=== PATIENT | male | born 1970 | race Two or more races ===

== ENCOUNTER 2019-06-01 10:04 | Inpatient (IN) | payer BC ==
[~2019-06-01] VITALS: Ht 172.7 cm; Wt 72.4 kg
[~2019-06-01 10:04] MED LIST: CYMBALTA30 MG ORAL; SEROQUEL50 MG ORAL
--- NOTE | 2019-06-01 10:13 | Emergency Room Report ---
History of Present Illness General Chief Complaint: Altered Mental Status Source: Patient, EMS Present Illness HPI 39yo M Reported medical history of bipolar disorder and depression as well as stroke with residual right hemiparesis, brought in by ambulance for change in mental status witnessed by . MS reported normal blood sugar, normal vital signs, and patient awake, but simply not speaking to them and in no apparent distress and does not appear to be attempting to communicate. Allergies: Coded Allergies: No Known Allergies (Unverified , 06/01/19) Patient History Limited by: medical condition Past Medical History: unable to obtain Reviewed Nursing Documentation: PMH: Agreed; PSxH: Agreed Nursing Documentation-PMH History Of Psychiatric Problem: Yes - depression and bi-polar Hx Cerebrovascular Accident: Yes - rt sided weakness Review of Systems All Other Systems: limited - 2/2 change in mental status/medical condition Physical Exam Vital Signs Date Time Temp Pulse Resp B/P (MAP) Pulse Ox O2 Delivery O2 Flow Rate FiO2 06/01/19 09:49 97.9 76 20 130/70 (90) 97 Room Air Sp02 EP Interpretation: reviewed, normal General Appearance: alert, non-toxic, mild distress - responding to name, but not following commands Head: normocephalic Eyes: bilateral eye normal inspection, bilateral eye PERRL, bilateral eye EOMI ENT: normal ENT inspection, hearing grossly normal, normal pharynx, no angioedema, normal voice, moist mucus membranes Neck: normal inspection, full range of motion, supple, supple/symm/no masses Respiratory: chest non-tender, lungs clear, normal breath sounds, chest symmetrical, palpation of chest normal Cardiovascular #1: normal peripheral pulses, regular rate, rhythm Cardiovascular #2: 2+ radial (R), 2+ radial (L) Gastrointestinal: normal inspection, non tender, soft, no mass, no guarding, no rebound Rectal: deferred Genitourinary: normal inspection, no CVA tenderness Musculoskeletal: back normal, normal range of motion, no calf tenderness, gait/ station normal, non-tender Neurologic: alert, motor strength/tone normal - moving all extremities slightly , operator supply III-XII nml as tested - no obvious droop, but limited 2/2 cooperation/AMS , sensory intact, responsive - says name slowly, otherwise not responding to orientation questions or commands Psychiatric: anxious - hyperventilating, trying to shift around in stretcher Skin: warm/dry Lymphatic: no adenopathy Medical Decision Making Diagnostic Impression: Primary Impression: Altered mental status ER Course Patient's family is not here, per EMS report he has a history of stroke, he is only on 2 psychiatric medications, there is no known history of seizures. There is also no last known normal time. Differential diagnosis is broad including but not limited to: Intracranial hemorrhage versus stroke versus postictal state versus seizure versus psychosis versus serotonin syndrome versus substance abuse versus head injury versus toxic metabolic encephalopathy He was given 2 mg of IV Ativan to keep him from moving in order to facilitate CT scan. CT head, x-ray, labs, EKG, urine, psychology screens all unremarkable. Patient feels better, suspect he may have had a seizure, will admit to telemetry, Dr. Bakari Logan contacted. EKG Diagnostic Results EKG Time: 10:03 EP Interpretation: No STEMI Rate: normal Rhythm: NSR ST Segments: no acute changes Rhythm Strip Diag. Results Rhythm Strip Time: 10:13 EP Interpretation: yes Rate: 64 Rhythm: NSR, no PVC's, no ectopy Chest X-Ray Diagnostic Results Chest X-Ray Diagnostic Results : Chest X-Ray Ordered: Yes # of Views/Limited/Complete: 1 View Indication: Other - ams EP Interpretation: Yes Interpretation: no consolidation, no effusion, no pneumothorax, no acute cardiopulmonary disease Impression: No acute disease Electronically Signed by: Tish Shea MD CT/MRI/US Diagnostic Results CT/MRI/US Diagnostic Results : Imaging Test Ordered: ct head Reevaluation Time: 11:50 Last Vital Signs Date Time Temp Pulse Resp B/P (MAP) Pulse Ox O2 Delivery O2 Flow Rate FiO2 06/01/19 09:49 97.9 76 20 130/70 (90) 97 Room Air Status: improved Reevaluation Impression Patient is now feeling much better, speaking clearly, and using his smart phone. He cannot tell me exactly what happened today, and although he has no obvious evidence of tongue biting or incontinence, I suspect he may have been postictal from a seizure Disposition: ADMITTED INPATIENT Condition: TISH Adam M.D Jun 01, 2019 10:13
[2019-06-01 10:17] VITALS: BP 137/77
[2019-06-01] MEDS ORDERED: LORazepam Inj 2mg/ml 1ml ONE (10:20)
[2019-06-01] MEDS ORDERED: LORazepam Inj 2mg/ml 1ml IV ONE ×2 (10:30)
[2019-06-01 10:33] LABS: APPEARANCE,URINE CLEAR; BASOPHILS % (AUTO) 0.6 % (0.0-2.0); BILIRUBIN, URINE NEGATIVE (NEGATIVE); EOSINOPHILS % (AUTO) 1.5 % (0.0-3.0); GLUCOSE, URINE (UA) NEGATIVE (NEGATIVE); HEMATOCRIT 40.8 % (42.0-52.0); HEMOGLOBIN 13.6 G/DL (14.2-18.0); KETONES,URINE NEGATIVE (NEGATIVE); LEUKOCYTE ESTERASE ,URINE NEGATIVE (NEGATIVE); LYMPHOCYTES % (AUTO) 25.1 % (20.0-45.0); MEAN CORPUSCULAR VOLUME 86 FL (80-99); MONOCYTES % (AUTO) 9.9 % (1.0-10.0); NEUTROPHILS % (AUTO) 62.9 % (45.0-75.0); NITRITE,URINE NEGATIVE (NEGATIVE); PH,URINE 7 (4.5-8.0); PLATELET COUNT 271 K/UL (150-450); PROTEIN,URINE NEGATIVE (NEGATIVE); RED BLOOD COUNT 4.76 M/UL (4.70-6.10); RED CELL DISTRIBUTION WIDTH 12.2 % (11.6-14.8); UROBILINOGEN,URINE NORMAL MG/DL (0.0-1.0); WHITE BLOOD COUNT 7.9 K/UL (4.8-10.8)
[2019-06-01 10:41] LABS: COLOR,URINE YELLOW
[2019-06-01 10:54] LABS: AMMONIA 27 umol/L (11-32)
[2019-06-01 11:02] LABS: ANION GAP 7 mmol/L (5-15); BLOOD UREA NITROGEN 8 mg/dL (7-18); CALCIUM 8.5 MG/DL (8.5-10.1); CARBON DIOXIDE 28 MMOL/L (21-32); CHLORIDE 105 MMOL/L (98-107); CREATININE 0.8 MG/DL (0.55-1.30); POTASSIUM 3.7 MMOL/L (3.5-5.1); SODIUM 140 MMOL/L (136-145)
[2019-06-01 11:07] LABS: ALANINE AMINOTRANSFERASE 32 U/L (12-78); ALBUMIN 3.7 G/DL (3.4-5.0); ALKALINE PHOSPHATASE 78 U/L (46-116); ASPARTATE AMINO TRANSFERASE 18 U/L (15-37); BILIRUBIN,TOTAL 0.6 MG/DL (0.2-1.0); CREATINE KINASE 160 U/L (26-308)
--- NOTE | 2019-06-01 11:59 | Diagnostic Imaging Report ---
Indication: Dyspnea Comparison: None A single view chest radiograph was obtained. Findings: No definite infiltrate or pulmonary vascular congestion identified. The heart is enlarged. The aorta is mildly enlarged consistent with atherosclerotic vascular disease. There are cervical fusion hardware partially seen. The bones are osteopenic. Impression: No acute disease
[2019-06-01 12:20] VITALS: BP 121/72
--- NOTE | 2019-06-01 12:47 | Diagnostic Imaging Report ---
Indication: Headache Technique: Contiguous 5 mm thick transaxial imaging of the head obtained in a Siemens Sensation [address] scanner. Soft tissue and bone windows generated. Automatic Exposure Control was utilized. Total Dose length Product (DLP): 1300.[address] Dose Index Volume (CTDIvol): 62.7 mGy Comparison: none Findings: The size and configuration of the cortical sulci, basal cisterns, and ventricles are within normal limits for age. There is no mass effect, midline shift, or edema identified. There is no evidence of acute hemorrhage or abnormal intra-axial or extra-axial fluid collections. The bones and soft tissues are unremarkable. Impression: No mass effect, edema or acute bleed. The CT scanner at [facility] is accredited by the [employer] and the scans are performed using dose optimization techniques as appropriate to a performed exam including Automatic Exposure control.
[2019-06-01] MEDS: Aspirin EC 81mg tab ORAL SCH (13:35)
[2019-06-01 13:36] VITALS: BP 115/90
[2019-06-01 14:00] VITALS: BP 102/68
[2019-06-01] MEDS: D5 1/2NS 1,000 ML IV SCH (15:34)
[2019-06-01 16:00] VITALS: BP 105/69
[2019-06-01] MEDS: NovoLOG Insulin Flexpen SUBQ SCH ×2 (16:30→21:00)
[2019-06-01] MEDS ORDERED: Gadavist 7.5mMol/7.5ml vial IV PRN (18:15)
[2019-06-01 20:00] VITALS: BP 132/70
[2019-06-01] MEDS: Heparin 5000 units/ml inj SUBQ SCH (21:00)
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
[2019-06-02] VITALS: BP 102/67
[2019-06-02 04:00] VITALS: BP 118/70
[2019-06-02] MEDS: NovoLOG Insulin Flexpen SUBQ SCH ×4 (06:07→21:00)
[2019-06-02 07:14] LABS: BASOPHILS % (AUTO) 0.7 % (0.0-2.0); EOSINOPHILS % (AUTO) 2.2 % (0.0-3.0); HEMATOCRIT 40.4 % (42.0-52.0); HEMOGLOBIN 13.6 G/DL (14.2-18.0); LYMPHOCYTES % (AUTO) 29.6 % (20.0-45.0); MEAN CORPUSCULAR VOLUME 86 FL (80-99); MONOCYTES % (AUTO) 8.8 % (1.0-10.0); NEUTROPHILS % (AUTO) 58.8 % (45.0-75.0); PLATELET COUNT 272 K/UL (150-450); RED BLOOD COUNT 4.71 M/UL (4.70-6.10); RED CELL DISTRIBUTION WIDTH 12.7 % (11.6-14.8); WHITE BLOOD COUNT 7.5 K/UL (4.8-10.8)
[2019-06-02 07:40] LABS: ALANINE AMINOTRANSFERASE 32 U/L (12-78); ALBUMIN 3.5 G/DL (3.4-5.0); ALKALINE PHOSPHATASE 71 U/L (46-116); ANION GAP 7 mmol/L (5-15); ASPARTATE AMINO TRANSFERASE 18 U/L (15-37); BILIRUBIN,TOTAL 0.5 MG/DL (0.2-1.0); BLOOD UREA NITROGEN 7 mg/dL (7-18); CALCIUM 8.6 MG/DL (8.5-10.1); CARBON DIOXIDE 27 MMOL/L (21-32); CHLORIDE 108 MMOL/L (98-107); CREATININE 0.7 MG/DL (0.55-1.30); SODIUM 142 MMOL/L (136-145)
[2019-06-02 08:00] VITALS: BP 110/75
[2019-06-02] MEDS: Aspirin EC 81mg tab ORAL SCH ×2 (09:00→09:12)
[2019-06-02] MEDS: DULoxetine 30mg cap ORAL SCH ×2 (09:00→09:11)
[2019-06-02] MEDS: Heparin 5000 units/ml inj SUBQ SCH ×3 (09:00→21:46)
[2019-06-02] MEDS: D5 1/2NS 1,000 ML IV SCH (09:11)
[2019-06-02 12:00] VITALS: BP 102/70
--- NOTE | 2019-06-02 12:22 | Consultation ---
History of Present Illness General Date patient seen: Jun 02, 2019 Chief Complaint: Altered Mental Status Present Illness HPI 39 y/o M with hx of bipolar disorder, former tobacco and ETOH use, Dm2, HTN, cervical spine disease s/p surgery w/ residual R hemiparesis presented to ED on 06/01 with mental status change noted by his . Patient was not speaking but was alert and awake. In ED was already more communicative. WBC normal, toxicology negative, CT head neg. Patient recently had flu-like symptoms with sore throat, cough Denied DELGADO. Allergies: Coded Allergies: No Known Allergies (Unverified , 06/01/19) Medication History Scheduled Duloxetine Hcl* (Cymbalta*), 30 MG ORAL DAILY, (Reported) Quetiapine Fumarate (Seroquel), 50 MG ORAL DAILY, (Reported) Patient History Healthcare decision maker Resuscitation status Full Code Advanced Directive on File No Patient History Narrative Pmhx: as above Shx: He stopped drinking around 2014. He used to be a heavy drinker. He smoked 1 package of cigarettes a day for 5 years and stopped smoking in 2016.He is , has 2 children, in good health. Fhx: non contributory Review of Systems All Other Systems: negative except mentioned in HPI Physical Exam Physical Exam Narrative HEENT: Reveals poor dentition. NECK: There is a long vertical surgical scar noted. There is some tenderness of his neck and some limitation of motion. Carotids are +2. No bruits were heard. LUNGS: Breath sounds are decreased bilaterally. CARDIOVASCULAR: The heart tones were decreased. I could not hear any S3, S4, murmurs, rubs, or clicks. ABDOMEN: Obese. Bowel sounds intact. No tenderness, masses, or organomegaly. BACK: There is diffuse tenderness over his back. EXTREMITIES: He has a surgical scar or deformity of the left MCP joint at the thumb. He has other evidence of degenerative joint disease in his hands. Peripheral pulses are decreased in the legs. Last 24 Hour Vital Signs Date Time Temp Pulse Resp B/P (MAP) Pulse Ox O2 Delivery O2 Flow Rate FiO2 06/02/19 12:00 96.6 61 20 102/70 (81) 97 06/02/19 08:27 Room Air 06/02/19 08:00 97.3 59 20 110/75 (87) 98 06/02/19 07:46 57 06/02/19 04:00 53 06/02/19 04:00 98.1 53 16 118/70 (86) 98 06/02/19 00:00 97.5 59 18 102/67 (79) 98 06/02/19 00:00 59 06/01/19 21:00 Room Air 06/01/19 20:00 97.7 65 18 132/70 (90) 98 06/01/19 20:00 65 06/01/19 18:18 Room Air 06/01/19 16:00 79 06/01/19 16:00 97.9 68 18 105/69 (81) 97 06/01/19 14:32 44 06/01/19 14:00 97.3 60 18 102/68 (79) 99 06/01/19 13:58 97.9 60 15 115/90 100 Room Air 06/01/19 13:36 97.9 60 15 115/90 100 Room Air 06/01/19 12:20 97.9 52 15 121/72 95 Room Air Intake and Output 06/01/19 06/02/19 19:00 07:00 Output Total 0 ml Balance 0 ml Output Urine Total 0 ml Laboratory Tests Test 06/02/19 06:15 White Blood Count 7.5 K/UL (4.8-10.8) Red Blood Count 4.71 M/UL (4.70-6.10) Hemoglobin 13.6 G/DL (14.2-18.0) L Hematocrit 40.4 % (42.0-52.0) L Mean Corpuscular Volume 86 FL (80-99) Mean Corpuscular Hemoglobin 28.9 PG (27.0-31.0) Mean Corpuscular Hemoglobin Concent 33.6 G/DL (32.0-36.0) Red Cell Distribution Width 12.7 % (11.6-14.8) Platelet Count 272 K/UL (150-450) Mean Platelet Volume 7.1 FL (6.5-10.1) Neutrophils (%) (Auto) 58.8 % (45.0-75.0) Lymphocytes (%) (Auto) 29.6 % (20.0-45.0) Monocytes (%) (Auto) 8.8 % (1.0-10.0) Eosinophils (%) (Auto) 2.2 % (0.0-3.0) Basophils (%) (Auto) 0.7 % (0.0-2.0) Sodium Level 142 MMOL/L (136-145) Potassium Level 4.0 MMOL/L (3.5-5.1) Chloride Level 108 MMOL/L (98-107) H Carbon Dioxide Level 27 MMOL/L (21-32) Anion Gap 7 mmol/L (5-15) Blood Urea Nitrogen 7 mg/dL (7-18) Creatinine 0.7 MG/DL (0.55-1.30) Estimat Glomerular Filtration Rate > 60 mL/min (>60) Glucose Level 104 MG/DL (74-106) Hemoglobin A1c 5.8 % (4.3-6.0) Calcium Level 8.6 MG/DL (8.5-10.1) Total Bilirubin 0.5 MG/DL (0.2-1.0) Aspartate Amino Transf (AST/SGOT) 18 U/L (15-37) Alanine Aminotransferase (ALT/SGPT) 32 U/L (12-78) Alkaline Phosphatase 71 U/L (46-116) Total Protein 7.0 G/DL (6.4-8.2) Albumin 3.5 G/DL (3.4-5.0) Globulin 3.5 g/dL Albumin/Globulin Ratio 1.0 (1.0-2.7) Height (Feet): 5 Height (Inches): 8.00 Weight (Pounds): 159 Medications Current Medications Medications (Trade) Dose Ordered Sig/Jannet Route PRN Reason Start Time Stop Time Status Last Admin Dose Admin Aspirin (Ecotrin) 162 mg DAILY ORAL 06/01/19 13:30 07/01/19 13:29 06/01/19 13:35 Dextrose (Dextrose 50%) 25 ml Q30M PRN IV Hypoglycemia 06/01/19 15:30 07/01/19 15:29 Dextrose (Dextrose 50%) 50 ml Q30M PRN IV Hypoglycemia 06/01/19 15:30 07/01/19 15:29 Dextrose/Sodium Chloride 1,000 ml @ 60 mls/hr [id number] IV 06/01/19 15:30 07/01/19 15:29 06/02/19 09:11 Duloxetine HCl (Cymbalta) 30 mg DAILY ORAL 06/02/19 09:00 07/02/19 08:59 Gadobutrol (Gadavist) 7.5 mmol NOW PRN IV Radiology Procedure 06/01/19 18:15 06/04/19 18:11 Heparin Sodium (Porcine) (Heparin 5000 units/ml) 5,000 units EVERY 12 HOURS SUBQ 06/01/19 21:00 07/01/19 20:59 Insulin Aspart (NovoLOG) BEFORE MEALS AND HS SUBQ 06/01/19 16:30 07/01/19 16:29 Ondansetron HCl (Zofran) 4 mg Q6H PRN IVP Nausea & Vomiting 06/02/19 09:30 07/02/19 09:29 06/02/19 12:09 Quetiapine Fumarate (SEROqueL) 50 mg DAILY ORAL 06/02/19 09:00 07/02/19 08:59 Assessment/Plan Assessment/Plan: Abx: None Acute encephalopathy -CT head: no acute diseae Cough, URI -CXR: no acute disease Afebrile No leukocytosis bipolar disorder former tobacco and ETOH use Dm2 HTN cervical spine disease s/p surgery w/ residual R hemiparesis Plan: -Continue to monitor off abx -f/u cx -Monitor CBC/CMP, temperatures -influenza sc -f/u Brain MRI -Neuro f/u Thank you for this consultation. Will continue to follow along with you. Discussed with Ml Almonte M.D. Jun 02, 2019 12:22
--- NOTE | 2019-06-02 12:49 | Cardiology Report ---
APPROVED REPORT EKG Measurement Heart [id number] Normal sinus rhythm Normal ECG
[2019-06-02] MEDS: LORazepam 0.5mg tab ORAL SCH ×3 (13:30→13:58)
[2019-06-02] MEDS: Morphine Sulfate 2mg/ml Inj(IV/IM USE ONLY) IVP PRN (13:39)
[2019-06-02] MEDS ORDERED: LORazepam Inj 2mg/ml 1ml IV SCH (13:52)
--- NOTE | 2019-06-02 14:26 | Diagnostic Imaging Report ---
Indications: Altered mental status, history of stroke with right-sided hemiparesis Technique: 3D [id number] images obtained through the [employer]. MIP reconstructions were generated in multiple rotational projections Comparison: None. Reference made to CT dated 06/01/2019 Findings: The right distal vertebral artery is slightly larger than the left. There are both patent and nonstenotic. Patent nonstenotic basilar artery and branches. Patent nonstenotic bilateral P1 segments and proximal posterior cerebral arteries. Neither posterior communicating artery is demonstrated. Patent and nonstenotic distal internal carotid arteries bilaterally. Patent nonstenotic bilateral A1 segments, M1 segments, and proximal branches. There is probably a patent anterior communicating artery demonstrated. There is no evidence of aneurysm. No evidence of vascular malformation Impression: Negative. No evidence of proximal cerebrovascular insufficiency demonstrated.
[2019-06-02 16:00] VITALS: BP 102/66
[2019-06-02] MEDS ORDERED: Omnipaue 350mg/ml 100ml vial INJ PRN ×2 (16:00)
--- NOTE | 2019-06-02 16:45 | History and Physical Report ---
DATE OF ADMISSION: 06/01/2019 DATE AND TIME SEEN: 06/02/2019 at 11 a.m. CONSULTANTS: 1. Martínez Antony M.D. 2. Johnathan Kirk M.D. 3. Ramona Miramontes M.D. CHIEF COMPLAINT: Altered mental status, schizophrenia, and history of CVA. BRIEF HISTORY: This is a 39-year-old male, who lives at home, presented to [facility] with above-mentioned diagnoses. Currently, very weak, confused in bed, not talking much. REVIEW OF SYSTEMS: Unavailable. PAST MEDICAL HISTORY: Hypertension, diabetes, and CVA. PAST SURGICAL HISTORY: None. ALLERGIES: Denies. MEDICATIONS: Include Zofran, Cymbalta, Seroquel, heparin, NovoLog, and aspirin. SOCIAL HISTORY: No smoking. No alcohol. No intravenous drug abuse. FAMILY HISTORY: Noncontributory. PHYSICAL EXAMINATION: GENERAL: Lethargic in bed, confused, disoriented x3. VITAL SIGNS: Temperature is 97 degrees, pulse 59, respirations 20, and blood pressure 110/75. CARDIOVASCULAR: No murmur. LUNGS: Distant and clear. ABDOMEN: Positive bowel sounds. Soft, nontender, and nondistended. EXTREMITIES: Show no cyanosis, clubbing, or edema. NEUROLOGIC: The patient moves all extremities, slightly weak. LABORATORY AND DIAGNOSTIC DATA: Labs at this time show hemoglobin and hematocrit 13/40, otherwise CBC is normal. BMP shows chloride 108, otherwise normal. Troponin 0.00. Albumin is 3.5. Urinalysis shows 1+ blood, otherwise normal. Urine tox is negative. ASSESSMENT: 1. Altered mental status. 2. Schizophrenia. 3. CVA history. 4. Hypertension. 5. Diabetes. PLAN: 1. Blood pressure, blood sugar and pain control. 2. Dietary followup. 3. Neurology and psych evaluation. 4. PT and dietary evaluation. 5. CBC and BMP in the morning. Bakari Logan D.O. DR: FABIOLA JOB#: [id number] CC:
[2019-06-02 20:00] VITALS: BP 102/70
--- NOTE | 2019-06-02 23:31 | Electroencephalogram ---
DATE OF PROCEDURE: 06/01/2019 REQUESTING PHYSICIAN: Bakari Logan D.O. READING PHYSICIAN: Primitivo Weber M.D. PROCEDURE PERFORMED: Electroencephalogram. HISTORY: This EEG was performed on a 39-year-old gentleman with a history of bipolar disease, cerebrovascular disease with a prior stroke, and alteration in mental state. The purpose of this EEG was to evaluate the patient for ongoing ictal or interictal phenomena. TECHNICAL NOTE: This EEG was performed on a [employer] with electrodes placed on the scalp according to the international 10-20 system. Lxjax-ov-oczij and vlgjb-nu-grs montages were used. The EEG was technically satisfactory and was performed in the awake, drowsy, and sleep states. OBSERVATIONS: In the best-awake state, the background activity consisted of 9 to 9.5 hertz posteriorly predominant well-developed alpha waveforms, which attenuated on eye opening. Drowsiness was characterized by dissolution of the alpha rhythm and appearance of slower frequencies in the 5 to 6 hertz theta range. Stage 2 sleep was characterized by further slowing of the background in the delta and theta range, the presence of vertex waves, and 14 hertz sleep spindles. No focal abnormalities or epileptiform discharges were seen. IMPRESSION: Normal awake, drowsy, and stage 2 sleep EEG. Primitivo Weber M.D. DR: Tato JOB#: [id number] CC:
[2019-06-03] VITALS: BP 127/67
[2019-06-03] MEDS: D5 1/2NS 1,000 ML IV SCH (00:50)
[2019-06-03 04:00] VITALS: BP 120/76
[2019-06-03] MEDS: NovoLOG Insulin Flexpen SUBQ SCH ×4 (06:00→21:00)
[2019-06-03 07:12] LABS: BASOPHILS % (AUTO) 0.9 % (0.0-2.0); EOSINOPHILS % (AUTO) 2.4 % (0.0-3.0); HEMOGLOBIN 13.7 G/DL (14.2-18.0); LYMPHOCYTES % (AUTO) 26.6 % (20.0-45.0); MEAN CORPUSCULAR VOLUME 86 FL (80-99); MONOCYTES % (AUTO) 8.7 % (1.0-10.0); NEUTROPHILS % (AUTO) 61.4 % (45.0-75.0); PLATELET COUNT 275 K/UL (150-450); RED BLOOD COUNT 4.77 M/UL (4.70-6.10); RED CELL DISTRIBUTION WIDTH 12.8 % (11.6-14.8); WHITE BLOOD COUNT 8.3 K/UL (4.8-10.8)
--- NOTE | 2019-06-03 07:18 | CDS Physician Query ---
Clarification is required for compliance, coding accuracy, and to reflect severity of illness for this patient Dear Dr. Bakari Logan D.O. Date: 06/03/2019 Chip Silo Tender/CDS Name: Franklin Abbott This is a 39-year-old male, who lives at home, presented to [facility] with above-mentioned diagnoses. Currently, very weak, confused in bed, not talking much. "Altered Mental Status" documented in H&P Please indicate the nature and chronicity of the condition below: [] Metabolic Encephalopathy [] Toxic Encephalopathy [] Toxic - Metabolic Encephalopathy [] Encephalopathy, Other [] Dementia with Delirium [] Hypoxic encephalopathy [] Posterior reversible encephalopathy syndrome [] Other: [] Not Applicable Present on Admission: [] Yes [] No [] Clinically Undetermined Physician signature Date Please also document in your Progress Notes and/or Discharge Summary and indicate if the condition was present on admission. MTDD
[2019-06-03 07:27] LABS: ANION GAP 9 mmol/L (5-15); BLOOD UREA NITROGEN 13 mg/dL (7-18); CALCIUM 9.1 MG/DL (8.5-10.1); CARBON DIOXIDE 23 MMOL/L (21-32); CHLORIDE 110 MMOL/L (98-107); CREATININE 0.7 MG/DL (0.55-1.30); POTASSIUM 4.2 MMOL/L (3.5-5.1); SODIUM 142 MMOL/L (136-145)
[2019-06-03 08:00] VITALS: BP 109/67
[2019-06-03] MEDS: Heparin 5000 units/ml inj SUBQ SCH ×2 (09:00→21:00)
[2019-06-03] MEDS: Aspirin EC 81mg tab ORAL SCH (09:59)
[2019-06-03] MEDS: DULoxetine 30mg cap ORAL SCH (10:00)
--- NOTE | 2019-06-03 10:04 | General Progress Note ---
Assessment/Plan Problem List: (1) CVA (cerebral vascular accident) ICD Codes: I63.9 - Cerebral infarction, unspecified SNOMED: 841538281 (2) HTN (hypertension) ICD Codes: I10 - Essential (primary) hypertension SNOMED: 00596022 (3) Diabetes ICD Codes: E11.9 - Type 2 diabetes mellitus without complications SNOMED: 38550468 (4) Altered mental status ICD Codes: R41.82 - Altered mental status, unspecified SNOMED: 153995753 Status: unchanged Assessment/Plan: pt diet neuro f/u cbc bmp am ct head Subjective Constitutional: Reports: weakness Allergies: Coded Allergies: No Known Allergies (Unverified , 06/01/19) All Systems: reviewed and negative except above Subjective sleepy calm Objective Last 24 Hour Vital Signs Date Time Temp Pulse Resp B/P (MAP) Pulse Ox O2 Delivery O2 Flow Rate FiO2 06/03/19 08:00 97.5 62 20 109/67 (81) 98 06/03/19 07:31 52 06/03/19 04:00 57 06/03/19 04:00 98.4 60 18 120/76 (91) 98 06/03/19 00:00 54 06/03/19 00:00 97.6 56 18 127/67 (87) 98 06/02/19 21:00 Room Air 06/02/19 20:00 98.4 72 18 102/70 (81) 98 06/02/19 20:00 75 06/02/19 16:00 96.3 68 20 102/66 (78) 97 06/02/19 15:40 58 06/02/19 14:09 96.6 06/02/19 12:00 96.6 61 20 102/70 (81) 97 06/02/19 11:41 59 Intake and Output 06/02/19 06/03/19 19:00 07:00 Intake Total 660 ml 180 ml Balance 660 ml 180 ml Intake Oral 240 ml 120 ml IV Total 420 ml 60 ml # Voids 3 3 # Bowel Movements 1 Laboratory Tests 06/03/19 06:03: White Blood Count 8.3, Red Blood Count 4.77, Hemoglobin 13.7L, Hematocrit 41.0L , Mean Corpuscular Volume 86, Mean Corpuscular Hemoglobin 28.8, Mean Corpuscular Hemoglobin Concent 33.5, Red Cell Distribution Width 12.8, Platelet Count 275, Mean Platelet Volume 6.6, Neutrophils (%) (Auto) 61.4, Lymphocytes (% ) (Auto) 26.6, Monocytes (%) (Auto) 8.7, Eosinophils (%) (Auto) 2.4, Basophils ( %) (Auto) 0.9, Sodium Level 142, Potassium Level 4.2, Chloride Level 110H, Carbon Dioxide Level 23, Anion Gap 9, Blood Urea Nitrogen 13, Creatinine 0.7, Estimat Glomerular Filtration Rate > 60, Glucose Level 107H, Calcium Level 9.1 Height (Feet): 5 Height (Inches): 8.00 Weight (Pounds): 159 General Appearance: lethargic EENT: normal ENT inspection Neck: normal alignment Cardiovascular: normal peripheral pulses, normal rate, regular rhythm Respiratory/Chest: chest wall non-tender, lungs clear, normal breath sounds Abdomen: normal bowel sounds, non tender, soft Extremities: normal inspection Neurologic: motor weakness Skin: normal pigmentation, warm/dry Bakari Logan DO Jun 03, 2019 10:04
--- NOTE | 2019-06-03 11:36 | Diagnostic Imaging Report ---
NDICATION: Altered mental status, history of stroke with right-sided hemiparesis TECHNIQUE: IV administration nonionic contrast. Spiral acquisitions obtained from the lung bases to the lung apices. Multiplanar and 3-D reconstructions were generated. Total dose length product 613 mGycm. CTDIvol(s) 32, 57, 14 mGy. Dose reduction achieved using automated exposure control COMPARISON: none FINDINGS Vascular: The aortic arch is normal in caliber and there is no evidence of dissection. There is variant great vessel branching anatomy, with separate origin of the left vertebral artery off of the aortic arch. This is unusual in that the vertebral artery comes off distal to the left subclavian artery rather than proximal The right brachiocephalic, common carotid artery, and internal carotid artery are patent, nonstenotic, without significant atherosclerotic plaquing demonstrated. The right proximal subclavian artery is patent and nonstenotic. The right vertebral artery is codominant, patent, nonstenotic The left common carotid artery is patent, nonstenotic, without significant atherosclerotic plaquing. The internal carotid artery is likewise patent, nonstenotic, without evidence of narrowing or dissection. As mentioned earlier, the left vertebral artery originates separately off of the aortic arch. It is patent and nonstenotic, without significant atherosclerotic changes. The intracranial vessels are also described on earlier MRA report, no significant intracranial stenosis demonstrated. Nonvascular: Unusual reticulated and calcified material is seen within the right maxillary sinus. There is evidence of extensive dental disease, with losses of multiple teeth, evidence of apical root abscess surrounding the remaining left molar, extensive erosion and sclerosis of the alveolar ridge of the maxilla,, evidence of periodontal disease of multiple remaining mandibular teeth, and sclerosis of the mandible. There is surgical hardware in the left mandibular ramus. No cervical mass or adenopathy. The parapharyngeal spaces are clear. The salivary glands appear unremarkable. There is evidence of extensive posterior cervical spine fusion surgery. There is evidence of degenerative cervical spondylosis The thyroid is unremarkable. The included lung apices are clear. The included upper mediastinum is unremarkable. 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
--- NOTE | 2019-06-03 13:31 | Infectious Diseases Prog Note ---
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 No evidence of proximal cerebrovascular insufficiency demonstrated. Cough, URI -CXR: no acute disease Afebrile No leukocytosis bipolar disorder former tobacco and ETOH use Dm2 HTN cervical spine disease s/p surgery w/ residual R hemiparesis Plan: -Continue to monitor off abx -f/u cx -Monitor CBC/CMP, temperatures -influenza sc -Neuro f/u Thank you for this consultation. Will continue to follow along with you. Discussed with RN Subjective Allergies: Coded Allergies: No Known Allergies (Unverified , 06/01/19) Subjective afebrile no leukocytosis off abx Objective Vital Signs Last 24 Hour Vital Signs Date Time Temp Pulse Resp B/P (MAP) Pulse Ox O2 Delivery O2 Flow Rate FiO2 06/03/19 12:00 86 06/03/19 09:00 Room Air 06/03/19 08:00 97.5 62 20 109/67 (81) 98 06/03/19 07:31 52 06/03/19 04:00 57 06/03/19 04:00 98.4 60 18 120/76 (91) 98 06/03/19 00:00 54 06/03/19 00:00 97.6 56 18 127/67 (87) 98 06/02/19 21:00 Room Air 06/02/19 20:00 98.4 72 18 102/70 (81) 98 06/02/19 20:00 75 06/02/19 16:00 96.3 68 20 102/66 (78) 97 06/02/19 15:40 58 06/02/19 14:09 96.6 Height (Feet): 5 Height (Inches): 8.00 Weight (Pounds): 159 Objective HEENT: Reveals poor dentition. NECK: There is a long vertical surgical scar noted. There is some tenderness of his neck and some limitation of motion. Carotids are +2. No bruits were heard. LUNGS: Breath sounds are decreased bilaterally. CARDIOVASCULAR: The heart tones were decreased. I could not hear any S3, S4, murmurs, rubs, or clicks. ABDOMEN: Obese. Bowel sounds intact. No tenderness, masses, or organomegaly. BACK: There is diffuse tenderness over his back. EXTREMITIES: He has a surgical scar or deformity of the left MCP joint at the thumb. He has other evidence of degenerative joint disease in his hands. Peripheral pulses are decreased in the legs. Laboratory Tests Test 06/03/19 06:03 White Blood Count 8.3 K/UL (4.8-10.8) Red Blood Count 4.77 M/UL (4.70-6.10) Hemoglobin 13.7 G/DL (14.2-18.0) L Hematocrit 41.0 % (42.0-52.0) L Mean Corpuscular Volume 86 FL (80-99) Mean Corpuscular Hemoglobin 28.8 PG (27.0-31.0) Mean Corpuscular Hemoglobin Concent 33.5 G/DL (32.0-36.0) Red Cell Distribution Width 12.8 % (11.6-14.8) Platelet Count 275 K/UL (150-450) Mean Platelet Volume 6.6 FL (6.5-10.1) Neutrophils (%) (Auto) 61.4 % (45.0-75.0) Lymphocytes (%) (Auto) 26.6 % (20.0-45.0) Monocytes (%) (Auto) 8.7 % (1.0-10.0) Eosinophils (%) (Auto) 2.4 % (0.0-3.0) Basophils (%) (Auto) 0.9 % (0.0-2.0) Sodium Level 142 MMOL/L (136-145) Potassium Level 4.2 MMOL/L (3.5-5.1) Chloride Level 110 MMOL/L (98-107) H Carbon Dioxide Level 23 MMOL/L (21-32) Anion Gap 9 mmol/L (5-15) Blood Urea Nitrogen 13 mg/dL (7-18) Creatinine 0.7 MG/DL (0.55-1.30) Estimat Glomerular Filtration Rate > 60 mL/min (>60) Glucose Level 107 MG/DL (74-106) H Calcium Level 9.1 MG/DL (8.5-10.1) Current Medications Medications (Trade) Dose Ordered Sig/Jannet Route PRN Reason Start Time Stop Time Status Last Admin Dose Admin Aspirin (Ecotrin) 162 mg DAILY ORAL 06/01/19 13:30 07/01/19 13:29 06/03/19 09:59 Dextrose (Dextrose 50%) 25 ml Q30M PRN IV Hypoglycemia 06/01/19 15:30 07/01/19 15:29 Dextrose (Dextrose 50%) 50 ml Q30M PRN IV Hypoglycemia 06/01/19 15:30 07/01/19 15:29 Duloxetine HCl (Cymbalta) 30 mg DAILY ORAL 06/02/19 09:00 07/02/19 08:59 06/03/19 10:00 Gadobutrol (Gadavist) 7.5 mmol NOW PRN IV Radiology Procedure 06/01/19 18:15 06/04/19 18:11 Heparin Sodium (Porcine) (Heparin 5000 units/ml) 5,000 units EVERY 12 HOURS SUBQ 06/01/19 21:00 07/01/19 20:59 06/02/19 21:46 Insulin Aspart (NovoLOG) BEFORE MEALS AND HS SUBQ 06/01/19 16:30 07/01/19 16:29 06/03/19 12:18 Iohexol (Omnipaque) 100 mg NOW PRN INJ Radiology Procedure 06/02/19 16:00 06/04/19 15:47 Iohexol (Omnipaque) 100 mg NOW PRN INJ Radiology Procedure 06/02/19 16:00 06/04/19 15:47 Morphine Sulfate (Morphine Sulfate) 2 mg Q4H PRN IVP For Pain 06/02/19 13:19 06/09/19 13:18 06/02/19 13:39 Ondansetron HCl (Zofran) 4 mg Q6H PRN IVP Nausea & Vomiting 06/02/19 09:30 07/02/19 09:29 06/02/19 12:09 Quetiapine Fumarate (SEROqueL) 50 mg DAILY ORAL 06/02/19 09:00 07/02/19 08:59 06/03/19 09:59 Ml Donald M.D. Jun 03, 2019 13:31
--- NOTE | 2019-06-03 13:39 | Diagnostic Imaging Report ---
Indication: Altered mental status, history of bipolar disorder and depression, history of stroke with right-sided hemiparesis Technique: sagittal T1 fast spin echo, axial T1 FLAIR, axial T2 FLAIR, axial T2 FS PROPELLER, axial T2* GRE, axial diffusion weighted images. ADC and exponential ADC maps generated Comparison: No comparison MRI. Reference made to brain CT dated 06/01/2019 Findings: No abnormal areas of restricted diffusion to suggest acute infarction. No acute hemorrhage or edema. No mass effect nor midline shift. The ventricles and extra-axial CSF spaces are somewhat prominent for age.. There is right greater than left maxillary sinus opacities. The vascular flow voids are preserved. The sagittal images demonstrate fusion hardware in the mid to lower cervical spine. Impression: Mild prominence of the ventricles and extra axial CSF spaces. Otherwise essentially unremarkable exam. Negative for acute intracranial bleed, mass effect, or acute infarct. Sinus disease and spinal fusion hardware incidentally noted
[2019-06-03 16:00] VITALS: BP 106/71
[2019-06-04 04:00] VITALS: BP 118/74
[2019-06-04] MEDS: NovoLOG Insulin Flexpen SUBQ SCH ×4 (06:05→21:00)
[2019-06-04 08:16] LABS: BASOPHILS % (AUTO) 0.8 % (0.0-2.0); EOSINOPHILS % (AUTO) 2.5 % (0.0-3.0); HEMATOCRIT 43.3 % (42.0-52.0); HEMOGLOBIN 14.5 G/DL (14.2-18.0); LYMPHOCYTES % (AUTO) 28.8 % (20.0-45.0); MEAN CORPUSCULAR VOLUME 87 FL (80-99); MONOCYTES % (AUTO) 6.5 % (1.0-10.0); NEUTROPHILS % (AUTO) 61.3 % (45.0-75.0); PLATELET COUNT 285 K/UL (150-450); RED BLOOD COUNT 5.01 M/UL (4.70-6.10); RED CELL DISTRIBUTION WIDTH 12.7 % (11.6-14.8); WHITE BLOOD COUNT 8.8 K/UL (4.8-10.8)
[2019-06-04 08:38] VITALS: BP 131/87
[2019-06-04 08:41] LABS: ANION GAP 8 mmol/L (5-15); BLOOD UREA NITROGEN 10 mg/dL (7-18); CALCIUM 9.1 MG/DL (8.5-10.1); CARBON DIOXIDE 28 MMOL/L (21-32); CHLORIDE 107 MMOL/L (98-107); CREATININE 0.8 MG/DL (0.55-1.30); POTASSIUM 3.8 MMOL/L (3.5-5.1); SODIUM 143 MMOL/L (136-145)
[2019-06-04] MEDS: Aspirin EC 81mg tab ORAL SCH (09:35)
[2019-06-04] MEDS: DULoxetine 30mg cap ORAL SCH (09:35)
[2019-06-04] MEDS: Heparin 5000 units/ml inj SUBQ SCH ×2 (09:36→21:24)
--- NOTE | 2019-06-04 09:44 | General Progress Note ---
Assessment/Plan Problem List: (1) CVA (cerebral vascular accident) ICD Codes: I63.9 - Cerebral infarction, unspecified SNOMED: 729377432 (2) HTN (hypertension) ICD Codes: I10 - Essential (primary) hypertension SNOMED: 53084449 (3) Diabetes ICD Codes: E11.9 - Type 2 diabetes mellitus without complications SNOMED: 86132458 (4) Altered mental status ICD Codes: R41.82 - Altered mental status, unspecified SNOMED: 122991007 Status: unchanged Assessment/Plan: pt diet neuro f/u cbc bmp am dc plan w hh Subjective Constitutional: Reports: weakness Allergies: Coded Allergies: No Known Allergies (Unverified , 06/01/19) All Systems: reviewed and negative except above Subjective sleepy calm Objective Last 24 Hour Vital Signs Date Time Temp Pulse Resp B/P (MAP) Pulse Ox O2 Delivery O2 Flow Rate FiO2 06/04/19 08:45 Room Air 06/04/19 08:38 99.1 53 18 131/87 (102) 95 06/04/19 04:00 98.1 48 18 118/74 (89) 97 06/04/19 04:00 48 06/04/19 00:00 45 06/04/19 00:00 45 06/03/19 21:00 Room Air 06/03/19 20:00 60 06/03/19 20:00 60 06/03/19 16:00 96.6 80 20 106/71 (83) 98 06/03/19 15:18 51 06/03/19 12:00 86 Intake and Output 06/03/19 06/04/19 19:00 07:00 Intake Total 940 ml 800 ml Output Total 0 ml Balance 940 ml 800 ml Intake Oral 940 ml 800 ml Output Urine Total 0 ml # Voids 3 5 # Bowel Movements 1 Laboratory Tests 06/04/19 06:02: White Blood Count 8.8, Red Blood Count 5.01, Hemoglobin 14.5, Hematocrit 43.3, Mean Corpuscular Volume 87, Mean Corpuscular Hemoglobin 29.0, Mean Corpuscular Hemoglobin Concent 33.6, Red Cell Distribution Width 12.7, Platelet Count 285, Mean Platelet Volume 6.4L, Neutrophils (%) (Auto) 61.3, Lymphocytes (%) (Auto) 28.8, Monocytes (%) (Auto) 6.5, Eosinophils (%) (Auto) 2.5, Basophils (%) (Auto ) 0.8, Sodium Level 143, Potassium Level 3.8, Chloride Level 107, Carbon Dioxide Level 28, Anion Gap 8, Blood Urea Nitrogen 10, Creatinine 0.8, Estimat Glomerular Filtration Rate > 60, Glucose Level 94, Calcium Level 9.1 Height (Feet): 5 Height (Inches): 8.00 Weight (Pounds): 159 General Appearance: lethargic EENT: normal ENT inspection Neck: normal alignment Cardiovascular: normal peripheral pulses, normal rate, regular rhythm Respiratory/Chest: chest wall non-tender, lungs clear, normal breath sounds Abdomen: normal bowel sounds, non tender, soft Extremities: normal inspection Edema: no edema noted Arm (L), no edema noted Arm (R), no edema noted Leg (L), no edema noted Leg (R), no edema noted Pedal (L), no edema noted Pedal (R), no edema noted Generalized Neurologic: motor weakness Skin: normal pigmentation, warm/dry Bakari Logan DO Jun 04, 2019 09:44
[2019-06-04 12:00] VITALS: BP 104/60
--- NOTE | 2019-06-04 12:34 | Infectious Diseases Prog Note ---
Assessment/Plan Assessment/Plan Abx: None Acute encephalopathy -BRain MRI: Mild prominence of the ventricles and extra axial CSF spaces. Otherwise essentially unremarkable exam. 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 No evidence of proximal cerebrovascular insufficiency demonstrated. Cough, URI -CXR: no acute disease Afebrile No leukocytosis bipolar disorder former tobacco and ETOH use Dm2 HTN cervical spine disease s/p surgery w/ residual R hemiparesis Plan: -Continue to monitor off abx -f/u cx -Monitor CBC/CMP, temperatures -influenza sc -Neuro f/u Thank you for this consultation. Will continue to follow along with you. Discussed with RN Subjective Allergies: Coded Allergies: No Known Allergies (Unverified , 06/01/19) Subjective afebrile no leukocytosis off abx Objective Vital Signs Last 24 Hour Vital Signs Date Time Temp Pulse Resp B/P (MAP) Pulse Ox O2 Delivery O2 Flow Rate FiO2 06/04/19 08:45 Room Air 06/04/19 08:38 99.1 53 18 131/87 (102) 95 06/04/19 04:00 98.1 48 18 118/74 (89) 97 06/04/19 04:00 48 06/04/19 00:00 45 06/04/19 00:00 45 06/03/19 21:00 Room Air 06/03/19 20:00 60 06/03/19 20:00 60 06/03/19 16:00 96.6 80 20 106/71 (83) 98 06/03/19 15:18 51 Height (Feet): 5 Height (Inches): 8.00 Weight (Pounds): 159 Objective HEENT: Reveals poor dentition. NECK: There is a long vertical surgical scar noted. There is some tenderness of his neck and some limitation of motion. Carotids are +2. No bruits were heard. LUNGS: Breath sounds are decreased bilaterally. CARDIOVASCULAR: The heart tones were decreased. I could not hear any S3, S4, murmurs, rubs, or clicks. ABDOMEN: Obese. Bowel sounds intact. No tenderness, masses, or organomegaly. BACK: There is diffuse tenderness over his back. EXTREMITIES: He has a surgical scar or deformity of the left MCP joint at the thumb. He has other evidence of degenerative joint disease in his hands. Peripheral pulses are decreased in the legs. Laboratory Tests Test 06/04/19 06:02 White Blood Count 8.8 K/UL (4.8-10.8) Red Blood Count 5.01 M/UL (4.70-6.10) Hemoglobin 14.5 G/DL (14.2-18.0) Hematocrit 43.3 % (42.0-52.0) Mean Corpuscular Volume 87 FL (80-99) Mean Corpuscular Hemoglobin 29.0 PG (27.0-31.0) Mean Corpuscular Hemoglobin Concent 33.6 G/DL (32.0-36.0) Red Cell Distribution Width 12.7 % (11.6-14.8) Platelet Count 285 K/UL (150-450) Mean Platelet Volume 6.4 FL (6.5-10.1) L Neutrophils (%) (Auto) 61.3 % (45.0-75.0) Lymphocytes (%) (Auto) 28.8 % (20.0-45.0) Monocytes (%) (Auto) 6.5 % (1.0-10.0) Eosinophils (%) (Auto) 2.5 % (0.0-3.0) Basophils (%) (Auto) 0.8 % (0.0-2.0) Sodium Level 143 MMOL/L (136-145) Potassium Level 3.8 MMOL/L (3.5-5.1) Chloride Level 107 MMOL/L (98-107) Carbon Dioxide Level 28 MMOL/L (21-32) Anion Gap 8 mmol/L (5-15) Blood Urea Nitrogen 10 mg/dL (7-18) Creatinine 0.8 MG/DL (0.55-1.30) Estimat Glomerular Filtration Rate > 60 mL/min (>60) Glucose Level 94 MG/DL (74-106) Calcium Level 9.1 MG/DL (8.5-10.1) Current Medications Medications (Trade) Dose Ordered Sig/Jannet Route PRN Reason Start Time Stop Time Status Last Admin Dose Admin Aspirin (Ecotrin) 162 mg DAILY ORAL 06/01/19 13:30 07/01/19 13:29 06/04/19 09:35 Dextrose (Dextrose 50%) 25 ml Q30M PRN IV Hypoglycemia 06/01/19 15:30 07/01/19 15:29 Dextrose (Dextrose 50%) 50 ml Q30M PRN IV Hypoglycemia 06/01/19 15:30 07/01/19 15:29 Duloxetine HCl (Cymbalta) 30 mg DAILY ORAL 06/02/19 09:00 07/02/19 08:59 06/04/19 09:35 Gadobutrol (Gadavist) 7.5 mmol NOW PRN IV Radiology Procedure 06/01/19 18:15 06/04/19 18:11 Heparin Sodium (Porcine) (Heparin 5000 units/ml) 5,000 units EVERY 12 HOURS SUBQ 06/01/19 21:00 07/01/19 20:59 06/04/19 09:36 Insulin Aspart (NovoLOG) BEFORE MEALS AND HS SUBQ 06/01/19 16:30 07/01/19 16:29 06/03/19 12:18 Iohexol (Omnipaque) 100 mg NOW PRN INJ Radiology Procedure 06/02/19 16:00 06/04/19 15:47 Iohexol (Omnipaque) 100 mg NOW PRN INJ Radiology Procedure 06/02/19 16:00 06/04/19 15:47 Morphine Sulfate (Morphine Sulfate) 2 mg Q4H PRN IVP For Pain 06/02/19 13:19 06/09/19 13:18 06/02/19 13:39 Ondansetron HCl (Zofran) 4 mg Q6H PRN IVP Nausea & Vomiting 06/02/19 09:30 07/02/19 09:29 06/02/19 12:09 Quetiapine Fumarate (SEROqueL) 50 mg DAILY ORAL 06/02/19 09:00 07/02/19 08:59 06/04/19 09:35 Ml Donald M.D. Jun 04, 2019 12:34
[2019-06-04 16:07] VITALS: BP 113/71
[2019-06-04 20:00] VITALS: BP 131/87
[2019-06-04] MEDS: Morphine Sulfate 2mg/ml Inj(IV/IM USE ONLY) IVP PRN (23:22)
[2019-06-05] VITALS: BP 118/82
[2019-06-05 04:00] VITALS: BP 125/85
[2019-06-05] MEDS: NovoLOG Insulin Flexpen SUBQ SCH ×4 (05:38→21:38)
[2019-06-05 07:24] LABS: BASOPHILS % (AUTO) 0.6 % (0.0-2.0); EOSINOPHILS % (AUTO) 2.6 % (0.0-3.0); HEMOGLOBIN 14.4 G/DL (14.2-18.0); LYMPHOCYTES % (AUTO) 30.3 % (20.0-45.0); MEAN CORPUSCULAR VOLUME 87 FL (80-99); MONOCYTES % (AUTO) 6.8 % (1.0-10.0); NEUTROPHILS % (AUTO) 59.8 % (45.0-75.0); PLATELET COUNT 285 K/UL (150-450); RED BLOOD COUNT 4.96 M/UL (4.70-6.10); RED CELL DISTRIBUTION WIDTH 12.7 % (11.6-14.8); WHITE BLOOD COUNT 8.5 K/UL (4.8-10.8)
[2019-06-05 07:54] LABS: ANION GAP 11 mmol/L (5-15); BLOOD UREA NITROGEN 12 mg/dL (7-18); CALCIUM 9.4 MG/DL (8.5-10.1); CARBON DIOXIDE 24 MMOL/L (21-32); CHLORIDE 108 MMOL/L (98-107); CREATININE 0.8 MG/DL (0.55-1.30); POTASSIUM 3.8 MMOL/L (3.5-5.1); SODIUM 143 MMOL/L (136-145)
[2019-06-05 08:00] VITALS: BP 129/85
[2019-06-05] MEDS: Aspirin EC 81mg tab ORAL SCH (08:51)
[2019-06-05] MEDS: DULoxetine 30mg cap ORAL SCH (08:51)
[2019-06-05] MEDS: Heparin 5000 units/ml inj SUBQ SCH ×2 (08:53→21:37)
--- NOTE | 2019-06-05 08:53 | General Progress Note ---
Assessment/Plan Problem List: (1) CVA (cerebral vascular accident) ICD Codes: I63.9 - Cerebral infarction, unspecified SNOMED: 719642195 (2) HTN (hypertension) ICD Codes: I10 - Essential (primary) hypertension SNOMED: 01413548 (3) Diabetes ICD Codes: E11.9 - Type 2 diabetes mellitus without complications SNOMED: 91972167 (4) Altered mental status ICD Codes: R41.82 - Altered mental status, unspecified SNOMED: 236811587 Status: progressing Assessment/Plan: pt diet neuro f/u cbc bmp am dc plan if clear Subjective Constitutional: Reports: weakness Allergies: Coded Allergies: No Known Allergies (Unverified , 06/01/19) All Systems: reviewed and negative except above Subjective sleepy calm Objective Last 24 Hour Vital Signs Date Time Temp Pulse Resp B/P (MAP) Pulse Ox O2 Delivery O2 Flow Rate FiO2 06/05/19 04:00 96.8 70 18 125/85 (98) 97 06/05/19 03:57 59 06/05/19 00:00 57 06/05/19 00:00 97.5 65 18 118/82 (94) 98 06/04/19 21:00 Room Air 06/04/19 20:00 57 06/04/19 20:00 99.1 53 18 131/87 (102) 95 06/04/19 16:07 97.7 60 18 113/71 (85) 95 06/04/19 16:00 61 06/04/19 12:00 99.0 70 18 104/60 (75) 94 06/04/19 11:44 70 Intake and Output 06/04/19 06/05/19 19:00 07:00 Intake Total 720 ml 150 ml Balance 720 ml 150 ml Intake Oral 720 ml 150 ml # Voids 2 1 # Bowel Movements 1 Laboratory Tests 06/05/19 06:45: White Blood Count 8.5, Red Blood Count 4.96, Hemoglobin 14.4, Hematocrit 43.0, Mean Corpuscular Volume 87, Mean Corpuscular Hemoglobin 29.1, Mean Corpuscular Hemoglobin Concent 33.6, Red Cell Distribution Width 12.7, Platelet Count 285, Mean Platelet Volume 6.3L, Neutrophils (%) (Auto) 59.8, Lymphocytes (%) (Auto) 30.3, Monocytes (%) (Auto) 6.8, Eosinophils (%) (Auto) 2.6, Basophils (%) (Auto ) 0.6, Sodium Level 143, Potassium Level 3.8, Chloride Level 108H, Carbon Dioxide Level 24, Anion Gap 11, Blood Urea Nitrogen 12, Creatinine 0.8, Estimat Glomerular Filtration Rate > 60, Glucose Level 91, Calcium Level 9.4 Height (Feet): 5 Height (Inches): 8.00 Weight (Pounds): 159 General Appearance: lethargic, confused EENT: normal ENT inspection Neck: normal alignment Cardiovascular: normal peripheral pulses, normal rate, regular rhythm Respiratory/Chest: chest wall non-tender, lungs clear, normal breath sounds Abdomen: normal bowel sounds, non tender, soft Extremities: normal inspection Edema: no edema noted Arm (L), no edema noted Arm (R), no edema noted Leg (L), no edema noted Leg (R), no edema noted Pedal (L), no edema noted Pedal (R), no edema noted Generalized Neurologic: motor weakness Skin: normal pigmentation, warm/dry Bakari Logan DO Jun 05, 2019 08:53
[2019-06-05 12:00] VITALS: BP 120/77
[2019-06-05 16:00] VITALS: BP 111/71
[2019-06-05 20:00] VITALS: BP 118/65
--- NOTE | 2019-06-05 22:47 | Initial Psychiatric Evaluation ---
Psychiatry Consultation Psychiatry Consultation Chief Complaint: Altered Mental Status History of Present Illness: 39-year-old male, who lives at home, presented to [place] ER with AMS the pt is min verbal easily agitated. the pt has been aggressive toward the staff and has poor memory. the pt is irrational and uncooperative with mmse. the pt is [place] speaking. the pt is min verbal/ Allergies: Coded Allergies: No Known Allergies (Unverified , 06/01/19) Medication History Scheduled Duloxetine Hcl* (Cymbalta*), 30 MG ORAL DAILY, (Reported) Quetiapine Fumarate (Seroquel), 50 MG ORAL DAILY, (Reported) Patient History Limited by: medical condition History Provided By: Medical Record, PMD Objective Data Height (Feet): 5 Height (Inches): 8.00 Weight (Pounds): 159 Appearance: disheveled Behavior Mannerisms: poor eye contact Affect: blunted Mood: irritable, anxious Speech: clear Thought Process: confusion Suicidal Ideation: not present Assessment/Plan Status: unchanged Assessment/Plan: lexapro 10mg po qam zyprexa 2.5mg po qhs the pt should be discharged when medically cleared Diagnosis [place] I: acute encephalopathy MDD Ramona Miramontes MD Jun 05, 2019 22:47
[2019-06-06] VITALS: BP 122/76
[2019-06-06 04:00] VITALS: BP 128/79
[2019-06-06] MEDS: NovoLOG Insulin Flexpen SUBQ SCH ×3 (06:04→16:30)
[2019-06-06 06:28] LABS: EOSINOPHILS % (AUTO) 2.4 % (0.0-3.0); HEMATOCRIT 43.1 % (42.0-52.0); HEMOGLOBIN 14.3 G/DL (14.2-18.0); MEAN CORPUSCULAR VOLUME 87 FL (80-99); NEUTROPHILS % (AUTO) 63.7 % (45.0-75.0); PLATELET COUNT 279 K/UL (150-450); RED BLOOD COUNT 4.93 M/UL (4.70-6.10); RED CELL DISTRIBUTION WIDTH 12.6 % (11.6-14.8); WHITE BLOOD COUNT 7.7 K/UL (4.8-10.8)
[2019-06-06 07:03] LABS: ANION GAP 12 mmol/L (5-15); BLOOD UREA NITROGEN 12 mg/dL (7-18); CALCIUM 9.4 MG/DL (8.5-10.1); CARBON DIOXIDE 25 MMOL/L (21-32); CHLORIDE 106 MMOL/L (98-107); CREATININE 0.8 MG/DL (0.55-1.30); POTASSIUM 3.6 MMOL/L (3.5-5.1); SODIUM 143 MMOL/L (136-145)
[2019-06-06 08:00] VITALS: BP 112/70
[2019-06-06] MEDS: DULoxetine 30mg cap ORAL SCH (08:39)
[2019-06-06] MEDS: Aspirin EC 81mg tab ORAL SCH (08:39)
[2019-06-06] MEDS: Heparin 5000 units/ml inj SUBQ SCH (08:42)
--- NOTE | 2019-06-06 09:20 | General Progress Note ---
Assessment/Plan Problem List: (1) CVA (cerebral vascular accident) ICD Codes: I63.9 - Cerebral infarction, unspecified SNOMED: 374584195 (2) HTN (hypertension) ICD Codes: I10 - Essential (primary) hypertension SNOMED: 03423109 (3) Diabetes ICD Codes: E11.9 - Type 2 diabetes mellitus without complications SNOMED: 64887471 (4) Altered mental status ICD Codes: R41.82 - Altered mental status, unspecified SNOMED: 598464767 Status: stable, progressing Assessment/Plan: pt diet neuro f/u cbc bmp am dc plan if clear Subjective Constitutional: Reports: weakness Allergies: Coded Allergies: No Known Allergies (Unverified , 06/01/19) All Systems: reviewed and negative except above Subjective sleepy calm Objective Last 24 Hour Vital Signs Date Time Temp Pulse Resp B/P (MAP) Pulse Ox O2 Delivery O2 Flow Rate FiO2 06/06/19 08:00 98.1 66 20 112/70 (84) 95 06/06/19 04:00 97.7 70 18 128/79 (95) 98 06/06/19 03:38 51 06/06/19 00:00 68 06/06/19 00:00 98.5 57 18 122/76 (91) 98 06/05/19 21:00 Room Air 06/05/19 20:00 53 06/05/19 20:00 98.1 53 18 118/65 (82) 97 06/05/19 16:00 97.5 63 18 111/71 (84) 96 06/05/19 16:00 56 06/05/19 12:00 79 06/05/19 12:00 97.2 75 18 120/77 (91) 97 Intake and Output 06/05/19 06/06/19 19:00 07:00 Intake Total 1320 ml 280 ml Balance 1320 ml 280 ml Intake Oral 1320 ml 280 ml # Voids 5 1 # Bowel Movements 1 Laboratory Tests 06/06/19 05:35: White Blood Count 7.7, Red Blood Count 4.93, Hemoglobin 14.3, Hematocrit 43.1, Mean Corpuscular Volume 87, Mean Corpuscular Hemoglobin 28.9, Mean Corpuscular Hemoglobin Concent 33.1, Red Cell Distribution Width 12.6, Platelet Count 279, Mean Platelet Volume 6.2L, Neutrophils (%) (Auto) 63.7, Lymphocytes (%) (Auto) 24.0, Monocytes (%) (Auto) 9.0, Eosinophils (%) (Auto) 2.4, Basophils (%) (Auto ) 1.0, Sodium Level 143, Potassium Level 3.6, Chloride Level 106, Carbon Dioxide Level 25, Anion Gap 12, Blood Urea Nitrogen 12, Creatinine 0.8, Estimat Glomerular Filtration Rate > 60, Glucose Level 103, Calcium Level 9.4 Height (Feet): 5 Height (Inches): 8.00 Weight (Pounds): 159 General Appearance: lethargic EENT: normal ENT inspection Neck: normal alignment Cardiovascular: normal peripheral pulses, normal rate, regular rhythm Respiratory/Chest: chest wall non-tender, lungs clear, normal breath sounds Abdomen: normal bowel sounds, non tender, soft Extremities: normal inspection Edema: no edema noted Arm (L), no edema noted Arm (R), no edema noted Leg (L), no edema noted Leg (R), no edema noted Pedal (L), no edema noted Pedal (R), no edema noted Generalized Neurologic: motor weakness Skin: normal pigmentation, warm/dry Bakari Logan DO Jun 06, 2019 09:20
[2019-06-06 12:00] VITALS: BP 124/70
[2019-06-06] MEDS ORDERED: ASPIR 8181 MG ORAL (13:03)
--- NOTE | 2019-06-06 14:12 | Infectious Diseases Prog Note ---
Assessment/Plan Assessment/Plan Abx: None Acute encephalopathy -BRain MRI: Mild prominence of the ventricles and extra axial CSF spaces. Otherwise essentially unremarkable exam. 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 No evidence of proximal cerebrovascular insufficiency demonstrated. 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 Will continue to follow along with you. Discussed with RN Subjective Allergies: Coded Allergies: No Known Allergies (Unverified , 06/01/19) Subjective afebrile no leukocytosis off abx Objective Vital Signs Last 24 Hour Vital Signs Date Time Temp Pulse Resp B/P (MAP) Pulse Ox O2 Delivery O2 Flow Rate FiO2 06/06/19 12:00 98.0 70 20 124/70 (88) 97 06/06/19 12:00 60 06/06/19 09:00 Room Air 06/06/19 08:00 91 06/06/19 08:00 98.1 66 20 112/70 (84) 95 06/06/19 04:00 97.7 70 18 128/79 (95) 98 06/06/19 03:38 51 06/06/19 00:00 68 06/06/19 00:00 98.5 57 18 122/76 (91) 98 06/05/19 21:00 Room Air 06/05/19 20:00 53 06/05/19 20:00 98.1 53 18 118/65 (82) 97 06/05/19 16:00 97.5 63 18 111/71 (84) 96 06/05/19 16:00 56 Height (Feet): 5 Height (Inches): 8.00 Weight (Pounds): 159 Objective HEENT: Reveals poor dentition. NECK: There is a long vertical surgical scar noted. There is some tenderness of his neck and some limitation of motion. Carotids are +2. No bruits were heard. LUNGS: Breath sounds are decreased bilaterally. CARDIOVASCULAR: The heart tones were decreased. I could not hear any S3, S4, murmurs, rubs, or clicks. ABDOMEN: Obese. Bowel sounds intact. No tenderness, masses, or organomegaly. BACK: There is diffuse tenderness over his back. EXTREMITIES: He has a surgical scar or deformity of the left MCP joint at the thumb. He has other evidence of degenerative joint disease in his hands. Peripheral pulses are decreased in the legs. Microbiology Date/Time Source Procedure Growth Status 06/05/19 00:23 Nasopharynx - Final Complete 06/05/19 00:23 Nasopharynx - Final Complete Laboratory Tests Test 06/06/19 05:35 White Blood Count 7.7 K/UL (4.8-10.8) Red Blood Count 4.93 M/UL (4.70-6.10) Hemoglobin 14.3 G/DL (14.2-18.0) Hematocrit 43.1 % (42.0-52.0) Mean Corpuscular Volume 87 FL (80-99) Mean Corpuscular Hemoglobin 28.9 PG (27.0-31.0) Mean Corpuscular Hemoglobin Concent 33.1 G/DL (32.0-36.0) Red Cell Distribution Width 12.6 % (11.6-14.8) Platelet Count 279 K/UL (150-450) Mean Platelet Volume 6.2 FL (6.5-10.1) L Neutrophils (%) (Auto) 63.7 % (45.0-75.0) Lymphocytes (%) (Auto) 24.0 % (20.0-45.0) Monocytes (%) (Auto) 9.0 % (1.0-10.0) Eosinophils (%) (Auto) 2.4 % (0.0-3.0) Basophils (%) (Auto) 1.0 % (0.0-2.0) Sodium Level 143 MMOL/L (136-145) Potassium Level 3.6 MMOL/L (3.5-5.1) Chloride Level 106 MMOL/L (98-107) Carbon Dioxide Level 25 MMOL/L (21-32) Anion Gap 12 mmol/L (5-15) Blood Urea Nitrogen 12 mg/dL (7-18) Creatinine 0.8 MG/DL (0.55-1.30) Estimat Glomerular Filtration Rate > 60 mL/min (>60) Glucose Level 103 MG/DL (74-106) Calcium Level 9.4 MG/DL (8.5-10.1) Current Medications Medications (Trade) Dose Ordered Sig/Jannet Route PRN Reason Start Time Stop Time Status Last Admin Dose Admin Aspirin (Ecotrin) 162 mg DAILY ORAL 06/01/19 13:30 07/01/19 13:29 06/06/19 08:39 Dextrose (Dextrose 50%) 25 ml Q30M PRN IV Hypoglycemia 06/01/19 15:30 07/01/19 15:29 Dextrose (Dextrose 50%) 50 ml Q30M PRN IV Hypoglycemia 06/01/19 15:30 07/01/19 15:29 Duloxetine HCl (Cymbalta) 30 mg DAILY ORAL 06/02/19 09:00 07/02/19 08:59 06/06/19 08:39 Heparin Sodium (Porcine) (Heparin 5000 units/ml) 5,000 units EVERY 12 HOURS SUBQ 06/01/19 21:00 07/01/19 20:59 06/06/19 08:42 Insulin Aspart (NovoLOG) BEFORE MEALS AND HS SUBQ 06/01/19 16:30 07/01/19 16:29 06/05/19 12:09 Morphine Sulfate (Morphine Sulfate) 2 mg Q4H PRN IVP For Pain 06/02/19 13:19 06/09/19 13:18 06/04/19 23:22 Ondansetron HCl (Zofran) 4 mg Q6H PRN IVP Nausea & Vomiting 06/02/19 09:30 07/02/19 09:29 06/06/19 04:36 Quetiapine Fumarate (SEROqueL) 50 mg BEDTIME ORAL 06/06/19 21:00 07/06/19 20:59 Ml Donald M.D. Jun 06, 2019 14:12
[2019-06-06 16:00] VITALS: BP 132/64
--- NOTE | 2019-06-06 18:00 | Progress Note ---
DATE: 06/06/2019 SUBJECTIVE: The patient was aggressive last night and this morning he is complaining of lower back pain. Has poor insight into his current mental condition. The patient is [place] Islander speaking. Minimally verbal even with the presence of the [place] Islander speaking security and compliance analyst. The patient is easily agitated and has poor insight. His stayed overnight. The patient requesting for IV pain medications. The patient is not answering to most of the question. MENTAL STATUS EXAMINATION: The patient is alert, oriented times self. He knows he is in the hospital. Uncooperative with mini-mental status examination. Mood is irritable. Affect is constricted, congruent with mood. Thought process is concrete. Thought content, no suicidal or homicidal ideation. ASSESSMENT: 1. Acute encephalopathy. 2. Mood disorder, not otherwise specified. PLAN: 1. We will continue low dose of Zyprexa. 2. Provide the patient with reality orientation and supportive therapy. Ramona Miramontes M.D. DR: ALLEN JOB#: [id number] CC:
--- NOTE | 2019-06-07 08:55 | Discharge Summary ---
Discharge Summary Discharge Summary _ DATE OF ADMISSION: 06/01/2019 DATE OF DISCHARGE: 06/06/2019 DISCHARGED BY: Dr. Logan REASON FOR ADMISSION: 49 years old male with past medical history of CVA with right-sided weakness, hypertension, bipolar disorder, presented to emergency department by ambulance with altered mental status , witnessed by . Upon evaluation vital signs were stable. Blood sugar was stable. Laboratory work-up revealed no leukocytosis , stable hemoglobin and hematocrit. Stable electrolytes and renal parameters. Urine toxicology screen screen was negative. Serum alcohol level was less than 3. Urinalysis revealed no evidence of urinary tract infection. Chest x-ray revealed no acute cardiopulmonary pathology. CT of the head demonstrated no mass-effect , edema or acute bleeding. EKG revealed sinus rhythm , no acute ischemic changes. Patient subsequently admitted for altered mental status. CONSULTANTS: neurologist Dr. Antony ID specialist Dr. Donald psychiatrist [facility] COURSE: Patient admitted to monitored floor. Neurologist followed. Neurologist initially suspected possible cervical cord lesion. Patient undergone multiple imaging, as mentioned below, all of which were negative for acute findings. CT scan of the head and neck revealed no evidence of extracranial cerebrovascular insufficiency. MRI of the head and neck was negative. No evidence of proximal cerebrovascular insufficiency. MRI of the brain revealed mild prominence of the ventricles and extra-axial CSF spaces. Otherwise essentially unremarkable . Negative for acute intracranial bleeding, mass-effect or acute infarct. 'Sinus disease and spinal fusion hardware incidentally noted. EEG was normal awake, drowsy, and stage II sleep EEG. Psychiatrist followed. Per psychiatrist , patient had major depression disorder, mood disorder and acute encephalopathy . Patient started on low-dose of Zyprexa. Reality orientation and supportive therapy provided. ID specialist followed. Patient remained afebrile no leukocytosis. Patient demonstrated cough , possibly upper respiratory infection . Chest x-ray revealed no evidence of acute disease. ID specialist recommended to keep patient off antibiotics. Antiplatelet therapy with aspirin continued. Blood sugar was managed with sliding scale of insulin. Pain management was addressed as needed. DVT prophylaxis provided. Blood pressure was closely monitored and remained stable; no need for antihypertensive at this time. Mental status improved to baseline . It was felt that altered mental status was probably due to his psychiatric condition/mood disorder and major depression, since no organic causes for altered mental status were found. Patient was working with physical therapist. Fall precaution maintained. Swallow evaluation was done. Diet texture provided as per speech therapist recommendation , since patient had mild oropharyngeal dysphagia. Family was educated on strict aspiration precaution and diet modification. Speech therapist recommended video swallow evaluation to rule out silent aspiration risk, which can be done as outpatient. Patient clinically stabilized and was ready for discharge home. FINAL DIAGNOSES: Acute encephalopathy Cough , probably upper respiratory infection Mood disorder Major depressive disorder Diabetes mellitus type 2 Hypertension Cervical spine disease status post surgery History of CVA with right hemiparesis History of tobacco and ETOH use DISCHARGE MEDICATIONS: See Medication Reconciliation list. DISCHARGE INSTRUCTIONS: Patient was discharged home with home health services. Follow-up with a primary care provider in 1 week. I have been assigned to dictate discharge summary for this account. was not involved in the patient's management. Giselle Story NP Jun 07, 2019 08:55
== END 2019-06-06 19:44 | disposition home health service (06) | DRG 71 ==
LOC: EDBD 10:04 → EMR 10:30 → EDBD 11:23 → 2E 11:23 → EDBEDREQ 13:31
DX: G93.40 Encephalopathy, unspecified (principal); I69.353 Hemiplegia and hemiparesis following cerebral infarction affecting right non-dominant side; J06.9 Acute upper respiratory infection, unspecified; I10 Essential (primary) hypertension; F32.9 Major depressive disorder, single episode, unspecified; F20.9 Schizophrenia, unspecified; E11.9 Type 2 diabetes mellitus without complications; F10.21 Alcohol dependence, in remission; Z87.891 Personal history of nicotine dependence
CPT/HCPCS: 36415; 70450; 70498; 70544; 70551; 71045; 80048; 80053; 80307; 81003; 82140; 82550; 82962; 83036; 84484; 85025; 86710; 93005; 95819; 96374; 99285; G0480; J1815; J2405

== ENCOUNTER 2019-08-04 20:03 | Inpatient (IN) | payer BC ==
[~2019-08-04] VITALS: Ht 165.1 cm; Wt 73.3 kg
[~2019-08-04 20:03] MED LIST changes: +ASPIR 8181 MG ORAL
--- NOTE | 2019-08-04 20:05 | NUR ---
ED Nurse Note: Pt brought in by ambulance from home, per pt was found running in the streets naked and has a hx of doing so. Pt is bengali speaking, VSS, Bss 122 on scene
--- NOTE | 2019-08-04 20:23 | NUR ---
ED Nurse Note: Pt to CT
--- NOTE | 2019-08-04 20:40 | NUR ---
ED Nurse Note: Pt back from CT
--- NOTE | 2019-08-04 20:49 | Diagnostic Imaging Report ---
Indication: Headache Technique: Contiguous 5 mm thick transaxial imaging of the head obtained in a Siemens Sensation [address] scanner. Soft tissue and bone windows generated. Automatic Exposure Control was utilized. Total Dose length Product (DLP): 1334.[address] Dose Index Volume (CTDIvol): 60 mGy Comparison: 06/01/2019 Findings: The size and configuration of the cortical sulci, basal cisterns, and ventricles are within normal limits for age. There is no mass effect, midline shift, or edema identified. There is no evidence of acute hemorrhage or abnormal intra-axial or extra-axial fluid collections. The bones and soft tissues are unremarkable. Impression: No mass effect, edema or acute bleed. There is no interval change [facility] has communicated the preliminary results to the Emergency Department. Their findings are largely concordant with this report. The CT scanner at [facility] is accredited by the [employer] [employer] and the scans are performed using dose optimization techniques as appropriate to a performed exam including Automatic Exposure control.
[2019-08-04 21:00] VITALS: BP 121/78
[2019-08-04] MEDS ORDERED: LORazepam Inj 2mg/ml 1ml ONE (21:02)
[2019-08-04] MEDS ORDERED: LORazepam Inj 2mg/ml 1ml IV ONE (21:15)
[2019-08-04 21:26] LABS: EOSINOPHILS % (AUTO) 1.7 % (0.0-3.0); HEMATOCRIT 39.2 % (42.0-52.0); HEMOGLOBIN 12.9 G/DL (14.2-18.0); LYMPHOCYTES % (AUTO) 21.5 % (20.0-45.0); MEAN CORPUSCULAR VOLUME 91 FL (80-99); MONOCYTES % (AUTO) 11.2 % (1.0-10.0); NEUTROPHILS % (AUTO) 64.7 % (45.0-75.0); PLATELET COUNT 239 K/UL (150-450); RED CELL DISTRIBUTION WIDTH 12.7 % (11.6-14.8); WHITE BLOOD COUNT 10.9 K/UL (4.8-10.8)
[2019-08-04 21:30] LABS: ANION GAP 7 mmol/L (5-15); BLOOD UREA NITROGEN 9 mg/dL (7-18); CARBON DIOXIDE 28 MMOL/L (21-32); CHLORIDE 107 MMOL/L (98-107); CREATININE 0.7 MG/DL (0.55-1.30); POTASSIUM 3.7 MMOL/L (3.5-5.1); SODIUM 142 MMOL/L (136-145)
[2019-08-04 21:36] LABS: CREATINE KINASE 181 U/L (26-308)
[2019-08-04 21:44] LABS: ALANINE AMINOTRANSFERASE 31 U/L (12-78); ALBUMIN 3.5 G/DL (3.4-5.0); ALBUMIN/GLOBULIN RATIO 0.9 (1.0-2.7); ALKALINE PHOSPHATASE 79 U/L (46-116); ASPARTATE AMINO TRANSFERASE 19 U/L (15-37); BILIRUBIN,TOTAL 0.7 MG/DL (0.2-1.0)
[2019-08-04 22:01] LABS: AMMONIA < 10 umol/L (11-32)
--- NOTE | 2019-08-04 22:30 | NUR ---
ED Nurse Note: PT AWAKE AND OUT OF SOFT RESTRAINTS, PROVIDED URINE SAMPLE SENT TO LAB, PT SITTING UP IN BED, ABLE TO ANSWER QUESTIONS, A&OX3, PROVIDED SANDWHICH AND WATER TO PT. WILL CONTINUE TO MONITOR
--- NOTE | 2019-08-04 22:55 | Emergency Room Report ---
History of Present Illness General Chief Complaint: Altered Mental Status Source: EMS Present Illness HPI Is a 49-year-old male brought in by EMS after increased altered mental status. Patient had been found wandering in the street with no clothes on. From the waist down. Patient had been previously known to have some psychiatric disease. No known alcohol history of medical history was available at the time of EMS evaluation.History is markedly limited by patient's poor historian Allergies: Coded Allergies: No Known Allergies (Unverified , 06/01/19) Patient History Past Medical History: see triage record Reviewed Nursing Documentation: PMH: Agreed; PSxH: Agreed Nursing Documentation-PMH Past Medical History: No History, Except For Hx Cardiac Problems: Yes Hx Hypertension: Yes Hx Cancer: No Hx Gastrointestinal Problems: No Hx Neurological Problems: Yes - anxiety Hx Cerebrovascular Accident: Yes Review of Systems All Other Systems: limited - Historian review of systems: Review systems is limited by patient's being a poor historian Physical Exam Vital Signs Date Time Temp Pulse Resp B/P (MAP) Pulse Ox O2 Delivery O2 Flow Rate FiO2 08/04/19 19:58 98.1 65 18 121/78 (92) 98 Room Air Sp02 EP Interpretation: reviewed, normal General Appearance: normal inspection, well appearing, no apparent distress, alert, GCS 15, non-toxic Head: atraumatic ENT: normal ENT inspection, hearing grossly normal, normal voice Neck: normal inspection, full range of motion, supple, no bony tend Respiratory: normal inspection, lungs clear, normal breath sounds, no respiratory distress, no retraction, no wheezing Cardiovascular #1: regular rate, rhythm, no edema Gastrointestinal: normal inspection, normal bowel sounds, non tender, soft, no guarding, no hernia Genitourinary: no CVA tenderness Musculoskeletal: normal inspection, back normal, normal range of motion Neurologic: alert, motor strength/tone normal, career services assistant III-XII nml as tested, responsive, speech normal, normal inspection Psychiatric: normal inspection, judgement/insight normal, mood/affect normal Skin: no rash Medical Decision Making Diagnostic Impression: Primary Impression: Diabetes Additional Impression: AMS (altered mental status) ER Course Patient presented for altered mental status. Differential diagnosis include was not limited to hepatic encephalopathy, CVA, hypoglycemia, alcohol withdrawal , substance abuse, psychosis among others. Patient was noted to initially be able to follow commands. He had episode of agitation and was given Ativan IV. CT of the head read by radiology showed no evidence of acute intracranial pathology.Patient was given Ativan due to agitation. He subsequently noted to be more somnolent. Dr. Bakari Logan was contacted for inpatient management Labs Test 08/04/19 20:20 White Blood Count 10.9 K/UL (4.8-10.8) Red Blood Count 4.30 M/UL (4.70-6.10) Hemoglobin 12.9 G/DL (14.2-18.0) Hematocrit 39.2 % (42.0-52.0) Mean Corpuscular Volume 91 FL (80-99) Mean Corpuscular Hemoglobin 30.0 PG (27.0-31.0) Mean Corpuscular Hemoglobin Concent 32.9 G/DL (32.0-36.0) Red Cell Distribution Width 12.7 % (11.6-14.8) Platelet Count 239 K/UL (150-450) Mean Platelet Volume 7.4 FL (6.5-10.1) Neutrophils (%) (Auto) 64.7 % (45.0-75.0) Lymphocytes (%) (Auto) 21.5 % (20.0-45.0) Monocytes (%) (Auto) 11.2 % (1.0-10.0) Eosinophils (%) (Auto) 1.7 % (0.0-3.0) Basophils (%) (Auto) 1.0 % (0.0-2.0) Prothrombin Time 10.7 SEC (9.30-11.50) Prothromb Time International Ratio 1.0 (0.9-1.1) Activated Partial Thromboplast Time 26 SEC (23-33) Sodium Level 142 MMOL/L (136-145) Potassium Level 3.7 MMOL/L (3.5-5.1) Chloride Level 107 MMOL/L (98-107) Carbon Dioxide Level 28 MMOL/L (21-32) Anion Gap 7 mmol/L (5-15) Blood Urea Nitrogen 9 mg/dL (7-18) Creatinine 0.7 MG/DL (0.55-1.30) Estimat Glomerular Filtration Rate > 60 mL/min (>60) Glucose Level 97 MG/DL (74-106) Calcium Level 9.0 MG/DL (8.5-10.1) Total Bilirubin 0.7 MG/DL (0.2-1.0) Aspartate Amino Transf (AST/SGOT) 19 U/L (15-37) Alanine Aminotransferase (ALT/SGPT) 31 U/L (12-78) Alkaline Phosphatase 79 U/L (46-116) Ammonia < 10 umol/L (11-32) Total Creatine Kinase 181 U/L (26-308) Troponin I 0.000 ng/mL (0.000-0.056) Total Protein 7.2 G/DL (6.4-8.2) Albumin 3.5 G/DL (3.4-5.0) Globulin 3.7 g/dL Albumin/Globulin Ratio 0.9 (1.0-2.7) Thyroid Stimulating Hormone (TSH) 1.388 uiU/mL (0.358-3.740) Serum Alcohol < 3 mg/dL Last Vital Signs Date Time Temp Pulse Resp B/P (MAP) Pulse Ox O2 Delivery O2 Flow Rate FiO2 08/04/19 21:00 98.1 69 18 121/78 98 Room Air Status: improved Disposition: ADMITTED INPATIENT Condition: Stable Referrals: NOT CHOSEN IPA/,REFERRING (PCP) Jc Daniel MD Aug 04, 2019 22:55
[2019-08-04 23:30] VITALS: BP 115/70
[2019-08-04 23:57] LABS: BILIRUBIN, URINE NEGATIVE (NEGATIVE); COLOR,URINE PALE YELLOW; GLUCOSE, URINE (UA) NEGATIVE (NEGATIVE); KETONES,URINE NEGATIVE (NEGATIVE); LEUKOCYTE ESTERASE ,URINE NEGATIVE (NEGATIVE); NITRITE,URINE NEGATIVE (NEGATIVE); PH,URINE 7 (4.5-8.0); PROTEIN,URINE NEGATIVE (NEGATIVE); UROBILINOGEN,URINE NORMAL MG/DL (0.0-1.0)
[2019-08-05 00:04] LABS: APPEARANCE,URINE CLEAR
--- NOTE | 2019-08-05 01:20 | NUR ---
TRANSFER TO FLOOR: Patient transferred to as ordered, per DR GARCIA. Report given to MAXIMINO YANES. Belongings and medications given to . Family and or S/O informed of transfer.
[2019-08-05 01:30] VITALS: BP 140/55
--- NOTE | 2019-08-05 01:45 | NUR ---
NURSE NOTES: Received report from MAXIMINO Clark. Patient arrived by lisa at 0126. ANO x2. On room air with no signs of distress or SOB. Belongings accounted for. Skin intact. R and L AC 20g IVs noted - patent and saline locked. No C/O pain at this time. Oriented to room. Bed locked and in lowest position. Bed alarm on. Call light in reach. Contacted Dr. Logan for admission orders. Awaiting callback. Will continue to monitor the patient. VS - T:97.5 HR:60 RR:16 BP:140/55 O2:96%
--- NOTE | 2019-08-05 03:52 | NUR ---
NURSE NOTES: Spoke with Dr. Logan regarding admission orders. New orders received and carried out.
[2019-08-05 04:00] VITALS: BP 114/63
[2019-08-05] MEDS: NovoLOG Insulin Flexpen SUBQ SCH ×4 (05:56→20:19)
[2019-08-05 06:48] LABS: BASOPHILS % (AUTO) 0.7 % (0.0-2.0); EOSINOPHILS % (AUTO) 3.3 % (0.0-3.0); HEMATOCRIT 39.5 % (42.0-52.0); HEMOGLOBIN 13.3 G/DL (14.2-18.0); LYMPHOCYTES % (AUTO) 32.5 % (20.0-45.0); MEAN CORPUSCULAR VOLUME 89 FL (80-99); MONOCYTES % (AUTO) 9.6 % (1.0-10.0); NEUTROPHILS % (AUTO) 53.9 % (45.0-75.0); PLATELET COUNT 244 K/UL (150-450); RED BLOOD COUNT 4.46 M/UL (4.70-6.10); RED CELL DISTRIBUTION WIDTH 12.1 % (11.6-14.8); WHITE BLOOD COUNT 7.7 K/UL (4.8-10.8)
[2019-08-05 07:16] LABS: ANION GAP 9 mmol/L (5-15); BLOOD UREA NITROGEN 11 mg/dL (7-18); CARBON DIOXIDE 25 MMOL/L (21-32); CHLORIDE 111 MMOL/L (98-107); CREATININE 0.6 MG/DL (0.55-1.30); SODIUM 145 MMOL/L (136-145)
--- NOTE | 2019-08-05 07:28 | NUR ---
HAND-OFF: Report given to MAXIMINO Donald.
[2019-08-05 08:00] VITALS: BP 105/62
[2019-08-05] MEDS: DULoxetine 30mg cap ORAL SCH (09:16)
--- NOTE | 2019-08-05 10:09 | NUR ---
CASE MANAGEMENT:INITIAL REVIEW 49 YR OLD MALE BIBA FROM HOME CC;ALTERED MENTAL STATUS SI;DIABETES. ALTERED MENTAL STATUS. 98.1 53 18 140/55 96% ON RA WBC 10.9 UA - NEGATIVE HEAD CT - No mass effect, edema or acute bleed. IS;ATIVAN IV X1 OLANZAPINE PO X1 ADMITTED TO MED SURG MED SURG STATUS DCP;FROM HOME
--- NOTE | 2019-08-05 10:37 | NUR ---
NURSE NOTES: Recvd pt. Pt is AOX4 Tristanian speaking. Pt is on room air with no sign of resp distress. Pt unable to recall how he ended up at the hospital but is able to answer to my questions appropriately. Pt has Left AC 20g running 1/2NS @ 60/hr. Pt was seen ambulating to the restroom with slight imbalance. fall precautions maintained
[2019-08-05 12:00] VITALS: BP 101/55
--- NOTE | 2019-08-05 12:14 | Diagnostic Imaging Report ---
Indication: Dyspnea Comparison: 06/01/2019 A single view chest radiograph was obtained. Findings: Heart is prominent size. Pulmonary vascular prominence demonstrated. Bones are unremarkable. Cervical fusion hardware noted. IMPRESSION: Suspected mild CHF
--- NOTE | 2019-08-05 12:22 | Consultation ---
History of Present Illness General Date patient seen: Aug 05, 2019 Chief Complaint: Altered Mental Status Present Illness HPI 49-year-old male with hx of depression, psychosis brought in by EMS with CC of altered mental status. Patient had been found wandering in the street with no clothes on. History is markedly limited by patient's poor historian. His CXR showed mild CHF. He is admitted for further work up. Allergies: Coded Allergies: No Known Allergies (Unverified , 06/01/19) Medication History Scheduled Aspirin* (Aspir 81*), 81 MG ORAL DAILY, (Reported) Duloxetine Hcl* (Cymbalta*), 30 MG ORAL DAILY, (Reported) Quetiapine Fumarate (Seroquel), 50 MG ORAL DAILY, (Reported) Patient History Healthcare decision maker Resuscitation status Advanced Directive on File No Past Medical/Surgical History Past Medical/Surgical History: (1) Depression (2) Psychiatric disorder (3) Diabetes (4) HTN (hypertension) Review of Systems All Other Systems: negative except mentioned in HPI Physical Exam General Appearance: thin Lines, tubes and drains: peripheral HEENT: normocephalic, atraumatic Neck: non-tender, normal alignment Respiratory/Chest: chest wall non-tender, lungs clear Breasts: no masses Cardiovascular/Chest: normal rate, regular rhythm, regularly irregular Last 24 Hour Vital Signs Date Time Temp Pulse Resp B/P (MAP) Pulse Ox O2 Delivery O2 Flow Rate FiO2 08/05/19 09:00 Room Air 08/05/19 08:00 97.3 53 18 105/62 (76) 99 08/05/19 04:00 97.9 59 17 114/63 (80) 98 08/05/19 01:49 Room Air 08/05/19 01:30 97.5 60 16 140/55 (83) 96 08/05/19 01:20 98.0 65 18 115/70 98 Room Air 08/04/19 23:30 98.0 65 18 115/70 98 Room Air 08/04/19 21:00 98.1 69 18 121/78 98 Room Air 08/04/19 21:00 65 18 Room Air 08/04/19 19:58 98.1 65 18 121/78 (92) 98 Room Air Intake and Output 08/04/19 08/05/19 19:00 07:00 # Bowel Movements 1 Laboratory Tests Test 08/04/19 20:20 08/05/19 06:04 White Blood Count 10.9 K/UL (4.8-10.8) H 7.7 K/UL (4.8-10.8) Red Blood Count 4.30 M/UL (4.70-6.10) L 4.46 M/UL (4.70-6.10) L Hemoglobin 12.9 G/DL (14.2-18.0) L 13.3 G/DL (14.2-18.0) L Hematocrit 39.2 % (42.0-52.0) L 39.5 % (42.0-52.0) L Mean Corpuscular Volume 91 FL (80-99) 89 FL (80-99) Mean Corpuscular Hemoglobin 30.0 PG (27.0-31.0) 29.9 PG (27.0-31.0) Mean Corpuscular Hemoglobin Concent 32.9 G/DL (32.0-36.0) 33.8 G/DL (32.0-36.0) Red Cell Distribution Width 12.7 % (11.6-14.8) 12.1 % (11.6-14.8) Platelet Count 239 K/UL (150-450) 244 K/UL (150-450) Mean Platelet Volume 7.4 FL (6.5-10.1) 6.5 FL (6.5-10.1) Neutrophils (%) (Auto) 64.7 % (45.0-75.0) 53.9 % (45.0-75.0) Lymphocytes (%) (Auto) 21.5 % (20.0-45.0) 32.5 % (20.0-45.0) Monocytes (%) (Auto) 11.2 % (1.0-10.0) H 9.6 % (1.0-10.0) Eosinophils (%) (Auto) 1.7 % (0.0-3.0) 3.3 % (0.0-3.0) H Basophils (%) (Auto) 1.0 % (0.0-2.0) 0.7 % (0.0-2.0) Prothrombin Time 10.7 SEC (9.30-11.50) Prothromb Time International Ratio 1.0 (0.9-1.1) Activated Partial Thromboplast Time 26 SEC (23-33) Urine Color Pale yellow Urine Appearance Clear Urine pH 7 (4.5-8.0) Urine Specific [place] 1.010 (1.005-1.035) Urine Protein Negative (NEGATIVE) Urine Glucose (UA) Negative (NEGATIVE) Urine Ketones Negative (NEGATIVE) Urine Blood Negative (NEGATIVE) Urine Nitrite Negative (NEGATIVE) Urine Bilirubin Negative (NEGATIVE) Urine Urobilinogen Normal MG/DL (0.0-1.0) Urine Leukocyte Esterase Negative (NEGATIVE) Urine RBC 0 /HPF (0 - 0) Urine WBC 0 /HPF (0 - 0) Urine Squamous Epithelial Cells None /LPF (NONE/OCC) Urine Bacteria None /HPF (NONE) Sodium Level 142 MMOL/L (136-145) 145 MMOL/L (136-145) Potassium Level 3.7 MMOL/L (3.5-5.1) 4.0 MMOL/L (3.5-5.1) Chloride Level 107 MMOL/L (98-107) 111 MMOL/L (98-107) H Carbon Dioxide Level 28 MMOL/L (21-32) 25 MMOL/L (21-32) Anion Gap 7 mmol/L (5-15) 9 mmol/L (5-15) Blood Urea Nitrogen 9 mg/dL (7-18) 11 mg/dL (7-18) Creatinine 0.7 MG/DL (0.55-1.30) 0.6 MG/DL (0.55-1.30) Estimat Glomerular Filtration Rate > 60 mL/min (>60) > 60 mL/min (>60) Glucose Level 97 MG/DL (74-106) 124 MG/DL (74-106) H Calcium Level 9.0 MG/DL (8.5-10.1) 9.0 MG/DL (8.5-10.1) Total Bilirubin 0.7 MG/DL (0.2-1.0) Aspartate Amino Transf (AST/SGOT) 19 U/L (15-37) Alanine Aminotransferase (ALT/SGPT) 31 U/L (12-78) Alkaline Phosphatase 79 U/L (46-116) Ammonia < 10 umol/L (11-32) L Total Creatine Kinase 181 U/L (26-308) Troponin I 0.000 ng/mL (0.000-0.056) Total Protein 7.2 G/DL (6.4-8.2) Albumin 3.5 G/DL (3.4-5.0) Globulin 3.7 g/dL Albumin/Globulin Ratio 0.9 (1.0-2.7) L Thyroid Stimulating Hormone (TSH) 1.388 uiU/mL (0.358-3.740) Serum Alcohol < 3 mg/dL Height (Feet): 5 Height (Inches): 5.00 Weight (Pounds): 140 Medications Current Medications Medications (Trade) Dose Ordered Sig/Jannet Route PRN Reason Start Time Stop Time Status Last Admin Dose Admin Dextrose (Dextrose 50%) 25 ml Q30M PRN IV Hypoglycemia 08/05/19 04:00 09/04/19 03:59 Dextrose (Dextrose 50%) 50 ml Q30M PRN IV Hypoglycemia 08/05/19 04:00 09/04/19 03:59 Duloxetine HCl (Cymbalta) 30 mg DAILY ORAL 08/05/19 09:00 09/04/19 08:59 08/05/19 09:16 Insulin Aspart (NovoLOG) BEFORE MEALS AND HS SUBQ 08/05/19 06:30 09/04/19 06:29 Quetiapine Fumarate (SEROqueL) 50 mg DAILY ORAL 08/05/19 09:00 09/04/19 08:59 08/05/19 09:17 Sodium Chloride 1,000 ml @ 60 mls/hr [id number] IV 08/05/19 04:00 09/04/19 03:59 08/05/19 05:01 Assessment/Plan Problem List: (1) AMS (altered mental status) ICD Codes: R41.82 - Altered mental status, unspecified SNOMED: 911305550 (2) CHF (congestive heart failure) ICD Codes: I50.9 - Heart failure, unspecified SNOMED: 22287175 (3) Diabetes ICD Codes: E11.9 - Type 2 diabetes mellitus without complications SNOMED: 09830941 (4) Psychiatric disorder ICD Codes: F99 - Mental disorder, not otherwise specified SNOMED: 29209004 (5) HTN (hypertension) ICD Codes: I10 - Essential (primary) hypertension SNOMED: 02449644 (6) Depression ICD Codes: F32.9 - Major depressive disorder, single episode, unspecified SNOMED: 98405534 Assessment/Plan: echocardiogram f/u bnp and CXR monitor BP resume psychiatric meds sliding scale, diabetic treatment dvt prophylaxis Luis Cody MD Aug 05, 2019 12:22
--- NOTE | 2019-08-05 15:30 | History and Physical Report ---
DATE OF ADMISSION: 08/04/2019 DATE AND TIME SEEN: 08/05/2019, approximate time is 9 a.m. CONSULTANTS: 1. Martínez Antony M.D. 2. Yvonne Rosenberg M.D. 3. Luis Cody M.D. CHIEF COMPLAINT: Altered mental status, CVA, diabetes, and weakness. BRIEF HISTORY: This is a 49-year-old male, who presents to [facility] [place] last night with history of increased weakness and was very confused, became altered, diagnosed with above, admitted to medical floor for further treatment. Currently, feeling a little better, slightly confused, still oriented x2, in no acute distress. REVIEW OF SYSTEMS: No chest pain or shortness of breath. No nausea, vomiting or diarrhea. PAST MEDICAL HISTORY: Includes hypertension, CVA, altered mental status, diabetes, possible seizure, anxiety, and depression. PAST SURGICAL HISTORY: Neck. ALLERGIES: Denies. MEDICATIONS: Include Seroquel, Cymbalta, olanzapine, and lorazepam. SOCIAL HISTORY: No smoking. No alcohol. Positive marijuana use. PHYSICAL EXAMINATION: GENERAL: Calm in bed, oriented x2, in no acute distress. VITAL SIGNS: Temperature is 97 degrees, pulse 53, respirations 18, and blood pressure 105/62 CARDIOVASCULAR: No murmur. LUNGS: Distant and clear. ABDOMEN: Positive bowel sounds. Soft, nontender, and nondistended. EXTREMITIES: Show no cyanosis, clubbing, or edema. NEUROLOGIC: Cranial nerves II to XII, he moves all extremities, slightly weak. LABORATORY AND DIAGNOSTIC DATA: Labs at this time show H and H 13/39, otherwise CBC is normal. BMP shows chloride 111, glucose 124, otherwise BMP is normal. INR is 1.0, PTT is 26. Urinalysis is negative. Urine tox, serum alcohol less than 3. ASSESSMENT: 1. Altered mental status. 2. Diabetes. 3. CVA. 4. Weakness. 5. Seizure. 6. Hypertension. 7. Anxiety and depression. PLAN: 1. Blood pressure and blood sugar control. 2. Dietary followup. 3. Seizure control. 4. Psych and neuro followup. 5. PT and dietary evaluation. 6. CBC and BMP in a.m. 7. Transfer to psych if cleared by Neurology. Bakari Loagn D.O. DR: FABIOLA JOB#: [id number] CC:
--- NOTE | 2019-08-05 15:36 | NUR ---
*-* INSURANCE *-* ALL CLINICALS AND REVIEWS HAVE BEEN FAXED TO: Ref# [id number] # [phone] FAX#[phone]
[2019-08-05 16:00] VITALS: BP 102/61
--- NOTE | 2019-08-05 19:43 | NUR ---
NURSE NOTES: PATIENT AWAKE, VERBALLY RESPONSIVE. NO COMPLAINTS OF PAIN AT THIS TIME. NO S/S DISTRESS NOTED. BED IN LOWEST POSITION, CALL LIGHT WITHIN REACH, BED ALARM ON. WILL CONTINUE TO MONITOR.
[2019-08-05 20:59] VITALS: BP 121/64
[2019-08-06 04:00] VITALS: BP 125/73
--- NOTE | 2019-08-06 06:20 | NUR ---
NURSE NOTES: PATIENT AWAKE, CONFUSED, TRYING TO LEAVE AND GO HOME. REORIENTED BACK TO BED. WILL CONTINUE TO MONITOR.
[2019-08-06] MEDS: NovoLOG Insulin Flexpen SUBQ SCH ×4 (06:30→20:38)
--- NOTE | 2019-08-06 07:22 | NUR ---
HAND-OFF: Report given to KAYLIN Anne RN.
--- NOTE | 2019-08-06 07:53 | NUR ---
NURSE NOTES patient is in the bed asleep. respiration is even and unlabored. no facial grimacing for pain and discomfort noted. IV fluids is infusion properly; no infiltration noted on left arm. no s/s of distress noted at this time. call light is within reach, will continue to follow today's plan of care.
[2019-08-06 08:00] VITALS: BP 122/77
--- NOTE | 2019-08-06 08:32 | General Progress Note ---
Assessment/Plan Problem List: (1) CVA (cerebral vascular accident) ICD Codes: I63.9 - Cerebral infarction, unspecified SNOMED: 030452414 (2) Depression ICD Codes: F32.9 - Major depressive disorder, single episode, unspecified SNOMED: 41147820 (3) Diabetes ICD Codes: E11.9 - Type 2 diabetes mellitus without complications SNOMED: 61844446 (4) Psychiatric disorder ICD Codes: F99 - Mental disorder, not otherwise specified SNOMED: 07579966 (5) HTN (hypertension) ICD Codes: I10 - Essential (primary) hypertension SNOMED: 86593811 (6) AMS (altered mental status) ICD Codes: R41.82 - Altered mental status, unspecified SNOMED: 001177295 Status: unchanged Assessment/Plan: pt diet eval neuro psyc f/u cbc bmp am Subjective Constitutional: Reports: weakness Allergies: Coded Allergies: No Known Allergies (Unverified , 06/01/19) All Systems: reviewed and negative except above Subjective sleepy in bed calm Objective Last 24 Hour Vital Signs Date Time Temp Pulse Resp B/P (MAP) Pulse Ox O2 Delivery O2 Flow Rate FiO2 08/06/19 08:00 98.3 55 18 122/77 (92) 100 08/06/19 04:00 97.9 53 18 125/73 (90) 98 08/05/19 21:00 Room Air 08/05/19 20:59 99.0 53 20 121/64 (83) 93 08/05/19 16:00 98.3 63 20 102/61 (75) 97 08/05/19 12:00 98.0 57 20 101/55 (70) 99 08/05/19 09:00 Room Air Intake and Output 08/05/19 08/06/19 19:00 07:00 Intake Total 1460 ml 480 ml Balance 1460 ml 480 ml Intake Oral 1460 ml IV Total 480 ml # Voids 1 Height (Feet): 5 Height (Inches): 5.00 Weight (Pounds): 140 General Appearance: lethargic EENT: normal ENT inspection Neck: normal alignment Cardiovascular: normal peripheral pulses, normal rate, regular rhythm Respiratory/Chest: chest wall non-tender, lungs clear, normal breath sounds Abdomen: normal bowel sounds, non tender, soft Extremities: normal inspection Edema: no edema noted Arm (L), no edema noted Arm (R), no edema noted Leg (L), no edema noted Leg (R), no edema noted Pedal (L), no edema noted Pedal (R), no edema noted Generalized Neurologic: motor weakness Skin: normal pigmentation, warm/dry Bakari Logan DO Aug 06, 2019 08:32
[2019-08-06] MEDS: DULoxetine 30mg cap ORAL SCH (09:55)
[2019-08-06 12:00] VITALS: BP 135/80
--- NOTE | 2019-08-06 12:54 | Pulmonology Progress Note ---
Assessment/Plan Assessment/Plan ASSESSMENT AMS DM HTN Bipolar depression PLAN OF CARE MS floor IVF CT head negative, no evidence of UTI serum alcohol negative, ammonia WNL psych and neuro eval pending CXR with possible mild CHF , check pro BNP , may dc IVF if eating ECHO pending O2 HHN prn DVT prophylaxis BS management with SSI, check HgA1c BP management per hx pt had CVA, but no evidence of prior CVA of CT scan supportive care case discussed and evaluated by supervising physician Subjective Allergies: Coded Allergies: No Known Allergies (Unverified , 06/01/19) Subjective remains afebrile, no signs of respiratory distress Objective Last 24 Hour Vital Signs Date Time Temp Pulse Resp B/P (MAP) Pulse Ox O2 Delivery O2 Flow Rate FiO2 08/06/19 12:00 98.0 78 20 135/80 (98) 98 08/06/19 09:00 Room Air 08/06/19 08:00 98.3 55 18 122/77 (92) 100 08/06/19 04:00 97.9 53 18 125/73 (90) 98 08/05/19 21:00 Room Air 08/05/19 20:59 99.0 53 20 121/64 (83) 93 08/05/19 16:00 98.3 63 20 102/61 (75) 97 Intake and Output 08/05/19 08/06/19 19:00 07:00 Intake Total 1460 ml 480 ml Balance 1460 ml 480 ml Intake Oral 1460 ml IV Total 480 ml # Voids 1 General Appearance: no acute distress, other - poorly responsive HEENT: normocephalic, atraumatic, anicteric Respiratory/Chest: lungs clear Cardiovascular: normal rate Abdomen: soft, non tender Extremities: pedal pulses normal Neurologic/Psychiatric: alert - poolyl responsive Microbiology Date/Time Source Procedure Growth Status 08/04/19 20:20 Blood Blood Culture - Preliminary NO GROWTH AFTER 24 HOURS Resulted 08/04/19 20:05 Blood Blood Culture - Preliminary NO GROWTH AFTER 24 HOURS Resulted Current Medications Medications (Trade) Dose Ordered Sig/Jannet Route PRN Reason Start Time Stop Time Status Last Admin Dose Admin Dextrose (Dextrose 50%) 25 ml Q30M PRN IV Hypoglycemia 08/05/19 04:00 09/04/19 03:59 Dextrose (Dextrose 50%) 50 ml Q30M PRN IV Hypoglycemia 08/05/19 04:00 09/04/19 03:59 Duloxetine HCl (Cymbalta) 30 mg DAILY ORAL 08/05/19 09:00 09/04/19 08:59 08/06/19 09:55 Insulin Aspart (NovoLOG) BEFORE MEALS AND HS SUBQ 08/05/19 06:30 09/04/19 06:29 08/06/19 11:56 Quetiapine Fumarate (SEROqueL) 50 mg DAILY ORAL 08/05/19 09:00 09/04/19 08:59 08/06/19 10:33 Sodium Chloride 1,000 ml @ 60 mls/hr [id number] IV 08/05/19 04:00 09/04/19 03:59 08/05/19 20:20 Giselle Story [employer] Aug 06, 2019 12:54
[2019-08-06 16:00] VITALS: BP 120/74
--- NOTE | 2019-08-06 19:15 | NUR ---
NURSE NOTES: Received report from MAXIMINO Rust. Pt is sleeping on room air. No acute distress noted. IV site intact and running 1/2 NS @ 60cc. Fall precaution maintained. Bed locked, lowest position, alarm on, side rails up, call light within reach. Will continue to monitor.
--- NOTE | 2019-08-06 19:57 | NUR ---
HAND-OFF: Report given to MAXIMINO Read.
[2019-08-06 20:00] VITALS: BP 119/76
[2019-08-07] VITALS (7 sets, daily range): BP systolic 90–118; BP diastolic 50–78
[2019-08-07] MEDS: NovoLOG Insulin Flexpen SUBQ SCH ×4 (05:35→21:00)
--- NOTE | 2019-08-07 06:10 | NUR ---
NURSE NOTES: Pt is agitated and confused. Trying to get out of bed and walking hallway. RN put him on wheelchair. Pt has seizure episode during sitting on the wheelchair. Vitals stable and pt awake but still confused. Moved pt to 402-[address] Rosenberg and Desmond. Received order Haldol 10mg IM once, Ativan 2mg IM once, Benadryl 50mg IM once from Dr. Rosenberg. Dr. Logan ordered Ativan 1mg iv q 4prn for agitation, morphine 2mg iv q 4hr prn severe pain.
[2019-08-07] MEDS ORDERED: DiphenhydrAMINE 50mg/ml Inj IM SCH (06:30)
[2019-08-07] MEDS ORDERED: Haloperidol 5mg/ml Inj IM SCH (06:30)
[2019-08-07] MEDS ORDERED: LORazepam Inj 2mg/ml 1ml IM SCH (06:30)
--- NOTE | 2019-08-07 07:02 | NUR ---
NURSE NOTES: Left message Dr. Antony for seizure episode. Awaiting for call back.
--- NOTE | 2019-08-07 07:32 | NUR ---
HAND-OFF: Report given to MAXIMINO Paniagua.
[2019-08-07 07:33] LABS: ANION GAP 8 mmol/L (5-15); BLOOD UREA NITROGEN 9 mg/dL (7-18); CALCIUM 9.1 MG/DL (8.5-10.1); CARBON DIOXIDE 26 MMOL/L (21-32); CHLORIDE 109 MMOL/L (98-107); CREATININE 0.7 MG/DL (0.55-1.30); POTASSIUM 4.5 MMOL/L (3.5-5.1); SODIUM 143 MMOL/L (136-145)
--- NOTE | 2019-08-07 08:00 | NUR ---
NURSE NOTES: received patient in bed, no complaint of pain or discomfort, no sign of respiratory distress. Receives IVF thorugh LAC IV access, no sign of infiltration noted. Bed locked at the lowest position possible, call light within easy reach, siderails up x2, bed alarm on. Patient is fall risk, on yellow gown and yellow socks, CHRISTIE Goodson helping to watch patient, as patient has order of sitter 1:1 PRN. Will continue to monitor pt and follow up with the POC.
--- NOTE | 2019-08-07 08:45 | General Progress Note ---
Assessment/Plan Problem List: (1) CVA (cerebral vascular accident) ICD Codes: I63.9 - Cerebral infarction, unspecified SNOMED: 590857364 (2) Depression ICD Codes: F32.9 - Major depressive disorder, single episode, unspecified SNOMED: 17234872 (3) Diabetes ICD Codes: E11.9 - Type 2 diabetes mellitus without complications SNOMED: 91209563 (4) Psychiatric disorder ICD Codes: F99 - Mental disorder, not otherwise specified SNOMED: 14018804 (5) HTN (hypertension) ICD Codes: I10 - Essential (primary) hypertension SNOMED: 46128106 (6) AMS (altered mental status) ICD Codes: R41.82 - Altered mental status, unspecified SNOMED: 533773044 Status: unchanged Assessment/Plan: pt diet eval neuro psyc f/u cbc bmp am Subjective Constitutional: Reports: weakness Allergies: Coded Allergies: No Known Allergies (Unverified , 06/01/19) All Systems: reviewed and negative except above Subjective sleepy in bed calm Objective Last 24 Hour Vital Signs Date Time Temp Pulse Resp B/P (MAP) Pulse Ox O2 Delivery O2 Flow Rate FiO2 08/07/19 04:00 96.6 55 20 118/64 (82) 95 08/07/19 00:00 97.3 53 20 105/68 (80) 97 08/06/19 21:00 Room Air 08/06/19 20:00 98.3 54 18 119/76 (90) 98 08/06/19 16:00 98.0 61 18 120/74 (89) 97 08/06/19 12:00 98.0 78 20 135/80 (98) 98 08/06/19 09:00 Room Air Intake and Output 08/06/19 08/07/19 19:00 07:00 Intake Total 360 ml 600 ml Output Total 1000 ml Balance 360 ml -400 ml Intake Oral 300 ml IV Total 60 ml 600 ml Output Urine Total 1000 ml # Voids 2 Laboratory Tests 08/07/19 06:50: Sodium Level 143, Potassium Level 4.5, Chloride Level 109H, Carbon Dioxide Level 26, Anion Gap 8, Blood Urea Nitrogen 9, Creatinine 0.7, Estimat Glomerular Filtration Rate > 60, Glucose Level 102, Hemoglobin A1c 5.7, Calcium Level 9.1, Pro-B-Type Natriuretic Peptide 138H Height (Feet): 5 Height (Inches): 5.00 Weight (Pounds): 140 General Appearance: lethargic EENT: normal ENT inspection Neck: normal alignment Cardiovascular: normal peripheral pulses, normal rate, regular rhythm Respiratory/Chest: chest wall non-tender, lungs clear, normal breath sounds Abdomen: normal bowel sounds, non tender, soft Extremities: normal inspection Edema: no edema noted Arm (L), no edema noted Arm (R), no edema noted Leg (L), no edema noted Leg (R), no edema noted Pedal (L), no edema noted Pedal (R), no edema noted Generalized Neurologic: motor weakness Skin: normal pigmentation, warm/dry Bakari Logan DO Aug 07, 2019 08:45
--- NOTE | 2019-08-07 09:44 | NUR ---
CHARGE NURSE NOTE: ordered EEG. Gurvinder (mail carrier technician. notified). He is on his way.
[2019-08-07] MEDS: DULoxetine 30mg cap ORAL SCH (10:50)
--- NOTE | 2019-08-07 11:02 | Pulmonology Progress Note ---
Assessment/Plan Assessment/Plan ASSESSMENT Metabolic encephalopathy seizure episode hypoglycemia DM HTN Bipolar depression PLAN OF CARE MS floor IVF rate increased to 75 CT head negative, no evidence of UTI serum alcohol negative, ammonia WNL seizure precautions seen and evaluated by neuro EEG pending Ativan prn for breakthrough seizures ? seizure episode due to hypoglycemia dc SSI moderate, only use sensitive scale as needed hypoglycemia protocol in use HgA1c at goal hypoglycemia improved after eating further recommendations re seizure management as per neuro psych eval pending CXR with possible mild CHF , check pro BNP , may dc IVF if eating ECHO pending O2 HHN prn DVT prophylaxis BP management per hx pt had CVA, but no evidence of prior CVA of CT scan supportive care case discussed and evaluated by supervising physician Subjective Allergies: Coded Allergies: No Known Allergies (Unverified , 06/01/19) Subjective remains afebrile, no signs of respiratory distress seizure earlier BS 63 Objective Last 24 Hour Vital Signs Date Time Temp Pulse Resp B/P (MAP) Pulse Ox O2 Delivery O2 Flow Rate FiO2 08/07/19 09:00 97.9 46 18 102/59 (73) 98 08/07/19 08:00 48 92/63 (73) 08/07/19 04:00 96.6 55 20 118/64 (82) 95 08/07/19 00:00 97.3 53 20 105/68 (80) 97 08/06/19 21:00 Room Air 08/06/19 20:00 98.3 54 18 119/76 (90) 98 08/06/19 16:00 98.0 61 18 120/74 (89) 97 08/06/19 12:00 98.0 78 20 135/80 (98) 98 Intake and Output 08/06/19 08/07/19 19:00 07:00 Intake Total 360 ml 600 ml Output Total 1000 ml Balance 360 ml -400 ml Intake Oral 300 ml IV Total 60 ml 600 ml Output Urine Total 1000 ml # Voids 2 Objective General Appearance: no acute distress, somnolent, but arousable, poorly responsive HEENT: normocephalic, atraumatic, anicteric Respiratory/Chest: lungs clear Cardiovascular: normal rate Abdomen: soft, non tender Extremities: pedal pulses normal Neurologic/Psychiatric: poorly responsive Microbiology Date/Time Source Procedure Growth Status 08/04/19 20:20 Blood Blood Culture - Preliminary NO GROWTH AFTER 48 HOURS Resulted 08/04/19 20:05 Blood Blood Culture - Preliminary NO GROWTH AFTER 48 HOURS Resulted Laboratory Tests 08/07/19 06:50: Sodium Level 143, Potassium Level 4.5, Chloride Level 109H, Carbon Dioxide Level 26, Anion Gap 8, Blood Urea Nitrogen 9, Creatinine 0.7, Estimat Glomerular Filtration Rate > 60, Glucose Level 102, Hemoglobin A1c 5.7, Calcium Level 9.1, Pro-B-Type Natriuretic Peptide 138H Current Medications Medications (Trade) Dose Ordered Sig/Jannet Route PRN Reason Start Time Stop Time Status Last Admin Dose Admin Dextrose (Dextrose 50%) 25 ml Q30M PRN IV Hypoglycemia 08/05/19 04:00 09/04/19 03:59 Dextrose (Dextrose 50%) 50 ml Q30M PRN IV Hypoglycemia 08/05/19 04:00 09/04/19 03:59 Duloxetine HCl (Cymbalta) 30 mg DAILY ORAL 08/05/19 09:00 09/04/19 08:59 08/07/19 10:50 Insulin Aspart (NovoLOG) BEFORE MEALS AND HS SUBQ 08/05/19 06:30 09/04/19 06:29 08/06/19 11:56 Lorazepam (Ativan 2mg/ml 1ml) 1 mg Q4H PRN IV For Anxiety 08/07/19 07:00 08/14/19 06:59 Morphine Sulfate (Morphine Sulfate) 2 mg Q4H PRN IVP Severe Pain (Pain Scale 7-10) 08/07/19 06:30 08/14/19 06:29 Quetiapine Fumarate (SEROqueL) 50 mg DAILY ORAL 08/05/19 09:00 09/04/19 08:59 08/07/19 10:51 Sodium Chloride 1,000 ml @ 75 mls/hr [id number] IV 08/07/19 10:00 09/06/19 09:59 08/07/19 10:51 Giselle Story NP Aug 07, 2019 11:02
--- NOTE | 2019-08-07 15:25 | NUR ---
PT note PT eval completed, treatment initiated. Patient has muscle weakness specially in the left UE/LE. He has poor recall and safety awareness. Patient can benefit from PT services to increase his muscle strength and balance to improve his safety in mobility and gait. Recommend for [facility] eval for placement d/t 's concerns of elopement. Addendum: 08/07/19 at 1526 by JAZMYNE GOMEZ PT Amended: Links added.
--- NOTE | 2019-08-07 16:45 | NUR ---
NURSE NOTES: RECEIVED PATIENT ASLEEP IN BED WITH AN [employer] SALES REPRESENTATIVEWILLIAM KUMAR. FAMILY MEMBER @ BEDSIDE. HOB ELEVATED. SIDERAILS ARE PADDED FOR SEIZURES PRECAUTIONS. IV SITE PATENT AND INTACT. NO ACUTE RESP DISTRESS NOTED. SIDERAILS ARE UP X3. BED IS IN THE LOWEST POSITION. BED IS LOCK AND BRAKE ENGAGED. CALL LIGHT IS WITHIN REACH. WILL CONT TO MONITOR.
--- NOTE | 2019-08-07 16:46 | NUR ---
HAND-OFF: Report given to ALEXSANDRA Rodriguez.
--- NOTE | 2019-08-07 19:04 | NUR ---
HAND-OFF: Report given to Rory.
--- NOTE | 2019-08-07 19:32 | NUR ---
NURSE NOTES: Received patient in bed, asleep, no acute distress noted, IV site is clean dry and intact, patient gets easily confused, agitated and disoriented. Call light is within reach, bed is lowered, locked, alarm is on, will continue to monitor for comfort and safety.
--- NOTE | 2019-08-08 | Consultation ---
DATE OF CONSULTATION: 08/07/2019 NEUROLOGIC CONSULTATION CHIEF COMPLAINT: This is the second [facility] admission for this 49-year-old probably right-handed man with schizophrenia, depression, hypertension, and AODM type 2. He is admitted with a chief complaint of increased weakness and confusion and I was asked to see him for seizure yesterday. The patient was admitted to this hospital on 06/02/2019 because of changes in mental status. He has a prior history of stroke. He did have an EEG on 06/01/2019, which was actually normal. The patient had an MRI and MRA of the brain on 06/01/2019, which was negative for significant stenosis. The head CT scan on that day was again negative. The patient's brain MRI on 06/03/2019 revealed no evidence of previous stroke. The patient was admitted. He was anemic with slightly elevated white count with a normal platelet count. His white count is now normal. His chemistries on admission were basically normal with normal PFA. The serum alcohol was less than 3. Urinalysis was normal. PT and PTT were normal. The patient had an EKG, which was normal. CT scan of the brain on 08/04/2018 is negative for any lesions. Chest x-ray reveals questionable mild congestive heart failure. The patient yesterday had a seizure and was given lorazepam 2 mg twice. The patient is given 2 mg today and started on insulin sliding scale. Because of his confusion, he was given 10 mg of Haldol IM, also started on 50 mg orally of Seroquel in two doses. The patient was also given D50 for hypoglycemia protocol, although he does not appear he was hypoglycemic. I was asked to see the patient because of his seizure and there is no other history available. PAST MEDICAL HISTORY/PAST MEDICAL ILLNESSES: See above. He may have some bipolar disorder, little unclear. ALLERGIES: No known allergies. MEDICATIONS: As an outpatient, he is on Seroquel 50 mg daily, duloxetine 20 mg daily, and aspirin 81 mg. SOCIAL HISTORY: Unavailable. PAST SURGICAL HISTORY: He had surgery in his neck, reason unclear. REVIEW OF SYSTEMS: Unavailable. PHYSICAL EXAMINATION: GENERAL: A well-developed, well-nourished man, lying in bed, slightly lethargic, but easily awaken and can follow some commands. VITAL SIGNS: Temperature is 96.6 degrees, pulse is 55 and regular, respiratory rate is 20, and blood pressure is 118/64. HEENT: Head, ears, eyes, nose, mouth, and throat reveals he has poor dentition. NECK: He has some stiffness in the neck. Carotids are +1. No bruits could be auscultated. LUNGS: Lungs are clear to auscultation. CARDIOVASCULAR SYSTEM: Heart sounds were distant. However, he had a normal S1, S2 is physiologically split. There is no S3, S4, murmurs, or rubs. ABDOMEN: Slightly obese. Bowel sounds were decreased. The patient complained of some pain to deep palpation. BACK: Not tested. NEUROLOGIC: MENTAL STATUS: The patient was mildly lethargic. Could do one-step command such as stick out his tongue and move his right arm to finger [id number]-pu-[id number] testing. Date, he thought it was April. Place, he knew where he was. Person, he is oriented to person. He could not even attempt to spell world backwards and forwards in Norwegian. CRANIAL NERVE EXAMINATION: CRANIAL NERVE II: Visual daugherty are grossly intact to confrontation. CRANIAL NERVES III, IV, AND : Horizontal and probably vertical extraocular motility was full. Pupils are approximately 5 mm, round, sluggishly reactive to light. CRANIAL NERVE V: Corneal sensation was intact. CRANIAL NERVE VII: Facial strength appeared to be bilaterally intact. CRANIAL NERVE VIII: Auditory was partially intact. CRANIAL NERVES IX AND X: Gag was decreased bilaterally. CRANIAL NERVE XI: Sternocleidomastoid strength is probably 5/5. CRANIAL NERVE XII: Tongue protrudes in the midline. No fasciculations or atrophy. MUSCLE EXAMINATION: Muscle bulk and tone are normal. Strength appeared to be practically 5/5 in the upper and lower extremities. Reflexes were +1.5 to 2 in the upper extremities, +3 at the knees, 0 at the ankles with upgoing toes on testing for Babinski response. He also had crossed adductor reflexes. COORDINATION: Finger Oylxei-nt-nfas was grossly intact. He could not do ytpt-jq-olwe testing. GAIT AND STATION: Could not be tested. SENSORY EXAMINATION: Sensation is intact to deep pain. IMPRESSION: This patient probably has metabolic encephalopathy postictal or combination of both. It is probably secondary to medications, because his metabolic part of his encephalopathy is probably due to his medications and in fact may be old. The patient does not appear septic, although he had an elevated white count on admission. 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 The patient was discharged on 06/06/2019. He states I saw him on that admission, but I do not see my reports in here. The patient was discharged with the diagnosis of acute encephalopathy, possibly related to an upper respiratory infection as well. He may have mild congestive heart failure in his chest x-ray, which should be treated. This could cause also altered mental status. As far as the patient's seizure is concerned, now he had one seizure. It may be a reactive seizure. Therefore, I would not treat him at this time. If the patient has another seizure, then he can be treated. The patient should get another EEG. As far as the seizure is concerned, he is on major antipsychotics, which can lower the seizure threshold as well as duloxetine, which also could lower the seizure threshold, but I would not change his medications at this time. PLAN: 1. EEG, awake and asleep. 2. No treatment at this time unless he has another seizure. 3. I will speak to you about this case. Martínez Antony MD DR: Faby JOB#: [id number] CC: RADHA
[2019-08-08 00:04] VITALS: BP 109/74
[2019-08-08 04:24] VITALS: BP 139/87
[2019-08-08] MEDS: NovoLOG Insulin Flexpen SUBQ SCH ×4 (05:28→21:02)
--- NOTE | 2019-08-08 07:19 | NUR ---
HAND-OFF: Report given to Arcelia STANTON.
--- NOTE | 2019-08-08 07:30 | Consultation ---
DATE OF CONSULTATION: 08/06/2019 NOTE: POOR AUDIO QUALITY PSYCHOTHERAPY CONSULTATION PROGRESS NOTE CONSULTING PHYSICIAN: Aldo Grant PsyD. TREATING ATTENDING PHYSICIAN: Bakari Logan D.O. HISTORY OF PRESENT ILLNESS: The patient is a 49-year-old male patient, who is currently homeless. I have seen the patient altered mental status the patient is very confused and agitated admitted to the hospital. the patient is very confused and disorganized. also very lethargic and tired. The patient has a history of CVA, diabetes, and the patient continues to have hospital ___ altered mental status. There is no indication of suicidal or homicidal ideation. There is no auditory or visual hallucination. The patient however PAST MEDICAL HISTORY: Includes a history of diabetes, CVA, , hypertension. ALLERGIES: The patient has no known drug allergies. SUBSTANCE ABUSE HISTORY: There is no indication of alcohol use, illicit substance use, or smoking cigarettes. PSYCHIATRIC HISTORY: The patient has a possible history of anxiety. According to the staff, 01:28 altered mental status and confused. SOCIAL HISTORY: The patient is a 49-year-old . MENTAL STATUS EXAMINATION: He is awake, alert, and oriented to person and place. Mood is anxious. Affect is . . No thoughts of communicating effectively. DIAGNOSES: 1. 2. CVA. 3. History of hypertension. 4. PLAN OF TREATMENT: The patient is a very confused. . The patient is in a difficult situation. The patient is 45 minutes extensively with the patient is a poor historian due to the patient's condition, altered mental status. Aldo Grant PsyD. DR: VERONICA JOB#: [id number] CC:
--- NOTE | 2019-08-08 07:42 | NUR ---
NURSE NOTES: received patient in bed, asleep, no sign of pain or discomfort, or respiratory distress noted. Receives IVF thorugh LAC IV access, no sign of infiltration noted. Bed locked at the lowest position possible, call light within easy reach, siderails up x2, bed alarm on. Siderails are padded. Patient is fall risk, on yellow gown and yellow socks, has order of sitter 1:1 PRN, no need at this time. Will continue to monitor pt and follow up with the POC.
[2019-08-08 08:00] VITALS: BP 114/75
[2019-08-08 08:24] LABS: BASOPHILS % (AUTO) 0.7 % (0.0-2.0); EOSINOPHILS % (AUTO) 2.2 % (0.0-3.0); HEMATOCRIT 41.6 % (42.0-52.0); HEMOGLOBIN 14.2 G/DL (14.2-18.0); LYMPHOCYTES % (AUTO) 21.8 % (20.0-45.0); MEAN CORPUSCULAR VOLUME 89 FL (80-99); MONOCYTES % (AUTO) 7.8 % (1.0-10.0); NEUTROPHILS % (AUTO) 67.4 % (45.0-75.0); PLATELET COUNT 274 K/UL (150-450); RED BLOOD COUNT 4.66 M/UL (4.70-6.10); RED CELL DISTRIBUTION WIDTH 12.3 % (11.6-14.8); WHITE BLOOD COUNT 10.6 K/UL (4.8-10.8)
[2019-08-08 08:49] LABS: ANION GAP 8 mmol/L (5-15); BLOOD UREA NITROGEN 12 mg/dL (7-18); CALCIUM 9.1 MG/DL (8.5-10.1); CARBON DIOXIDE 26 MMOL/L (21-32); CHLORIDE 108 MMOL/L (98-107); CREATININE 0.7 MG/DL (0.55-1.30); POTASSIUM 4.1 MMOL/L (3.5-5.1); SODIUM 142 MMOL/L (136-145)
--- NOTE | 2019-08-08 09:09 | General Progress Note ---
Assessment/Plan Problem List: (1) CVA (cerebral vascular accident) ICD Codes: I63.9 - Cerebral infarction, unspecified SNOMED: 465921462 (2) Depression ICD Codes: F32.9 - Major depressive disorder, single episode, unspecified SNOMED: 58806350 (3) Diabetes ICD Codes: E11.9 - Type 2 diabetes mellitus without complications SNOMED: 56974453 (4) Psychiatric disorder ICD Codes: F99 - Mental disorder, not otherwise specified SNOMED: 48959050 (5) HTN (hypertension) ICD Codes: I10 - Essential (primary) hypertension SNOMED: 19511449 (6) AMS (altered mental status) ICD Codes: R41.82 - Altered mental status, unspecified SNOMED: 360006786 Status: unchanged Assessment/Plan: pt diet eval neuro psyc f/u cbc bmp am psyc transfer Subjective Constitutional: Reports: weakness Allergies: Coded Allergies: No Known Allergies (Unverified , 06/01/19) All Systems: reviewed and negative except above Subjective sleepy in bed calm Objective Last 24 Hour Vital Signs Date Time Temp Pulse Resp B/P (MAP) Pulse Ox O2 Delivery O2 Flow Rate FiO2 08/08/19 08:00 97.8 63 17 114/75 (88) 96 08/08/19 04:24 97.9 87 20 139/87 (104) 97 08/08/19 00:04 97.8 87 21 109/74 (86) 98 08/07/19 21:17 Room Air 08/07/19 20:00 98.7 78 18 99/78 (85) 97 08/07/19 16:00 98.4 64 19 90/50 (63) 100 08/07/19 12:00 98.0 64 20 106/65 (79) 96 Intake and Output 08/07/19 08/08/19 19:00 07:00 Intake Total 465 ml Output Total 800 ml 1600 ml Balance -335 ml -1600 ml Intake Oral 240 ml IV Total 225 ml Output Urine Total 800 ml 1600 ml # Voids 2 Laboratory Tests 08/08/19 06:55: White Blood Count 10.6, Red Blood Count 4.66L, Hemoglobin 14.2, Hematocrit 41.6L , Mean Corpuscular Volume 89, Mean Corpuscular Hemoglobin 30.4, Mean Corpuscular Hemoglobin Concent 34.1, Red Cell Distribution Width 12.3, Platelet Count 274, Mean Platelet Volume 6.3L, Neutrophils (%) (Auto) 67.4, Lymphocytes ( %) (Auto) 21.8, Monocytes (%) (Auto) 7.8, Eosinophils (%) (Auto) 2.2, Basophils (%) (Auto) 0.7, Sodium Level 142, Potassium Level 4.1, Chloride Level 108H, Carbon Dioxide Level 26, Anion Gap 8, Blood Urea Nitrogen 12, Creatinine 0.7, Estimat Glomerular Filtration Rate > 60, Glucose Level 88, Calcium Level 9.1 Height (Feet): 5 Height (Inches): 5.00 Weight (Pounds): 140 General Appearance: lethargic EENT: normal ENT inspection Neck: normal alignment Cardiovascular: normal peripheral pulses, normal rate, regular rhythm Respiratory/Chest: chest wall non-tender, lungs clear, normal breath sounds Abdomen: normal bowel sounds, non tender, soft Extremities: normal inspection Edema: no edema noted Arm (L), no edema noted Arm (R), no edema noted Leg (L), no edema noted Leg (R), no edema noted Pedal (L), no edema noted Pedal (R), no edema noted Generalized Neurologic: motor weakness Skin: normal pigmentation, warm/dry Bakari Logan DO Aug 08, 2019 09:09
[2019-08-08] MEDS: DULoxetine 30mg cap ORAL SCH (09:13)
[2019-08-08] MEDS: LORazepam Inj 2mg/ml 1ml IV PRN (09:33)
--- NOTE | 2019-08-08 10:00 | NUR ---
NURSE NOTES: patient is impulsive, he took off his gown and walked towards the nursing station. Nurse called for help, got PT to help holding patient and wearing new gown. Given Ativan IV as ordered forv agitation. Patient calmed down after med.
[2019-08-08 12:00] VITALS: BP 116/78
--- NOTE | 2019-08-08 12:15 | NUR ---
RD ASSESSMENT & RECOMMENDATIONS SEE CARE ACTIVITY FOR COMPLETE ASSESSMENT DAILY ESTIMATED NEEDS: Needs based on cardiac, DM/ 66kg abw 25-30 kcals/kg total kcals 1-1.5 g protein/kg 66-99 g total protein 25-30 mL/kg total fluid mLs NUTRITION DIAGNOSIS: * Altered nutrition related lab values R/T h/o DM as evidenced by mildly elev A1C of 5.7, on NISS. CURRENT DIET:CCHO MED PO DIET RECOMMENDATIONS: LOW NA / texture per RADIOLOGY ASST ADDITIONAL RECOMMENDATIONS: * Calibrated bedscale wt, standing wt as able for accurate CBW * Rec RADIOLOGY ASST eval for h/o CVA, pt is confused * Add Glucerna w/ continued variable po intake
--- NOTE | 2019-08-08 12:21 | Pulmonology Progress Note ---
Assessment/Plan Problems: (1) AMS (altered mental status) (2) CHF (congestive heart failure) (3) Diabetes (4) Psychiatric disorder (5) HTN (hypertension) (6) Depression Assessment/Plan improving BP controlled sliding scale diabetic diet f/u by psych dc planning Subjective ROS Limited/Unobtainable: No Constitutional: Reports: no symptoms HEENT: Repors: no symptoms Respiratory: Reports: no symptoms Allergies: Coded Allergies: No Known Allergies (Unverified , 06/01/19) Objective Last 24 Hour Vital Signs Date Time Temp Pulse Resp B/P (MAP) Pulse Ox O2 Delivery O2 Flow Rate FiO2 08/08/19 12:00 97.9 70 18 116/78 (91) 97 08/08/19 08:00 97.8 63 17 114/75 (88) 96 08/08/19 04:24 97.9 87 20 139/87 (104) 97 08/08/19 00:04 97.8 87 21 109/74 (86) 98 08/07/19 21:17 Room Air 08/07/19 20:00 98.7 78 18 99/78 (85) 97 08/07/19 16:00 98.4 64 19 90/50 (63) 100 Intake and Output 08/07/19 08/08/19 19:00 07:00 Intake Total 465 ml Output Total 800 ml 1600 ml Balance -335 ml -1600 ml Intake Oral 240 ml IV Total 225 ml Output Urine Total 800 ml 1600 ml # Voids 2 Objective General Appearance: WN, WD, WH Lines, tubes and drains: peripheral HEENT: normocephalic, atraumatic Neck: non-tender, normal alignment Respiratory/Chest: chest wall non-tender, rhonchi - right, expiratory wheezing Breasts: no masses Cardiovascular/Chest: normal peripheral pulses Abdomen: normal bowel sounds, non tender, hyperactive bowel sounds Extremities: normal range of motion Laboratory Tests 08/08/19 06:55: White Blood Count 10.6, Red Blood Count 4.66L, Hemoglobin 14.2, Hematocrit 41.6L , Mean Corpuscular Volume 89, Mean Corpuscular Hemoglobin 30.4, Mean Corpuscular Hemoglobin Concent 34.1, Red Cell Distribution Width 12.3, Platelet Count 274, Mean Platelet Volume 6.3L, Neutrophils (%) (Auto) 67.4, Lymphocytes ( %) (Auto) 21.8, Monocytes (%) (Auto) 7.8, Eosinophils (%) (Auto) 2.2, Basophils (%) (Auto) 0.7, Sodium Level 142, Potassium Level 4.1, Chloride Level 108H, Carbon Dioxide Level 26, Anion Gap 8, Blood Urea Nitrogen 12, Creatinine 0.7, Estimat Glomerular Filtration Rate > 60, Glucose Level 88, Calcium Level 9.1 Current Medications Medications (Trade) Dose Ordered Sig/Jannet Route PRN Reason Start Time Stop Time Status Last Admin Dose Admin Dextrose (Dextrose 50%) 25 ml Q30M PRN IV Hypoglycemia 08/07/19 11:00 09/06/19 10:59 Dextrose (Dextrose 50%) 50 ml Q30M PRN IV Hypoglycemia 08/07/19 11:00 09/06/19 10:59 Duloxetine HCl (Cymbalta) 30 mg DAILY ORAL 08/05/19 09:00 09/04/19 08:59 08/08/19 09:13 Insulin Aspart (NovoLOG) BEFORE MEALS AND HS SUBQ 08/07/19 11:30 09/06/19 11:29 08/07/19 16:56 Lorazepam (Ativan 2mg/ml 1ml) 1 mg Q4H PRN IV For Anxiety 08/07/19 07:00 08/14/19 06:59 08/08/19 09:33 Morphine Sulfate (Morphine Sulfate) 2 mg Q4H PRN IVP Severe Pain (Pain Scale 7-10) 08/07/19 06:30 08/14/19 06:29 Quetiapine Fumarate (SEROqueL) 50 mg DAILY ORAL 08/05/19 09:00 09/04/19 08:59 08/08/19 09:13 Sodium Chloride 1,000 ml @ 75 mls/hr [id number] IV 08/07/19 10:00 09/06/19 09:59 08/07/19 23:24 Luis Cody MD Aug 08, 2019 12:21
--- NOTE | 2019-08-08 13:50 | NUR ---
Social Work This SW received a consult to assist with a home safety evaluation. This SW met with patient who appears calm, staying in his room and remains ambulatory at bedside. Patient appears slightly confused and speaks only English (was unable to recall whether he was working or not). This SW contacted his spouse, Isis (along with friend/Co-worker, "Sonny" who speaks Macedonian), who explains patient has not been working for the past two years, stays home alone, while spouse is working Thursday through Thursday, eight hours per day. Spouse explains there isn't any other family or friends to assist with supervision upon discharge. Spouse denied any substance abuse or past mental health concerns. Pending progress at this time; SNF placement recommended as needed. If patients cognition improves, safe to be home alone while spouse is working (pending progress).
--- NOTE | 2019-08-08 14:30 | NUR ---
SS note This SW received a consult to assist with placement into an inpatient Psychiatric Hospital. Patient does not meet the criteria for acute psych at this time; Psychiatry to follow here, as needed. Addendum: 08/08/19 at [address] Rosenberg is following patient, while there are no notes indicating diagnosis/criteria for inpatient Psych placement, Nursing, Kamilla aware and will contact psychiatry to inform.
--- NOTE | 2019-08-08 15:36 | NUR ---
CASE MANAGEMENT:REVIEW 08/06/2019 SI;ALTERED MENTAL STATUS. DM. BIPOLAR DEPRESSION. 99.0 55 20 135/80 94% ON RA IS;SEROQUEL PO QD IVF NS @ 60 ML/HR CYMBALTA PO QD MED SURG STATUS DCP;FROM HOME CASE MANAGEMENT:REVIEW 08/07/2019 SI;PSYCHIATRIC DISORDER. AMS. DM. 96.6 46 20 90/50 95% ON RA IS;SEROQUEL PO QD IVF NS @ 75 ML/HR CYMBALTA PO QD HALDOL IM ONCE ATIVAN IM ONCE MED SURG STATUS CASE MANAGEMENT:REVIEW 08/08/2019 SI;PSYCHIATRIC DISORDER. AMS. DM. 97.6 54 21 99/78 96% ON RA IS;IVF NS @ 75 ML/HR SEROQUEL PO QD CYMBALTA PO QD MED SURG STATUS DCP;FROM HOME
[2019-08-08 16:00] VITALS: BP 106/67
--- NOTE | 2019-08-08 16:15 | NUR ---
SS note Angelia, intake at [facility]. explains they will not have a clinician available until tomorrow to evaluate here. SW to follow.
--- NOTE | 2019-08-08 19:30 | NUR ---
NURSE NOTES: RECEIVED PATIENT FROM MAXIMINO SALAZAR. PATIENT IS AWAKE, AAO1, CONFUSED, DISPLAYING FLAT AFFECT. FAMILY MEMBER AT BEDSIDE. PATIENT IS ON ROOM AIR, NO ACUTE DISTRESS NOTED. IV ON LEFT AC INTACT AND PATENT. FALL PRECAUTIONS IN PLACE. BED IS LOCKED AND LOW, BED ALARMS ACTIVE ON ZONE 2, SIDE RAILS UP X2 AND PADDED FOR SEIZURE PRECAUTION, AND CALL LIGHT IS WITHIN REACH. COMMUNICATED WITH STAFF FOR FREQUENT ROUNDING. WILL CONTINUE TO MONITOR PATIENT CLOSELY.
--- NOTE | 2019-08-08 19:30 | NUR ---
HAND-OFF: Report given to MAXIMINO Gutierrez.
[2019-08-08 20:00] VITALS: BP 106/61
--- NOTE | 2019-08-08 22:15 | Consultation ---
DATE OF CONSULTATION: 08/08/2019 HISTORY OF PRESENT ILLNESS: This is a 49-year-old male patient who was admitted to the hospital. This patient is still depressed, confused, mood labile. . The patient came to the hospital. He is still very confused, disorganized, mood labile. The patient has altered mental status, CVA, diabetes, weakness, confusion, decline in cognition below his baseline, but basically because of the generalized weakness and altered mental status, recent confusion and decline in cognition below his baseline, that is why he is admitted to the unit and daily psychiatric consultation requested because of increased anxiety and depression with altered mental status and confusion. I saw and assessed this patient at bedside. He is very confused. He had a difficult time answering my questions, he is a very poor historian, and altered mental status. That is why his attending has requested daily psychiatric consultation at this time. So, he does require inpatient treatment at this time. PAST MEDICAL HISTORY: He has hypertension, CVA, diabetes, and seizure disorder. ALLERGIES: The patient has no known drug allergies. MEDICATIONS: As far as his psychotropic medications on admission, this patient is on a psychotropic medication regimen consisting of Seroquel 50 mg daily, Ativan 1 every 4 hours IV p.r.n., and Cymbalta 30 mg daily. SUBSTANCE ABUSE HISTORY: Denies. PAIN ASSESSMENT: 09/05. DEVELOPMENTAL PROBLEMS: Denies. SOCIAL HISTORY: This patient is currently living in a private residence. Financially supported by [employer] and Medicare. PSYCHIATRIC HISTORY: Paranoid schizophrenia. STRENGTHS: He is motivated to get better and healthy. WEAKNESSES: He is impulsive with minimal support system. MENTAL STATUS EXAMINATION: This is a 49-year-old male patient. Appearance is disheveled. Attitude is irritable and agitated. Affect guarded and restricted. Intellect is poor because he does not know current events. He does not know the last four presidents. Mood, depressed and anxious. Motor activity, psychomotor agitation. Attention span is poor because he cannot do serial 7's or spell world backwards. Orientation x1, only to person, but not to place, time, or situation. Speech is disorganized, confused. Thought process, disorganized and illogical. Thought content, he has paranoid delusions. Insight is poor because he does not recognize having a mood disorder. Judgment is poor because he cannot make medical decisions for himself at this point. Short-term memory 1/3 of 3-word recall, so poor short-term memory. Long-term memory is poor because he cannot recall long-term events in his life such as the high school that he went to. DIAGNOSES: 1. Major depressive disorder, recurrent with psychotic features. Rule out dementia with psychosis. 2. Paranoid schizophrenia. 3. No secondary. 4. Medical, hypertension, CVA, seizures. 5. Psychosocial stressors, financial. 6. Functional impairment, severe. PLAN: Continue daily and Cymbalta 30 mg daily. Twenty minutes of cognitive behavioral therapy was provided to help identify his automatic negative thoughts and help convert those negative thoughts to more positive thoughts to reduce depression, anxiety, and mood lability. Transfer to psych when medically cleared. I would like to thank Dr. Bakari Logan for this interesting consultation. Yvonne Rosenberg M.D. DR: Ke JOB#: [id number] CC:
--- NOTE | 2019-08-08 23:30 | Electroencephalogram ---
DATE OF PROCEDURE: 08/07/2019 REQUESTING PHYSICIAN: Martínez Antony M.D. READING PHYSICIAN: Primitivo Weber M.D. PROCEDURE PERFORMED: Electroencephalogram. HISTORY: This EEG was performed on a 49-year-old gentleman with a history of multiple medical problems including hypertension, diabetes mellitus, bipolar disorder, and a seizure disorder. The purpose of this EEG was to evaluate the patient for the type of seizure disorder. TECHNICAL NOTE: This EEG was performed on a [employer] Unit with electrodes placed on the scalp according to the International 10-20 system. Scalp to scalp and oulwg-no-mhc montages were used. The EEG was technically satisfactory and was performed in the awake, drowsy, and sleep states. OBSERVATIONS: In the best awake state, the background activity consisted of 8.5-9 Hz posteriorly predominant well-developed alpha waveforms, which attenuated on eye opening. Drowsiness was characterized by dissolution of the alpha rhythm and the appearance of slower frequencies in the 5-6 Hz theta range. Stage II sleep was characterized by further slowing of the background in the delta and theta range, the presence of vertex waves, and 14 Hz sleep spindles. No focal abnormalities or epileptiform discharges were seen. IMPRESSION: Normal awake, drowsy, and stage II sleep EEG. COMMENT: A normal EEG does not rule out a seizure disorder. Primitivo Weber M.D., M.S.P.H. Clinical Neurophysiologist DR: ARMANDO JOB#: [id number] RADHA
[2019-08-09] VITALS: BP 114/68
[2019-08-09 04:00] VITALS: BP 120/72
[2019-08-09] MEDS: NovoLOG Insulin Flexpen SUBQ SCH ×4 (06:30→21:00)
[2019-08-09 07:09] LABS: ANION GAP 7 mmol/L (5-15); BLOOD UREA NITROGEN 11 mg/dL (7-18); CALCIUM 9.1 MG/DL (8.5-10.1); CARBON DIOXIDE 27 MMOL/L (21-32); CHLORIDE 108 MMOL/L (98-107); CREATININE 0.7 MG/DL (0.55-1.30); POTASSIUM 4.3 MMOL/L (3.5-5.1); SODIUM 142 MMOL/L (136-145)
[2019-08-09 07:10] LABS: BASOPHILS % (AUTO) 0.9 % (0.0-2.0); EOSINOPHILS % (AUTO) 2.7 % (0.0-3.0); HEMATOCRIT 40.6 % (42.0-52.0); HEMOGLOBIN 13.9 G/DL (14.2-18.0); LYMPHOCYTES % (AUTO) 23.6 % (20.0-45.0); MEAN CORPUSCULAR VOLUME 88 FL (80-99); MONOCYTES % (AUTO) 9.9 % (1.0-10.0); NEUTROPHILS % (AUTO) 63.1 % (45.0-75.0); PLATELET COUNT 270 K/UL (150-450); RED CELL DISTRIBUTION WIDTH 12.2 % (11.6-14.8)
--- NOTE | 2019-08-09 07:36 | NUR ---
APPLIED PSYCHOLOGY CHAIR NOTE RICK spoke w/ Tessa from [facility] [phone] and was informed that [facility] will not take pt d/t insurance denial. Signed: 08/09/19 at 0738 by MAXI CABRERA <Co-Signature Required>
--- NOTE | 2019-08-09 07:43 | NUR ---
HAND-OFF: Report given to MAXIMINO Simental.
--- NOTE | 2019-08-09 07:45 | NUR ---
NURSE NOTES: Patient confused, Czech speaking; on room air, no sign of distress and shortness of breath; no sing of distress; no sing of chest pain; IV Left AC 20G 1/2NS 75cc running; urinal within reach; side rails up x2, padded for seizure percussion; bed at lowest position, breaks engaged, bed alarm on; will keep monitoring.
[2019-08-09 08:00] VITALS: BP 141/72
[2019-08-09] MEDS: DULoxetine 30mg cap ORAL SCH (08:28)
[2019-08-09] MEDS: LORazepam Inj 2mg/ml 1ml IV PRN (08:29)
--- NOTE | 2019-08-09 09:41 | NUR ---
P.T Note: P.T attempted however . Pt unable to participate at this time due to Ativan has taken effect. Will reattempt when appropriate.
[2019-08-09 12:00] VITALS: BP 110/66
--- NOTE | 2019-08-09 12:02 | Pulmonology Progress Note ---
Assessment/Plan Problems: (1) AMS (altered mental status) (2) CHF (congestive heart failure) (3) Diabetes (4) Psychiatric disorder (5) HTN (hypertension) (6) Depression Assessment/Plan improving BP controlled sliding scale diabetic diet f/u by psych dc planning Subjective ROS Limited/Unobtainable: No Constitutional: Reports: no symptoms HEENT: Repors: no symptoms Respiratory: Reports: no symptoms Allergies: Coded Allergies: No Known Allergies (Unverified , 06/01/19) Objective Last 24 Hour Vital Signs Date Time Temp Pulse Resp B/P (MAP) Pulse Ox O2 Delivery O2 Flow Rate FiO2 08/09/19 09:00 Room Air 08/09/19 08:00 97.9 83 18 141/72 (95) 96 08/09/19 04:00 98.3 66 18 120/72 (88) 97 08/09/19 00:00 98.4 69 18 114/68 (83) 96 08/08/19 21:00 Room Air 08/08/19 20:00 98.5 74 18 106/61 (76) 96 08/08/19 16:00 98.2 62 18 106/67 (80) 96 Intake and Output 08/08/19 08/09/19 19:00 07:00 Intake Total 75 ml 360 ml Output Total 700 ml Balance -625 ml 360 ml Intake Oral 60 ml IV Total 75 ml 300 ml Output Urine Total 700 ml # Voids 1 # Bowel Movements 2 1 Objective General Appearance: WN, WD, WH Lines, tubes and drains: peripheral HEENT: normocephalic, atraumatic Neck: non-tender, normal alignment Respiratory/Chest: chest wall non-tender, rhonchi - right, expiratory wheezing Breasts: no masses Cardiovascular/Chest: normal peripheral pulses Abdomen: normal bowel sounds, non tender, hyperactive bowel sounds Extremities: normal range of motion Laboratory Tests 08/09/19 06:35: White Blood Count 10.0, Red Blood Count 4.60L, Hemoglobin 13.9L, Hematocrit 40.6L, Mean Corpuscular Volume 88, Mean Corpuscular Hemoglobin 30.1, Mean Corpuscular Hemoglobin Concent 34.2, Red Cell Distribution Width 12.2, Platelet Count 270, Mean Platelet Volume 6.5, Neutrophils (%) (Auto) 63.1, Lymphocytes (% ) (Auto) 23.6, Monocytes (%) (Auto) 9.9, Eosinophils (%) (Auto) 2.7, Basophils ( %) (Auto) 0.9, Sodium Level 142, Potassium Level 4.3, Chloride Level 108H, Carbon Dioxide Level 27, Anion Gap 7, Blood Urea Nitrogen 11, Creatinine 0.7, Estimat Glomerular Filtration Rate > 60, Glucose Level 97, Calcium Level 9.1 Current Medications Medications (Trade) Dose Ordered Sig/Jannet Route PRN Reason Start Time Stop Time Status Last Admin Dose Admin Dextrose (Dextrose 50%) 25 ml Q30M PRN IV Hypoglycemia 08/07/19 11:00 09/06/19 10:59 Dextrose (Dextrose 50%) 50 ml Q30M PRN IV Hypoglycemia 08/07/19 11:00 09/06/19 10:59 Duloxetine HCl (Cymbalta) 30 mg DAILY ORAL 08/05/19 09:00 09/04/19 08:59 08/09/19 08:28 Insulin Aspart (NovoLOG) BEFORE MEALS AND HS SUBQ 08/07/19 11:30 09/06/19 11:29 08/08/19 21:02 Lorazepam (Ativan 2mg/ml 1ml) 1 mg Q4H PRN IV For Anxiety 08/07/19 07:00 08/14/19 06:59 08/09/19 08:29 Morphine Sulfate (Morphine Sulfate) 2 mg Q4H PRN IVP Severe Pain (Pain Scale 7-10) 08/07/19 06:30 08/14/19 06:29 Quetiapine Fumarate (SEROqueL) 50 mg DAILY ORAL 08/05/19 09:00 09/04/19 08:59 08/09/19 08:28 Sodium Chloride 1,000 ml @ 75 mls/hr [id number] IV 08/07/19 10:00 09/06/19 09:59 08/09/19 02:13 Luis Cody MD Aug 09, 2019 12:02
--- NOTE | 2019-08-09 13:53 | General Progress Note ---
Assessment/Plan Problem List: (1) CVA (cerebral vascular accident) ICD Codes: I63.9 - Cerebral infarction, unspecified SNOMED: 174211228 (2) Depression ICD Codes: F32.9 - Major depressive disorder, single episode, unspecified SNOMED: 78790085 (3) Diabetes ICD Codes: E11.9 - Type 2 diabetes mellitus without complications SNOMED: 89839072 (4) Psychiatric disorder ICD Codes: F99 - Mental disorder, not otherwise specified SNOMED: 59466801 (5) HTN (hypertension) ICD Codes: I10 - Essential (primary) hypertension SNOMED: 72682718 (6) AMS (altered mental status) ICD Codes: R41.82 - Altered mental status, unspecified SNOMED: 640285539 Status: unchanged Assessment/Plan: pt diet eval neuro psyc f/u cbc bmp am dc plan snf Subjective Constitutional: Reports: weakness Allergies: Coded Allergies: No Known Allergies (Unverified , 06/01/19) All Systems: reviewed and negative except above Subjective sleepy in bed calm Objective Last 24 Hour Vital Signs Date Time Temp Pulse Resp B/P (MAP) Pulse Ox O2 Delivery O2 Flow Rate FiO2 08/09/19 12:00 99.2 67 18 110/66 (81) 97 08/09/19 09:00 Room Air 08/09/19 08:00 97.9 83 18 141/72 (95) 96 08/09/19 04:00 98.3 66 18 120/72 (88) 97 08/09/19 00:00 98.4 69 18 114/68 (83) 96 08/08/19 21:00 Room Air 08/08/19 20:00 98.5 74 18 106/61 (76) 96 08/08/19 16:00 98.2 62 18 106/67 (80) 96 Intake and Output 08/08/19 08/09/19 19:00 07:00 Intake Total 75 ml 360 ml Output Total 700 ml Balance -625 ml 360 ml Intake Oral 60 ml IV Total 75 ml 300 ml Output Urine Total 700 ml # Voids 1 # Bowel Movements 2 1 Laboratory Tests 08/09/19 06:35: White Blood Count 10.0, Red Blood Count 4.60L, Hemoglobin 13.9L, Hematocrit 40.6L, Mean Corpuscular Volume 88, Mean Corpuscular Hemoglobin 30.1, Mean Corpuscular Hemoglobin Concent 34.2, Red Cell Distribution Width 12.2, Platelet Count 270, Mean Platelet Volume 6.5, Neutrophils (%) (Auto) 63.1, Lymphocytes (% ) (Auto) 23.6, Monocytes (%) (Auto) 9.9, Eosinophils (%) (Auto) 2.7, Basophils ( %) (Auto) 0.9, Sodium Level 142, Potassium Level 4.3, Chloride Level 108H, Carbon Dioxide Level 27, Anion Gap 7, Blood Urea Nitrogen 11, Creatinine 0.7, Estimat Glomerular Filtration Rate > 60, Glucose Level 97, Calcium Level 9.1 Height (Feet): 5 Height (Inches): 5.00 Weight (Pounds): 140 General Appearance: lethargic EENT: normal ENT inspection Neck: normal alignment Cardiovascular: normal peripheral pulses, normal rate, regular rhythm Respiratory/Chest: chest wall non-tender, lungs clear, normal breath sounds Abdomen: normal bowel sounds, non tender, soft Extremities: normal inspection Edema: no edema noted Arm (L), no edema noted Arm (R), no edema noted Leg (L), no edema noted Leg (R), no edema noted Pedal (L), no edema noted Pedal (R), no edema noted Generalized Neurologic: motor weakness Skin: normal pigmentation, warm/dry Bakari Logan DO Aug 09, 2019 13:53
--- NOTE | 2019-08-09 14:08 | NUR ---
CASE MANAGEMENT:REVIEW SI;CVA. HTN. DM. 99.2 83 18 141/72 96% ON RA IS;SEROQUEL PO QD ATIVAN IV Q4 HRS PRN IVF NS @ 75 ML/HR MED SURG STATUS PLAN;SNF PLACEMENT [facility] [place];[facility]
--- NOTE | 2019-08-09 14:25 | NUR ---
CASE MANAGEMENT:DISCHARGE PLANNING NOTE PATIENT HAS BEEN REFERRED TO MARIXA DEY P: F: Addendum: 08/09/19 at 1556 by RAD STOVALL LVN LVN PATIENT HAS BEEN REFERRED TO MARIBEL P: [phone] F: [phone] RAVI GOYAL P: [phone] F: [phone]
--- NOTE | 2019-08-09 15:08 | NUR ---
FOLLOW UP WITH [facility] PER YULIA, NO BEDS AVAILABLE AT THIS TIME. DR GARCIA NOTIFIED
[2019-08-09 16:00] VITALS: BP 105/63
--- NOTE | 2019-08-09 16:15 | Progress Note ---
DATE: 08/09/2019 SUBJECTIVE: This is a 49-year-old male with altered mental status, but this patient has lot of psychomotor agitation and irritability. MENTAL STATUS EXAMINATION: This is a 49-year-old male. Appearance is disheveled. Attitude, irritable and agitated. Affect, guarded and restricted. Intellect, poor. Mood, depressed and anxious. Motor activity, psychomotor agitation. Insight and judgment is poor. DIAGNOSIS: Paranoid schizophrenia. PLAN: I am going to titrate up on his medications to help stabilize his mood, reduce psychomotor agitation. 20 minutes of cognitive behavioral therapy provided to help him identify his automatic negative thoughts and help him convert negative thoughts to more positive thoughts to reduce depression, anxiety, mood lability. Chart reviewed. Discussed with staff. Seen and assessed at bedside. Yvonne Rosenberg M.D. DR: GINA JOB#: [id number] CC:
--- NOTE | 2019-08-09 16:23 | NUR ---
*-* INSURANCE *-* ALL CLINICALS AND REVIEWS HAVE BEEN FAXED TO: Ref# [id number] # [phone] FAX#[phone]
--- NOTE | 2019-08-09 19:22 | NUR ---
HAND-OFF: Report given to MAXIMINO Gutierrez.
--- NOTE | 2019-08-09 19:30 | NUR ---
NURSE NOTES: RECEIVED PATIENT FROM MAXIMINO PARDO. PATIENT IS AWAKE, AAO1, CONFUSED, DISPLAYING FLAT AFFECT. FAMILY MEMBER AT BEDSIDE. PATIENT IS ON ROOM AIR, NO ACUTE DISTRESS NOTED. IV ON LEFT AC INTACT AND PATENT. FALL PRECAUTIONS IN PLACE. BED IS LOCKED AND LOW, BED ALARMS ACTIVE ON ZONE 2, SIDE RAILS UP X2 AND PADDED FOR SEIZURE PRECAUTION, AND CALL LIGHT IS WITHIN REACH. COMMUNICATED WITH STAFF FOR FREQUENT ROUNDING. WILL CONTINUE TO MONITOR PATIENT CLOSELY
[2019-08-09 20:00] VITALS: BP 114/74
--- NOTE | 2019-08-09 21:00 | NUR ---
NURSE NOTES: INSERTED NEW IV ON RIGHT FOREARM 18G.
[2019-08-09] MEDS: Morphine Sulfate 2mg/ml Inj(IV/IM USE ONLY) IVP PRN (23:41)
[2019-08-10] VITALS (7 sets, daily range): BP systolic 108–125; BP diastolic 59–89
[2019-08-10] MEDS: NovoLOG Insulin Flexpen SUBQ SCH ×5 (06:30→22:13)
--- NOTE | 2019-08-10 07:31 | NUR ---
NURSE NOTES: Patient awake, alert x2; Thai speaking; on room air, no sing of distress and shortness of breath; no sing of chest pain; IV Right For-Arm 18G 1/2NS @75cc; side rails up and padded for seizure percussion; breaks engaged, bed at lowest position, bed alarm on; call light within reach; will keep monitoring.
--- NOTE | 2019-08-10 07:33 | NUR ---
HAND-OFF: Report given to MAXIMINO Simental.
[2019-08-10] MEDS: DULoxetine 30mg cap ORAL SCH (08:17)
[2019-08-10 08:18] LABS: BASOPHILS % (AUTO) 0.8 % (0.0-2.0); EOSINOPHILS % (AUTO) 2.1 % (0.0-3.0); HEMATOCRIT 39.3 % (42.0-52.0); HEMOGLOBIN 13.6 G/DL (14.2-18.0); LYMPHOCYTES % (AUTO) 22.1 % (20.0-45.0); MEAN CORPUSCULAR VOLUME 89 FL (80-99); MONOCYTES % (AUTO) 11.2 % (1.0-10.0); NEUTROPHILS % (AUTO) 63.9 % (45.0-75.0); PLATELET COUNT 261 K/UL (150-450); RED BLOOD COUNT 4.44 M/UL (4.70-6.10); RED CELL DISTRIBUTION WIDTH 12.3 % (11.6-14.8); WHITE BLOOD COUNT 10.3 K/UL (4.8-10.8)
[2019-08-10 08:45] LABS: ANION GAP 9 mmol/L (5-15); BLOOD UREA NITROGEN 13 mg/dL (7-18); CALCIUM 8.8 MG/DL (8.5-10.1); CARBON DIOXIDE 24 MMOL/L (21-32); CHLORIDE 108 MMOL/L (98-107); CREATININE 0.7 MG/DL (0.55-1.30); SODIUM 141 MMOL/L (136-145)
[2019-08-10] MEDS: Morphine Sulfate 2mg/ml Inj(IV/IM USE ONLY) IVP PRN ×2 (11:35→22:10)
--- NOTE | 2019-08-10 13:16 | Pulmonology Progress Note ---
Assessment/Plan Problems: (1) AMS (altered mental status) (2) CHF (congestive heart failure) (3) Diabetes (4) Psychiatric disorder (5) HTN (hypertension) (6) Depression Assessment/Plan improving BP controlled sliding scale diabetic diet f/u by psych dc planning Subjective ROS Limited/Unobtainable: No Constitutional: Reports: no symptoms HEENT: Repors: no symptoms Allergies: Coded Allergies: No Known Allergies (Unverified , 06/01/19) Objective Last 24 Hour Vital Signs Date Time Temp Pulse Resp B/P (MAP) Pulse Ox O2 Delivery O2 Flow Rate FiO2 08/10/19 12:05 99.4 08/10/19 12:00 99.8 62 19 108/62 (77) 97 08/10/19 09:00 Room Air 08/10/19 08:00 99.4 63 20 111/73 (86) 98 08/10/19 04:00 98.7 86 18 108/72 (84) 97 08/10/19 00:00 98.0 90 18 113/69 (84) 96 08/09/19 21:00 Room Air 08/09/19 20:00 98.5 83 18 114/74 (87) 95 08/09/19 16:00 98.3 62 18 105/63 (77) 99 Intake and Output 08/09/19 08/10/19 19:00 07:00 Intake Total 1545 ml 195 ml Balance 1545 ml 195 ml Intake Oral 720 ml 120 ml IV Total 825 ml 75 ml # Voids 2 # Bowel Movements 1 1 Objective General Appearance: WN, WD, WH Lines, tubes and drains: peripheral HEENT: normocephalic, atraumatic Neck: non-tender, normal alignment Respiratory/Chest: chest wall non-tender, rhonchi - right, expiratory wheezing Breasts: no masses Cardiovascular/Chest: normal peripheral pulses Abdomen: normal bowel sounds, non tender, hyperactive bowel sounds Extremities: normal range of motion Laboratory Tests 08/10/19 07:05: White Blood Count 10.3, Red Blood Count 4.44L, Hemoglobin 13.6L, Hematocrit 39.3L, Mean Corpuscular Volume 89, Mean Corpuscular Hemoglobin 30.6, Mean Corpuscular Hemoglobin Concent 34.6, Red Cell Distribution Width 12.3, Platelet Count 261, Mean Platelet Volume 6.4L, Neutrophils (%) (Auto) 63.9, Lymphocytes ( %) (Auto) 22.1, Monocytes (%) (Auto) 11.2H, Eosinophils (%) (Auto) 2.1, Basophils (%) (Auto) 0.8, Sodium Level 141, Potassium Level 4.0, Chloride Level 108H, Carbon Dioxide Level 24, Anion Gap 9, Blood Urea Nitrogen 13, Creatinine 0.7, Estimat Glomerular Filtration Rate > 60, Glucose Level 103, Calcium Level 8.8 Current Medications Medications (Trade) Dose Ordered Sig/Jannet Route PRN Reason Start Time Stop Time Status Last Admin Dose Admin Dextrose (Dextrose 50%) 25 ml Q30M PRN IV Hypoglycemia 08/07/19 11:00 09/06/19 10:59 Dextrose (Dextrose 50%) 50 ml Q30M PRN IV Hypoglycemia 08/07/19 11:00 09/06/19 10:59 Duloxetine HCl (Cymbalta) 30 mg DAILY ORAL 08/05/19 09:00 09/04/19 08:59 08/10/19 08:17 Insulin Aspart (NovoLOG) BEFORE MEALS AND HS SUBQ 08/07/19 11:30 09/06/19 11:29 08/08/19 21:02 Lorazepam (Ativan 2mg/ml 1ml) 1 mg Q4H PRN IV For Anxiety 08/07/19 07:00 08/14/19 06:59 08/09/19 08:29 Morphine Sulfate (Morphine Sulfate) 2 mg Q4H PRN IVP Severe Pain (Pain Scale 7-10) 08/07/19 06:30 08/14/19 06:29 08/10/19 11:35 Quetiapine Fumarate (SEROqueL) 50 mg DAILY ORAL 08/05/19 09:00 09/04/19 08:59 08/10/19 08:17 Sodium Chloride 1,000 ml @ 75 mls/hr [id number] IV 08/07/19 10:00 09/06/19 09:59 08/10/19 05:20 Luis Cody MD Aug 10, 2019 13:16
--- NOTE | 2019-08-10 14:19 | General Progress Note ---
Assessment/Plan Problem List: (1) CVA (cerebral vascular accident) ICD Codes: I63.9 - Cerebral infarction, unspecified SNOMED: 840426263 (2) Depression ICD Codes: F32.9 - Major depressive disorder, single episode, unspecified SNOMED: 69841625 (3) Diabetes ICD Codes: E11.9 - Type 2 diabetes mellitus without complications SNOMED: 15462237 (4) Psychiatric disorder ICD Codes: F99 - Mental disorder, not otherwise specified SNOMED: 38202080 (5) HTN (hypertension) ICD Codes: I10 - Essential (primary) hypertension SNOMED: 02065090 (6) AMS (altered mental status) ICD Codes: R41.82 - Altered mental status, unspecified SNOMED: 572378014 Status: stable, progressing Assessment/Plan: pt diet eval neuro psyc f/u dc to snf if clear Subjective Constitutional: Reports: weakness Allergies: Coded Allergies: No Known Allergies (Unverified , 06/01/19) All Systems: reviewed and negative except above Subjective sleepy in bed calm Objective Last 24 Hour Vital Signs Date Time Temp Pulse Resp B/P (MAP) Pulse Ox O2 Delivery O2 Flow Rate FiO2 08/10/19 12:05 99.4 08/10/19 12:00 99.8 62 19 108/62 (77) 97 08/10/19 09:00 Room Air 08/10/19 08:00 99.4 63 20 111/73 (86) 98 08/10/19 04:00 98.7 86 18 108/72 (84) 97 08/10/19 00:00 98.0 90 18 113/69 (84) 96 08/09/19 21:00 Room Air 08/09/19 20:00 98.5 83 18 114/74 (87) 95 08/09/19 16:00 98.3 62 18 105/63 (77) 99 Intake and Output 08/09/19 08/10/19 19:00 07:00 Intake Total 1545 ml 195 ml Balance 1545 ml 195 ml Intake Oral 720 ml 120 ml IV Total 825 ml 75 ml # Voids 2 # Bowel Movements 1 1 Laboratory Tests 08/10/19 07:05: White Blood Count 10.3, Red Blood Count 4.44L, Hemoglobin 13.6L, Hematocrit 39.3L, Mean Corpuscular Volume 89, Mean Corpuscular Hemoglobin 30.6, Mean Corpuscular Hemoglobin Concent 34.6, Red Cell Distribution Width 12.3, Platelet Count 261, Mean Platelet Volume 6.4L, Neutrophils (%) (Auto) 63.9, Lymphocytes ( %) (Auto) 22.1, Monocytes (%) (Auto) 11.2H, Eosinophils (%) (Auto) 2.1, Basophils (%) (Auto) 0.8, Sodium Level 141, Potassium Level 4.0, Chloride Level 108H, Carbon Dioxide Level 24, Anion Gap 9, Blood Urea Nitrogen 13, Creatinine 0.7, Estimat Glomerular Filtration Rate > 60, Glucose Level 103, Calcium Level 8.8 Height (Feet): 5 Height (Inches): 5.00 Weight (Pounds): 166 General Appearance: lethargic EENT: normal ENT inspection Neck: normal alignment Cardiovascular: normal peripheral pulses, normal rate, regular rhythm Respiratory/Chest: chest wall non-tender, lungs clear, normal breath sounds Abdomen: normal bowel sounds, non tender, soft Extremities: normal inspection Edema: no edema noted Arm (L), no edema noted Arm (R), no edema noted Leg (L), no edema noted Leg (R), no edema noted Pedal (L), no edema noted Pedal (R), no edema noted Generalized Neurologic: motor weakness Skin: normal pigmentation, warm/dry Bakari Logan DO Aug 10, 2019 14:19
--- NOTE | 2019-08-10 14:50 | NUR ---
CASE MANAGEMENT:REVIEW SI;CVA. ALTERED MENTAL STATUS. PSYCHIATRIC DISORDER. 99.8 90 20 108/62 96% ON RA IS;IVF NS @ 75 ML/HR ATIVAN IV Q4 HRS SEROQUEL PO QD MED SURG STATUS DCP;SNF PLACEMENT
--- NOTE | 2019-08-10 15:45 | Progress Note ---
DATE: 08/10/2019 SUBJECTIVE: This is a 49-year-old male patient who is admitted to the hospital. This patient has altered mental status, confusion, decline in cognition below his baseline. That is why, he does require daily psychiatric consultation. He does have some mood lability, confusion, disorganized thought process. MENTAL STATUS EXAMINATION: This is a 49-year-old male. Appearance is disheveled. Attitude, irritable and agitated. Affect, guarded and restricted. Intellect poor. Mood, depressed and anxious. Motor activity, psychomotor agitation. Attention span is poor. Orientation x2. Speech is low and slurred. Thought process, disorganized and illogical. Insight and judgment is poor. DIAGNOSIS: Paranoid schizophrenia with acute exacerbation. PLAN: Continue to treatment him with medications to stabilize his mood. A 20 minutes of cognitive behavioral therapy provided to identify his automatic negative thoughts and help him convert those negative thoughts to more positive thoughts to reduce depression, anxiety, and mood lability. Chart reviewed. Discussed with staff. Seen and assessed in his room. Yvonne Rosenberg M.D. DR: MARY JOB#: [id number] CC:
--- NOTE | 2019-08-10 19:00 | NUR ---
NURSE NOTES: received patient on bed asleep. with iv line on the right forearm running 1/2 ns at 75Ml/hr. patent and intact. no sob. bed locked and in lowest position. call light and light button within easy reach. per previous nurse that the pt has an order for dsicharge still for SNF placement. will continue plan of care.
--- NOTE | 2019-08-10 19:19 | NUR ---
HAND-OFF: Report given to MAXIMINO oJnes.
[2019-08-11 04:00] VITALS: BP 120/77
[2019-08-11] MEDS: NovoLOG Insulin Flexpen SUBQ SCH ×4 (05:44→21:00)
[2019-08-11] MEDS: LORazepam Inj 2mg/ml 1ml IV PRN (06:02)
--- NOTE | 2019-08-11 07:24 | NUR ---
HAND-OFF: Report given to coco villalpando.
--- NOTE | 2019-08-11 07:36 | NUR ---
NURSE NOTES: Patient awake, sitting on the chair at the bed side; on room air, no sing of distress and shortness of breath; no sing of chest pain; IV Left For-Arm 24G 1/2NS @75cc; side rails up x2 and padded for seizure percussion, breaks engaged, bed at lowest position, call light within reach; will keep monitoring.
[2019-08-11 08:00] VITALS: BP 103/66
[2019-08-11] MEDS: DULoxetine 30mg cap ORAL SCH (08:26)
[2019-08-11 12:00] VITALS: BP 109/71
--- NOTE | 2019-08-11 13:41 | NUR ---
CASE MANAGEMENT:INSURANCE NOTE CALL RECEIVED FROM DOMINIC THURMAN AT [facility] WAS INFORMED THAT SNF PLACEMENT WOULD NOT BE APPROVED PATIENT HAS NO SKILLED NEED AT THIS TIME. WOULD THEREFORE REQUIRE ADMISSION UNDER PENITENTIARY WHICH IS NOT COVERED. DR GARCIA INFORMED. DOMINIC THURMAN AT [facility] [phone] Addendum: 08/11/19 at 1513 by RAD STOVALL LVN LVN 2ND CALL RECEIVED FROM [facility] AT [facility]. STATES THAT A PEER TO PEER CALL IS BEING REQUESTED IN RE TO THIS PATIENT. ATTENDING TO CALL DR LAUREN ROLON AT STATES PEER TO PEER MUST BE COMPLETED BEFORE Thu08/12/[address] GARCIA INFORMED AND PROVIDED WITH MD CONTACT NUMBER
--- NOTE | 2019-08-11 14:39 | Pulmonology Progress Note ---
Assessment/Plan Problems: (1) AMS (altered mental status) (2) CHF (congestive heart failure) (3) Diabetes (4) Psychiatric disorder (5) HTN (hypertension) (6) Depression Assessment/Plan improving BP controlled sliding scale diabetic diet f/u by psych dc planning Subjective ROS Limited/Unobtainable: No Constitutional: Reports: no symptoms HEENT: Repors: no symptoms Allergies: Coded Allergies: No Known Allergies (Unverified , 06/01/19) Objective Last 24 Hour Vital Signs Date Time Temp Pulse Resp B/P (MAP) Pulse Ox O2 Delivery O2 Flow Rate FiO2 08/11/19 12:00 98.0 68 20 109/71 (84) 96 08/11/19 09:00 Room Air 08/11/19 08:00 98.4 73 20 103/66 (78) 96 08/11/19 04:00 98.3 66 18 120/77 (91) 97 08/10/19 23:44 98.5 63 19 125/89 (101) 98 08/10/19 21:00 Room Air 08/10/19 20:00 97.9 63 18 119/71 (87) 98 08/10/19 16:00 98.2 69 17 109/59 (76) 98 Intake and Output 08/10/19 08/11/19 19:00 07:00 Intake Total 1305 ml 1275 ml Balance 1305 ml 1275 ml Intake Oral 480 ml 450 ml IV Total 825 ml 825 ml # Voids 4 # Bowel Movements 1 1 Objective General Appearance: WN, WD, WH Lines, tubes and drains: peripheral HEENT: normocephalic, atraumatic Neck: non-tender, normal alignment Respiratory/Chest: chest wall non-tender, rhonchi - right, expiratory wheezing Breasts: no masses Cardiovascular/Chest: normal peripheral pulses Abdomen: normal bowel sounds, non tender, hyperactive bowel sounds Extremities: normal range of motion Current Medications Medications (Trade) Dose Ordered Sig/Jannet Route PRN Reason Start Time Stop Time Status Last Admin Dose Admin Dextrose (Dextrose 50%) 25 ml Q30M PRN IV Hypoglycemia 08/07/19 11:00 09/06/19 10:59 Dextrose (Dextrose 50%) 50 ml Q30M PRN IV Hypoglycemia 08/07/19 11:00 09/06/19 10:59 Duloxetine HCl (Cymbalta) 30 mg DAILY ORAL 08/05/19 09:00 09/04/19 08:59 08/11/19 08:26 Insulin Aspart (NovoLOG) BEFORE MEALS AND HS SUBQ 08/07/19 11:30 09/06/19 11:29 08/10/19 22:13 Lorazepam (Ativan 2mg/ml 1ml) 1 mg Q4H PRN IV For Anxiety 08/07/19 07:00 08/14/19 06:59 08/11/19 06:02 Morphine Sulfate (Morphine Sulfate) 2 mg Q4H PRN IVP Severe Pain (Pain Scale 7-10) 08/07/19 06:30 08/14/19 06:29 08/10/19 22:10 Quetiapine Fumarate (SEROqueL) 50 mg DAILY ORAL 08/05/19 09:00 09/04/19 08:59 08/11/19 08:26 Sodium Chloride 1,000 ml @ 75 mls/hr [id number] IV 08/07/19 10:00 09/06/19 09:59 08/11/19 05:44 Luis Cody MD Aug 11, 2019 14:38
--- NOTE | 2019-08-11 15:00 | Progress Note ---
DATE: 08/11/2019 SUBJECTIVE: This is a 49-year-old male patient with altered mental status. The patient came to the hospital confused, disorganized thought process, agitation. MENTAL STATUS EXAMINATION: This is a 49-year-old male. Appearance, disheveled. Attitude, irritable and agitated. Affect, guarded and restricted. Intellect, poor. Mood, depressed and anxious. Motor activity, psychomotor agitation. Attention span is poor. Orientation x2. Speech is low volume and slurred. Thought process, disorganized and illogical. Insight and judgment is poor. DIAGNOSIS: Paranoid schizophrenia with acute exacerbation. PLAN: Continue treatment with psychotropic medications to stabilize his mood. 20 minutes of supportive psychotherapy provided. Chart reviewed. Discussed with staff. Seen and assessed in his room. Yvonne Rosenberg M.D. DR: KRYSTINA JOB#: [id number] CC:
--- NOTE | 2019-08-11 15:00 | Progress Note ---
DATE: 08/11/2019 ADDENDUM This is an addendum to job #[id number]. 20 minutes of cognitive behavioral therapy to help him identify his automatic negative thoughts and help him convert those negative thoughts to more positive thoughts to reduce depression, anxiety, and mood lability. Yvonne Rosenberg M.D. DR: KRYSTINA JOB#: [id number] CC:
--- NOTE | 2019-08-11 15:03 | NUR ---
*-* INSURANCE *-* ALL CLINICALS AND REVIEWS HAVE BEEN FAXED TO: Ref# [id number] # [phone] FAX#[phone]
--- NOTE | 2019-08-11 15:14 | NUR ---
CASE MANAGEMENT:REVIEW SI;PARANOID SCHIZOPHRENIA W/ACUTE EXACERBATION 98.5 73 20 125/89 96% ON RA IS;SEROQUEL PO Q CYMBALTA PO QD ATIVAN IV Q4 HRS MED SURG STATUS DCP;INPATIENT PSYCHIATRIC
[2019-08-11 16:00] VITALS: BP 118/70
--- NOTE | 2019-08-11 19:15 | NUR ---
HAND-OFF: Report given to MAXIMINO Ruiz.
--- NOTE | 2019-08-11 19:42 | NUR ---
NURSE NOTES: Patient is in bed,awake, alert x2, Maldivian speaking. Breathing on room air, no sing of distress and shortness of breath. Side rails up and padded for seizure percussion. Bed in lowest position, bed alarm on; call light within reach; will keep monitoring.
[2019-08-11 20:13] VITALS: BP 111/72
--- NOTE | 2019-08-11 21:06 | General Progress Note ---
Assessment/Plan Problem List: (1) HTN (hypertension) ICD Codes: I10 - Essential (primary) hypertension SNOMED: 61605438 (2) CHF (congestive heart failure) ICD Codes: I50.9 - Heart failure, unspecified SNOMED: 33831040 (3) CVA (cerebral vascular accident) ICD Codes: I63.9 - Cerebral infarction, unspecified SNOMED: 386771879 (4) Diabetes ICD Codes: E11.9 - Type 2 diabetes mellitus without complications SNOMED: 33679652 (5) AMS (altered mental status) ICD Codes: R41.82 - Altered mental status, unspecified SNOMED: 072188822 Status: stable, progressing Assessment/Plan: afebrile nac cva niddm resp insuff reviewed chart and labs Subjective ROS Limited/Unobtainable: Yes Allergies: Coded Allergies: No Known Allergies (Unverified , 06/01/19) Objective Last 24 Hour Vital Signs Date Time Temp Pulse Resp B/P (MAP) Pulse Ox O2 Delivery O2 Flow Rate FiO2 08/11/19 20:13 98.2 64 20 111/72 (85) 98 08/11/19 16:00 98.2 68 20 118/70 (86) 96 08/11/19 12:00 98.0 68 20 109/71 (84) 96 08/11/19 09:00 Room Air 08/11/19 08:00 98.4 73 20 103/66 (78) 96 08/11/19 04:00 98.3 66 18 120/77 (91) 97 08/10/19 23:44 98.5 63 19 125/89 (101) 98 Intake and Output 08/10/19 08/11/19 19:00 07:00 Intake Total 1305 ml 1275 ml Balance 1305 ml 1275 ml Intake Oral 480 ml 450 ml IV Total 825 ml 825 ml # Voids 4 # Bowel Movements 1 1 Height (Feet): 5 Height (Inches): 5.00 Weight (Pounds): 166 Neck: supple Cardiovascular: normal rate Respiratory/Chest: lungs clear Abdomen: soft Ken Butler MD Aug 11, 2019 21:06
[2019-08-12] VITALS: BP_SYST 118; BP_SYST 99; BP_DIAS 64; BP_DIAS 80
[2019-08-12 04:00] VITALS: BP 98/65
[2019-08-12] MEDS: NovoLOG Insulin Flexpen SUBQ SCH ×4 (06:30→21:00)
--- NOTE | 2019-08-12 07:25 | NUR ---
HAND-OFF: Report given to MAXIMINO [place].
--- NOTE | 2019-08-12 07:26 | NUR ---
HAND-OFF: Report given to MAXIMINO [place].Endorsed about high fallrisk status to on coming nurse.
--- NOTE | 2019-08-12 07:50 | NUR ---
NURSE NOTES: Received reportn from MAXIMINO Traore. Pt in bed, asleep, respirations clam, still position appears relaxed, IV fluid running according to order, bed in lowest position, call light within reach.
[2019-08-12 08:00] VITALS: BP 111/66
[2019-08-12] MEDS: LORazepam Inj 2mg/ml 1ml IV PRN (08:51)
[2019-08-12] MEDS: DULoxetine 30mg cap ORAL SCH (08:51)
--- NOTE | 2019-08-12 09:00 | NUR ---
NURSE NOTES: Pt disoriented and getting out of bed, pt is ambulatory with steady gait but will not keep clothing on and is attempting to pour a bucket of water on himself. at bedside, does not know how to assist pt, RN assisted pt back to bed with additional RN help. pt dressing in hospital gown and socks, attempted to reorient pt, pt is not speaking at this time, not answering question, no following commands, is agitated and pushing RN away. RN administered Ativan to calm pt.
--- NOTE | 2019-08-12 09:23 | NUR ---
CASE MANAGEMENT:NOTE SPOKE WITH RICK VILLAVICENCIO IN RE TO PLAN FOR PSYCH PLACEMENT. PER MAYE, SPOKE WITH PATIENTS TODAY. PROVIDED CONTACT INFO TO RICK FOR CM FROM INSURANCE. RICK WILL PLACE CALL TO [facility] TODAY.
--- NOTE | 2019-08-12 11:00 | NUR ---
RD ASSESSMENT & RECOMMENDATIONS SEE CARE ACTIVITY FOR COMPLETE ASSESSMENT DAILY ESTIMATED NEEDS: Needs based on cardiac, DM/ 66kg abw 25-30 kcals/kg total kcals 1-1.5 g protein/kg 66-99 g total protein 25-30 mL/kg total fluid mLs NUTRITION DIAGNOSIS: * Altered nutrition related lab values R/T h/o DM as evidenced by mildly elev A1C of 5.7, on NISS. CURRENT DIET:CCHO MED PO DIET RECOMMENDATIONS: LOW NA / texture per DIRECTOR CLINICAL OPERATIONS ADDITIONAL RECOMMENDATIONS: * Calibrated bedscale wt, standing wt as able for accurate CBW * Rec DIRECTOR CLINICAL OPERATIONS eval for h/o CVA, pt is confused * Add Glucerna w/ continued variable po intake . .
[2019-08-12 11:57] VITALS: BP 118/73
--- NOTE | 2019-08-12 12:42 | Pulmonology Progress Note ---
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 since the unable to take care of him at home Subjective ROS Limited/Unobtainable: Yes Allergies: Coded Allergies: No Known Allergies (Unverified , 06/01/19) Objective Last 24 Hour Vital Signs Date Time Temp Pulse Resp B/P (MAP) Pulse Ox O2 Delivery O2 Flow Rate FiO2 08/12/19 11:57 97.8 70 20 118/73 (88) 96 08/12/19 08:00 98.2 55 18 111/66 (81) 97 08/12/19 07:54 Room Air 08/12/19 04:00 97.8 63 18 98/65 (76) 97 08/12/19 00:00 98.8 69 17 118/80 (93) 97 08/11/19 21:00 Room Air 08/11/19 20:13 98.2 64 20 111/72 (85) 98 08/11/19 16:00 98.2 68 20 118/70 (86) 96 Intake and Output 08/11/19 08/12/19 19:00 07:00 Intake Total 1300 ml 750 ml Output Total 1200 ml Balance 1300 ml -450 ml Intake Oral 400 ml IV Total 900 ml 750 ml Output Urine Total 1200 ml # Voids 2 2 # Bowel Movements 1 1 Objective General Appearance: WN, WD, WH Lines, tubes and drains: peripheral HEENT: normocephalic, atraumatic Neck: non-tender, normal alignment Respiratory/Chest: chest wall non-tender, rhonchi - right, expiratory wheezing Breasts: no masses Cardiovascular/Chest: normal peripheral pulses Abdomen: normal bowel sounds, non tender, hyperactive bowel sounds Extremities: normal range of motion Current Medications Medications (Trade) Dose Ordered Sig/Jannet Route PRN Reason Start Time Stop Time Status Last Admin Dose Admin Dextrose (Dextrose 50%) 25 ml Q30M PRN IV Hypoglycemia 08/07/19 11:00 09/06/19 10:59 Dextrose (Dextrose 50%) 50 ml Q30M PRN IV Hypoglycemia 08/07/19 11:00 09/06/19 10:59 Duloxetine HCl (Cymbalta) 30 mg DAILY ORAL 08/05/19 09:00 09/04/19 08:59 08/12/19 08:51 Insulin Aspart (NovoLOG) BEFORE MEALS AND HS SUBQ 08/07/19 11:30 09/06/19 11:29 08/12/19 12:17 Lorazepam (Ativan 2mg/ml 1ml) 1 mg Q4H PRN IV For Anxiety 08/07/19 07:00 08/14/19 06:59 08/12/19 08:51 Morphine Sulfate (Morphine Sulfate) 2 mg Q4H PRN IVP Severe Pain (Pain Scale 7-10) 08/07/19 06:30 08/14/19 06:29 08/10/19 22:10 Quetiapine Fumarate (SEROqueL) 50 mg DAILY ORAL 08/05/19 09:00 09/04/19 08:59 08/12/19 08:50 Sodium Chloride 1,000 ml @ 75 mls/hr [id number] IV 08/07/19 10:00 09/06/19 09:59 08/12/19 11:10 Luis Cody MD Aug 12, 2019 12:42
--- NOTE | 2019-08-12 14:15 | NUR ---
VPK TEACHER NOTE Pt's , Isis Braswell requested SW to meet w/ her. SW spoke to Isis w/ composite bond technician Brianda #[id number]. Per Isis, pt's mental status has altered since his back surgery in December 2018 and two strokes after the surgery. Isis reports pt cannot take care of himself at this time and there will be no one to provide 24 hour care/supervision. Isis states pt always reports her that he is hearing voices and believing that people are following him. RICK spoke to pt w/ composite bond technician Mariano #[id number]. Pt reports he hears a lot of voices and that bothers him. Per Isis, [facility] RICK Baker provided CM/Pt Advocate Debbi Huggins'Brien [phone] and encouraged her to contact her. RICK spoke w/ Tong Mir [facility] Thom [phone] and discussed pt's safety concern and the possibility of inpatient psych. Per Thom, contracted facilities are [facility], [facility], [facility] etc. RICK spoke w/ Isrrael from [facility] [phone] and was informed there is a bed available in [place], [place]. RICK faxed referral packet to [phone]. RICK will continue to F/U. Signed: 08/12/19 at 1424 by MAXI CABRERA <Co-Signature Required>
--- NOTE | 2019-08-12 14:45 | Progress Note ---
DATE: 08/12/2019 SUBJECTIVE: This is a 49-year-old male with altered mental status. He is very confused, disorganized. He has altered mental status, decline in cognition below his baseline. That is why, his attending has requested daily psychiatric consultation. MENTAL STATUS EXAMINATION: This is a 49-year-old male. Appearance is disheveled. Attitude, irritable and agitated. Affect, guarded and restricted. Intellect poor. Mood, depressed and anxious. Motor activity, psychomotor agitation. Attention span is poor. Orientation x2. Speech is low volume, slurred. Thought process, disorganized and illogical. Insight and judgment is poor. DIAGNOSIS: Paranoid schizophrenia with acute exacerbation. PLAN: My plan for this patient is to treat this patient with a medication regimen consisting of Seroquel 50 mg daily, Ativan 1 mg every 4 hours p.r.n. anxiety, agitation, Cymbalta 30 mg daily. I encouraged him to interact appropriately with staff and other patients. He will continued to be followed by Psychiatry throughout hospital course. 20 minutes of cognitive behavioral therapy to help him identify his automatic negative thoughts help him convert negative thoughts to more positive thoughts to reduce depression, anxiety, mood lability. Chart reviewed. Discussed with staff. Seen and assessed in his room. Yvonne Rosenberg M.D. DR: GINA JOB#: [id number] CC:
[2019-08-12] MEDS ORDERED: NS 275ml ONE (14:50)
[2019-08-12] MEDS ORDERED: 1/2 NS 1000ml IV ONE (14:50)
[2019-08-12] MEDS ORDERED: Tubing IV Blood Pump IV ONE (14:50)
--- NOTE | 2019-08-12 15:14 | NUR ---
GRID TRIMMER ELLEN CABRERA faxed clinicals to [facility] back up fax [phone]. Signed: 08/12/19 at 1515 by MAXI CABRERA <Co-Signature Required>
--- NOTE | 2019-08-12 15:27 | NUR ---
CASE MANAGEMENT:REVIEW SI;ALTERED MENTAL STATUS. CHF. PSYCHIATRIC DISORDER. 98.8 55 20 98/65 96% ON RA IS;IVF NS BOLUS ATIVAN IV Q4 HRS PRN SEROQUEL PO QD MED SURG STATUS DCP;INPATIENT PSYCH REFERRAL
[2019-08-12 16:00] VITALS: BP 100/57
--- NOTE | 2019-08-12 16:12 | NUR ---
GUEST SERVICE REPRESENTATIVE ELLEN CABRERA confirmed tamiko Arcos [phone] that he received the clinicals. The referral is currently in review. Signed: 08/12/19 at 1613 by MAXI CABRERA <Co-Signature Required>
--- NOTE | 2019-08-12 17:22 | NUR ---
STOVE FITTER NOTE RICK spoke w/ Jd from [facility] [phone] and faxed the clinicals to [phone]. RICK spoke w/ [facility] and faxed the updated progress notes to [phone]. RICK will continue to F/U. Signed: 08/12/19 at 1724 by MAXI CABRERA <Co-Signature Required>
--- NOTE | 2019-08-12 19:25 | NUR ---
NURSE NOTES: received patient on bed awake, confused. bermudian speaking. room air. with iv line on the right forearm, saline lock. reiterated to call or ask for assistance. bed lock and in lowest position. call light and light button within easy reach. will continue plan of care.
--- NOTE | 2019-08-12 19:26 | NUR ---
HAND-OFF: Report given to MAXIMINO Hansen, at bedside, pt stable.
[2019-08-12 20:00] VITALS: BP 102/52
[2019-08-13] VITALS: BP 107/65
[2019-08-13 04:00] VITALS: BP 110/71
[2019-08-13] MEDS: NovoLOG Insulin Flexpen SUBQ SCH ×4 (06:30→21:00)
--- NOTE | 2019-08-13 07:26 | NUR ---
HAND-OFF: Report given to betty felder. endorsed that the pt walks to the bathroom but needs assistance for safety. bed locked and in lowest psotion. call light and light button within easy reach.
--- NOTE | 2019-08-13 07:30 | NUR ---
NURSE NOTES: received patient in bed awake, alert and confused. croatian speaking. room air. with iv line on the right forearm, reiterated to call or ask for assistance. bed lock and in lowest position. call light and light button within easy reach. will continue plan of care.
--- NOTE | 2019-08-13 07:49 | Pulmonology Progress Note ---
Assessment/Plan Assessment/Plan ASSESSMENT Metabolic encephalopathy seizure episode hypoglycemia DM HTN Bipolar depression Paranoid schizophrenia with acute exacerbation PLAN OF CARE MS floor s/p IVF CT head negative, no evidence of UTI serum alcohol negative, ammonia WNL seizure precautions seen and evaluated by neuro EEG normal in awake and drowsy state Ativan prn for breakthrough seizures ? seizure episode due to hypoglycemia dc SSI moderate, only use sensitive scale as needed hypoglycemia protocol in use HgA1c at goal hypoglycemia improved after eating further recommendations re seizure management as per neuro psych follows, psych medications regimen as per psych recs CXR with possible mild CHF , check pro BNP , may dc IVF if eating ECHO pending ? O2 HHN prn DVT prophylaxis BP management per hx pt had CVA, but no evidence of prior CVA of CT scan supportive care placement case discussed and evaluated by supervising physician Subjective Allergies: Coded Allergies: No Known Allergies (Unverified , 06/01/19) Subjective remains afebrile, no signs of respiratory distress more alert Objective Last 24 Hour Vital Signs Date Time Temp Pulse Resp B/P (MAP) Pulse Ox O2 Delivery O2 Flow Rate FiO2 08/13/19 04:00 97.9 71 19 110/71 (84) 98 65 08/13/19 00:00 98.1 63 19 107/65 (79) 95 08/12/19 21:00 Room Air 08/12/19 20:00 98.1 66 19 102/52 (69) 95 08/12/19 16:00 99.1 68 20 100/57 (71) 96 08/12/19 11:57 97.8 70 20 118/73 (88) 96 08/12/19 08:00 98.2 55 18 111/66 (81) 97 08/12/19 07:54 Room Air Intake and Output 08/12/19 08/13/19 19:00 07:00 Intake Total 840 ml 550 ml Output Total 600 ml Balance 840 ml -50 ml Intake Oral 840 ml 550 ml Output Urine Total 600 ml # Voids 1 # Bowel Movements 1 1 Objective General Appearance: no acute distress, more awake and responsive HEENT: normocephalic, atraumatic, anicteric Respiratory/Chest: lungs clear Cardiovascular: normal rate Abdomen: soft, non tender Extremities: pedal pulses normal Neurologic/Psychiatric: poorly responsive Current Medications Medications (Trade) Dose Ordered Sig/Jannet Route PRN Reason Start Time Stop Time Status Last Admin Dose Admin Dextrose (Dextrose 50%) 25 ml Q30M PRN IV Hypoglycemia 08/07/19 11:00 09/06/19 10:59 Dextrose (Dextrose 50%) 50 ml Q30M PRN IV Hypoglycemia 08/07/19 11:00 09/06/19 10:59 Duloxetine HCl (Cymbalta) 30 mg DAILY ORAL 08/05/19 09:00 09/04/19 08:59 08/12/19 08:51 Insulin Aspart (NovoLOG) BEFORE MEALS AND HS SUBQ 08/07/19 11:30 09/06/19 11:29 08/12/19 12:17 Lorazepam (Ativan 2mg/ml 1ml) 1 mg Q4H PRN IV For Anxiety 08/07/19 07:00 08/14/19 06:59 08/12/19 08:51 Morphine Sulfate (Morphine Sulfate) 2 mg Q4H PRN IVP Severe Pain (Pain Scale 7-10) 08/07/19 06:30 08/14/19 06:29 08/10/19 22:10 Quetiapine Fumarate (SEROqueL) 50 mg DAILY ORAL 08/05/19 09:00 09/04/19 08:59 08/12/19 08:50 Temazepam (RestoriL) 15 mg HSPRN PRN ORAL Insomnia 08/12/19 23:15 08/19/19 23:14 Giselle Story NP Aug 13, 2019 07:49
[2019-08-13 08:00] VITALS: BP 129/88
[2019-08-13] MEDS: DULoxetine 30mg cap ORAL SCH (08:23)
[2019-08-13] MEDS: Morphine Sulfate 2mg/ml Inj(IV/IM USE ONLY) IVP PRN (08:44)
[2019-08-13 11:58] VITALS: BP 97/53
--- NOTE | 2019-08-13 15:38 | General Progress Note ---
Assessment/Plan Problem List: (1) HTN (hypertension) ICD Codes: I10 - Essential (primary) hypertension SNOMED: 56957447 (2) CHF (congestive heart failure) ICD Codes: I50.9 - Heart failure, unspecified SNOMED: 70625095 (3) CVA (cerebral vascular accident) ICD Codes: I63.9 - Cerebral infarction, unspecified SNOMED: 977770252 (4) Diabetes ICD Codes: E11.9 - Type 2 diabetes mellitus without complications SNOMED: 58064088 (5) AMS (altered mental status) ICD Codes: R41.82 - Altered mental status, unspecified SNOMED: 670723282 Status: stable, progressing Assessment/Plan: afebrile vitals stable cva niddm resp insuff reviewed chart and labs Subjective ROS Limited/Unobtainable: Yes Allergies: Coded Allergies: No Known Allergies (Unverified , 06/01/19) Objective Last 24 Hour Vital Signs Date Time Temp Pulse Resp B/P (MAP) Pulse Ox O2 Delivery O2 Flow Rate FiO2 08/13/19 11:58 97.0 63 19 97/53 (68) 98 63 08/13/19 09:00 Room Air 08/13/19 08:00 97.0 80 18 129/88 (102) 98 80 08/13/19 04:00 97.9 71 19 110/71 (84) 98 65 08/13/19 00:00 98.1 63 19 107/65 (79) 95 08/12/19 21:00 Room Air 08/12/19 20:00 98.1 66 19 102/52 (69) 95 08/12/19 16:00 99.1 68 20 100/57 (71) 96 Intake and Output 08/12/19 08/13/19 19:00 07:00 Intake Total 840 ml 550 ml Output Total 600 ml Balance 840 ml -50 ml Intake Oral 840 ml 550 ml Output Urine Total 600 ml # Voids 1 # Bowel Movements 1 1 Height (Feet): 5 Height (Inches): 5.00 Weight (Pounds): 166 Cardiovascular: normal rate Respiratory/Chest: lungs clear Abdomen: soft Ken Butler MD Aug 13, 2019 15:38
[2019-08-13 16:01] VITALS: BP 102/58
--- NOTE | 2019-08-13 19:16 | NUR ---
HAND-OFF: Report given to
--- NOTE | 2019-08-13 19:31 | NUR ---
NURSE NOTES: Received patient comfortably resting in bed, follows simple command.
[2019-08-13 20:00] VITALS: BP 102/60
--- NOTE | 2019-08-13 22:15 | Progress Note ---
DATE: 08/13/2019 SUBJECTIVE: This is a 49-year-old male with altered mental status. He has had some confusion worsened by stress of his medical illness. He has psychomotor agitation, irritability, and confusion. That is why his attending has requested daily psychiatric consultation. MENTAL STATUS EXAMINATION: This is a 49-year-old male. Appearance is disheveled. Attitude, irritable and agitated. Affect, labile. Intellect, poor. . Mood, depressed and anxious. Motor activity, psychomotor agitation. Attention span is poor because he cannot do serial sevens or spell world backwards. Orientation x2. Speech is pressured. Thought process, disorganized and illogical. Insight and judgment are poor. DIAGNOSIS: Major depressive disorder, mild, recurrent with psychotic features, rule out paranoid schizophrenia. PLAN: Treat him with Cymbalta 30 mg daily, Seroquel 50 mg daily, Ativan 1 mg every 4 hours p.r.n. anxiety and agitation. Twenty minutes of cognitive behavioral therapy to help him identify his negative thoughts help him convert negative thoughts to more positive thoughts to reduce depression, anxiety, mood lability. Chart was reviewed and discussed with staff. Seen and assessed at bedside. Yvonne Rosenberg M.D. DR: MARK JOB#: [id number] CC:
[2019-08-14] VITALS (11 sets, daily range): BP systolic 105–127; BP diastolic 59–83
[2019-08-14] MEDS: NovoLOG Insulin Flexpen SUBQ SCH ×2 (06:23→21:28)
--- NOTE | 2019-08-14 07:28 | NUR ---
HAND-OFF: Report given to Beatrice Rodriguez LVN.
--- NOTE | 2019-08-14 07:45 | NUR ---
NURSE NOTES: RECEIVED PATIENT A/A/OX1 IN BED. PATIENT WAS RESPONDING TO TACTILE STIMULI. OPEN EYES. OBSERVED MOUTH OPENED. ASSESSED V/S; 98.9, 69, 18, 133/84, 97% ON O2 2L. BS 94. NAY CHAWLA NP PRESENT AND MADE AWARE OF THE CHANGE IN CONDITION. NURSING INTERVENTION RENDERED. SUCTIONED ORALLY. KEPT HOB ELEVATED TO ALLEVIATE VENTILATION. WILL CONT TO MONITOR.
--- NOTE | 2019-08-14 08:00 | NUR ---
NURSE NOTES: INSERTED IV ON LEFT HAND 22G, PATENT AND INTACT. WILL CONT TO MONITOR.
--- NOTE | 2019-08-14 08:14 | Pulmonology Progress Note ---
Assessment/Plan Assessment/Plan ASSESSMENT Metabolic encephalopathy new onset of unresponsiveness likely metabolic encephalopathy seizure episode hypoglycemia DM HTN Bipolar depression Paranoid schizophrenia with acute exacerbation hypotension PLAN OF CARE transfer to tele 500 cc bolus then start IV NSat [address] head stat prior CT head negative, no evidence of UTI serum alcohol negative, ammonia WNL seizure precautions seen and evaluated by neuro EEG normal in awake and drowsy state Ativan prn for breakthrough seizures ? seizure episode due to hypoglycemia dc SSI moderate, only use sensitive scale as needed hypoglycemia protocol in use HgA1c at goal hypoglycemia improved after eating further recommendations re seizure management as per neuro psych follows, psych medications regimen as per psych recs CXR with possible mild CHF , check pro BNP , may dc IVF if eating ECHO pending ? O2 HHN prn DVT prophylaxis BP management per hx pt had CVA, but no evidence of prior CVA of CT scan supportive care placement case discussed and evaluated by supervising physician Subjective Allergies: Coded Allergies: No Known Allergies (Unverified , 06/01/19) Subjective found to be unresponsive in the bed by a nurse ? seizure unwitnessed, hypotensive no signs of respiratory distress Objective Last 24 Hour Vital Signs Date Time Temp Pulse Resp B/P (MAP) Pulse Ox O2 Delivery O2 Flow Rate FiO2 08/14/19 04:00 98.6 66 20 121/70 (87) 97 08/14/19 00:03 98.9 66 20 105/59 (74) 96 08/13/19 21:27 Room Air 08/13/19 20:00 99.0 59 20 102/60 (74) 97 08/13/19 16:01 97.9 61 19 102/58 (73) 97 61 08/13/19 11:58 97.0 63 19 97/53 (68) 98 63 08/13/19 09:00 Room Air Intake and Output 08/13/19 08/14/19 19:00 07:00 Intake Total 480 ml Output Total 1000 ml 900 ml Balance -520 ml -900 ml Intake Oral 480 ml Output Urine Total 1000 ml 900 ml # Voids 1 # Bowel Movements 1 Objective General Appearance: no acute distress, not responsive HEENT: normocephalic, atraumatic, anicteric Respiratory/Chest: lungs clear Cardiovascular: normal rate Abdomen: soft, non tender Extremities: pedal pulses normal Neurologic/Psychiatric: not responsive Current Medications Medications (Trade) Dose Ordered Sig/Jannet Route PRN Reason Start Time Stop Time Status Last Admin Dose Admin Dextrose (Dextrose 50%) 25 ml Q30M PRN IV Hypoglycemia 08/07/19 11:00 09/06/19 10:59 Dextrose (Dextrose 50%) 50 ml Q30M PRN IV Hypoglycemia 08/07/19 11:00 09/06/19 10:59 Duloxetine HCl (Cymbalta) 30 mg DAILY ORAL 08/05/19 09:00 09/04/19 08:59 08/13/19 08:23 Insulin Aspart (NovoLOG) BEFORE MEALS AND HS SUBQ 08/07/19 11:30 09/06/19 11:29 08/12/19 12:17 Quetiapine Fumarate (SEROqueL) 50 mg DAILY ORAL 08/05/19 09:00 09/04/19 08:59 08/13/19 08:23 Temazepam (RestoriL) 15 mg HSPRN PRN ORAL Insomnia 08/12/19 23:15 08/19/19 23:14 Giselle Story DISTRICT OR DISTRICT OFFICE DIRECTOR Aug 14, 2019 08:14
[2019-08-14] MEDS: DULoxetine 30mg cap ORAL SCH (08:31)
--- NOTE | 2019-08-14 09:00 | NUR ---
NURSE NOTES: patient transferred to [facility]. report given to MAXIMINO Foster. personal belongings noted. kept HOB elevated. O2 2L via NC applied. On IVF and infusing well. siderails are up x3. bed lock and alarm engaged. will cont the plan of care.
--- NOTE | 2019-08-14 09:05 | NUR ---
NURSE NOTES: Received report from MAXIMINO Barron. The patient got transferred from [facility] to [facility] due to possible seizure. The patient is resting on the bed but only responsive to strong stimuli. The patient does not answer question and bilateral hand strength is 1+. Initial vital signs obtained as follows: 98.2F, 127/79, pulse 63, 97% SpO2 in 2L NC. MARTHA Story ordered CT head with no contrast as stat and called and paged CT department but no answer. Made aware to charge nurse, nursing house furnishings supervisor, and charge nurse @ ICU. Notified MARTHA Story regarding change in condition and received order to transfer the patient to ICU. Made aware to charge nurse and nursing house furnishings supervisor. The patient's bed in the lowest position, call light in reach, and fall, aspiration, and seizure precaution reinforced. Will continue plan of care until transfer to ICU.
--- NOTE | 2019-08-14 09:37 | NUR ---
NURSE NOTES: informed spouse, Isis regarding the condition of the patient. able to understand basic marshallese.
[2019-08-14 09:59] LABS: BASOPHILS % (AUTO) 0.6 % (0.0-2.0); EOSINOPHILS % (AUTO) 1.4 % (0.0-3.0); HEMATOCRIT 40.2 % (42.0-52.0); HEMOGLOBIN 13.7 G/DL (14.2-18.0); LYMPHOCYTES % (AUTO) 19.5 % (20.0-45.0); MEAN CORPUSCULAR VOLUME 88 FL (80-99); MONOCYTES % (AUTO) 7.5 % (1.0-10.0); NEUTROPHILS % (AUTO) 71.1 % (45.0-75.0); PLATELET COUNT 302 K/UL (150-450); RED BLOOD COUNT 4.58 M/UL (4.70-6.10); RED CELL DISTRIBUTION WIDTH 11.7 % (11.6-14.8); WHITE BLOOD COUNT 10.9 K/UL (4.8-10.8)
--- NOTE | 2019-08-14 10:00 | NUR ---
NURSE NOTES: The patient went down for CT head w/o contrast stat with [facility] RN, COMBAT CONTROL MANAGER, and respiratory therapist. Will continue plan of care.
--- NOTE | 2019-08-14 10:00 | NUR ---
NURSE NOTES: Patient observed initially in his room in SDU. Neuro assessment was completed. Patient was awake however how alert was to be determined. When asked to follow commands patient would follow commands. When asked to stone polisher machine to check strength patient gripped with a weak stone polisher machine 3/5 with L being 2/5. When asked to smile patient would not. When asked to stick out tongue patient smiled. Patient held arms up to check pronator drift and closed eyes and none noted. Strength on legs checked and was 5/5. Patient followed commands for strength on BLE. However would not shrug shoulders. Pupillary response was 3 cm and PERRLA. Patient did not initially track with his eyes however did at one point. Spoke to his primary RN and sent patient down for STAT CT of the head with an DISPLAY FABRICATION SUPERVISOR.
[2019-08-14 10:10] LABS: ANION GAP 14 mmol/L (5-15); BLOOD UREA NITROGEN 10 mg/dL (7-18); CALCIUM 9.3 MG/DL (8.5-10.1); CARBON DIOXIDE 23 MMOL/L (21-32); CHLORIDE 106 MMOL/L (98-107); CREATININE 0.6 MG/DL (0.55-1.30); POTASSIUM 4.1 MMOL/L (3.5-5.1); SODIUM 143 MMOL/L (136-145)
--- NOTE | 2019-08-14 10:20 | NUR ---
NURSE NOTES: The patient got safely transferred to [facility] with [facility] RN and CABLE MAKER. The patient started to be strongly agitated. Paged MARTHA Story for change in condition. ICU charge nurse gave Ativan for the patient's change in condition. Will continue plan of care.
[2019-08-14] MEDS ORDERED: LORazepam Inj 2mg/ml 1ml ONE (10:22)
--- NOTE | 2019-08-14 10:25 | Diagnostic Imaging Report ---
EXAM: CT Head Without Intravenous Contrast CLINICAL HISTORY: ALOC TECHNIQUE: Axial computed tomography images of the head/brain without intravenous contrast. CTDI is 53.40 mGy and DLP is 1179.10 mGy-cm. One or more of the following dose reduction techniques were used: automated exposure control, adjustment of the mA and/or kV according to patient size, use of iterative reconstruction technique. Coronal reformatted images were created and reviewed. COMPARISON: CT head dated 08/04/19 FINDINGS: Brain: Unremarkable. No evidence of acute intracranial hemorrhage. No significant white matter disease. No edema. No mass effect or midline shift. Ventricles: Unremarkable. No ventriculomegaly. Bones/joints: Unremarkable. No depressed skull fracture. Soft tissues: Unremarkable. Sinuses: Hyperdensities within the right maxillary sinus. Remaining visualized paranasal sinuses are clear. Mastoid air cells: Unremarkable as visualized. No mastoid effusion. IMPRESSION: 1. Hyperdensities within the right maxillary sinus, possibly calcified inspissated secretions from chronic sinusitis or osseous remodeling from remote trauma. 2. Otherwise no acute intracranial findings.
--- NOTE | 2019-08-14 10:55 | NUR ---
NURSE NOTES: The patient is relaxing on the bed without acute distress or shortness of breath. No more agitation noted. The patient is calm and cooperative at this time. Vital signs are stable. Will continue plan of care.
--- NOTE | 2019-08-14 11:20 | NUR ---
HAND-OFF: Report given to MAXIMINO Morillo. The patient is resting on the bed without acute distresss or shortness of breath. The patient's bed in the lowest position, call light in reach, and fall, aspiration, and seizure precaution reinforced. IV site intact and patent. Endorsed plan of care.
[2019-08-14] MEDS ORDERED: NovoLOG Insulin Flexpen SUBQ SCH ×3 (11:30→16:30)
--- NOTE | 2019-08-14 12:00 | NUR ---
NURSE NOTES: Patient received from MAXIMINO Foster. Patient was awake and alert and very combative. Patient was trying to get out of bed and in his [place] language of [place] stating that he needed to leave. Initially, manual arts teacher and primary RN tried to hold him however patient was very combative and it became a safety issue for patient and RN. Security was called and two more RNs came to help to restrain the patient. Patient was pulled off his closed and was yelling that he needed to leave. Ativan was given to calm the patient. Patient's HR was >120, once Ativan was given, patient became calmer and HR normalized to 88. Patient settled and now was less combative and able to speak. Dr. Rosenberg the psychiatrist was called and message was left to get psych med orders. Patient is now with BL wrist restraints for safety. Patient pulls at his lines and tries to get out of bed and leave. At this time for safety reasons patient needs to be restrained. Pulses are palpable and skin is intact. When asked about his psych issues, patient states that he hears voices and see things. Patient states that the "demons" tell him to do bad things. Patient's is bedside and states that she has had to call the police on her in the past. Dr. Fischer is transferring patient back to Telemetry. Will transfer this patient back to Tele/SDU per MD order.
[2019-08-14] MEDS ORDERED: LORazepam Inj 2mg/ml 1ml IV SCH (12:30)
--- NOTE | 2019-08-14 13:40 | NUR ---
NURSE NOTES: Received report from MAXIMINO Clayton. The patient is resting on the bed without acute distress or shortness of breath. The patient's bed in the lowest position, call light in reach, and fall, aspiration, and seizure precaution reinforced. Bilateral soft wrist restraints ordered by Dr. Logan. Bilateral soft wrist restraints on per order and circulation and skin is intact. Paged Dr. Rosenberg regarding the patient's agitation and received medication order. Will continue plan of care.
--- NOTE | 2019-08-14 13:42 | NUR ---
PT Note Patient has been transferred to [facility], ICU then back to [facility] due to decreased responsiveness. Will hold physical therapy at this time; resume when new orders are received.
[2019-08-14] MEDS ORDERED: LORazepam Inj 2mg/ml 1ml IV PRN ×3 (14:00→19:00)
--- NOTE | 2019-08-14 14:20 | NUR ---
NURSE NOTES: The patient is stable without acute distress or shortness of breath. Will continue plan of care.
--- NOTE | 2019-08-14 16:00 | NUR ---
NURSE NOTES: Paged MARTHA Story regarding no urine output for past 4 hours. Per patient, he feels fullness on lower abdomen but urine does not come out. Based on the bladder scan, residual urine was 338mL. Notified to MARTHA Story. Will wait for further order. Will continue plan of care.
--- NOTE | 2019-08-14 16:30 | NUR ---
NURSE NOTES: The patient was able to void 300mL, which was similar amount based on the bladder scan. Notified to MARTHA Story. Per MARTHA Story, no Haney at this time. Will continue plan of care.
--- NOTE | 2019-08-14 17:30 | NUR ---
NURSE NOTES: MARTHA Story discontinued IVF of NS 60mL/hr. Will carry out the order as soon as possible. Will continue plan of care.
--- NOTE | 2019-08-14 18:00 | NUR ---
NURSE NOTES: The patient is stable without acute distress or shortness of breath. Will continue plan of care.
--- NOTE | 2019-08-14 18:00 | Progress Note ---
DATE: 08/14/2019 SUBJECTIVE: This is a 49-year-old male patient. He has altered mental status and he has confusion. He also has high levels of depression and anxiety, decline in cognition below his baseline. That is why, his attending has requested daily psychiatric consultation. DIAGNOSIS: Major depressive disorder, mild, recurrent with psychotic features, rule out dementia with psychosis. PLAN: Treat him with Cymbalta 30 mg daily, Seroquel 50 mg daily, and and Ativan 1 mg IV every 4 hours p.r.n. anxiety and agitation. A 20 minutes of reality-based supportive psychotherapy. Chart reviewed and discussed with staff. A 20 minutes of cognitive behavioral therapy to help him identify his automatic negative thoughts and help him convert his negative thoughts to more positive thoughts to reduce depression, anxiety, and mood lability. Yvonne Rosenberg M.D. DR: FRANNIE JOB#: [id number] CC:
--- NOTE | 2019-08-14 18:40 | NUR ---
HAND-OFF: Report given to MAXIMINO Mike. The patient is resting on the bed without acute distress or shortness of breath. The patient's bed in the lowest position, call light in reach, and fall, aspiration, and seizure precaution reinforced. Bilateral soft wrist restraints on per order, and circulation and skin is intact. IV site intact and patent. Endorsed plan of care.
--- NOTE | 2019-08-14 19:20 | NUR ---
NURSE NOTES: Received pt and report from MAXIMINO Mike. Observed pt resting in bed with both eyes open and family member at bedside. Pt is A/Ox1. school bus monitor is in placed; pt is NSR. IV site intact, asymptomatic, and patent. Pt is on bilateral soft wrist restraints; pulses and sensations present, skin is in intact, no swelling noted. Seizure precaution noted; side rails padded, suction and O2 at bedside. Will monitor pt closely. Bed is in the lowest position and locked. Call light and bedside table is within reach. No signs/symptoms of acute distress noted at this time. Will continue plan of care.
--- NOTE | 2019-08-14 19:32 | NUR ---
HAND-OFF: Report given to MARCELLA RN. Pt is awake and stable.
--- NOTE | 2019-08-14 22:07 | General Progress Note ---
Assessment/Plan Problem List: (1) HTN (hypertension) ICD Codes: I10 - Essential (primary) hypertension SNOMED: 04630222 (2) CHF (congestive heart failure) ICD Codes: I50.9 - Heart failure, unspecified SNOMED: 90770583 (3) CVA (cerebral vascular accident) ICD Codes: I63.9 - Cerebral infarction, unspecified SNOMED: 851129489 (4) Diabetes ICD Codes: E11.9 - Type 2 diabetes mellitus without complications SNOMED: 43663596 (5) AMS (altered mental status) ICD Codes: R41.82 - Altered mental status, unspecified SNOMED: 919296232 Status: stable, progressing Assessment/Plan: htn afebrile confused check sugar cva niddm resp insuff reviewed chart and labs Subjective ROS Limited/Unobtainable: Yes Allergies: Coded Allergies: No Known Allergies (Unverified , 06/01/19) Objective Last 24 Hour Vital Signs Date Time Temp Pulse Resp B/P (MAP) Pulse Ox O2 Delivery O2 Flow Rate FiO2 08/14/19 20:00 98.9 78 17 106/60 (75) 97 08/14/19 16:00 99.0 78 18 123/80 (94) 99 08/14/19 16:00 88 08/14/19 16:00 Room Air 08/14/19 13:40 Room Air 08/14/19 13:40 99.0 90 18 115/76 (89) 98 08/14/19 13:11 88 08/14/19 12:00 87 20 110/68 (82) 93 08/14/19 11:00 98.6 84 18 118/83 (95) 99 08/14/19 09:25 98.2 59 18 118/78 (91) 98 08/14/19 09:21 57 08/14/19 09:15 98.3 59 18 118/77 (91) 98 08/14/19 09:05 Room Air 08/14/19 09:05 98.2 63 18 127/79 (95) 97 08/14/19 08:00 98.3 70 20 123/74 (90) 98 08/14/19 04:00 98.6 66 20 121/70 (87) 97 08/14/19 00:03 98.9 66 20 105/59 (74) 96 Intake and Output 08/13/19 08/14/19 19:00 07:00 Intake Total 480 ml Output Total 1000 ml 900 ml Balance -520 ml -900 ml Intake Oral 480 ml Output Urine Total 1000 ml 900 ml # Voids 1 # Bowel Movements 1 Laboratory Tests 08/14/19 09:27: Arterial Blood pH 7.435, Arterial Blood Partial Pressure CO2 36.5, Arterial Blood Partial Pressure O2 122.5H, Arterial Blood HCO3 24.0, Arterial Blood Oxygen Saturation 98.2, Arterial Blood Base Excess 0.1, Jorge Luis Test Positive 08/14/19 09:45: White Blood Count 10.9H, Red Blood Count 4.58L, Hemoglobin 13.7L, Hematocrit 40.2L, Mean Corpuscular Volume 88, Mean Corpuscular Hemoglobin 30.0, Mean Corpuscular Hemoglobin Concent 34.1, Red Cell Distribution Width 11.7, Platelet Count 302, Mean Platelet Volume 6.4L, Neutrophils (%) (Auto) 71.1, Lymphocytes ( %) (Auto) 19.5L, Monocytes (%) (Auto) 7.5, Eosinophils (%) (Auto) 1.4, Basophils (%) (Auto) 0.6, Sodium Level 143, Potassium Level 4.1, Chloride Level 106, Carbon Dioxide Level 23, Anion Gap 14, Blood Urea Nitrogen 10, Creatinine 0.6, Estimat Glomerular Filtration Rate > 60, Glucose Level 92, Calcium Level 9.3, Troponin I 0.000 Height (Feet): 5 Height (Inches): 5.00 Weight (Pounds): 166 Cardiovascular: normal rate Respiratory/Chest: lungs clear Abdomen: soft Ken Butler MD Aug 14, 2019 22:07
[2019-08-15] VITALS: BP 119/70
[2019-08-15 04:00] VITALS: BP 122/64
[2019-08-15] MEDS: NovoLOG Insulin Flexpen SUBQ SCH ×4 (06:12→21:00)
--- NOTE | 2019-08-15 07:22 | NUR ---
HAND-OFF: Report given to MAXIMINO Alexander. Plan of care endorsed.
--- NOTE | 2019-08-15 07:53 | NUR ---
Received report from MAXIMINO Christiansen. Pt A/Ox1, observed pt lying in bed. Pt on 2L NC. Pt has restraints on bilateral wrist, pulses are present, no swelling observed. Bed on lowest position, call light within reach. Will continue plan of care.
[2019-08-15 07:54] LABS: BASOPHILS % (AUTO) 0.6 % (0.0-2.0); EOSINOPHILS % (AUTO) 2.3 % (0.0-3.0); HEMATOCRIT 38.6 % (42.0-52.0); HEMOGLOBIN 13.3 G/DL (14.2-18.0); LYMPHOCYTES % (AUTO) 21.2 % (20.0-45.0); MEAN CORPUSCULAR VOLUME 89 FL (80-99); MONOCYTES % (AUTO) 8.9 % (1.0-10.0); NEUTROPHILS % (AUTO) 67.1 % (45.0-75.0); PLATELET COUNT 295 K/UL (150-450); RED BLOOD COUNT 4.36 M/UL (4.70-6.10); RED CELL DISTRIBUTION WIDTH 12.1 % (11.6-14.8); WHITE BLOOD COUNT 11.8 K/UL (4.8-10.8)
[2019-08-15 08:00] VITALS: BP 121/75
[2019-08-15 08:08] LABS: ANION GAP 10 mmol/L (5-15); BLOOD UREA NITROGEN 14 mg/dL (7-18); CALCIUM 9.1 MG/DL (8.5-10.1); CARBON DIOXIDE 24 MMOL/L (21-32); CHLORIDE 110 MMOL/L (98-107); CREATININE 0.7 MG/DL (0.55-1.30); POTASSIUM 4.2 MMOL/L (3.5-5.1); SODIUM 144 MMOL/L (136-145)
--- NOTE | 2019-08-15 08:58 | NUR ---
Social Work (Psychiatric Placement) This SW followed up with aliyah Lopez at [facility] ([phone]) who explains they cannot accept due to patient has too many medical issues that they cannot maintain (history of seizures). This SW also spoke with aliyah Matthew at [facility] ([phone]) who explains they cannot accept due to being on restraints, will need to show independence with ambulation and ADL (pending P.T here at this time). This SW contacted aliyah @ [facility] ([phone]) who explains they will evaluate (chart information faxed to [phone]). The SW made an attempt to speak with aliyah @ [facility] ([phone]); no answer or voicemail, while this SW faxed chart/clinical information to [phone] for them to evaluate as well. This SW spoke with Jocelynn ly @ [facility] ([phone]) who explains they will not have any openings until tomorrow; this SW faxed chart information to [phone] for them to evaluate. SW to follow for psychiatric placement.
[2019-08-15] MEDS ORDERED: DULoxetine 30mg cap ORAL SCH ×5 (09:00)
--- NOTE | 2019-08-15 10:08 | Pulmonology Progress Note ---
Assessment/Plan Assessment/Plan ASSESSMENT Metabolic encephalopathy new onset of unresponsiveness likely metabolic encephalopathy -resolved seizure episode hypoglycemia DM HTN Bipolar depression Paranoid schizophrenia with acute exacerbation hypotension PLAN OF CARE 08/14 transferred to SDU and then to ICU due to ALOC and complete unresponsiveness CT head negative, mental status returned back to normal , and pt transferred to [facility], now on tele initially received bolus and IVF for hypotension, BP stabilized, IVF dc 08/14 evening currently stable , unclear etiology of acute unresponsiveness 08/14, possibly due to psychiatric disorder, no CVA on CT, ? seizure unwitnessed and postictal state ( no incontinence, no drooling) monitor BP no evidence of UTI serum alcohol negative, ammonia WNL seizure precautions seen and evaluated by neuro EEG normal in awake and drowsy state Ativan prn for breakthrough seizures ? seizure episode due to hypoglycemia dc SSI moderate, only use sensitive scale as needed hypoglycemia protocol in use HgA1c at goal hypoglycemia improved after eating further recommendations re seizure management as per neuro psych follows, psych medications regimen as per psych recs CXR with possible mild CHF , check pro BNP , may dc IVF if eating ECHO pending ? O2 HHN prn DVT prophylaxis BP management per hx pt had CVA, but no evidence of prior CVA of CT scan supportive care placement transfer to MS case discussed and evaluated by supervising physician Subjective Allergies: Coded Allergies: No Known Allergies (Unverified , 06/01/19) Subjective stable today, on tele, awake and alert, BP stable 08/14 found to be unresponsive in the bed by a nurse Objective Last 24 Hour Vital Signs Date Time Temp Pulse Resp B/P (MAP) Pulse Ox O2 Delivery O2 Flow Rate FiO2 08/15/19 04:00 98.8 74 17 122/64 (83) 97 08/15/19 04:00 77 08/15/19 00:00 98.7 70 18 119/70 (86) 98 08/15/19 00:00 64 08/14/19 21:00 Room Air 08/14/19 20:00 77 08/14/19 20:00 98.9 78 17 106/60 (75) 97 08/14/19 16:00 99.0 78 18 123/80 (94) 99 08/14/19 16:00 88 08/14/19 16:00 Room Air 08/14/19 13:40 Room Air 08/14/19 13:40 99.0 90 18 115/76 (89) 98 08/14/19 13:11 88 08/14/19 12:00 87 20 110/68 (82) 93 08/14/19 11:00 98.6 84 18 118/83 (95) 99 Intake and Output 08/14/19 08/15/19 19:00 07:00 Intake Total 900 ml Output Total 900 ml 600 ml Balance 0 ml -600 ml Intake Oral 900 ml Output Urine Total 900 ml 600 ml # Voids 1 1 # Bowel Movements 2 Objective General Appearance: no acute distress, not responsive HEENT: normocephalic, atraumatic, anicteric Respiratory/Chest: lungs clear Cardiovascular: normal rate Abdomen: soft, non tender Extremities: pedal pulses normal Neurologic/Psychiatric: not responsive Laboratory Tests 08/15/19 06:22: White Blood Count 11.8H, Red Blood Count 4.36L, Hemoglobin 13.3L, Hematocrit 38.6L, Mean Corpuscular Volume 89, Mean Corpuscular Hemoglobin 30.6, Mean Corpuscular Hemoglobin Concent 34.6, Red Cell Distribution Width 12.1, Platelet Count 295, Mean Platelet Volume 6.4L, Neutrophils (%) (Auto) 67.1, Lymphocytes ( %) (Auto) 21.2, Monocytes (%) (Auto) 8.9, Eosinophils (%) (Auto) 2.3, Basophils (%) (Auto) 0.6, Sodium Level 144, Potassium Level 4.2, Chloride Level 110H, Carbon Dioxide Level 24, Anion Gap 10, Blood Urea Nitrogen 14, Creatinine 0.7, Estimat Glomerular Filtration Rate > 60, Glucose Level 105, Calcium Level 9.1 Current Medications Medications (Trade) Dose Ordered Sig/Jannet Route PRN Reason Start Time Stop Time Status Last Admin Dose Admin Dextrose (Dextrose 50%) 25 ml Q30M PRN IV Hypoglycemia 08/14/19 19:00 09/06/19 10:59 Dextrose (Dextrose 50%) 50 ml Q30M PRN IV Hypoglycemia 08/14/19 19:00 09/06/19 10:59 Duloxetine HCl (Cymbalta) 30 mg DAILY ORAL 08/15/19 09:00 09/04/19 08:59 08/15/19 09:27 Insulin Aspart (NovoLOG) BEFORE MEALS AND HS SUBQ 08/14/19 21:00 09/06/19 11:29 08/15/19 06:12 Lorazepam (Ativan 2mg/ml 1ml) 1 mg Q6H PRN IV For Anxiety 08/14/19 19:00 08/21/19 18:59 Quetiapine Fumarate (SEROqueL) 100 mg BID ORAL 08/15/19 09:00 09/04/19 08:59 08/15/19 09:27 Temazepam (Restoril) 15 mg HSPRN PRN ORAL Insomnia 08/14/19 21:00 08/19/19 20:59 Giselle Story [employer] Aug 15, 2019 10:08
[2019-08-15 12:00] VITALS: BP 106/57
--- NOTE | 2019-08-15 13:25 | NUR ---
SS note (Psych placement) [facility] [place] ([phone]) won't have a bed until tomorrow, but will evaluate. [facility] ([phone]) received the fax, will eval (wont have bed until tomorrow). [facility] ([phone]) did not receive fax, this SW re-faxed chart information to [phone] (pending eval).
--- NOTE | 2019-08-15 13:30 | NUR ---
NURSE NOTES: Pt had an episode of witnessed seizure for about 3 seconds.
--- NOTE | 2019-08-15 14:35 | NUR ---
SS note [facility] declined, due to they do not have a contract with patients insurance.
--- NOTE | 2019-08-15 15:15 | Progress Note ---
DATE: 08/15/2019 SUBJECTIVE: This patient is a 49-year-old male patient. He does have some altered mental status. He also has some psychomotor agitation and irritability as well. That is why, he does require acute inpatient treatment at this time. He has problems with hopelessness, helplessness, low energy, poor appetite, and loss of interest in activity. He has confusion, disorganized thought process, mood lability, decline in cognition below his baseline. That is why, his attending has requested daily psychiatric consultation. That is why he does require inpatient treatment at this time. MENTAL STATUS EXAMINATION: This is a 49-year-old male. Appearance is disheveled. Attitude, irritable and agitated. Affect, guarded and restricted. Intellect poor. Mood, depressed and anxious. Motor activity, psychomotor agitation. Attention span is poor. Orientation x2. Speech is low volume, slurred. Thought process, disorganized and illogical. Insight and judgment is poor. DIAGNOSIS: Paranoid schizophrenia with acute exacerbation. PLAN: Treatment is Cymbalta 30 mg a day, Seroquel 100 mg twice a day, and Ativan 1 mg every 6 hours p.r.n. anxiety and agitation. 20 minutes of reality-based supportive psychotherapy and encouraged him to interact appropriately staff and other patients. Chart reviewed. Discussed with staff. Seen and assessed at the bedside. 20 minutes of cognitive behavioral therapy to help him identify his automatic negative thoughts and help him convert his negative thoughts to more positive thoughts to reduce depression, anxiety, and suicidality. Yvonne Rosenberg M.D. DR: GINA JOB#: [id number] CC:
[2019-08-15 16:00] VITALS: BP 106/68
--- NOTE | 2019-08-15 17:11 | NUR ---
CASE MANAGEMENT:REVIEW 08/13/19 SI:ALTERED MENTAL STATUS. CHF. PSYCHIATRIC DISORDER. 99.0 59 20 102/60 97% ON RA IS;CYMBALTA PO QD NOVOLOG SQ AC&HS SEROQUEL PO BID MED SURG STATUS DCP:INPATIENT PSYCH REFERRAL PLAN: PSY PLACEMENT CASE MANAGEMENT:REVIEW 08/14/19 SI:ALTERED MENTAL STATUS. CHF. PSYCHIATRIC DISORDER. 98.3 59 18 118/77 98 % ON RA WBC 10.9 pCO2 122.5 IS;CYMBALTA PO QD NOVOLOG SQ AC&HS SEROQUEL PO BID TRANSFER TO TELE DCP:INPATIENT PSYCH REFERRAL PLAN: PSY PLACEMENT CASE MANAGEMENT:REVIEW 08/15/19 SI:ALTERED MENTAL STATUS. CHF. PSYCHIATRIC DISORDER. 98.1 58 20 106/68 100% ON RA CL- 110 WBC 11.8 IS;CYMBALTA PO QD NOVOLOG SQ AC&HS SEROQUEL PO BID TRANSFER TO MED SURG UNIT DCP:INPATIENT PSYCH REFERRAL PLAN: PSY PLACEMENT Addendum: 08/16/19 at 0931 by ERIN SOLIZ LVN LATE ENTRY: 08/14 transferred to SDU and then to ICU due to ALOC and complete unresponsiveness CT head negative, mental status returned back to normal , and pt transferred to [facility], now on tele initially received bolus and IVF for hypotension, BP stabilized, IVF dc 08/14 evening
--- NOTE | 2019-08-15 19:28 | NUR ---
HAND-OFF: Report given to MAXIMINO Christiansen. Pt in stable condition, endorsed plan of care.
--- NOTE | 2019-08-15 19:30 | NUR ---
NURSE NOTES: Received pt and report from MAXIMINO Alexander. Observed pt resting in bed with both eyes closed; arousable to voice. Pt has a med-surg order; awaiting for bed assignment. Pt is A/Ox1. IV site intact, asymptomatic, and patent. Seizure precaution noted; side rails padded, suction and O2 at bedside. Will monitor pt closely. Bed is in the lowest position and locked. Call light and bedside table is within reach. No signs/symptoms of acute distress noted at this time. Will continue plan of care.
[2019-08-15 20:00] VITALS: BP 112/72
--- NOTE | 2019-08-15 20:45 | General Progress Note ---
Assessment/Plan Problem List: (1) HTN (hypertension) ICD Codes: I10 - Essential (primary) hypertension SNOMED: 98089785 (2) CHF (congestive heart failure) ICD Codes: I50.9 - Heart failure, unspecified SNOMED: 55169132 (3) CVA (cerebral vascular accident) ICD Codes: I63.9 - Cerebral infarction, unspecified SNOMED: 977284547 (4) Diabetes ICD Codes: E11.9 - Type 2 diabetes mellitus without complications SNOMED: 10217041 (5) AMS (altered mental status) ICD Codes: R41.82 - Altered mental status, unspecified SNOMED: 975198095 Status: stable, progressing Assessment/Plan: afebrile lyte abnormality neuropathy cva niddm resp insuff reviewed chart and labs Subjective ROS Limited/Unobtainable: Yes Allergies: Coded Allergies: No Known Allergies (Unverified , 06/01/19) Objective Last 24 Hour Vital Signs Date Time Temp Pulse Resp B/P (MAP) Pulse Ox O2 Delivery O2 Flow Rate FiO2 08/15/19 16:00 98.1 58 20 106/68 (81) 100 08/15/19 12:00 98.2 68 20 106/57 (73) 98 08/15/19 11:30 70 08/15/19 09:00 Nasal Cannula 2.0 08/15/19 08:00 97.7 67 20 121/75 (90) 100 08/15/19 07:39 69 08/15/19 04:00 98.8 74 17 122/64 (83) 97 08/15/19 04:00 77 08/15/19 00:00 98.7 70 18 119/70 (86) 98 08/15/19 00:00 64 08/14/19 21:00 Room Air Intake and Output 08/14/19 08/15/19 19:00 07:00 Intake Total 900 ml Output Total 900 ml 600 ml Balance 0 ml -600 ml Intake Oral 900 ml Output Urine Total 900 ml 600 ml # Voids 1 1 # Bowel Movements 2 Laboratory Tests 08/15/19 06:22: White Blood Count 11.8H, Red Blood Count 4.36L, Hemoglobin 13.3L, Hematocrit 38.6L, Mean Corpuscular Volume 89, Mean Corpuscular Hemoglobin 30.6, Mean Corpuscular Hemoglobin Concent 34.6, Red Cell Distribution Width 12.1, Platelet Count 295, Mean Platelet Volume 6.4L, Neutrophils (%) (Auto) 67.1, Lymphocytes ( %) (Auto) 21.2, Monocytes (%) (Auto) 8.9, Eosinophils (%) (Auto) 2.3, Basophils (%) (Auto) 0.6, Sodium Level 144, Potassium Level 4.2, Chloride Level 110H, Carbon Dioxide Level 24, Anion Gap 10, Blood Urea Nitrogen 14, Creatinine 0.7, Estimat Glomerular Filtration Rate > 60, Glucose Level 105, Calcium Level 9.1 Height (Feet): 5 Height (Inches): 5.00 Weight (Pounds): 166 Cardiovascular: normal rate Respiratory/Chest: lungs clear Abdomen: soft Ken Butler MD Aug 15, 2019 20:44
--- NOTE | 2019-08-15 22:25 | NUR ---
TRANSFER TO FLOOR: Patient transferred to [facility], per Jez THOMAS. Pt transferred to unit and room without any incident. Report given to MAXIMINO Land. Belongings list checked and signed. Medications and belongings given to MAXIMINO Land. Family informed of transfer. Orders transferred. Pt is in stable condition.
--- NOTE | 2019-08-15 22:26 | NUR ---
NURSE NOTES: Received report from My(Елена) RN.
--- NOTE | 2019-08-15 22:27 | NUR ---
NURSE NOTES: Patient arrived the unit at 2225. Patient is responsive, but a/o x1, and non-verbally responsive. No any distress noted at this time. Breathing is even and unlabored with NC 2L/min. No SOB noted. Belonging checked and signed. 3 IV line on Lt hand 22g, Lt hand 20g, Rt FA 18g are intact and patent with S/L. Skin assessment done. Bed is alarm, locked, and lowest position. Call light within reach. Will continue to monitor.
[2019-08-16] VITALS: BP_SYST 119; BP_SYST 138; BP_DIAS 64; BP_DIAS 72
[2019-08-16 04:00] VITALS: BP 138/77
[2019-08-16] MEDS: NovoLOG Insulin Flexpen SUBQ SCH ×4 (05:47→21:00)
--- NOTE | 2019-08-16 07:35 | NUR ---
HAND-OFF: Report given to Viridiana STANTON. Patient in stable condition.
--- NOTE | 2019-08-16 07:36 | NUR ---
NURSE NOTES: pt awake alert, no distress. no c/o pain. call light within reach. will monitor. bed in lowest position, locked.
[2019-08-16 07:58] VITALS: BP 121/81
[2019-08-16] MEDS: DULoxetine 30mg cap ORAL SCH (08:14)
--- NOTE | 2019-08-16 08:15 | NUR ---
CUSTOM APPLICATOR NOTE (PLACEMENT) RICK spoke keith/ Doreen from [facility] [phone] that the packet is in review and RN supervisor lens generating will give a call back. RICK spoke w/ Jovana from [facility] [place] [phone] packet is currently in review/no bed available as of 8:15am. Signed: 08/16/19 at 0817 by MAXI CABRERA <Co-Signature Required>
--- NOTE | 2019-08-16 09:25 | NUR ---
CASE MANAGEMENT:REVIEW 08/16/19 SI:METABOLIC ENCEPHALOPATHY . CHF. PSYCHIATRIC DISORDER. DM . SEIZURE EPISODES 98.1 78 18 121/81 97% ON RA IS;CYMBALTA PO QD NOVOLOG SQ AC&HS SEROQUEL PO BID \: 3E MED SURG UNIT DCP: INPATIENT PSYCH REFERRAL PLAN: WBC SLIGHT INCREASING SW ACTIVELY SEEKING SAFE DISCHARGE PSY PLACEMENT
[2019-08-16 11:31] VITALS: BP 97/54
--- NOTE | 2019-08-16 13:44 | General Progress Note ---
Assessment/Plan Problem List: (1) CVA (cerebral vascular accident) ICD Codes: I63.9 - Cerebral infarction, unspecified SNOMED: 874500107 (2) Depression ICD Codes: F32.9 - Major depressive disorder, single episode, unspecified SNOMED: 78728541 (3) Diabetes ICD Codes: E11.9 - Type 2 diabetes mellitus without complications SNOMED: 13293760 (4) Psychiatric disorder ICD Codes: F99 - Mental disorder, not otherwise specified SNOMED: 06966580 (5) HTN (hypertension) ICD Codes: I10 - Essential (primary) hypertension SNOMED: 71577774 (6) AMS (altered mental status) ICD Codes: R41.82 - Altered mental status, unspecified SNOMED: 623353448 Status: stable, progressing Assessment/Plan: pt diet eval neuro psyc f/u cbc bmp am dc to snf if clear Subjective Constitutional: Reports: weakness Allergies: Coded Allergies: No Known Allergies (Unverified , 06/01/19) All Systems: reviewed and negative except above Subjective sleepy in bed calm Objective Last 24 Hour Vital Signs Date Time Temp Pulse Resp B/P (MAP) Pulse Ox O2 Delivery O2 Flow Rate FiO2 08/16/19 11:31 98.6 71 18 97/54 (68) 97 08/16/19 07:58 98.1 78 18 121/81 (94) 97 08/16/19 07:58 Room Air 08/16/19 04:00 98.1 59 18 138/77 (97) 97 08/16/19 00:00 97.6 70 17 138/64 (88) 97 08/15/19 21:00 Room Air 08/15/19 20:00 97.9 69 19 112/72 (85) 98 08/15/19 16:00 98.1 58 20 106/68 (81) 100 Intake and Output 08/15/19 08/16/19 19:00 07:00 Output Total 800 ml Balance -800 ml Output Urine Total 800 ml # Voids 1 Height (Feet): 5 Height (Inches): 5.00 Weight (Pounds): 166 General Appearance: lethargic EENT: normal ENT inspection Neck: normal alignment Cardiovascular: normal peripheral pulses, normal rate, regular rhythm Respiratory/Chest: chest wall non-tender, lungs clear, normal breath sounds Abdomen: normal bowel sounds, non tender, soft Extremities: normal inspection Edema: no edema noted Arm (L), no edema noted Arm (R), no edema noted Leg (L), no edema noted Leg (R), no edema noted Pedal (L), no edema noted Pedal (R), no edema noted Generalized Neurologic: motor weakness Skin: normal pigmentation, warm/dry Bakari Logan DO Aug 16, 2019 13:44
--- NOTE | 2019-08-16 14:10 | Pulmonology Progress Note ---
Assessment/Plan Problems: (1) AMS (altered mental status) (2) CHF (congestive heart failure) (3) Psychiatric disorder (4) Diabetes (5) Depression (6) HTN (hypertension) Assessment/Plan d/w at the bed site improving BP controlled sliding scale diabetic diet f/u by psych dc planning might need termite treater placement since the unable to take care of him at home Subjective ROS Limited/Unobtainable: No Constitutional: Reports: no symptoms HEENT: Repors: no symptoms Allergies: Coded Allergies: No Known Allergies (Unverified , 06/01/19) Objective Last 24 Hour Vital Signs Date Time Temp Pulse Resp B/P (MAP) Pulse Ox O2 Delivery O2 Flow Rate FiO2 08/16/19 11:31 98.6 71 18 97/54 (68) 97 08/16/19 07:58 98.1 78 18 121/81 (94) 97 08/16/19 07:58 Room Air 08/16/19 04:00 98.1 59 18 138/77 (97) 97 08/16/19 00:00 97.6 70 17 138/64 (88) 97 08/15/19 21:00 Room Air 08/15/19 20:00 97.9 69 19 112/72 (85) 98 08/15/19 16:00 98.1 58 20 106/68 (81) 100 Intake and Output 08/15/19 08/16/19 19:00 07:00 Output Total 800 ml Balance -800 ml Output Urine Total 800 ml # Voids 1 Objective General Appearance: WN, WD, WH Lines, tubes and drains: peripheral HEENT: normocephalic, atraumatic Neck: non-tender, normal alignment Respiratory/Chest: chest wall non-tender, rhonchi - right, expiratory wheezing Breasts: no masses Cardiovascular/Chest: normal peripheral pulses Abdomen: normal bowel sounds, non tender, hyperactive bowel sounds Extremities: normal range of motion Current Medications Medications (Trade) Dose Ordered Sig/Jannet Route PRN Reason Start Time Stop Time Status Last Admin Dose Admin Dextrose (Dextrose 50%) 25 ml Q30M PRN IV Hypoglycemia 08/15/19 23:30 09/06/19 10:59 Dextrose (Dextrose 50%) 50 ml Q30M PRN IV Hypoglycemia 08/15/19 23:30 09/06/19 10:59 Duloxetine HCl (Cymbalta) 30 mg DAILY ORAL 08/16/19 09:00 09/04/19 08:59 08/16/19 08:14 Insulin Aspart (NovoLOG) BEFORE MEALS AND HS SUBQ 08/16/19 06:30 09/06/19 11:29 Lorazepam (Ativan 2mg/ml 1ml) 1 mg Q6H PRN IV For Anxiety 08/16/19 01:00 08/21/19 18:59 Quetiapine Fumarate (SEROqueL) 100 mg BID ORAL 08/16/19 09:00 09/04/19 08:59 08/16/19 08:14 Temazepam (Restoril) 15 mg HSPRN PRN ORAL Insomnia 08/16/19 21:00 08/19/19 20:59 Luis Cody MD Aug 16, 2019 14:10
[2019-08-16 15:51] VITALS: BP 105/69
--- NOTE | 2019-08-16 16:18 | NUR ---
SHOPPER NOTE (PLACEMENT) RICK spoke w/ Dewayne from [facility] [phone] and faxed the clinicals to [phone]. RICK spoke w/ Constanza from [facility] [phone] that there is no bed available and wanting RICK to call back on the next day. Signed: 08/16/19 at 1619 by MAXI CABRERA <Co-Signature Required>
--- NOTE | 2019-08-16 16:30 | Progress Note ---
DATE: 08/16/2019 SUBJECTIVE: This is a 49-year-old male with altered mental status. He has got some confusion, disorganized thought process, mood lability, decline in cognition below his baseline that is why his attending has requested daily psychiatric consultation at this time. MENTAL STATUS EXAMINATION: This is a 49-year-old male. Appearance is disheveled. Attitude, irritable and agitated. Affect, guarded and restricted. Intellect poor. Mood, depressed and anxious. Motor activity, psychomotor agitation. Insight and judgment is poor. DIAGNOSIS: Paranoid schizophrenia. PLAN: Treat this patient with Cymbalta 30 mg daily, Seroquel 50 mg daily, Ativan 1 mg every 4 hours p.r.n. anxiety and agitation. A 20 minutes of reality-based supportive psychotherapy. Chart reviewed. Discussed with staff. Seen and assessed in his room. Yvonne Rosenberg M.D. DR: Ke JOB#: [id number] CC:
--- NOTE | 2019-08-16 16:38 | NUR ---
WILDLIFE CONSERVATIONIST NOTE RICK spoke w/ Berna from [facility] [phone] that there is no bed available and asked to call back on the next day. RICK spoke keith/ Ysabel from [facility]. [phone] that their facility does not have a medical doctor so pt cannot be accepted. Signed: 08/16/19 at 1640 by MAXI CABRERA <Co-Signature Required>
--- NOTE | 2019-08-16 19:00 | NUR ---
NURSE NOTES: Received report from MAXIMINO Hernandez. Pt is awake, lying semi-jiang's; very anxious. No signs of acute distress noted. Pt denies any pain at this time. Mostly Indian speaking but can understand some Pashto. AOx1; unable to make needs known. Checked IV site and it's infiltrated with redness noted. IV discontinued. Will reattempt to insert IV at a later time. No bleeding noted. Bed at lowest position. Brakes on. Siderails up x3. Call light within reach. Will continue to monitor. Addendum: 08/17/19 at 0144 by Kaylee Granados RN Pt is very anxious, restless, and impulsive.
[2019-08-16 19:25] LABS: BASOPHILS % (AUTO) 1.2 % (0.0-2.0); EOSINOPHILS % (AUTO) 3.2 % (0.0-3.0); HEMATOCRIT 37.9 % (42.0-52.0); HEMOGLOBIN 12.3 G/DL (14.2-18.0); LYMPHOCYTES % (AUTO) 26.3 % (20.0-45.0); MEAN CORPUSCULAR VOLUME 89 FL (80-99); MONOCYTES % (AUTO) 8.9 % (1.0-10.0); NEUTROPHILS % (AUTO) 60.3 % (45.0-75.0); PLATELET COUNT 292 K/UL (150-450); RED BLOOD COUNT 4.25 M/UL (4.70-6.10); RED CELL DISTRIBUTION WIDTH 13.4 % (11.6-14.8); WHITE BLOOD COUNT 11.1 K/UL (4.8-10.8)
[2019-08-16] MEDS: LORazepam Inj 2mg/ml 1ml IV PRN (19:39)
[2019-08-16 19:44] LABS: ALANINE AMINOTRANSFERASE 21 U/L (12-78); ALBUMIN 3.3 G/DL (3.4-5.0); ALKALINE PHOSPHATASE 116 U/L (46-116); ANION GAP 7 mmol/L (5-15); ASPARTATE AMINO TRANSFERASE 12 U/L (15-37); BILIRUBIN,TOTAL 0.2 MG/DL (0.2-1.0); BLOOD UREA NITROGEN 13 mg/dL (7-18); CALCIUM 9.2 MG/DL (8.5-10.1); CARBON DIOXIDE 30 MMOL/L (21-32); CHLORIDE 106 MMOL/L (98-107); CREATININE 0.8 MG/DL (0.55-1.30); POTASSIUM 3.9 MMOL/L (3.5-5.1); SODIUM 143 MMOL/L (136-145)
[2019-08-16 20:00] VITALS: BP 115/74
[2019-08-17] VITALS: BP 122/78
--- NOTE | 2019-08-17 02:00 | NUR ---
NURSE NOTES: Dewayne from [facility] called regarding pt. Gave report regarding pt's condition. Tonya also called at 0200 and was informed that someone from the PET team will come evaluate pt at 0230.
--- NOTE | 2019-08-17 03:16 | NUR ---
NURSE NOTES: Matilde from PET team of [facility] evaluated pt and unable to put him on hold due to pt being on oxygen. Pt was put on oxygen earlier due to pt being anxious, agitated, and short of breath. Will have to get him off oxygen for 12 hours. Will have to call [facility] again tomorrow. Will endorse plan of care to day RN.
[2019-08-17 04:00] VITALS: BP 119/72
[2019-08-17] MEDS: NovoLOG Insulin Flexpen SUBQ SCH ×4 (06:30→21:00)
--- NOTE | 2019-08-17 06:30 | NUR ---
NURSE NOTES: Dr. Logan made aware that pt takes Tramadol at home for neck pain due to neck surgery in May 2019. Dr. Logan said ok to give if "ok with Dr. Antony". Contacted Dr. Antony about this. Awaiting callback.
[2019-08-17 07:08] LABS: ANION GAP 9 mmol/L (5-15); BLOOD UREA NITROGEN 14 mg/dL (7-18); CALCIUM 9.1 MG/DL (8.5-10.1); CARBON DIOXIDE 26 MMOL/L (21-32); CHLORIDE 107 MMOL/L (98-107); CREATININE 0.6 MG/DL (0.55-1.30); POTASSIUM 4.3 MMOL/L (3.5-5.1); SODIUM 142 MMOL/L (136-145)
[2019-08-17 07:13] LABS: BASOPHILS % (AUTO) 0.9 % (0.0-2.0); EOSINOPHILS % (AUTO) 3.1 % (0.0-3.0); HEMATOCRIT 38.3 % (42.0-52.0); LYMPHOCYTES % (AUTO) 22.7 % (20.0-45.0); MEAN CORPUSCULAR VOLUME 88 FL (80-99); MONOCYTES % (AUTO) 8.1 % (1.0-10.0); NEUTROPHILS % (AUTO) 65.1 % (45.0-75.0); PLATELET COUNT 280 K/UL (150-450); RED BLOOD COUNT 4.34 M/UL (4.70-6.10); RED CELL DISTRIBUTION WIDTH 11.6 % (11.6-14.8); WHITE BLOOD COUNT 10.7 K/UL (4.8-10.8)
--- NOTE | 2019-08-17 07:46 | NUR ---
HAND-OFF: Report given to MAXIMINO Springer. Pt is awake and in stable condition. Plan of care endorsed.
[2019-08-17 08:00] VITALS: BP 101/77
--- NOTE | 2019-08-17 08:00 | NUR ---
NURSE NOTES: Pt lying in bed w/bed in lowest position and call light within reach. Pt A&Ox2, VSS, and in no apparent distress. IV site intact/asymptomatic & H/L'd and skin intact. Pt eating breakfast and scheduled to walk w/PT this morning. Will continue to monitor.
[2019-08-17] MEDS: DULoxetine 30mg cap ORAL SCH (08:25)
--- NOTE | 2019-08-17 08:29 | NUR ---
P.T Note: Order to resume P.T service received. P.T reevaluation performed. Pt is alert, O to self and place but not time and current situation. Pt is confused however follows commands thru constant redirections. Pt had no c/o pain but appeared weak and deconditioned. Pt currently requires SBA X 1 for bed mobilities, CGA X 1 for transfers. Pt able to ambulated and tolerated distance of 75 ft w/o an AD however however needed CGA X 1 and constant redirections due to unsteady gait. Pt will continue to benefit from skilled P.T services for strengthening to increase mobility independence towards return to PLOF. Pt is cleared for OOB activities with nursing assistance.
--- NOTE | 2019-08-17 08:59 | General Progress Note ---
Assessment/Plan Problem List: (1) CVA (cerebral vascular accident) ICD Codes: I63.9 - Cerebral infarction, unspecified SNOMED: 690515876 (2) Depression ICD Codes: F32.9 - Major depressive disorder, single episode, unspecified SNOMED: 40290303 (3) Diabetes ICD Codes: E11.9 - Type 2 diabetes mellitus without complications SNOMED: 90241199 (4) Psychiatric disorder ICD Codes: F99 - Mental disorder, not otherwise specified SNOMED: 26617707 (5) HTN (hypertension) ICD Codes: I10 - Essential (primary) hypertension SNOMED: 40428686 (6) AMS (altered mental status) ICD Codes: R41.82 - Altered mental status, unspecified SNOMED: 817045620 Status: stable, progressing Assessment/Plan: pt diet eval neuro psyc f/u cbc bmp am dc to snf if clear Subjective Constitutional: Reports: weakness Allergies: Coded Allergies: No Known Allergies (Unverified , 06/01/19) All Systems: reviewed and negative except above Subjective sleepy in bed calm Objective Last 24 Hour Vital Signs Date Time Temp Pulse Resp B/P (MAP) Pulse Ox O2 Delivery O2 Flow Rate FiO2 08/17/19 04:00 98.1 62 18 119/72 (88) 97 08/17/19 00:00 98.4 66 17 122/78 (93) 97 08/16/19 21:00 Nasal Cannula 2.0 08/16/19 20:00 98.2 59 18 115/74 (88) 97 08/16/19 15:51 98.6 67 18 105/69 (81) 97 08/16/19 11:31 98.6 71 18 97/54 (68) 97 Intake and Output 08/16/19 08/17/19 18:59 06:59 Intake Total 1200 ml 480 ml Output Total 500 ml Balance 700 ml 480 ml Intake Oral 1200 ml 480 ml Output Urine Total 500 ml # Voids 2 5 # Bowel Movements 1 Laboratory Tests 08/16/19 19:15: White Blood Count 11.1H, Red Blood Count 4.25L, Hemoglobin 12.3L, Hematocrit 37.9L, Mean Corpuscular Volume 89, Mean Corpuscular Hemoglobin 29.0, Mean Corpuscular Hemoglobin Concent 32.5, Red Cell Distribution Width 13.4, Platelet Count 292, Mean Platelet Volume 7.5, Neutrophils (%) (Auto) 60.3, Lymphocytes (% ) (Auto) 26.3, Monocytes (%) (Auto) 8.9, Eosinophils (%) (Auto) 3.2H, Basophils (%) (Auto) 1.2, Sodium Level 143, Potassium Level 3.9, Chloride Level 106, Carbon Dioxide Level 30, Anion Gap 7, Blood Urea Nitrogen 13, Creatinine 0.8, Estimat Glomerular Filtration Rate > 60, Glucose Level 113H, Calcium Level 9.2, Total Bilirubin 0.2, Aspartate Amino Transf (AST/SGOT) 12L, Alanine Aminotransferase (ALT/SGPT) 21, Alkaline Phosphatase 116, Total Protein 6.7, Albumin 3.3L, Globulin 3.4, Albumin/Globulin Ratio 1.0 08/17/19 04:45: White Blood Count 10.7, Red Blood Count 4.34L, Hemoglobin 13.0L, Hematocrit 38.3L, Mean Corpuscular Volume 88, Mean Corpuscular Hemoglobin 29.9, Mean Corpuscular Hemoglobin Concent 33.9, Red Cell Distribution Width 11.6, Platelet Count 280, Mean Platelet Volume 6.6, Neutrophils (%) (Auto) 65.1, Lymphocytes (% ) (Auto) 22.7, Monocytes (%) (Auto) 8.1, Eosinophils (%) (Auto) 3.1H, Basophils (%) (Auto) 0.9, Sodium Level 142, Potassium Level 4.3, Chloride Level 107, Carbon Dioxide Level 26, Anion Gap 9, Blood Urea Nitrogen 14, Creatinine 0.6, Estimat Glomerular Filtration Rate > 60, Glucose Level 107H, Calcium Level 9.1 Height (Feet): 5 Height (Inches): 5.00 Weight (Pounds): 161 General Appearance: lethargic EENT: normal ENT inspection Neck: normal alignment Cardiovascular: normal peripheral pulses, normal rate, regular rhythm Respiratory/Chest: chest wall non-tender, lungs clear, normal breath sounds Abdomen: normal bowel sounds, non tender, soft Extremities: normal inspection Edema: no edema noted Arm (L), no edema noted Arm (R), no edema noted Leg (L), no edema noted Leg (R), no edema noted Pedal (L), no edema noted Pedal (R), no edema noted Generalized Neurologic: motor weakness Skin: normal pigmentation, warm/dry Bakari Logan DO Aug 17, 2019 08:59
--- NOTE | 2019-08-17 10:27 | NUR ---
CHAR CONVEYOR TENDER NOTE RICK spoke w/ Esmer from [facility] [phone] that there is no bed available at this time, thus will not accept the referral. RICK spoke w/ Glenn from [facility] [phone] and was informed to send updated clinicals. RICK faxed updated clinicals to [phone]. RICK spoke w/ Jovana from [facility] that there is no bed available at this time. Per nursing note, PET team from [facility] assessed pt today and was unable to put pt on hold d/t in need of oxygen. Note stating to F/U on the next day. RICK will continue to F/U. Signed: 08/17/19 at 1035 by MAXI CABRERA <Co-Signature Required>
--- NOTE | 2019-08-17 11:47 | NUR ---
RD ASSESSMENT & RECOMMENDATIONS SEE CARE ACTIVITY FOR COMPLETE ASSESSMENT DAILY ESTIMATED NEEDS: Needs based on cardiac, DM/ 66kg abw 25-30 kcals/kg total kcals 1-1.5 g protein/kg 66-99 g total protein 25-30 mL/kg total fluid mLs NUTRITION DIAGNOSIS: * Altered nutrition related lab values R/T h/o DM as evidenced by mildly elev A1C of 5.7, on NISS. * Decreased sodium intake needs R/T cardiac hx as evidenced by h/o HTN, CHF, CVA. CURRENT DIET:CCHO MED PO DIET RECOMMENDATIONS: CCHO MED + LOW NA/ texture per LUMBER SCALER ADDITIONAL RECOMMENDATIONS: * Calibrated bedscale wt, standing wt as able for accurate CBW * Rec LUMBER SCALER eval for h/o CVA, pt is confused * Monitor for continued good/ improved PO intake . .
[2019-08-17 12:00] VITALS: BP 97/57
--- NOTE | 2019-08-17 12:18 | Pulmonology Progress Note ---
Assessment/Plan Problems: (1) AMS (altered mental status) (2) CHF (congestive heart failure) (3) Psychiatric disorder (4) Diabetes (5) Depression (6) HTN (hypertension) Assessment/Plan c/o back pain improving BP controlled sliding scale diabetic diet f/u by psych dc planning might need manager long term care placement since the unable to take care of him at home Subjective ROS Limited/Unobtainable: No Constitutional: Reports: no symptoms HEENT: Repors: no symptoms Allergies: Coded Allergies: No Known Allergies (Unverified , 06/01/19) Objective Last 24 Hour Vital Signs Date Time Temp Pulse Resp B/P (MAP) Pulse Ox O2 Delivery O2 Flow Rate FiO2 08/17/19 12:00 97.1 57 19 97/57 (70) 95 08/17/19 09:00 Room Air 08/17/19 08:00 97.1 74 18 101/77 (85) 97 08/17/19 04:00 98.1 62 18 119/72 (88) 97 08/17/19 00:00 98.4 66 17 122/78 (93) 97 08/16/19 21:00 Nasal Cannula 2.0 08/16/19 20:00 98.2 59 18 115/74 (88) 97 08/16/19 15:51 98.6 67 18 105/69 (81) 97 Intake and Output 08/16/19 08/17/19 19:00 07:00 Intake Total 1200 ml 480 ml Output Total 500 ml Balance 700 ml 480 ml Intake Oral 1200 ml 480 ml Output Urine Total 500 ml # Voids 2 5 # Bowel Movements 1 Objective General Appearance: WN, WD, WH Lines, tubes and drains: peripheral HEENT: normocephalic, atraumatic Neck: non-tender, normal alignment Respiratory/Chest: chest wall non-tender, rhonchi - right, expiratory wheezing Breasts: no masses Cardiovascular/Chest: normal peripheral pulses Abdomen: normal bowel sounds, non tender, hyperactive bowel sounds Extremities: normal range of motion Laboratory Tests 08/16/19 19:15: White Blood Count 11.1H, Red Blood Count 4.25L, Hemoglobin 12.3L, Hematocrit 37.9L, Mean Corpuscular Volume 89, Mean Corpuscular Hemoglobin 29.0, Mean Corpuscular Hemoglobin Concent 32.5, Red Cell Distribution Width 13.4, Platelet Count 292, Mean Platelet Volume 7.5, Neutrophils (%) (Auto) 60.3, Lymphocytes (% ) (Auto) 26.3, Monocytes (%) (Auto) 8.9, Eosinophils (%) (Auto) 3.2H, Basophils (%) (Auto) 1.2, Sodium Level 143, Potassium Level 3.9, Chloride Level 106, Carbon Dioxide Level 30, Anion Gap 7, Blood Urea Nitrogen 13, Creatinine 0.8, Estimat Glomerular Filtration Rate > 60, Glucose Level 113H, Calcium Level 9.2, Total Bilirubin 0.2, Aspartate Amino Transf (AST/SGOT) 12L, Alanine Aminotransferase (ALT/SGPT) 21, Alkaline Phosphatase 116, Total Protein 6.7, Albumin 3.3L, Globulin 3.4, Albumin/Globulin Ratio 1.0 08/17/19 04:45: White Blood Count 10.7, Red Blood Count 4.34L, Hemoglobin 13.0L, Hematocrit 38.3L, Mean Corpuscular Volume 88, Mean Corpuscular Hemoglobin 29.9, Mean Corpuscular Hemoglobin Concent 33.9, Red Cell Distribution Width 11.6, Platelet Count 280, Mean Platelet Volume 6.6, Neutrophils (%) (Auto) 65.1, Lymphocytes (% ) (Auto) 22.7, Monocytes (%) (Auto) 8.1, Eosinophils (%) (Auto) 3.1H, Basophils (%) (Auto) 0.9, Sodium Level 142, Potassium Level 4.3, Chloride Level 107, Carbon Dioxide Level 26, Anion Gap 9, Blood Urea Nitrogen 14, Creatinine 0.6, Estimat Glomerular Filtration Rate > 60, Glucose Level 107H, Calcium Level 9.1 Current Medications Medications (Trade) Dose Ordered Sig/Jannet Route PRN Reason Start Time Stop Time Status Last Admin Dose Admin Acetaminophen (Tylenol) 650 mg Q4H PRN ORAL Mild Pain/Temp > 100.5 08/17/19 12:15 09/16/19 12:14 Dextrose (Dextrose 50%) 25 ml Q30M PRN IV Hypoglycemia 08/15/19 23:30 09/06/19 10:59 Dextrose (Dextrose 50%) 50 ml Q30M PRN IV Hypoglycemia 08/15/19 23:30 09/06/19 10:59 Duloxetine HCl (Cymbalta) 30 mg DAILY ORAL 08/16/19 09:00 09/04/19 08:59 08/17/19 08:25 Insulin Aspart (NovoLOG) BEFORE MEALS AND HS SUBQ 08/16/19 06:30 09/06/19 11:29 Lorazepam (Ativan 2mg/ml 1ml) 1 mg Q6H PRN IV For Anxiety 08/16/19 01:00 08/21/19 18:59 08/16/19 19:39 Quetiapine Fumarate (SEROqueL) 100 mg BID ORAL 08/16/19 09:00 09/04/19 08:59 08/17/19 08:25 Temazepam (Restoril) 15 mg HSPRN PRN ORAL Insomnia 08/16/19 21:00 08/19/19 20:59 Tramadol HCl (Ultram) 50 mg Q6H PRN ORAL For Pain 08/17/19 12:15 08/24/19 12:14 Luis Cody MD Aug 17, 2019 12:18
--- NOTE | 2019-08-17 14:33 | NUR ---
*-* INSURANCE *-* ALL CLINICALS AND REVIEWS HAVE BEEN FAXED TO: Ref# [id number] # [phone] FAX#[phone]
--- NOTE | 2019-08-17 15:30 | Progress Note ---
DATE: 08/17/2019 SUBJECTIVE: This is a male patient who is 49-year-old. He has congestive heart failure, altered mental status, status post CVA, diabetes, hypertension. causing him to have altered mental status and decline in cognition below his baseline. That is why, the attending has requested daily psychiatric consultation. MENTAL STATUS EXAMINATION: This is a 49-year-old male. Appearance is disheveled. Attitude, irritable and agitated. Affect, guarded and restricted. Intellect poor. Mood, depressed and anxious. Motor activity, psychomotor agitation. Attention span is poor. Orientation x2. Speech is low volume, slurred. Thought process, disorganized and illogical. Insight and judgment is poor. DIAGNOSES: 1. Paranoid schizophrenia with acute exacerbation. 2. Rule out depression with psychotic features. PLAN: Treat with Cymbalta 30 mg daily, Seroquel 100 mg twice a day, and Ativan 1 mg IV every 6 hours p.r.n. anxiety and agitation. A 20 minutes of reality-based supportive psychotherapy and encouraged to interact appropriately with staff and other patients. Chart reviewed and discussed with the staff. Seen and assessed at bedside. A 20 minutes of cognitive behavioral therapy was provided to help him identify his automatic negative thoughts, help him convert negative thoughts to more positive thoughts to reduce depression, anxiety, and mood lability. Chart reviewed. Discussed with the staff. Seen and assessed at bedside. Yvonne Rosenberg M.D. DR: MARY JOB#: [id number] CC:
[2019-08-17 16:00] VITALS: BP 100/56
--- NOTE | 2019-08-17 16:30 | NUR ---
NURSE NOTES: Contacted [facility] regarding PET team eval and reported that patient is not on oxygen; staff member asked me to re-fax paperwork requested yesterday and team will come to evaluate patient this evening. Will endorse to oncoming nurse.
--- NOTE | 2019-08-17 19:05 | NUR ---
HAND-OFF: Report given to MAXIMINO Mcdonald.
--- NOTE | 2019-08-17 19:05 | NUR ---
NURSE NOTES: Received report from MAXIMINO Springer. Pt is sleeping, lying semi-jiang's; comfortably resting. Pt's at bedside. No signs of acute distress noted. Pt denies any pain at this time. AOx2; somewhat able to make needs known. Checked IV site; patent and flushed. No erythema, bleeding, or infiltration noted. Bed at lowest position. Siderails padded and up x3. Brakes on. Call light within reach. Will continue to monitor.
[2019-08-17 20:00] VITALS: BP 107/62
[2019-08-18 04:00] VITALS: BP 105/61
--- NOTE | 2019-08-18 04:49 | NUR ---
NURSE NOTES: Pt has been off of oxygen for more than 12 hours. Pt has been tolerating being in room air. No distress noted throughout the night.
[2019-08-18] MEDS: NovoLOG Insulin Flexpen SUBQ SCH ×4 (06:19→21:00)
[2019-08-18 06:40] LABS: BASOPHILS % (AUTO) 0.9 % (0.0-2.0); EOSINOPHILS % (AUTO) 3.4 % (0.0-3.0); HEMATOCRIT 41.3 % (42.0-52.0); LYMPHOCYTES % (AUTO) 29.8 % (20.0-45.0); MEAN CORPUSCULAR VOLUME 88 FL (80-99); NEUTROPHILS % (AUTO) 57.9 % (45.0-75.0); PLATELET COUNT 294 K/UL (150-450); RED BLOOD COUNT 4.68 M/UL (4.70-6.10); RED CELL DISTRIBUTION WIDTH 11.7 % (11.6-14.8); WHITE BLOOD COUNT 8.8 K/UL (4.8-10.8)
[2019-08-18 07:09] LABS: ANION GAP 10 mmol/L (5-15); BLOOD UREA NITROGEN 14 mg/dL (7-18); CALCIUM 9.4 MG/DL (8.5-10.1); CARBON DIOXIDE 26 MMOL/L (21-32); CHLORIDE 107 MMOL/L (98-107); CREATININE 0.6 MG/DL (0.55-1.30); POTASSIUM 4.1 MMOL/L (3.5-5.1); SODIUM 143 MMOL/L (136-145)
--- NOTE | 2019-08-18 07:38 | NUR ---
NURSE NOTES: Report received from Tamara STANTON, rounds made. Patient resting in semi-fowlers position, in bed. No distress on RA. LFA heplock in place. Denies pain/SOB/NV. No seizure activity, seizure pads in place. Call light in reach, bed in lowest position, will continue to monitor.
--- NOTE | 2019-08-18 07:45 | NUR ---
HAND-OFF: Report given to MAXIMINO Mayorga. Pt is awake and in stable condition. Plan of care endorsed.
[2019-08-18 08:00] VITALS: BP 115/73
[2019-08-18] MEDS: DULoxetine 30mg cap ORAL SCH (08:55)
--- NOTE | 2019-08-18 11:00 | Progress Note ---
DATE: 08/18/2019 SUBJECTIVE: This is a male patient, who is 49 years old. He has diabetes, congestive heart failure, status post CVA, altered mental status, and hypertension . That is why, his attending physician has requested daily psychiatric consultation. MENTAL STATUS EXAMINATION: This is a 49-year-old male. Appearance is disheveled. Attitude, irritable and agitated. Affect, guarded and restricted. Intellect poor. Mood, depressed and anxious. Motor activity, psychomotor agitation. Insight and judgment is poor. DIAGNOSIS: Paranoid schizophrenia with acute exacerbation, rule out depression with psychotic features. PLAN: Cymbalta 30 mg a day, Seroquel 100 mg twice a day, Ativan 1 mg IV every 6 hours p.r.n. anxiety and agitation. A 20 minutes of cognitive behavioral therapy to help him identify his automatic negative thoughts, help him convert his negative thoughts to more positive thoughts to reduce depression, anxiety, and mood lability. Chart reviewed. Discussed with staff. Seen and assessed at bedside. Yvonne Rosenberg M.D. DR: FRANNIE JOB#: [id number] CC:
--- NOTE | 2019-08-18 11:02 | NUR ---
BATCH UNLOADER NOTE (PLACEMENT) RICK spoke w/ Wade from [facility] [phone] stating that he cannot find pt's information. RICK explained the situation that PET team contacted the nursing staff yesterday and was going to dispatch a clinician but never arrived/evaluated. Per Wade, he cannot locate the specific person from PET team as this SW does not know the name of person. Wade recommended SW to fax the referral packet again to [phone]. RICK faxed the packet to such number. RICK spoke w/ Magda from [facility] [phone] [phone] that there is no bed available at this time. RICK left a vm to Constanza, admission coordinator at [facility] [phone] for call back. RICK spoke w/ Ashok from [facility] [phone] ext.[phone] and was informed to call back after 12:30pm. There is no pending DC at this time, thus no bed available. Ashok informed SW not to fax the referral until bed opening. RICK spoke w/ Chiara fro [facility] stating that there is no bed available at this time. However, she cannot find pt's packet/information in her system. Per Chiara, the packet can go missing or not accepted. RICK explained that this SW F/U'ed w/ the referral and also confirmed the packet was in review. Chiara informed SW to fax the referral again. RICK faxed the referral to [phone]. Signed: 08/18/19 at 1108 by MAXI CABRERA <Co-Signature Required>
[2019-08-18 12:00] VITALS: BP 102/66
--- NOTE | 2019-08-18 12:07 | NUR ---
CASE MANAGEMENT:REVIEW 08/17/19 SI:METABOLIC ENCEPHALOPATHY . CHF. PSYCHIATRIC DISORDER. DM . SEIZURE EPISODES 97.1 57 19 97/57 95% ON RA IS;CYMBALTA PO QD SEROQUEL PO BID IV ATIVAN Q6HR/PRN \: 3E MED SURG UNIT DCP: INPATIENT PSYCH REFERRAL PLAN: RICK ACTIVELY SEEKING SAFE DISCHARGE PSY PLACEMENT
--- NOTE | 2019-08-18 12:10 | NUR ---
CASE MANAGEMENT:REVIEW 08/18/19 SI:METABOLIC ENCEPHALOPATHY . CHF. PSYCHIATRIC DISORDER. DM . SEIZURE EPISODES 98.1 71 18 115/73 99% ON RA IS;CYMBALTA PO QD SEROQUEL PO BID IV ATIVAN Q6HR/PRN \: 3E MED SURG UNIT DCP: INPATIENT PSYCH REFERRAL PLAN: RICK ACTIVELY SEEKING SAFE DISCHARGE PSY PLACEMENT
--- NOTE | 2019-08-18 12:15 | Pulmonology Progress Note ---
Assessment/Plan Problems: (1) AMS (altered mental status) (2) CHF (congestive heart failure) (3) Psychiatric disorder (4) Diabetes (5) Depression (6) HTN (hypertension) Assessment/Plan walking to bathroom improving BP controlled sliding scale diabetic diet f/u by psych dc planning might need long term care pharmacist placement since the unable to take care of him at home Subjective ROS Limited/Unobtainable: No Constitutional: Reports: no symptoms HEENT: Repors: no symptoms Allergies: Coded Allergies: No Known Allergies (Unverified , 06/01/19) Objective Last 24 Hour Vital Signs Date Time Temp Pulse Resp B/P (MAP) Pulse Ox O2 Delivery O2 Flow Rate FiO2 08/18/19 08:00 98.1 71 18 115/73 (87) 99 08/18/19 04:00 98.0 52 17 105/61 (76) 93 08/17/19 21:00 Room Air 08/17/19 20:00 98.2 59 18 107/62 (77) 93 08/17/19 16:00 97.6 59 21 100/56 (71) 97 Intake and Output 08/17/19 08/18/19 19:00 07:00 Intake Total 480 ml 480 ml Output Total 1225 ml Balance 480 ml -745 ml Intake Oral 480 ml 480 ml Output Urine Total 1225 ml # Voids 1 4 # Bowel Movements 1 Objective General Appearance: WN, WD, WH Lines, tubes and drains: peripheral HEENT: normocephalic, atraumatic Neck: non-tender, normal alignment Respiratory/Chest: chest wall non-tender, rhonchi - right, expiratory wheezing Breasts: no masses Cardiovascular/Chest: normal peripheral pulses Abdomen: normal bowel sounds, non tender, hyperactive bowel sounds Extremities: normal range of motion Laboratory Tests 08/18/19 04:50: White Blood Count 8.8, Red Blood Count 4.68L, Hemoglobin 14.0L, Hematocrit 41.3L , Mean Corpuscular Volume 88, Mean Corpuscular Hemoglobin 30.0, Mean Corpuscular Hemoglobin Concent 34.0, Red Cell Distribution Width 11.7, Platelet Count 294, Mean Platelet Volume 6.5, Neutrophils (%) (Auto) 57.9, Lymphocytes (% ) (Auto) 29.8, Monocytes (%) (Auto) 8.0, Eosinophils (%) (Auto) 3.4H, Basophils (%) (Auto) 0.9, Sodium Level 143, Potassium Level 4.1, Chloride Level 107, Carbon Dioxide Level 26, Anion Gap 10, Blood Urea Nitrogen 14, Creatinine 0.6, Estimat Glomerular Filtration Rate > 60, Glucose Level 94, Calcium Level 9.4 Current Medications Medications (Trade) Dose Ordered Sig/Jannet Route PRN Reason Start Time Stop Time Status Last Admin Dose Admin Acetaminophen (Tylenol) 650 mg Q4H PRN ORAL Mild Pain/Temp > 100.5 08/17/19 12:15 09/16/19 12:14 Dextrose (Dextrose 50%) 25 ml Q30M PRN IV Hypoglycemia 08/15/19 23:30 09/06/19 10:59 Dextrose (Dextrose 50%) 50 ml Q30M PRN IV Hypoglycemia 08/15/19 23:30 09/06/19 10:59 Duloxetine HCl (Cymbalta) 30 mg DAILY ORAL 08/16/19 09:00 09/04/19 08:59 08/18/19 08:55 Insulin Aspart (NovoLOG) BEFORE MEALS AND HS SUBQ 08/16/19 06:30 09/06/19 11:29 Lorazepam (Ativan 2mg/ml 1ml) 1 mg Q6H PRN IV For Anxiety 08/16/19 01:00 08/21/19 18:59 08/16/19 19:39 Quetiapine Fumarate (SEROqueL) 100 mg BID ORAL 08/16/19 09:00 09/04/19 08:59 08/18/19 08:58 Temazepam (Restoril) 15 mg HSPRN PRN ORAL Insomnia 08/16/19 21:00 08/19/19 20:59 Tramadol HCl (Ultram) 50 mg Q6H PRN ORAL For Pain 08/17/19 12:15 08/24/19 12:14 Luis Cody MD Aug 18, 2019 12:15
--- NOTE | 2019-08-18 14:10 | General Progress Note ---
Assessment/Plan Problem List: (1) CVA (cerebral vascular accident) ICD Codes: I63.9 - Cerebral infarction, unspecified SNOMED: 018985152 (2) Depression ICD Codes: F32.9 - Major depressive disorder, single episode, unspecified SNOMED: 72215264 (3) Diabetes ICD Codes: E11.9 - Type 2 diabetes mellitus without complications SNOMED: 13679819 (4) Psychiatric disorder ICD Codes: F99 - Mental disorder, not otherwise specified SNOMED: 42323005 (5) HTN (hypertension) ICD Codes: I10 - Essential (primary) hypertension SNOMED: 62593339 (6) AMS (altered mental status) ICD Codes: R41.82 - Altered mental status, unspecified SNOMED: 143212768 Status: stable, progressing Assessment/Plan: pt diet eval neuro psyc f/u cbc bmp am aru eval Subjective Constitutional: Reports: weakness Allergies: Coded Allergies: No Known Allergies (Unverified , 06/01/19) All Systems: reviewed and negative except above Subjective sleepy in bed calm Objective Last 24 Hour Vital Signs Date Time Temp Pulse Resp B/P (MAP) Pulse Ox O2 Delivery O2 Flow Rate FiO2 08/18/19 12:00 98.6 60 18 102/66 (78) 96 08/18/19 09:00 Room Air 08/18/19 08:00 98.1 71 18 115/73 (87) 99 08/18/19 04:00 98.0 52 17 105/61 (76) 93 08/17/19 21:00 Room Air 08/17/19 20:00 98.2 59 18 107/62 (77) 93 08/17/19 16:00 97.6 59 21 100/56 (71) 97 Intake and Output 08/17/19 08/18/19 19:00 07:00 Intake Total 480 ml 480 ml Output Total 1225 ml Balance 480 ml -745 ml Intake Oral 480 ml 480 ml Output Urine Total 1225 ml # Voids 1 4 # Bowel Movements 1 Laboratory Tests 08/18/19 04:50: White Blood Count 8.8, Red Blood Count 4.68L, Hemoglobin 14.0L, Hematocrit 41.3L , Mean Corpuscular Volume 88, Mean Corpuscular Hemoglobin 30.0, Mean Corpuscular Hemoglobin Concent 34.0, Red Cell Distribution Width 11.7, Platelet Count 294, Mean Platelet Volume 6.5, Neutrophils (%) (Auto) 57.9, Lymphocytes (% ) (Auto) 29.8, Monocytes (%) (Auto) 8.0, Eosinophils (%) (Auto) 3.4H, Basophils (%) (Auto) 0.9, Sodium Level 143, Potassium Level 4.1, Chloride Level 107, Carbon Dioxide Level 26, Anion Gap 10, Blood Urea Nitrogen 14, Creatinine 0.6, Estimat Glomerular Filtration Rate > 60, Glucose Level 94, Calcium Level 9.4 Height (Feet): 5 Height (Inches): 5.00 Weight (Pounds): 161 General Appearance: lethargic EENT: normal ENT inspection Neck: normal alignment Cardiovascular: normal peripheral pulses, normal rate, regular rhythm Respiratory/Chest: chest wall non-tender, lungs clear, normal breath sounds Abdomen: normal bowel sounds, non tender, soft Extremities: normal inspection Edema: no edema noted Arm (L), no edema noted Arm (R), no edema noted Leg (L), no edema noted Leg (R), no edema noted Pedal (L), no edema noted Pedal (R), no edema noted Generalized Neurologic: motor weakness Skin: normal pigmentation, warm/dry Bakari Logan DO Aug 18, 2019 14:10
--- NOTE | 2019-08-18 15:01 | NUR ---
LIGHT BULB REPLACER NOTE RICK spoke w/ Deyanira from [facility] to fax any updates if there is one. Deyanira questioned about neuro consult. Deyanira recommended SW to refer pt to psych unit w/ laura. RICK faxed neuro consult to [facility] intake [phone]. RICK spoke w/ Brigitte from [facility] psych [phone] that there is no bed available. RICK spoke to pt w/ full stack php developer Karolyn #[id number]. Pt states he is feeling better and he is willing to accept PHP. RICK spoke to pt's , Isis w/ full stack php developer Becky #[id number] and provided update on current situation. Isis agreed pt to be referred to PHP as well. RICK spoke w/ Thom LOCKHART and RICK Mandujano from [facility] and provided updates on DC placement. RICK left a vm to Keri from [facility] ext. [phone]. RICK called [facility] [phone] and was informed Keri is out of office today. Meanwhile, RICK faxed the referral packet to [phone] for review. Signed: 08/18/19 at 1510 by MAXI CABRERA <Co-Signature Required>
--- NOTE | 2019-08-18 15:44 | NUR ---
*-*DISCHARGE PLANNING*-* PATIENT HAS BEEN REFERRED TO: [facility] P: [phone] F: [phone] *-*CLINICALS FAXED*-*
[2019-08-18 16:00] VITALS: BP 115/69
--- NOTE | 2019-08-18 16:34 | NUR ---
HULL GRINDER ELLEN CABRERA received a call from [facility] that pt's referral has been declined d/t the need of 1:1 sitter and the facility will not be able to accommodate pt's needs at this time. Signed: 08/18/19 at 1635 by MAXI CABRERA <Co-Signature Required>
--- NOTE | 2019-08-18 16:42 | NUR ---
*-* INSURANCE *-* ALL CLINICALS AND REVIEWS HAVE BEEN FAXED TO: Ref# [id number] # [phone] FAX#[phone]
--- NOTE | 2019-08-18 19:14 | NUR ---
HAND-OFF: Report given to Kristi STANTON, rounds made. Patient sleeping in bed, stable condition.
--- NOTE | 2019-08-18 19:15 | NUR ---
NURSE NOTES: Received report from MAXIMINO Mayorga. Rounding done, patient in bed resting, responds and alert to name. at bedside, very supportive of care. Bed in low position, side rails up x2, side rails padded for seizure precaution and suction set up present and ready. Denies any pain at this time. Call light within reach, will continue to monitor.
[2019-08-18 20:00] VITALS: BP 109/64
[2019-08-19] VITALS: BP 110/73
[2019-08-19 04:00] VITALS: BP 124/84
[2019-08-19] MEDS: LORazepam Inj 2mg/ml 1ml IV PRN (05:19)
[2019-08-19] MEDS: NovoLOG Insulin Flexpen SUBQ SCH ×4 (06:47→20:14)
[2019-08-19 07:16] LABS: BASOPHILS % (AUTO) 1.1 % (0.0-2.0); EOSINOPHILS % (AUTO) 3.3 % (0.0-3.0); HEMATOCRIT 41.9 % (42.0-52.0); HEMOGLOBIN 14.4 G/DL (14.2-18.0); LYMPHOCYTES % (AUTO) 33.7 % (20.0-45.0); MEAN CORPUSCULAR VOLUME 88 FL (80-99); MONOCYTES % (AUTO) 7.9 % (1.0-10.0); PLATELET COUNT 359 K/UL (150-450); RED BLOOD COUNT 4.74 M/UL (4.70-6.10); RED CELL DISTRIBUTION WIDTH 11.6 % (11.6-14.8); WHITE BLOOD COUNT 10.3 K/UL (4.8-10.8)
[2019-08-19 07:17] LABS: ANION GAP 17 mmol/L (5-15); BLOOD UREA NITROGEN 17 mg/dL (7-18); CALCIUM 9.6 MG/DL (8.5-10.1); CARBON DIOXIDE 22 MMOL/L (21-32); CHLORIDE 106 MMOL/L (98-107); CREATININE 0.8 MG/DL (0.55-1.30); POTASSIUM 4.1 MMOL/L (3.5-5.1); SODIUM 145 MMOL/L (136-145)
--- NOTE | 2019-08-19 07:35 | NUR ---
HAND-OFF: Report given to MAXIMINO Gaspar.
[2019-08-19 08:00] VITALS: BP 133/73
--- NOTE | 2019-08-19 08:00 | NUR ---
NURSE NOTES: Received report Bret STANTON, pt a/a/o laying in bed with no signs of distress or other issues at this time. no skin issues. pt able to able to ambulate with staff assistance. IV on the left FA gauge#22 heplock. call light within reach, bed in lowest position. side rales up x2. I will f/u as needed.
[2019-08-19] MEDS: DULoxetine 30mg cap ORAL SCH (08:06)
--- NOTE | 2019-08-19 09:33 | General Progress Note ---
Assessment/Plan Problem List: (1) CVA (cerebral vascular accident) ICD Codes: I63.9 - Cerebral infarction, unspecified SNOMED: 194814948 (2) Depression ICD Codes: F32.9 - Major depressive disorder, single episode, unspecified SNOMED: 07942979 (3) Diabetes ICD Codes: E11.9 - Type 2 diabetes mellitus without complications SNOMED: 40080687 (4) Psychiatric disorder ICD Codes: F99 - Mental disorder, not otherwise specified SNOMED: 29026768 (5) HTN (hypertension) ICD Codes: I10 - Essential (primary) hypertension SNOMED: 48268518 (6) AMS (altered mental status) ICD Codes: R41.82 - Altered mental status, unspecified SNOMED: 497291780 Status: stable, progressing Assessment/Plan: pt diet eval neuro psyc f/u cbc bmp am aru eval and transfer Subjective Constitutional: Reports: weakness Allergies: Coded Allergies: No Known Allergies (Unverified , 06/01/19) All Systems: reviewed and negative except above Subjective sleepy in bed calm Objective Last 24 Hour Vital Signs Date Time Temp Pulse Resp B/P (MAP) Pulse Ox O2 Delivery O2 Flow Rate FiO2 08/19/19 08:00 97.6 93 20 133/73 (93) 97 08/19/19 04:00 97.8 65 18 124/84 (97) 99 08/19/19 00:00 98.3 61 16 110/73 (85) 98 08/18/19 21:00 Room Air 08/18/19 20:00 98.5 58 20 109/64 (79) 97 08/18/19 16:00 97.9 63 18 115/69 (84) 97 08/18/19 12:00 98.6 60 18 102/66 (78) 96 Intake and Output 08/18/19 08/19/19 19:00 07:00 Intake Total 900 ml 240 ml Output Total 700 ml Balance 900 ml -460 ml Intake Oral 240 ml Other 900 ml Output Urine Total 700 ml Laboratory Tests 08/19/19 04:50: White Blood Count 10.3, Red Blood Count 4.74, Hemoglobin 14.4, Hematocrit 41.9L , Mean Corpuscular Volume 88, Mean Corpuscular Hemoglobin 30.3, Mean Corpuscular Hemoglobin Concent 34.3, Red Cell Distribution Width 11.6, Platelet Count 359, Mean Platelet Volume 6.5, Neutrophils (%) (Auto) 54.0, Lymphocytes (% ) (Auto) 33.7, Monocytes (%) (Auto) 7.9, Eosinophils (%) (Auto) 3.3H, Basophils (%) (Auto) 1.1, Sodium Level 145, Potassium Level 4.1, Chloride Level 106, Carbon Dioxide Level 22, Anion Gap 17H, Blood Urea Nitrogen 17, Creatinine 0.8, Estimat Glomerular Filtration Rate > 60, Glucose Level 80, Calcium Level 9.6 Height (Feet): 5 Height (Inches): 5.00 Weight (Pounds): 161 General Appearance: lethargic EENT: normal ENT inspection Neck: normal alignment Cardiovascular: normal peripheral pulses, normal rate, regular rhythm Respiratory/Chest: chest wall non-tender, lungs clear, normal breath sounds Abdomen: normal bowel sounds, non tender, soft Extremities: normal inspection Edema: no edema noted Arm (L), no edema noted Arm (R), no edema noted Leg (L), no edema noted Leg (R), no edema noted Pedal (L), no edema noted Pedal (R), no edema noted Generalized Neurologic: motor weakness Skin: normal pigmentation, warm/dry Bakari Logan DO Aug 19, 2019 09:33
--- NOTE | 2019-08-19 11:02 | NUR ---
FOAM RUBBER FABRICATOR NOTE RICK spoke tamiko Saavedra from [facility] and was informed that they cannot accommodate Bilingual staff. RICK spoke keith/ Lola from [facility] [phone] ext.[phone] and faxed the referral packet to [phone]. Signed: 08/19/19 at 1104 by MAXI CABRERA <Co-Signature Required>
[2019-08-19 12:00] VITALS: BP 110/64
--- NOTE | 2019-08-19 12:14 | NUR ---
HORSE RIDING COACH OR INSTRUCTOR NOTE RICK contacted [facility] [phone] and was informed to contact the liason, Jovany Bellos [phone] and schedule the appt w/ eunice for PHP assessment. RICK left a vm to Jovany Lamas for call back. Signed: 08/19/19 at 1215 by MAXI CABRERA <Co-Signature Required>
--- NOTE | 2019-08-19 13:01 | NUR ---
NUT AND BOLT ASSEMBLER NOTE RICK spoke w/ Michelle from [facility] ext.[phone] that the facility does not offer the program in [place]ian. RICK spoke w/ Jovany from [facility] and faxed the referral packet to [phone]. Signed: 08/19/19 at 1303 by MAXI CABRERA <Co-Signature Required>
[2019-08-19] MEDS ORDERED: LORazepam Inj 2mg/ml 1ml IV PRN (14:00)
--- NOTE | 2019-08-19 14:23 | Pulmonology Progress Note ---
Assessment/Plan Problems: (1) AMS (altered mental status) (2) CHF (congestive heart failure) (3) Psychiatric disorder (4) Diabetes (5) Depression (6) HTN (hypertension) Assessment/Plan wants to go home but cant take care of him improving BP controlled sliding scale diabetic diet f/u by psych dc planning might need adjunct faculty for medical terminology placement since the unable to take care of him at home Subjective ROS Limited/Unobtainable: No HEENT: Repors: no symptoms Allergies: Coded Allergies: No Known Allergies (Unverified , 06/01/19) Objective Last 24 Hour Vital Signs Date Time Temp Pulse Resp B/P (MAP) Pulse Ox O2 Delivery O2 Flow Rate FiO2 08/19/19 12:00 97.6 59 20 110/64 (79) 96 08/19/19 09:00 Room Air 08/19/19 08:00 97.6 93 20 133/73 (93) 97 08/19/19 04:00 97.8 65 18 124/84 (97) 99 08/19/19 00:00 98.3 61 16 110/73 (85) 98 08/18/19 21:00 Room Air 08/18/19 20:00 98.5 58 20 109/64 (79) 97 08/18/19 16:00 97.9 63 18 115/69 (84) 97 Intake and Output 08/18/19 08/19/19 18:59 06:59 Intake Total 900 ml 240 ml Output Total 700 ml Balance 900 ml -460 ml Intake Oral 240 ml Other 900 ml Output Urine Total 700 ml Objective General Appearance: WN, WD, WH Lines, tubes and drains: peripheral HEENT: normocephalic, atraumatic Neck: non-tender, normal alignment Respiratory/Chest: chest wall non-tender, rhonchi - right, expiratory wheezing Breasts: no masses Cardiovascular/Chest: normal peripheral pulses Abdomen: normal bowel sounds, non tender, hyperactive bowel sounds Extremities: normal range of motion Laboratory Tests 08/19/19 04:50: White Blood Count 10.3, Red Blood Count 4.74, Hemoglobin 14.4, Hematocrit 41.9L , Mean Corpuscular Volume 88, Mean Corpuscular Hemoglobin 30.3, Mean Corpuscular Hemoglobin Concent 34.3, Red Cell Distribution Width 11.6, Platelet Count 359, Mean Platelet Volume 6.5, Neutrophils (%) (Auto) 54.0, Lymphocytes (% ) (Auto) 33.7, Monocytes (%) (Auto) 7.9, Eosinophils (%) (Auto) 3.3H, Basophils (%) (Auto) 1.1, Sodium Level 145, Potassium Level 4.1, Chloride Level 106, Carbon Dioxide Level 22, Anion Gap 17H, Blood Urea Nitrogen 17, Creatinine 0.8, Estimat Glomerular Filtration Rate > 60, Glucose Level 80, Calcium Level 9.6 Current Medications Medications (Trade) Dose Ordered Sig/Jannet Route PRN Reason Start Time Stop Time Status Last Admin Dose Admin Acetaminophen (Tylenol) 650 mg Q4H PRN ORAL Mild Pain/Temp > 100.5 08/17/19 12:15 09/16/19 12:14 Dextrose (Dextrose 50%) 25 ml Q30M PRN IV Hypoglycemia 08/15/19 23:30 09/06/19 10:59 Dextrose (Dextrose 50%) 50 ml Q30M PRN IV Hypoglycemia 08/15/19 23:30 09/06/19 10:59 Duloxetine HCl (Cymbalta) 30 mg DAILY ORAL 08/16/19 09:00 09/04/19 08:59 08/19/19 08:06 Insulin Aspart (NovoLOG) BEFORE MEALS AND HS SUBQ 08/16/19 06:30 09/06/19 11:29 08/19/19 06:47 Lorazepam (Ativan 2mg/ml 1ml) 1 mg Q6H PRN IV For Anxiety 08/19/19 14:00 08/25/19 13:59 Quetiapine Fumarate (SEROqueL) 100 mg BID ORAL 08/16/19 09:00 09/04/19 08:59 08/19/19 08:06 Temazepam (Restoril) 15 mg HSPRN PRN ORAL Insomnia 08/19/19 21:00 08/22/19 20:59 Tramadol HCl (Ultram) 50 mg Q6H PRN ORAL For Pain 08/17/19 12:15 08/24/19 12:14 Luis Cody MD Aug 19, 2019 14:23
--- NOTE | 2019-08-19 14:54 | NUR ---
CASE MANAGEMENT:REVIEW 08/19/19 SI:METABOLIC ENCEPHALOPATHY . CHF. PSYCHIATRIC DISORDER. DM . SEIZURE EPISODES 97.6 59 20 110/64 96% ON RA IS;CYMBALTA PO QD SEROQUEL PO BID \: 3E MED SURG UNIT DCP: INPATIENT PSYCH REFERRAL PLAN: SW ACTIVELY SEEKING SAFE DISCHARGE PSY PLACEMENT SPOKE TO [facility] FROM INSURANCE: PATIENT NOT QUALIFY FOR SNF PLACEMENT; INSURANCE ACTIVELY SEEKING OUTPATIENT PROGRAM FOR REHAB T:[phone] INSURANCE IN AGREEABLE
--- NOTE | 2019-08-19 15:27 | NUR ---
DISCHARGE PLANNING: SPOKE TO PATIENTS INSURANCE CM ([facility]) T:[phone] PATIENT DOES NOT QUALIFY TO BE PLACED IN SNF NO PSY FACILITY WILLING TO ACCEPT INSURANCE AND SW SUGGEST HOME WITH IS IN AGREEABLE TO TAKE HOME AGREEABLE TO SAFE DISCHARGE PAGED MD DR. MARY GARCIA TO INFORM HIM DR GARCIA ORDERED FOR PATIENT TO BE REFERRED TO [facility] AND [facility] FAXED PATIENT NEEDS TO BE CLEARED BY NEURO AND PSY
--- NOTE | 2019-08-19 15:30 | Progress Note ---
DATE: 08/19/2019 SUBJECTIVE: This is a 49-year-old male patient. He has altered mental status, confused, disorganized. No logical plan for his own self-care. He does have diagnosed with paranoid schizophrenia with acute exacerbation, rule out depression with psychotic features. He has altered mental status, confusion. DIAGNOSIS: Major depressive disorder, mild, recurrent with psychotic features, rule out dementia with psychosis. PLAN: Plan for this patient, treat him with Seroquel 100 mg twice a day, Cymbalta 30 mg a day, Ativan 1 every 4 hours p.r.n. anxiety and agitation. A 20 minutes of cognitive behavioral therapy to help him identify his automatic negative thoughts, help him convert his negative thoughts to more positive thoughts to reduce depression, anxiety, and mood lability. Chart reviewed. Discussed with staff. Seen and assessed at bedside. Yvonne Rosenberg M.D. DR: FRANNIE JOB#: [id number] CC:
[2019-08-19 16:00] VITALS: BP 120/72
--- NOTE | 2019-08-19 17:11 | NUR ---
DISCHARGE PLANNING: PER MD DR. GARCIA [facility]FERR[facility] T:[phone] [facility] T:[phone] INSURANCE WILL AUTHORIZE IF ACCEPTED NUMBER FOR FACILITIES TO CALL IS ([phone]) IF THESE FACILITIES CAN NOT ACCEPT PATIENT MAY DC HOME WITH AND [facility] TO FOLLOW PATIENT CHRONIC CARE NURSE FROM INSURANCE WILL FOLLOW PATIENT OVER THE WEEKEND PLEASE CALL TO INFORM OF PLAN (T: [phone] ALONSO )
--- NOTE | 2019-08-19 17:13 | NUR ---
HAIR SPECIALIST NOTE Per CM, Dr. Logan requested to refer pt to [facility]. [facility] [phone] Signed: 08/19/19 at 1715 by MAXI CABRERA <Co-Signature Required>
--- NOTE | 2019-08-19 19:18 | NUR ---
HAND-OFF: Report given to Jade STANTON, pt in stable condition. - pt's stated that if SNF doesn't accept pt, she will take the patient home but she will be able to provide transportation between 6-7pm. - patients also requested medication for sleeping since per pt is not able to sleep for up to 3 days she also requested medication to "keep him down". incoming nurse is aware.
--- NOTE | 2019-08-19 19:27 | NUR ---
NURSE NOTES: Received patient in bed, asleep, st bedside, IV site is dry, clean and intact, no acute distress noted or reported. Call light is within reach, bed is lowered, locked and alarm is on, will continue to monitor for comfort and safety.
[2019-08-19 20:00] VITALS: BP 97/52
[2019-08-20] VITALS: BP 127/74
[2019-08-20 04:00] VITALS: BP 119/74
[2019-08-20] MEDS: traMADol 50mg tab ORAL PRN ×2 (05:15→20:34)
[2019-08-20 06:05] LABS: BASOPHILS % (AUTO) 1.2 % (0.0-2.0); EOSINOPHILS % (AUTO) 2.7 % (0.0-3.0); HEMATOCRIT 41.3 % (42.0-52.0); HEMOGLOBIN 14.1 G/DL (14.2-18.0); LYMPHOCYTES % (AUTO) 28.6 % (20.0-45.0); MEAN CORPUSCULAR VOLUME 89 FL (80-99); MONOCYTES % (AUTO) 6.4 % (1.0-10.0); NEUTROPHILS % (AUTO) 61.2 % (45.0-75.0); PLATELET COUNT 331 K/UL (150-450); RED BLOOD COUNT 4.66 M/UL (4.70-6.10); WHITE BLOOD COUNT 9.2 K/UL (4.8-10.8)
[2019-08-20] MEDS: NovoLOG Insulin Flexpen SUBQ SCH ×4 (06:30→20:40)
[2019-08-20 06:34] LABS: ANION GAP 13 mmol/L (5-15); BLOOD UREA NITROGEN 14 mg/dL (7-18); CALCIUM 9.3 MG/DL (8.5-10.1); CARBON DIOXIDE 23 MMOL/L (21-32); CHLORIDE 105 MMOL/L (98-107); POTASSIUM 3.9 MMOL/L (3.5-5.1); SODIUM 141 MMOL/L (136-145)
--- NOTE | 2019-08-20 07:18 | NUR ---
NURSE NOTES: Received patient in bed asleep. No SOB or acute distress. IV line intact and patent. HOB elevated. Bed locked in lowest position, alarm on high sensitivity setting. Will continue frequent rounding and plan of care.
[2019-08-20 08:00] VITALS: BP 112/79
[2019-08-20] MEDS: DULoxetine 30mg cap ORAL SCH (08:05)
[2019-08-20] MEDS: Docusate 100mg cap ORAL SCH ×2 (09:44→17:01)
--- NOTE | 2019-08-20 09:59 | General Progress Note ---
Assessment/Plan Problem List: (1) CVA (cerebral vascular accident) ICD Codes: I63.9 - Cerebral infarction, unspecified SNOMED: 389514032 (2) Depression ICD Codes: F32.9 - Major depressive disorder, single episode, unspecified SNOMED: 08913198 (3) Diabetes ICD Codes: E11.9 - Type 2 diabetes mellitus without complications SNOMED: 03322635 (4) Psychiatric disorder ICD Codes: F99 - Mental disorder, not otherwise specified SNOMED: 24130551 (5) HTN (hypertension) ICD Codes: I10 - Essential (primary) hypertension SNOMED: 35057381 (6) AMS (altered mental status) ICD Codes: R41.82 - Altered mental status, unspecified SNOMED: 849112605 Status: stable, progressing Assessment/Plan: pt diet eval neuro psyc f/u cbc bmp am aru eval and transfer Subjective Constitutional: Reports: weakness Allergies: Coded Allergies: No Known Allergies (Unverified , 06/01/19) All Systems: reviewed and negative except above Subjective sleepy in bed calm Objective Last 24 Hour Vital Signs Date Time Temp Pulse Resp B/P (MAP) Pulse Ox O2 Delivery O2 Flow Rate FiO2 08/20/19 09:00 Room Air 08/20/19 08:00 97.8 63 20 112/79 (90) 96 63 08/20/19 05:50 97.8 08/20/19 04:00 97.8 74 18 119/74 (89) 98 74 08/20/19 00:00 98.4 74 17 127/74 (91) 98 74 08/19/19 21:13 Room Air 08/19/19 20:00 97.1 84 17 97/52 (67) 98 84 08/19/19 16:00 98.3 63 20 120/72 (88) 97 08/19/19 12:00 97.6 59 20 110/64 (79) 96 Intake and Output 08/19/19 08/20/19 19:00 07:00 Intake Total 300 ml Balance 300 ml Intake Oral 300 ml # Voids 2 Laboratory Tests 08/20/19 05:25: White Blood Count 9.2, Red Blood Count 4.66L, Hemoglobin 14.1L, Hematocrit 41.3L , Mean Corpuscular Volume 89, Mean Corpuscular Hemoglobin 30.1, Mean Corpuscular Hemoglobin Concent 34.0, Red Cell Distribution Width 12.0, Platelet Count 331, Mean Platelet Volume 6.4L, Neutrophils (%) (Auto) 61.2, Lymphocytes ( %) (Auto) 28.6, Monocytes (%) (Auto) 6.4, Eosinophils (%) (Auto) 2.7, Basophils (%) (Auto) 1.2, Sodium Level 141, Potassium Level 3.9, Chloride Level 105, Carbon Dioxide Level 23, Anion Gap 13, Blood Urea Nitrogen 14, Creatinine 1.0, Estimat Glomerular Filtration Rate > 60, Glucose Level 160H, Calcium Level 9.3 Height (Feet): 5 Height (Inches): 5.00 Weight (Pounds): 161 General Appearance: lethargic EENT: normal ENT inspection Neck: normal alignment Cardiovascular: normal peripheral pulses, normal rate, regular rhythm Respiratory/Chest: chest wall non-tender, lungs clear, normal breath sounds Abdomen: normal bowel sounds, non tender, soft Extremities: normal inspection Edema: no edema noted Arm (L), no edema noted Arm (R), no edema noted Leg (L), no edema noted Leg (R), no edema noted Pedal (L), no edema noted Pedal (R), no edema noted Generalized Neurologic: motor weakness Skin: normal pigmentation, warm/dry Bakari Logan DO Aug 20, 2019 09:59
--- NOTE | 2019-08-20 11:50 | Pulmonology Progress Note ---
Assessment/Plan Assessment/Plan ASSESSMENT Metabolic encephalopathy new onset of unresponsiveness likely metabolic encephalopathy -resolved ( 08/14 ) seizure episode hypoglycemia DM HTN Bipolar depression Paranoid schizophrenia with acute exacerbation hypotension PLAN OF CARE now on [facility] floor 08/14 transferred to SDU and then to ICU due to ALOC and complete unresponsiveness CT head negative, mental status returned back to normal , and pt transferred to [facility], now on tele initially received bolus and IVF for hypotension, BP stabilized, IVF dc 08/14 evening currently stable , unclear etiology of acute unresponsiveness 08/14, possibly due to psychiatric disorder, no CVA on CT, ? seizure unwitnessed and postictal state ( no incontinence, no drooling) monitor BP no evidence of UTI serum alcohol negative, ammonia WNL seizure precautions seen and evaluated by neuro EEG normal in awake and drowsy state Ativan prn for breakthrough seizures ? seizure episode due to hypoglycemia dc SSI moderate, only use sensitive scale as needed hypoglycemia protocol in use HgA1c at goal hypoglycemia improved after eating further recommendations re seizure management as per neuro psych follows, psych medications regimen as per psych recs CXR with possible mild CHF , check pro BNP , may dc IVF if eating ECHO pending ? O2 HHN prn DVT prophylaxis BP management per hx pt had CVA, but no evidence of prior CVA of CT scan supportive care placement remains stable dc plan in process case discussed and evaluated by supervising physician Subjective Allergies: Coded Allergies: No Known Allergies (Unverified , 06/01/19) Subjective stable today, on [facility] floor, awake and alert, BP stable Objective Last 24 Hour Vital Signs Date Time Temp Pulse Resp B/P (MAP) Pulse Ox O2 Delivery O2 Flow Rate FiO2 08/20/19 09:00 Room Air 08/20/19 08:00 97.8 63 20 112/79 (90) 96 63 08/20/19 05:50 97.8 08/20/19 04:00 97.8 74 18 119/74 (89) 98 74 08/20/19 00:00 98.4 74 17 127/74 (91) 98 74 08/19/19 21:13 Room Air 08/19/19 20:00 97.1 84 17 97/52 (67) 98 84 08/19/19 16:00 98.3 63 20 120/72 (88) 97 08/19/19 12:00 97.6 59 20 110/64 (79) 96 Intake and Output 08/19/19 08/20/19 19:00 07:00 Intake Total 300 ml Balance 300 ml Intake Oral 300 ml # Voids 2 Objective General Appearance: no acute distress, not responsive HEENT: normocephalic, atraumatic, anicteric Respiratory/Chest: lungs clear Cardiovascular: normal rate Abdomen: soft, non tender Extremities: pedal pulses normal Neurologic/Psychiatric: awake, not willing to be engage in the conversation Laboratory Tests 08/20/19 05:25: White Blood Count 9.2, Red Blood Count 4.66L, Hemoglobin 14.1L, Hematocrit 41.3L , Mean Corpuscular Volume 89, Mean Corpuscular Hemoglobin 30.1, Mean Corpuscular Hemoglobin Concent 34.0, Red Cell Distribution Width 12.0, Platelet Count 331, Mean Platelet Volume 6.4L, Neutrophils (%) (Auto) 61.2, Lymphocytes ( %) (Auto) 28.6, Monocytes (%) (Auto) 6.4, Eosinophils (%) (Auto) 2.7, Basophils (%) (Auto) 1.2, Sodium Level 141, Potassium Level 3.9, Chloride Level 105, Carbon Dioxide Level 23, Anion Gap 13, Blood Urea Nitrogen 14, Creatinine 1.0, Estimat Glomerular Filtration Rate > 60, Glucose Level 160H, Calcium Level 9.3 Current Medications Medications (Trade) Dose Ordered Sig/Jannet Route PRN Reason Start Time Stop Time Status Last Admin Dose Admin Acetaminophen (Tylenol) 650 mg Q4H PRN ORAL Mild Pain/Temp > 100.5 08/17/19 12:15 09/16/19 12:14 Dextrose (Dextrose 50%) 25 ml Q30M PRN IV Hypoglycemia 08/15/19 23:30 09/06/19 10:59 Dextrose (Dextrose 50%) 50 ml Q30M PRN IV Hypoglycemia 08/15/19 23:30 09/06/19 10:59 Docusate Sodium (Colace) 100 mg TWICE A DAY ORAL 08/20/19 09:45 09/19/19 09:44 08/20/19 09:44 Duloxetine HCl (Cymbalta) 30 mg DAILY ORAL 08/16/19 09:00 09/04/19 08:59 08/20/19 08:05 Insulin Aspart (NovoLOG) BEFORE MEALS AND HS SUBQ 08/16/19 06:30 09/06/19 11:29 08/19/19 06:47 Lorazepam (Ativan 2mg/ml 1ml) 1 mg Q6H PRN IV For Anxiety 08/19/19 14:00 08/25/19 13:59 Quetiapine Fumarate (SEROqueL) 100 mg BID ORAL 08/16/19 09:00 09/04/19 08:59 08/20/19 08:05 Temazepam (Restoril) 15 mg HSPRN PRN ORAL Insomnia 08/19/19 21:00 08/22/19 20:59 Tramadol HCl (Ultram) 50 mg Q6H PRN ORAL For Pain 08/17/19 12:15 08/24/19 12:14 08/20/19 05:15 Giselle Story GALLERY ASSISTANT Aug 20, 2019 11:50
[2019-08-20 12:00] VITALS: BP 124/74
[2019-08-20 16:00] VITALS: BP 128/83
--- NOTE | 2019-08-20 18:45 | Progress Note ---
DATE: 08/20/2019 SUBJECTIVE: This is a 49-year-old male. The patient continues to have confusion, disorganized thought process, and mood lability. He has got congestive heart failure, hypertension, status post CVA, diabetes, and altered mental status causing him to have a decline in cognition below his baseline. MENTAL STATUS EXAMINATION: This is a 49-year-old male. Appearance is disheveled. Attitude, irritable and agitated. Affect, guarded and restricted. Intellect poor. Mood, depressed and anxious. Motor activity, psychomotor agitation. Insight and judgment is poor. DIAGNOSIS: Paranoid schizophrenia with acute exacerbation. PLAN: Treat him with a medication regimen of Cymbalta 30 mg a day, Seroquel 100 mg twice a day, Ativan 1 mg every 6 hours intravenous every 6 hours p.r.n. anxiety and agitation. A 20 minutes of reality-based supportive psychotherapy. A 20 minutes of cognitive behavioral therapy to help him identify his automatic negative thoughts and help him convert those negative thoughts to more positive thoughts to reduce depression, anxiety, and mood lability. Chart reviewed and discussed with staff. Seen and assessed at the bedside. Yvonne Rosenberg M.D. DR: LOU JOB#: [id number] CC:
--- NOTE | 2019-08-20 19:05 | NUR ---
NURSE NOTES: Received report from MAXIMINO Rain. Pt is awake, lying semi-jiang's; comfortably resting. No signs of acute distress noted. Pt reports 6/10 pain in the back. at bedside. Mainly Greek speaking. AOx2; able to make needs known. Checked IV site; patent and flushed. No erythema, bleeding, or infiltration. Bed at lowest position. Brakes on. Siderails up x2. Call light within reach. Will continue to monitor.
--- NOTE | 2019-08-20 19:29 | NUR ---
HAND-OFF: Report given to harini.
[2019-08-20 20:00] VITALS: BP 104/75
[2019-08-21 01:00] VITALS: BP 99/64
[2019-08-21 04:00] VITALS: BP 99/58
[2019-08-21] MEDS: NovoLOG Insulin Flexpen SUBQ SCH ×4 (06:30→20:31)
[2019-08-21] MEDS: traMADol 50mg tab ORAL PRN (06:50)
[2019-08-21 07:06] LABS: ANION GAP 7 mmol/L (5-15); BLOOD UREA NITROGEN 13 mg/dL (7-18); CALCIUM 9.1 MG/DL (8.5-10.1); CARBON DIOXIDE 28 MMOL/L (21-32); CHLORIDE 107 MMOL/L (98-107); CREATININE 0.8 MG/DL (0.55-1.30); POTASSIUM 4.2 MMOL/L (3.5-5.1); SODIUM 142 MMOL/L (136-145)
[2019-08-21 07:26] LABS: EOSINOPHILS % (AUTO) 2.8 % (0.0-3.0); HEMATOCRIT 39.5 % (42.0-52.0); HEMOGLOBIN 13.3 G/DL (14.2-18.0); LYMPHOCYTES % (AUTO) 29.8 % (20.0-45.0); MEAN CORPUSCULAR VOLUME 88 FL (80-99); MONOCYTES % (AUTO) 8.6 % (1.0-10.0); NEUTROPHILS % (AUTO) 57.8 % (45.0-75.0); PLATELET COUNT 315 K/UL (150-450); RED BLOOD COUNT 4.51 M/UL (4.70-6.10); RED CELL DISTRIBUTION WIDTH 11.7 % (11.6-14.8); WHITE BLOOD COUNT 9.7 K/UL (4.8-10.8)
--- NOTE | 2019-08-21 07:45 | NUR ---
NURSE NOTES: Received report from Tamara STANTON. Patient is awake and oriented, burundian speaking only, no acute signs of distress. LFA IV locked romelia wrapped. Patient having breakfast. Fall and seizure precautions maintained, side rails padded x2. Patient educated to call for assistance when getting OOB, patient does not understand necessity for call light use. Side rails upx3, bed low and locked, call light within reach, bed alarm armed.
--- NOTE | 2019-08-21 07:46 | NUR ---
HAND-OFF: Report given to MAXIMINO Lara. Pt is awake and in stable condition. Plan of care endorsed.
[2019-08-21 08:00] VITALS: BP 115/60
--- NOTE | 2019-08-21 09:11 | General Progress Note ---
Assessment/Plan Problem List: (1) CVA (cerebral vascular accident) ICD Codes: I63.9 - Cerebral infarction, unspecified SNOMED: 146637014 (2) Depression ICD Codes: F32.9 - Major depressive disorder, single episode, unspecified SNOMED: 56715491 (3) Diabetes ICD Codes: E11.9 - Type 2 diabetes mellitus without complications SNOMED: 12165667 (4) Psychiatric disorder ICD Codes: F99 - Mental disorder, not otherwise specified SNOMED: 49667404 (5) HTN (hypertension) ICD Codes: I10 - Essential (primary) hypertension SNOMED: 88651196 (6) AMS (altered mental status) ICD Codes: R41.82 - Altered mental status, unspecified SNOMED: 115864752 Status: stable, progressing Assessment/Plan: pt diet eval neuro psyc f/u cbc bmp am aru eval and transfer Subjective Constitutional: Reports: weakness Allergies: Coded Allergies: No Known Allergies (Unverified , 06/01/19) All Systems: reviewed and negative except above Subjective sleepy in bed calm Objective Last 24 Hour Vital Signs Date Time Temp Pulse Resp B/P (MAP) Pulse Ox O2 Delivery O2 Flow Rate FiO2 08/21/19 08:00 98.4 62 18 115/60 (78) 97 08/21/19 04:00 98.7 67 16 99/58 (72) 97 08/21/19 01:00 97.9 59 20 99/64 (76) 97 08/20/19 21:00 Room Air 08/20/19 20:00 98.0 69 18 104/75 (85) 97 08/20/19 16:00 98.0 64 20 128/83 (98) 96 64 08/20/19 12:00 98.1 74 20 124/74 (91) 96 74 Intake and Output 08/20/19 08/21/19 19:00 07:00 Intake Total 250 ml Balance 250 ml Intake Oral 250 ml # Voids 3 Laboratory Tests 08/21/19 04:45: White Blood Count 9.7, Red Blood Count 4.51L, Hemoglobin 13.3L, Hematocrit 39.5L , Mean Corpuscular Volume 88, Mean Corpuscular Hemoglobin 29.5, Mean Corpuscular Hemoglobin Concent 33.7, Red Cell Distribution Width 11.7, Platelet Count 315, Mean Platelet Volume 6.9, Neutrophils (%) (Auto) 57.8, Lymphocytes (% ) (Auto) 29.8, Monocytes (%) (Auto) 8.6, Eosinophils (%) (Auto) 2.8, Basophils ( %) (Auto) 1.0, Sodium Level 142, Potassium Level 4.2, Chloride Level 107, Carbon Dioxide Level 28, Anion Gap 7, Blood Urea Nitrogen 13, Creatinine 0.8, Estimat Glomerular Filtration Rate > 60, Glucose Level 86, Calcium Level 9.1 Height (Feet): 5 Height (Inches): 5.00 Weight (Pounds): 161 General Appearance: lethargic EENT: normal ENT inspection Neck: normal alignment Cardiovascular: normal peripheral pulses, normal rate, regular rhythm Respiratory/Chest: chest wall non-tender, lungs clear, normal breath sounds Abdomen: normal bowel sounds, non tender, soft Extremities: normal inspection Edema: no edema noted Arm (L), no edema noted Arm (R), no edema noted Leg (L), no edema noted Leg (R), no edema noted Pedal (L), no edema noted Pedal (R), no edema noted Generalized Neurologic: motor weakness Skin: normal pigmentation, warm/dry Bakari Logan DO Aug 21, 2019 09:10
[2019-08-21] MEDS: Docusate 100mg cap ORAL SCH ×2 (09:25→17:36)
[2019-08-21] MEDS: DULoxetine 30mg cap ORAL SCH (09:25)
--- NOTE | 2019-08-21 11:02 | Pulmonology Progress Note ---
Assessment/Plan Assessment/Plan ASSESSMENT Metabolic encephalopathy new onset of unresponsiveness likely metabolic encephalopathy -resolved ( 08/14 ) seizure episode hypoglycemia DM HTN Bipolar depression Paranoid schizophrenia with acute exacerbation hypotension PLAN OF CARE now on [facility] floor 08/14 transferred to SDU and then to ICU due to ALOC and complete unresponsiveness CT head negative, mental status returned back to normal , and pt transferred to [facility], now on tele initially received bolus and IVF for hypotension, BP stabilized, IVF dc 08/14 evening currently stable , unclear etiology of acute unresponsiveness 08/14, possibly due to psychiatric disorder, no CVA on CT, ? seizure unwitnessed and postictal state ( no incontinence, no drooling) monitor BP no evidence of UTI serum alcohol negative, ammonia WNL seizure precautions seen and evaluated by neuro EEG normal in awake and drowsy state Ativan prn for breakthrough seizures ? seizure episode due to hypoglycemia dc SSI moderate, only use sensitive scale as needed hypoglycemia protocol in use HgA1c at goal hypoglycemia improved after eating further recommendations re seizure management as per neuro psych follows, psych medications regimen as per psych recs CXR with possible mild CHF , check pro BNP , may dc IVF if eating ECHO pending ? O2 HHN prn DVT prophylaxis BP management per hx pt had CVA, but no evidence of prior CVA of CT scan supportive care placement remains stable dc plan in process per primary team case discussed and evaluated by supervising physician Subjective Allergies: Coded Allergies: No Known Allergies (Unverified , 06/01/19) Subjective stable on [facility] floor, awake and alert, BP stable no signs of resp distress Objective Last 24 Hour Vital Signs Date Time Temp Pulse Resp B/P (MAP) Pulse Ox O2 Delivery O2 Flow Rate FiO2 08/21/19 08:00 98.4 62 18 115/60 (78) 97 08/21/19 04:00 98.7 67 16 99/58 (72) 97 08/21/19 01:00 97.9 59 20 99/64 (76) 97 08/20/19 21:00 Room Air 08/20/19 20:00 98.0 69 18 104/75 (85) 97 08/20/19 16:00 98.0 64 20 128/83 (98) 96 64 08/20/19 12:00 98.1 74 20 124/74 (91) 96 74 Intake and Output 08/20/19 08/21/19 19:00 07:00 Intake Total 250 ml Balance 250 ml Intake Oral 250 ml # Voids 3 Objective General Appearance: no acute distress, not responsive HEENT: normocephalic, atraumatic, anicteric Respiratory/Chest: lungs clear Cardiovascular: normal rate Abdomen: soft, non tender Extremities: pedal pulses normal Neurologic/Psychiatric: awake, not willing to be engage in the conversation Laboratory Tests 08/21/19 04:45: White Blood Count 9.7, Red Blood Count 4.51L, Hemoglobin 13.3L, Hematocrit 39.5L , Mean Corpuscular Volume 88, Mean Corpuscular Hemoglobin 29.5, Mean Corpuscular Hemoglobin Concent 33.7, Red Cell Distribution Width 11.7, Platelet Count 315, Mean Platelet Volume 6.9, Neutrophils (%) (Auto) 57.8, Lymphocytes (% ) (Auto) 29.8, Monocytes (%) (Auto) 8.6, Eosinophils (%) (Auto) 2.8, Basophils ( %) (Auto) 1.0, Sodium Level 142, Potassium Level 4.2, Chloride Level 107, Carbon Dioxide Level 28, Anion Gap 7, Blood Urea Nitrogen 13, Creatinine 0.8, Estimat Glomerular Filtration Rate > 60, Glucose Level 86, Calcium Level 9.1 Current Medications Medications (Trade) Dose Ordered Sig/Jannet Route PRN Reason Start Time Stop Time Status Last Admin Dose Admin Acetaminophen (Tylenol) 650 mg Q4H PRN ORAL Mild Pain/Temp > 100.5 08/17/19 12:15 09/16/19 12:14 Dextrose (Dextrose 50%) 25 ml Q30M PRN IV Hypoglycemia 08/15/19 23:30 09/06/19 10:59 Dextrose (Dextrose 50%) 50 ml Q30M PRN IV Hypoglycemia 08/15/19 23:30 09/06/19 10:59 Docusate Sodium (Colace) 100 mg TWICE A DAY ORAL 08/20/19 09:45 09/19/19 09:44 08/21/19 09:25 Duloxetine HCl (Cymbalta) 30 mg DAILY ORAL 08/16/19 09:00 09/04/19 08:59 08/21/19 09:25 Insulin Aspart (NovoLOG) BEFORE MEALS AND HS SUBQ 08/16/19 06:30 09/06/19 11:29 08/19/19 06:47 Lorazepam (Ativan 2mg/ml 1ml) 1 mg Q6H PRN IV For Anxiety 08/19/19 14:00 08/25/19 13:59 Quetiapine Fumarate (SEROqueL) 100 mg BID ORAL 08/16/19 09:00 09/04/19 08:59 08/21/19 09:25 Temazepam (Restoril) 15 mg HSPRN PRN ORAL Insomnia 08/19/19 21:00 08/22/19 20:59 08/20/19 21:59 Tramadol HCl (Ultram) 50 mg Q6H PRN ORAL For Pain 08/17/19 12:15 08/24/19 12:14 08/21/19 06:50 Giselle Story ORNAMENTER Aug 21, 2019 11:02
[2019-08-21 12:00] VITALS: BP 107/70
--- NOTE | 2019-08-21 14:30 | Progress Note ---
DATE: 08/21/2019 SUBJECTIVE: He is a 49-year-old male patient, still irritable, confused, disorganized. Still mood labile, worsened by his medical problems, but he has some mood lability. That is why, his attending has requested daily psychiatric consultation for this patient. DIAGNOSIS: Paranoid schizophrenia. PLAN: Plan for this patient is to treat him with a medication regimen of Cymbalta 30 mg a day, Seroquel 100 twice a day, Ativan 1 every 4 hours p.r.n. anxiety, agitation. 20 minutes of cognitive behavioral therapy to help him identify his automatic negative thoughts and help him convert his negative thoughts to more positive thoughts to reduce depression, anxiety, and mood lability. Chart reviewed. Discussed with staff. Seen and assessed at bedside. Yvonne Rosenberg M.D. DR: GINA JOB#: [id number] CC:
[2019-08-21 16:00] VITALS: BP 127/104
--- NOTE | 2019-08-21 19:23 | NUR ---
HAND-OFF: Report given to Jocelynn STANTON.
--- NOTE | 2019-08-21 19:32 | NUR ---
NURSE NOTES: Received patient in bed, awake, alert, confused, gets easily agitated, is at bedside, IV site is clean dry and intact, call light is within reach, bed is lowered, locked, alarm is on. Will continue to monitor for comfort and safety.
[2019-08-21 20:00] VITALS: BP 115/80
[2019-08-22] VITALS: BP 117/87
[2019-08-22 04:00] VITALS: BP 125/78
[2019-08-22] MEDS: NovoLOG Insulin Flexpen SUBQ SCH ×4 (06:22→21:00)
[2019-08-22 07:18] LABS: BASOPHILS % (AUTO) 1.8 % (0.0-2.0); EOSINOPHILS % (AUTO) 3.2 % (0.0-3.0); HEMATOCRIT 39.6 % (42.0-52.0); HEMOGLOBIN 13.7 G/DL (14.2-18.0); LYMPHOCYTES % (AUTO) 26.6 % (20.0-45.0); MEAN CORPUSCULAR VOLUME 86 FL (80-99); NEUTROPHILS % (AUTO) 59.4 % (45.0-75.0); PLATELET COUNT 315 K/UL (150-450); RED BLOOD COUNT 4.61 M/UL (4.70-6.10); RED CELL DISTRIBUTION WIDTH 12.2 % (11.6-14.8)
--- NOTE | 2019-08-22 07:30 | NUR ---
NURSE NOTES: Patient awake, alert 4, Gambian speaking; on room air, no sing of distress and shortness of breath; no sing of chest pain; IV Left For-Arm 22G flushes well; side rails padded for seizure percussions, side rails up x2, breaks engaged, bed at lowest position; call light within reach; will keep monitoring.
[2019-08-22 07:35] LABS: ANION GAP 9 mmol/L (5-15); BLOOD UREA NITROGEN 15 mg/dL (7-18); CALCIUM 9.2 MG/DL (8.5-10.1); CARBON DIOXIDE 27 MMOL/L (21-32); CHLORIDE 108 MMOL/L (98-107); CREATININE 0.7 MG/DL (0.55-1.30); POTASSIUM 4.1 MMOL/L (3.5-5.1); SODIUM 144 MMOL/L (136-145)
[2019-08-22 08:00] VITALS: BP 99/66
--- NOTE | 2019-08-22 08:13 | NUR ---
CASE MANAGEMENT:REVIEW 08/20/19 SI:METABOLIC ENCEPHALOPATHY . CHF. PSYCHIATRIC DISORDER. DM . SEIZURE EPISODES 98.0 64 20 128/83 96% ON RA BG 160 IS;CYMBALTA PO QD SEROQUEL PO BID RESTORIL PO QHS/PRN ULTRAM PO Q6HR/PRN \: 3E MED SURG UNIT DCP: INPATIENT PSYCH REFERRAL CASE MANAGEMENT:REVIEW 08/21/19 SI:METABOLIC ENCEPHALOPATHY . CHF. PSYCHIATRIC DISORDER. DM . SEIZURE EPISODES 98.4 62 16 115/60 97% ON RA IS;CYMBALTA PO QD SEROQUEL PO BID RESTORIL PO QHS/PRN ULTRAM PO Q6HR/PRN \: 3E MED SURG UNIT DCP: INPATIENT PSYCH REFERRAL PLAN: DC PLANNING CASE MANAGEMENT:REVIEW 08/22/19 SI:METABOLIC ENCEPHALOPATHY . CHF. PSYCHIATRIC DISORDER. DM . SEIZURE EPISODES 98.3 87 125/78 98 % ON RA IS;CYMBALTA PO QD SEROQUEL PO BID RESTORIL PO QHS/PRN ULTRAM PO Q6HR/PRN \: 3E MED SURG UNIT DCP: INPATIENT PSYCH REFERRAL PLAN: DC PLANNING
[2019-08-22] MEDS: Docusate 100mg cap ORAL SCH ×2 (08:40→17:46)
[2019-08-22] MEDS: DULoxetine 30mg cap ORAL SCH (08:40)
[2019-08-22] MEDS: traMADol 50mg tab ORAL PRN (08:43)
--- NOTE | 2019-08-22 10:15 | Progress Note ---
DATE: 08/22/2019 SUBJECTIVE: This is a 49-year-old male with altered mental status. He is very irritable, agitated, impulsive, and distractible. Due to his medical illnesses, his mood lability has worsened. That is why, his attending has requested daily psychiatric consultation. DIAGNOSIS: Paranoid schizophrenia with acute exacerbation, rule out major depression with psychotic features. PLAN: Treat him with Cymbalta 30 mg a day, Seroquel 100 mg twice a day, Ativan 1 IV every 4 hours p.r.n. anxiety and agitation. A 20 minutes of cognitive behavioral therapy to help him identify his automatic negative thoughts and help him convert his negative thoughts to more positive thoughts to reduce depression, anxiety, and mood lability. Chart reviewed. Discussed with staff. Seen and assessed in his room. Yvonne Rosenberg M.D. DR: FRANNIE JOB#: [id number] CC:
--- NOTE | 2019-08-22 10:34 | General Progress Note ---
Assessment/Plan Problem List: (1) CVA (cerebral vascular accident) ICD Codes: I63.9 - Cerebral infarction, unspecified SNOMED: 659873885 (2) Depression ICD Codes: F32.9 - Major depressive disorder, single episode, unspecified SNOMED: 41881619 (3) Diabetes ICD Codes: E11.9 - Type 2 diabetes mellitus without complications SNOMED: 19270267 (4) Psychiatric disorder ICD Codes: F99 - Mental disorder, not otherwise specified SNOMED: 51345227 (5) HTN (hypertension) ICD Codes: I10 - Essential (primary) hypertension SNOMED: 24682706 (6) AMS (altered mental status) ICD Codes: R41.82 - Altered mental status, unspecified SNOMED: 649860044 Status: stable, progressing Assessment/Plan: pt diet eval neuro psyc f/u cbc bmp am aru eval and transfer Subjective Constitutional: Reports: weakness Allergies: Coded Allergies: No Known Allergies (Unverified , 06/01/19) All Systems: reviewed and negative except above Subjective sleepy in bed calm Objective Last 24 Hour Vital Signs Date Time Temp Pulse Resp B/P (MAP) Pulse Ox O2 Delivery O2 Flow Rate FiO2 08/22/19 09:13 98.0 08/22/19 09:00 Room Air 08/22/19 08:00 98.0 61 18 99/66 (77) 97 08/22/19 04:00 98.3 87 18 125/78 (94) 98 08/22/19 00:00 98.7 74 18 117/87 (97) 98 08/21/19 21:34 Room Air 08/21/19 20:00 97.4 60 16 115/80 (92) 97 08/21/19 16:00 98.5 68 18 127/104 (112) 97 08/21/19 12:00 98.0 59 18 107/70 (82) 97 Intake and Output 08/21/19 08/22/19 19:00 07:00 Intake Total 1000 ml Balance 1000 ml Intake Oral 1000 ml # Voids 2 2 # Bowel Movements 1 Laboratory Tests 08/22/19 04:50: White Blood Count 9.0, Red Blood Count 4.61L, Hemoglobin 13.7L, Hematocrit 39.6L , Mean Corpuscular Volume 86, Mean Corpuscular Hemoglobin 29.7, Mean Corpuscular Hemoglobin Concent 34.5, Red Cell Distribution Width 12.2, Platelet Count 315, Mean Platelet Volume 6.6, Neutrophils (%) (Auto) 59.4, Lymphocytes (% ) (Auto) 26.6, Monocytes (%) (Auto) 9.0, Eosinophils (%) (Auto) 3.2H, Basophils (%) (Auto) 1.8, Sodium Level 144, Potassium Level 4.1, Chloride Level 108H, Carbon Dioxide Level 27, Anion Gap 9, Blood Urea Nitrogen 15, Creatinine 0.7, Estimat Glomerular Filtration Rate > 60, Glucose Level 100, Calcium Level 9.2 Height (Feet): 5 Height (Inches): 5.00 Weight (Pounds): 161 General Appearance: lethargic EENT: normal ENT inspection Neck: normal alignment Cardiovascular: normal peripheral pulses, normal rate, regular rhythm Respiratory/Chest: chest wall non-tender, lungs clear, normal breath sounds Abdomen: normal bowel sounds, non tender, soft Extremities: normal inspection Edema: no edema noted Arm (L), no edema noted Arm (R), no edema noted Leg (L), no edema noted Leg (R), no edema noted Pedal (L), no edema noted Pedal (R), no edema noted Generalized Neurologic: motor weakness Skin: normal pigmentation, warm/dry Bakari Logan DO Aug 22, 2019 10:34
[2019-08-22 12:00] VITALS: BP 109/64
--- NOTE | 2019-08-22 13:03 | Pulmonology Progress Note ---
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 terminal operator placement since the unable to take care of him at home Subjective ROS Limited/Unobtainable: No Constitutional: Reports: no symptoms HEENT: Repors: no symptoms Respiratory: Reports: no symptoms Allergies: Coded Allergies: No Known Allergies (Unverified , 06/01/19) Objective Last 24 Hour Vital Signs Date Time Temp Pulse Resp B/P (MAP) Pulse Ox O2 Delivery O2 Flow Rate FiO2 08/22/19 12:00 96.6 55 18 109/64 (79) 97 08/22/19 09:13 98.0 08/22/19 09:00 Room Air 08/22/19 08:00 98.0 61 18 99/66 (77) 97 08/22/19 04:00 98.3 87 18 125/78 (94) 98 08/22/19 00:00 98.7 74 18 117/87 (97) 98 08/21/19 21:34 Room Air 08/21/19 20:00 97.4 60 16 115/80 (92) 97 08/21/19 16:00 98.5 68 18 127/104 (112) 97 Intake and Output 08/21/19 08/22/19 19:00 07:00 Intake Total 1000 ml Balance 1000 ml Intake Oral 1000 ml # Voids 2 2 # Bowel Movements 1 Objective General Appearance: WN, WD, WH Lines, tubes and drains: peripheral HEENT: normocephalic, atraumatic Neck: non-tender, normal alignment Respiratory/Chest: chest wall non-tender, rhonchi - right, expiratory wheezing Breasts: no masses Cardiovascular/Chest: normal peripheral pulses Abdomen: normal bowel sounds, non tender, hyperactive bowel sounds Extremities: normal range of motion Laboratory Tests 08/22/19 04:50: White Blood Count 9.0, Red Blood Count 4.61L, Hemoglobin 13.7L, Hematocrit 39.6L , Mean Corpuscular Volume 86, Mean Corpuscular Hemoglobin 29.7, Mean Corpuscular Hemoglobin Concent 34.5, Red Cell Distribution Width 12.2, Platelet Count 315, Mean Platelet Volume 6.6, Neutrophils (%) (Auto) 59.4, Lymphocytes (% ) (Auto) 26.6, Monocytes (%) (Auto) 9.0, Eosinophils (%) (Auto) 3.2H, Basophils (%) (Auto) 1.8, Sodium Level 144, Potassium Level 4.1, Chloride Level 108H, Carbon Dioxide Level 27, Anion Gap 9, Blood Urea Nitrogen 15, Creatinine 0.7, Estimat Glomerular Filtration Rate > 60, Glucose Level 100, Calcium Level 9.2 Current Medications Medications (Trade) Dose Ordered Sig/Jannet Route PRN Reason Start Time Stop Time Status Last Admin Dose Admin Acetaminophen (Tylenol) 650 mg Q4H PRN ORAL Mild Pain/Temp > 100.5 08/17/19 12:15 09/16/19 12:14 Dextrose (Dextrose 50%) 25 ml Q30M PRN IV Hypoglycemia 08/15/19 23:30 09/06/19 10:59 Dextrose (Dextrose 50%) 50 ml Q30M PRN IV Hypoglycemia 08/15/19 23:30 09/06/19 10:59 Docusate Sodium (Colace) 100 mg TWICE A DAY ORAL 08/20/19 09:45 09/19/19 09:44 08/22/19 08:40 Duloxetine HCl (Cymbalta) 30 mg DAILY ORAL 08/16/19 09:00 09/04/19 08:59 08/22/19 08:40 Insulin Aspart (NovoLOG) BEFORE MEALS AND HS SUBQ 08/16/19 06:30 09/06/19 11:29 08/19/19 06:47 Lorazepam (Ativan 2mg/ml 1ml) 1 mg Q6H PRN IV For Anxiety 08/19/19 14:00 08/25/19 13:59 Quetiapine Fumarate (SEROqueL) 100 mg BID ORAL 08/16/19 09:00 09/04/19 08:59 08/22/19 08:40 Temazepam (Restoril) 15 mg HSPRN PRN ORAL Insomnia 08/19/19 21:00 08/22/19 20:59 08/21/19 20:31 Tramadol HCl (Ultram) 50 mg Q6H PRN ORAL For Pain 08/17/19 12:15 08/24/19 12:14 08/22/19 08:43 Luis Cody MD Aug 22, 2019 13:03
[2019-08-22 16:03] VITALS: BP 121/71
--- NOTE | 2019-08-22 16:32 | NUR ---
DISCHARGE PLANNED PATIENT HAS BEEN ACCEPTED TO [facility] ROOM#29C [facility]B PICKUP TIME @ 530PM
--- NOTE | 2019-08-22 16:38 | NUR ---
*-* INSURANCE *-* ALL CLINICALS AND REVIEWS HAVE BEEN FAXED TO: Ref# [id number] # [phone] FAX#[phone]
--- NOTE | 2019-08-22 16:50 | NUR ---
NURSE NOTES: I communicated MD Logan to get a discharge medications order; waiting for order.
[2019-08-22] MEDS ORDERED: DOCUSATE SODIU100 MG ORAL (17:23)
[2019-08-22] MEDS ORDERED: CYMBALTA30 MG ORAL (17:24)
[2019-08-22] MEDS ORDERED: INSULIN AS100 UNIT/2 SQ (17:25)
[2019-08-22] MEDS ORDERED: SEROQUEL100 MG ORAL (17:27)
--- NOTE | 2019-08-22 19:30 | NUR ---
NURSE NOTES: Received report from MAXIMINO Simental. Pt is awake, sitting on a chair; comfortably resting. No signs of acute distress noted. Pt denies any pain at this time. AOx4; able to make needs known. Haitian speaking only but can understand some Cuban. Checked IV site; patent and flushed. No erythema, bleeding, or infiltration noted. Bed at lowest position. Brakes on. Siderails up x2. Call light within reach. Will continue to monitor.
--- NOTE | 2019-08-22 19:41 | NUR ---
HAND-OFF: Report given to MAXIMINO Granados. Discharge printed material endorsed to the incoming nurse; patient is waiting for ambulance pharmacy picking tech.
[2019-08-22 20:00] VITALS: BP 103/71
--- NOTE | 2019-08-22 22:39 | NUR ---
NURSE NOTES: Pt was picked up by Vanita by [facility] at 2030 and left the unit at 2100. Pt was AOx4; able to make needs known. Latvian speaking. Vanita was able to talk to him in Latvian and explained to him where he was going. also called the pt and explained to him where he was going. Pt was in stable condition and in no distress. Removed his IV site. Checked belonging's list with Vanita. Pt unable to sign the belonging's list. Pt will be going to [facility]. Day RN stated that she gave report to Esther from [facility]. Pt packet info was given to Vanita as well.
--- NOTE | 2019-08-23 09:28 | Discharge Summary ---
Discharge Summary Discharge Summary _ DATE OF ADMISSION: 08/04/2019 DATE OF DISCHARGE: 08/22/2019 DISCHARGED BY: Dr Logan REASON FOR ADMISSION: 49 years old male with past medical history of hypertension, history of CVA with right-sided weakness, anxiety, psychiatric disorder , presented by paramedics with altered mental status. Patient apparently was found wandering in the street with no close from the waist down. Upon evaluation vital signs were stable. Laboratory work-up revealed no leukocytosis ,hemoglobin 12.9, hematocrit 39.2. Stable electrolytes and renal parameters. Ammonia less than 10. Troponin negative. pro BNP 138. TSH within normal limits. Serum alcohol level less than 3. Urinalysis revealed no evidence of urinary tract infection. CT of the head demonstrated no mass-effect , edema or acute bleeding. Chest x-ray demonstrated mild CHF. Patient subsequently admitted with altered mental status CONSULTANTS: neurologist Dr. Antony pulmonary/critical care Dr. Cody psychiatrist Dr. Rosenberg [facility] COURSE: Patient admitted . Patient had episode of seizure possibly due to hypoglycemia. Neurology consult was requested. The patient was admitted to this hospital prior on 06/02/2019 also due to changes in mental status. He had a prior history of stroke. He did have an EEG on 06/01/2019, which was normal. MRI and MRA of the brain on 06/01/2019, were negative for significant stenosis. CT scan on that day was also negative. MRI of the brain on 06/03/2019 revealed no evidence of previous stroke EEG was normal in awake and drowsy state. Ativan was on board as needed for breakthrough seizure. Blood pressure was closely monitored. Echocardiogram was ordered, but patient declined. Seizure precaution maintained. Supplemental oxygen provided and titrated to keep oximetry above 92%. Bronchodilator treatment via HHN was on board as needed. DVT prophylaxis provided. Blood sugar was clsoely monitored. Sliding scale of insulin was discontinued. Hypoglycemia protocol was on board . Hemoglobin A1c at goal. Hypoglycemia improved after eating. No further episodes of hypoglycemia. No evidence of UTI. Patient became unresponsive 08/14 and was transferred to stepdown and then to ICU due to altered level of consciousness with complete unresponsiveness. Repeated CT of the head 08/14 was negative. Negative troponin, stable ECG. Patient received bolus of the IV fluids for hypotension . Blood pressure stabilized with IV fluids, which subsequently discontinued later that evening. Altered mental status and new evidence of unresponsiveness was possibly due to psychiatric disorder It was unclear if patient had another seizure episode, which was unwitnessed . However patient demonstrated no incontinence , no drooling. Etiology of altered mental status was unclear , possibly due to psychiatric disorder. Psychiatrist followed. Psychiatric medication regimen was optimized. Per psychiatrist, patient had paranoid schizophrenia with acute exacerbation. Psychiatric medication regimen was optimized. Cognitive behavioral therapy provided. Placement was found and secured at the [facility] . Patient was stable for transfer. FINAL DIAGNOSES: Metabolic encephalopathy Seizure episode , possibly due to hypoglycemia Hypoglycemia Diabetes mellitus Hypertension Bipolar depression New episode of unresponsiveness with hypotension -resolved ( likely due to psychiatric disorder) Paranoid schizophrenia with acute exacerbation Depression DISCHARGE MEDICATIONS: See Medication Reconciliation list. DISCHARGE INSTRUCTIONS: Patient was discharged to the [facility]. Follow up with medical doctor at the facility. I have been assigned to dictate discharge summary for this account. I was not involved in the patient's management. Giselle Story NP Aug 23, 2019 09:28
--- NOTE | 2019-08-25 15:17 | NUR ---
*-* INSURANCE *-* DISCHARGE SUMMARY HAS BEEN FAXED TO: Ref# [id number] # [phone] FAX#[phone]
== END 2019-08-22 21:00 | DRG 637 ==
LOC: EDBD 20:03 → EMR 22:04 → 4E 23:13 → EDBEDREQ 08-05 00:40 → 4E 08-07 06:07 → 2W 08-14 08:55 → ICU 08-14 10:10 → 2W 08-14 12:58 → 2E 08-14 18:40 → 3E 08-15 22:45
DX: E11.649 Type 2 diabetes mellitus with hypoglycemia without coma (principal); G93.41 Metabolic encephalopathy; F20.0 Paranoid schizophrenia; I69.351 Hemiplegia and hemiparesis following cerebral infarction affecting right dominant side; F31.89 Other bipolar disorder; R56.9 Unspecified convulsions; F41.8 Other specified anxiety disorders; I10 Essential (primary) hypertension; I95.9 Hypotension, unspecified; Z59.0 Homelessness
CPT/HCPCS: 36415; 36600; 70450; 71045; 80048; 80053; 81001; 82140; 82550; 82803; 82962; 83036; 83880; 84443; 84484; 85025; 85610; 85730; 87040; 93005; 95819; 96374; 99285; G0480; J1815

== ENCOUNTER 2019-08-23 13:06 | Inpatient (IN) | payer BC ==
[~2019-08-23] VITALS: Ht 165.1 cm; Wt 63.2 kg
[~2019-08-23 13:06] MED LIST changes: +DOCUSATE SODIU100 MG ORAL; +INSULIN AS100 UNIT/2 SQ; +SEROQUEL100 MG ORAL
--- NOTE | 2019-08-23 13:15 | NUR ---
ED Nurse Note: patient brought into ED from [facility] due to fever 101.2F this morning, tylenol 650mg was given at SNF at 0900. patient was recently discharged from [facility] yesterday. patient is alert awake, not answering questions appropriately at this time, but able to make needs known such as bathroom or water. EMS brought patient on NRB 15L due to SOB. upon arrival, switched back to NC 3L which he tolerates with 100% O2 Sat. patient is on his hospital gown, on a cardaic monitor. patient able to ambulate.
--- NOTE | 2019-08-23 14:05 | Emergency Room Report ---
History of Present Illness General Chief Complaint: Dyspnea/Respdistress Source: EMS Present Illness HPI Disclaimer: Please note that this report is being documented using [employer] technology. This can lead to erroneous entry secondary to incorrect interpretation by the dictating instrument. HPI: 49-year-old male history of CVA, hepatic encephalopathy, psychiatric disorder presents for evaluation of fever shortness of breath and altered mental status. Patient had a prolonged stay in the hospital being discharged yesterday for altered mental status. Ultimately, it was determined that is likely secondary to psychiatric illness. He was discharged to long-term facility yesterday. This morning he was found febrile and given Tylenol. He was then sent for evaluation. En route he was complaining of shortness of breath. EMS started him on oxygen. On arrival he has no complaints. He is confused, not responding to questions appropriately. He is trying to put his shoes on and walk away. He does not appear to understand what is happening around him. Cannot provide any significant history. PMH: Psychiatric illness, previous CVA, hepatic encephalopathy PSH: Could not obtain from patient Allergies: Could not obtain from patient Social Hx: Could not obtain from patient Allergies: Coded Allergies: No Known Allergies (Unverified , 06/01/19) Nursing Documentation-PMH Past Medical History: No History, Except For Hx Cardiac Problems: Yes - anemia, heart failure Hx Hypertension: Yes Hx Cancer: No Hx Gastrointestinal Problems: No History Of Psychiatric Problem: Yes - paranoid schizophrenia Hx Neurological Problems: Yes - anxiety, metabolic encephalopathy Hx Cerebrovascular Accident: Yes Hx Seizures: Yes Review of Systems All Other Systems: negative except mentioned in HPI Physical Exam Vital Signs Date Time Temp Pulse Resp B/P (MAP) Pulse Ox O2 Delivery O2 Flow Rate FiO2 08/23/19 13:08 98.2 89 28 128/83 (98) 98 Room Air General: Awake, confused, trying to get out of bed HEENT: NC/AT. EOMI. PERRLA. Anicteric sclera. Moist mucous membranes. Cardiovascular: RRR. S1 and S2 normal. No murmur appreciated Resp: Normal work of breathing. No cough, wheezing or crackles appreciated Abdomen: Abdomen is soft, nondistended. Nontender Skin: Intact. No abrasions, laceration or rash over the exposed skin MSK: Normal tone and bulk. Moving all extremities. No obvious deformity. Neuro: Awake, moving all extremities. Gait is unsteady. He is confused. Not responding to questions appropriately. Mumbling to himself mostly. Medical Decision Making Diagnostic Impression: Primary Impression: AMS (altered mental status) ER Course 49-year-old male discharged from this facility yesterday for altered mental status presents for evaluation of fever this morning and shortness of breath on route. He is afebrile on arrival and shows no signs of respiratory distress. He is saturating 98% on room air. He is trying to rip his leads off and walk out of the emergency department. He is confused and is not responding to questions. Will require broad work-up and possible rehospitalization Laboratory Tests Test 08/23/19 13:35 White Blood Count 12.1 K/UL (4.8-10.8) H Red Blood Count 4.87 M/UL (4.70-6.10) Hemoglobin 14.3 G/DL (14.2-18.0) Hematocrit 42.8 % (42.0-52.0) Mean Corpuscular Volume 88 FL (80-99) Mean Corpuscular Hemoglobin 29.3 PG (27.0-31.0) Mean Corpuscular Hemoglobin Concent 33.3 G/DL (32.0-36.0) Red Cell Distribution Width 11.6 % (11.6-14.8) Platelet Count 334 K/UL (150-450) Mean Platelet Volume 7.0 FL (6.5-10.1) Neutrophils (%) (Auto) 68.5 % (45.0-75.0) Lymphocytes (%) (Auto) 22.6 % (20.0-45.0) Monocytes (%) (Auto) 6.5 % (1.0-10.0) Eosinophils (%) (Auto) 1.4 % (0.0-3.0) Basophils (%) (Auto) 0.9 % (0.0-2.0) Sodium Level 145 MMOL/L (136-145) Potassium Level 3.9 MMOL/L (3.5-5.1) Chloride Level 105 MMOL/L (98-107) Carbon Dioxide Level 26 MMOL/L (21-32) Anion Gap 14 mmol/L (5-15) Blood Urea Nitrogen 12 mg/dL (7-18) Creatinine 0.9 MG/DL (0.55-1.30) Estimate Glomerular Filtration Rate > 60 mL/min (>60) Glucose Level 124 MG/DL (74-106) H Calcium Level 9.6 MG/DL (8.5-10.1) Total Bilirubin 0.3 MG/DL (0.2-1.0) Aspartate Amino Transferase (AST) 14 U/L (15-37) L Alanine Aminotransferase (ALT) 26 U/L (12-78) Alkaline Phosphatase 116 U/L (46-116) Ammonia Pending Total Protein 7.9 G/DL (6.4-8.2) Albumin 3.8 G/DL (3.4-5.0) Globulin 4.1 g/dL Albumin/Globulin Ratio 0.9 (1.0-2.7) L Salicylates Level 1.3 ug/mL (2.8-20) L Acetaminophen Level < 2 MCG/ML (10-30) L Serum Alcohol < 3 mg/dL Chest X-Ray Diagnostic Results Chest X-Ray Diagnostic Results : Chest X-Ray Ordered: Yes # of Views/Limited/Complete: 1 View Indication: Shortness of Breath EP Interpretation: Yes Interpretation: no consolidation, no effusion, no pneumothorax Impression: No acute disease Electronically Signed by: Electronically signed by Dr. Yannick Ham Reevaluation Time: 14:52 Last Vital Signs Date Time Temp Pulse Resp B/P (MAP) Pulse Ox O2 Delivery O2 Flow Rate FiO2 08/23/19 13:08 98.2 89 28 128/83 (98) 98 Room Air Reevaluation Impression Labs thus far are within normal limits. No obvious infiltrate on chest x-ray but may be some slight fluid congestion. Patient condition is unchanged. Will readmit to his previous provider care. Disposition: ADMITTED INPATIENT Condition: Serious Yannick Ham MD Aug 23, 2019 14:05
[2019-08-23 14:10] LABS: BASOPHILS % (AUTO) 0.9 % (0.0-2.0); EOSINOPHILS % (AUTO) 1.4 % (0.0-3.0); HEMATOCRIT 42.8 % (42.0-52.0); HEMOGLOBIN 14.3 G/DL (14.2-18.0); LYMPHOCYTES % (AUTO) 22.6 % (20.0-45.0); MEAN CORPUSCULAR VOLUME 88 FL (80-99); MONOCYTES % (AUTO) 6.5 % (1.0-10.0); NEUTROPHILS % (AUTO) 68.5 % (45.0-75.0); PLATELET COUNT 334 K/UL (150-450); RED BLOOD COUNT 4.87 M/UL (4.70-6.10); RED CELL DISTRIBUTION WIDTH 11.6 % (11.6-14.8); WHITE BLOOD COUNT 12.1 K/UL (4.8-10.8)
[2019-08-23 14:23] LABS: ANION GAP 14 mmol/L (5-15); BLOOD UREA NITROGEN 12 mg/dL (7-18); CALCIUM 9.6 MG/DL (8.5-10.1); CARBON DIOXIDE 26 MMOL/L (21-32); CHLORIDE 105 MMOL/L (98-107); CREATININE 0.9 MG/DL (0.55-1.30); POTASSIUM 3.9 MMOL/L (3.5-5.1); SODIUM 145 MMOL/L (136-145)
[2019-08-23 14:24] VITALS: BP 118/72
[2019-08-23 14:27] LABS: ALANINE AMINOTRANSFERASE 26 U/L (12-78); ALBUMIN 3.8 G/DL (3.4-5.0); ALBUMIN/GLOBULIN RATIO 0.9 (1.0-2.7); ALKALINE PHOSPHATASE 116 U/L (46-116); ASPARTATE AMINO TRANSFERASE 14 U/L (15-37); BILIRUBIN,TOTAL 0.3 MG/DL (0.2-1.0)
[2019-08-23] MEDS ORDERED: Miralax 17gm pkt ORAL PRN (15:15)
[2019-08-23] MEDS ORDERED: Albuterol/Ipratropium 3ml neb HHN PRN (15:15)
[2019-08-23 15:22] LABS: AMMONIA < 10 umol/L (11-32)
--- NOTE | 2019-08-23 15:25 | Diagnostic Imaging Report ---
Indication: Dyspnea Comparison: 08/04/2019 A single view chest radiograph was obtained. Findings: Mild pulmonary vascular congestion suspected with cardiomegaly and prominent cephalized pulmonary vessels. Cervical fusion hardware noted multiple levels. IMPRESSION: Suspected mild CHF
--- NOTE | 2019-08-23 16:39 | NUR ---
ED Nurse Note: report given to Key RN, Endorsed all plan of care to Key STANTON.
[2019-08-23 16:51] VITALS: BP 121/75
--- NOTE | 2019-08-23 16:52 | NUR ---
ED Nurse Note: patient transferred to 3E with all of his belongings with restaurant bartenderKam Olivarez.
[2019-08-23 17:00] VITALS: BP 112/77
[2019-08-23] MEDS: NovoLOG Insulin Flexpen SUBQ SCH ×2 (17:00→21:00)
--- NOTE | 2019-08-23 17:30 | History and Physical Report ---
DATE OF ADMISSION: 08/23/2019 TIME SEEM: 2 p.m. CONSULTANTS: 1. Luis Cody M.D. 2. Johnathan Kirk M.D. 3. Yvonne Rosenberg M.D. 4. Dr. Antony CHIEF COMPLAINT: Fever, shortness of breath, altered mental status, sepsis. BRIEF HISTORY: The patient is a 49-year-old male, who was hospitalized here for about 10 days with above-mentioned diagnoses, finally improved, cleared by team, was sent to [facility]. Apparently, he became very short of breath, weak, and had a fever. The patient was sent back to [facility] this morning, diagnosed with fever, sepsis, shortness of breath, altered status and in the ER now getting admitted shortly. Currently, confused, O2 NC in bed, nonverbal. REVIEW OF SYSTEMS: Unavailable. PAST MEDICAL HISTORY: Hypertension, depression, CHF, CVA, diabetes. PAST SURGICAL HISTORY: . MEDICATIONS: We will obtain list shortly. ALLERGIES: Denies. SOCIAL HISTORY: No smoking. No alcohol. Positive marijuana use. OBJECTIVE: GENERAL: Calm, O2 NC, calm, confused in bed, not really responding to questions. VITAL SIGNS: Temperature is 98 degrees, pulse 67, respiratory rate 22, blood pressure 118/72. CARDIOVASCULAR: No murmur. LUNGS: Poor exchange. ABDOMEN: Bowel sounds distant. EXTREMITIES: No cyanosis, clubbing, or edema. NEUROLOGIC: The patient is flaccid in bed, not really following directions. LABORATORY AND DIAGNOSTIC DATA: Labs at this time show white count 12, otherwise CBC is normal. BMP shows glucose 124, otherwise BMP is normal. AST 14. Urine tox not given. ASSESSMENT: 1. Fever. 2. Shortness of breath . 3. Altered mental status. 4. Sepsis. 5. CVA. 6. Weakness. 7. CHF. 8. Hypertension. 9. Seizure. 10. Diabetes. 11. Anxiety. 12. Depression. PLAN: 1. O2, pulmonary treatment. 2. Antibiotics per Infectious Diseases. 3. Blood pressure and blood sugar control. 4. Dietary followup. 5. PT/OT, dietary evaluation. 6. CBC and BMP in the morning. 7. We will continue to follow this patient . Bakari Logan D.O. DR: Lilli JOB#: [id number] CC:
--- NOTE | 2019-08-23 17:41 | Infectious Diseases Prog Note ---
Subjective Allergies: Coded Allergies: No Known Allergies (Unverified , 06/01/19) Subjective ID # [id number] Objective Vital Signs Last 24 Hour Vital Signs Date Time Temp Pulse Resp B/P (MAP) Pulse Ox O2 Delivery O2 Flow Rate FiO2 08/23/19 16:51 98.2 62 22 121/75 100 Nasal Cannula 3.0 08/23/19 14:24 98.2 67 22 118/72 100 Nasal Cannula 3.0 08/23/19 14:22 89 28 Room Air 08/23/19 13:08 98.2 89 28 128/83 (98) 98 Room Air Height (Feet): 5 Height (Inches): 9.00 Weight (Pounds): 180 Laboratory Tests Test 08/23/19 13:35 08/23/19 14:45 08/23/19 15:52 White Blood Count 12.1 K/UL (4.8-10.8) H Red Blood Count 4.87 M/UL (4.70-6.10) Hemoglobin 14.3 G/DL (14.2-18.0) Hematocrit 42.8 % (42.0-52.0) Mean Corpuscular Volume 88 FL (80-99) Mean Corpuscular Hemoglobin 29.3 PG (27.0-31.0) Mean Corpuscular Hemoglobin Concent 33.3 G/DL (32.0-36.0) Red Cell Distribution Width 11.6 % (11.6-14.8) Platelet Count 334 K/UL (150-450) Mean Platelet Volume 7.0 FL (6.5-10.1) Neutrophils (%) (Auto) 68.5 % (45.0-75.0) Lymphocytes (%) (Auto) 22.6 % (20.0-45.0) Monocytes (%) (Auto) 6.5 % (1.0-10.0) Eosinophils (%) (Auto) 1.4 % (0.0-3.0) Basophils (%) (Auto) 0.9 % (0.0-2.0) Sodium Level 145 MMOL/L (136-145) Potassium Level 3.9 MMOL/L (3.5-5.1) Chloride Level 105 MMOL/L (98-107) Carbon Dioxide Level 26 MMOL/L (21-32) Anion Gap 14 mmol/L (5-15) Blood Urea Nitrogen 12 mg/dL (7-18) Creatinine 0.9 MG/DL (0.55-1.30) Estimat Glomerular Filtration Rate > 60 mL/min (>60) Glucose Level 124 MG/DL (74-106) H Calcium Level 9.6 MG/DL (8.5-10.1) Total Bilirubin 0.3 MG/DL (0.2-1.0) Aspartate Amino Transf (AST/SGOT) 14 U/L (15-37) L Alanine Aminotransferase (ALT/SGPT) 26 U/L (12-78) Alkaline Phosphatase 116 U/L (46-116) Ammonia < 10 umol/L (11-32) L Total Protein 7.9 G/DL (6.4-8.2) Albumin 3.8 G/DL (3.4-5.0) Globulin 4.1 g/dL Albumin/Globulin Ratio 0.9 (1.0-2.7) L Salicylates Level 1.3 ug/mL (2.8-20) L Acetaminophen Level < 2 MCG/ML (10-30) L Serum Alcohol < 3 mg/dL Urine Opiates Screen Negative (NEGATIVE) Urine Barbiturates Screen Negative (NEGATIVE) Phencyclidine (PCP) Screen Negative (NEGATIVE) Urine Amphetamines Screen Negative (NEGATIVE) Urine Benzodiazepines Screen Negative (NEGATIVE) Urine Cocaine Screen Negative (NEGATIVE) Urine Marijuana (THC) Screen Negative (NEGATIVE) Current Medications Medications (Trade) Dose Ordered Sig/Jannet Route PRN Reason Start Time Stop Time Status Last Admin Dose Admin Acetaminophen (Tylenol) 650 mg Q4H PRN ORAL fever 08/23/19 15:15 09/22/19 15:14 Albuterol/ Ipratropium (Albuterol/ Ipratropium) 3 ml Q4H PRN HHN Shortness of Breath 08/23/19 15:15 08/28/19 15:14 Cefepime HCl 2 gm/ Dextrose 110 ml @ 220 mls/hr EVERY 12 HOURS IV 08/23/19 21:00 08/30/19 20:59 Dextrose (Dextrose 50%) 25 ml Q30M PRN IV Hypoglycemia 08/23/19 15:15 09/22/19 15:14 Dextrose (Dextrose 50%) 50 ml Q30M PRN IV Hypoglycemia 08/23/19 15:15 09/22/19 15:14 Duloxetine HCl (Cymbalta) 30 mg DAILY ORAL 08/24/19 09:00 09/23/19 08:59 Heparin Sodium (Porcine) (Heparin 5000 units/ml) 5,000 units EVERY 12 HOURS SUBQ 08/23/19 21:00 09/22/19 20:59 Insulin Aspart (NovoLOG) BEFORE MEALS AND HS SUBQ 08/23/19 17:00 09/22/19 16:59 Ondansetron HCl (Zofran) 4 mg Q6H PRN IVP Nausea & Vomiting 08/23/19 15:15 09/22/19 15:14 Polyethylene Glycol (Miralax) 17 gm DAILYPRN PRN ORAL Constipation 08/23/19 15:15 09/22/19 15:14 Quetiapine Fumarate (SEROqueL) 100 mg TWICE A DAY ORAL 08/23/19 18:00 09/22/19 17:59 Temazepam (Restoril) 15 mg HSPRN PRN ORAL Insomnia 08/23/19 15:15 08/30/19 15:14 Vancomycin HCl (Vanco rx to dose) 1 ea DAILY PRN MISC . 08/23/19 16:15 09/22/19 16:14 Vancomycin HCl 1 gm/Dextrose 275 ml @ 183.3 mls/ hr Q12HR@0600,1800 IVPB 08/23/19 18:00 08/28/19 17:59 Johnathan Kirk MD Aug 23, 2019 17:41
--- NOTE | 2019-08-23 18:00 | NUR ---
NURSE NOTES: ADMITTED A 55 YR OLD MALE WITH DX OF ENCEPALOPATHY. AWAKE/ALERT X1. ADM CARE DONE. UNABLE TO GET FULL ADM INFORMATION. PT CONFUSED .
[2019-08-23] MEDS: Vancomycin 1 GM in D5W 275 ML IVPB SCH (18:01)
[2019-08-23 18:25] LABS: APPEARANCE,URINE CLEAR; BILIRUBIN, URINE NEGATIVE (NEGATIVE); COLOR,URINE PALE YELLOW; GLUCOSE, URINE (UA) NEGATIVE (NEGATIVE); KETONES,URINE NEGATIVE (NEGATIVE); LEUKOCYTE ESTERASE ,URINE NEGATIVE (NEGATIVE); NITRITE,URINE NEGATIVE (NEGATIVE); PH,URINE 7 (4.5-8.0); PROTEIN,URINE NEGATIVE (NEGATIVE); UROBILINOGEN,URINE NORMAL MG/DL (0.0-1.0)
--- NOTE | 2019-08-23 18:30 | Consultation ---
DATE OF CONSULTATION: 08/23/2019 INFECTIOUS DISEASE CONSULTATION CONSULTING PHYSICIAN: Johnathan Kirk M.D REFERRING PHYSICIAN: Bakari Logan D.O. REASON FOR CONSULTATION: Evaluation of the patient for sepsis, pneumonia, and antibiotic management. HISTORY OF PRESENT ILLNESS: The patient is a 49-year-old male with multiple medical problems as listed above, who was admitted recently to this medical center for shortness of breath. The patient was sent to a nursing facility; however, the patient had to be admitted again due to shortness of breath, fever, and worsening of mental status. Infectious Disease consultation has been requested for evaluation of the patient for antibiotic management of sepsis and probable pneumonia. PAST MEDICAL HISTORY: 1. Hypertension. 2. Depression. 3. CHF. 4. CVA. 5. History of anxiety. 6. History of left-sided weakness due to stroke. ALLERGIES: No known drug allergies. SOCIAL HISTORY: The patient lives in a fdc. FAMILY HISTORY: Not available. REVIEW OF SYSTEMS: Unobtainable as the patient is poor historian. MEDICATIONS: The patient is started on IV cefepime and vancomycin. PHYSICAL EXAMINATION: VITAL SIGNS: Temperature 98.2, pulse 86, respiratory rate 18, blood pressure 121/75. HEENT: Pale conjunctivae. No icterus. NECK: No lymphadenopathy. CHEST: Clear. HEART: S1-S2. ABDOMEN: Soft, nontender. EXTREMITIES: No cyanosis. NEUROLOGIC: Confused. LABORATORY DATA: White blood cells 12, hemoglobin 14, platelets 11.6. UA unremarkable. BUN 12, creatinine 0.9. ALT, AST, alkaline phosphatase unremarkable. Chest x-ray showed cardiomegaly and pulmonary venous congestion. ASSESSMENT: The patient is a 49-year-old male with: 1. Probable sepsis. 2. Probable pneumonia. 3. Rule out probable bacteremia. 4. Leukocytosis. 5. Afebrile. PLAN: 1. We will continue the patient on IV vancomycin and cefepime. 2. Monitor CBC. 3. Monitor BMP. 4. Monitor cultures (blood, urine, and sputum). 5. Monitor chest x-ray. 6. Based on the patient's clinical course and laboratories, we will do further recommendation. Thank you, Dr. Bakari Logan, for allowing me to participate in the care of this patient. I will follow the patient with you during this hospitalization. Johnathan Kirk M.D. DR: NADJA JOB#: [id number] CC:
--- NOTE | 2019-08-23 19:32 | NUR ---
HAND-OFF: Report given to Caty CHAVEZ RN.
--- NOTE | 2019-08-23 19:33 | NUR ---
NURSE NOTES: Received report from MAXIMINO Noble. Rounds done, patient up in chair visiting with family. No distress noted. No complains of pain at this time. Bed in low position, locked side rails up x2, call light within reach. Will continue to monitor.
[2019-08-23 20:00] VITALS: BP 109/65
[2019-08-23] MEDS: Cefepime HCl 2 GM in D5W 110 ML IV SCH (21:00)
[2019-08-23] MEDS: Heparin 5000 units/ml inj SUBQ SCH (21:12)
[2019-08-24] VITALS: BP 120/68
[2019-08-24 04:00] VITALS: BP 102/59
--- NOTE | 2019-08-24 05:00 | NUR ---
NURSE NOTES: Dr Rosenberg here to see patient.
[2019-08-24] MEDS: LORazepam 1mg tab ORAL PRN (05:20)
[2019-08-24] MEDS: NovoLOG Insulin Flexpen SUBQ SCH ×4 (06:30→21:00)
[2019-08-24] MEDS: Vancomycin 1 GM in D5W 275 ML IVPB SCH ×2 (06:45→17:28)
[2019-08-24 06:51] LABS: ALANINE AMINOTRANSFERASE 21 U/L (12-78); ALBUMIN 3.5 G/DL (3.4-5.0); ALBUMIN/GLOBULIN RATIO 0.9 (1.0-2.7); ALKALINE PHOSPHATASE 99 U/L (46-116); ANION GAP 10 mmol/L (5-15); ASPARTATE AMINO TRANSFERASE 13 U/L (15-37); BILIRUBIN,TOTAL 0.3 MG/DL (0.2-1.0); BLOOD UREA NITROGEN 12 mg/dL (7-18); CALCIUM 9.3 MG/DL (8.5-10.1); CARBON DIOXIDE 26 MMOL/L (21-32); CHLORIDE 107 MMOL/L (98-107); CREATININE 0.8 MG/DL (0.55-1.30); POTASSIUM 4.2 MMOL/L (3.5-5.1); SODIUM 143 MMOL/L (136-145)
[2019-08-24 06:57] LABS: BASOPHILS % (AUTO) 0.5 % (0.0-2.0); EOSINOPHILS % (AUTO) 2.9 % (0.0-3.0); HEMATOCRIT 63.1 % (42.0-52.0); LYMPHOCYTES % (AUTO) 28.1 % (20.0-45.0); MEAN CORPUSCULAR VOLUME 88 FL (80-99); MONOCYTES % (AUTO) 5.4 % (1.0-10.0); PLATELET COUNT 123 K/UL (150-450); RED BLOOD COUNT 7.15 M/UL (4.70-6.10); RED CELL DISTRIBUTION WIDTH 12.2 % (11.6-14.8); WHITE BLOOD COUNT 7.4 K/UL (4.8-10.8)
--- NOTE | 2019-08-24 07:13 | NUR ---
HAND-OFF: Report given to MAXIMINO Noble. No distress noted, patient sleeping on and off.
--- NOTE | 2019-08-24 07:30 | NUR ---
NURSE NOTES: AWAKE. C/O BACK PAIN. SCALE 10/10. GIVEN TYLENOL 650MG PU. IN NO DISTRESS. WILL CONTINUE TO MONITOR PT.
[2019-08-24 08:00] VITALS: BP 110/68
[2019-08-24 08:06] LABS: HEMOGLOBIN 21.4 G/DL (14.2-18.0)
--- NOTE | 2019-08-24 08:17 | NUR ---
NURSE NOTES: HGB 21.4 DR Meredith GARCIA NOTIFIED. LEFT MESSAGE TO RETURN CALL.
[2019-08-24] MEDS: DULoxetine 30mg cap ORAL SCH (08:27)
[2019-08-24] MEDS: Cefepime HCl 2 GM in D5W 110 ML IV SCH ×2 (08:28→21:01)
[2019-08-24] MEDS: Heparin 5000 units/ml inj SUBQ SCH ×3 (08:30→21:03)
[2019-08-24 09:12] LABS: BASOPHILS % (AUTO) 0.9 % (0.0-2.0); EOSINOPHILS % (AUTO) 1.8 % (0.0-3.0); HEMATOCRIT 39.6 % (42.0-52.0); HEMOGLOBIN 13.4 G/DL (14.2-18.0); LYMPHOCYTES % (AUTO) 20.6 % (20.0-45.0); MEAN CORPUSCULAR VOLUME 87 FL (80-99); NEUTROPHILS % (AUTO) 69.7 % (45.0-75.0); PLATELET COUNT 307 K/UL (150-450); RED BLOOD COUNT 4.55 M/UL (4.70-6.10); RED CELL DISTRIBUTION WIDTH 11.7 % (11.6-14.8); WHITE BLOOD COUNT 9.8 K/UL (4.8-10.8)
--- NOTE | 2019-08-24 09:18 | NUR ---
RD ASSESSMENT & RECOMMENDATIONS SEE CARE ACTIVITY FOR COMPLETE ASSESSMENT DAILY ESTIMATED NEEDS: Needs based on cardiac, DM/ 64.7kg abw 25-30 kcals/kg 7622-0846 total kcals 1-1.5 g protein/kg 65-97 g total protein 25-30 mL/kg 6162-7925 total fluid mLs NUTRITION DIAGNOSIS: * Decreased sodium intake needs R/T cardiac hx as evidenced by h/o HTN, CHF, CVA. CURRENT DIET: CCHO MED PO DIET RECOMMENDATIONS--->>> CCHO MED + LOW NA/ texture per [employer] ADDITIONAL RECOMMENDATIONS: * Calibrated bedscale wt, standing wt as able for accurate CBW * Rec [employer] eval for h/o CVA, pt is confused * Monitor for continued good/ improved PO intake -> Pt on multiple psych meds, monitor appetite/ alertness at mealtime .
--- NOTE | 2019-08-24 09:40 | General Progress Note ---
Assessment/Plan Problem List: (1) Fever ICD Codes: R50.9 - Fever, unspecified SNOMED: 154659006 (2) SOB (shortness of breath) ICD Codes: R06.02 - Shortness of breath SNOMED: 405868074 (3) Sepsis ICD Codes: A41.9 - Sepsis, unspecified organism SNOMED: 87961453 (4) Depression ICD Codes: F32.9 - Major depressive disorder, single episode, unspecified SNOMED: 43784931 (5) Psychiatric disorder ICD Codes: F99 - Mental disorder, not otherwise specified SNOMED: 58712015 (6) HTN (hypertension) ICD Codes: I10 - Essential (primary) hypertension SNOMED: 81318369 (7) CHF (congestive heart failure) ICD Codes: I50.9 - Heart failure, unspecified SNOMED: 26508584 (8) CVA (cerebral vascular accident) ICD Codes: I63.9 - Cerebral infarction, unspecified SNOMED: 389659062 (9) Diabetes ICD Codes: E11.9 - Type 2 diabetes mellitus without complications SNOMED: 13306865 (10) AMS (altered mental status) ICD Codes: R41.82 - Altered mental status, unspecified SNOMED: 119913041 (11) Encephalopathy ICD Codes: G93.40 - Encephalopathy, unspecified SNOMED: 37049268 Status: unchanged Assessment/Plan: o2 pulm tx abx pt diet cbc bmp am Subjective Constitutional: Reports: weakness Allergies: Coded Allergies: No Known Allergies (Unverified , 06/01/19) All Systems: reviewed and negative except above Subjective confused in bed Objective Last 24 Hour Vital Signs Date Time Temp Pulse Resp B/P (MAP) Pulse Ox O2 Delivery O2 Flow Rate FiO2 08/24/19 09:36 Room Air 08/24/19 08:00 99.4 74 18 110/68 (82) 96 08/24/19 07:59 97.9 08/24/19 04:00 97.9 59 16 102/59 (73) 97 08/24/19 00:00 97.6 78 17 120/68 (85) 96 08/23/19 21:00 Room Air 08/23/19 20:00 97.2 71 16 109/65 (80) 96 08/23/19 19:15 77 18 96 Room Air 21 08/23/19 18:00 Room Air 08/23/19 17:00 97.7 77 21 112/77 (89) 97 08/23/19 16:51 98.2 62 22 121/75 100 Nasal Cannula 3.0 08/23/19 16:50 98.2 67 22 118/72 100 Nasal Cannula 3.0 08/23/19 14:24 98.2 67 22 118/72 100 Nasal Cannula 3.0 08/23/19 14:22 89 28 Room Air 08/23/19 13:08 98.2 89 28 128/83 (98) 98 Room Air Intake and Output 08/23/19 08/24/19 19:00 07:00 Intake Total 250 ml 240 ml Balance 250 ml 240 ml Intake Oral 250 ml 240 ml # Voids 1 Laboratory Tests 08/23/19 11:50: Lactic Acid Level 1.80 08/23/19 13:35: White Blood Count 12.1H, Red Blood Count 4.87, Hemoglobin 14.3, Hematocrit 42.8 , Mean Corpuscular Volume 88, Mean Corpuscular Hemoglobin 29.3, Mean Corpuscular Hemoglobin Concent 33.3, Red Cell Distribution Width 11.6, Platelet Count 334, Mean Platelet Volume 7.0, Neutrophils (%) (Auto) 68.5, Lymphocytes (% ) (Auto) 22.6, Monocytes (%) (Auto) 6.5, Eosinophils (%) (Auto) 1.4, Basophils ( %) (Auto) 0.9 08/23/19 14:45: Sodium Level 145, Potassium Level 3.9, Chloride Level 105, Carbon Dioxide Level 26, Anion Gap 14, Blood Urea Nitrogen 12, Creatinine 0.9, Estimat Glomerular Filtration Rate > 60, Glucose Level 124H, Calcium Level 9.6, Total Bilirubin 0.3 , Aspartate Amino Transf (AST/SGOT) 14L, Alanine Aminotransferase (ALT/SGPT) 26 , Alkaline Phosphatase 116, Ammonia < 10L, Total Protein 7.9, Albumin 3.8, Globulin 4.1, Albumin/Globulin Ratio 0.9L, Salicylates Level 1.3L, Acetaminophen Level < 2L, Serum Alcohol < 3 08/23/19 15:52: Urine Color Pale yellow, Urine Appearance Clear, Urine pH 7, Urine Specific Reading 1.005, Urine Protein Negative, Urine Glucose (UA) Negative, Urine Ketones Negative, Urine Blood Negative, Urine Nitrite Negative, Urine Bilirubin Negative, Urine Urobilinogen Normal, Urine Leukocyte Esterase Negative, Urine RBC 0, Urine WBC 0, Urine Squamous Epithelial Cells None, Urine Bacteria None, Urine Opiates Screen Negative, Urine Barbiturates Screen Negative, Phencyclidine (PCP) Screen Negative, Urine Amphetamines Screen Negative, Urine Benzodiazepines Screen Negative, Urine Cocaine Screen Negative, Urine Marijuana (THC) Screen Negative 08/24/19 05:00: White Blood Count 7.4, Red Blood Count 7.15H, Hemoglobin 21.4#*H, Hematocrit 63.1#H, Mean Corpuscular Volume 88, Mean Corpuscular Hemoglobin 30.0, Mean Corpuscular Hemoglobin Concent 34.0, Red Cell Distribution Width 12.2, Platelet Count 123#L, Mean Platelet Volume 6.9, Neutrophils (%) (Auto) 63.0, Lymphocytes (%) (Auto) 28.1, Monocytes (%) (Auto) 5.4, Eosinophils (%) (Auto) 2.9, Basophils (%) (Auto) 0.5, Sodium Level 143, Potassium Level 4.2, Chloride Level 107, Carbon Dioxide Level 26, Anion Gap 10, Blood Urea Nitrogen 12, Creatinine 0.8, Estimat Glomerular Filtration Rate > 60, Glucose Level 88, Calcium Level 9.3, Total Bilirubin 0.3, Aspartate Amino Transf (AST/SGOT) 13L, Alanine Aminotransferase (ALT/SGPT) 21, Alkaline Phosphatase 99, Total Protein 7.5, Albumin 3.5, Globulin 4.0, Albumin/Globulin Ratio 0.9L 08/24/19 08:50: White Blood Count 9.8, Red Blood Count 4.55L, Hemoglobin 13.4#L, Hematocrit 39.6 #L, Mean Corpuscular Volume 87, Mean Corpuscular Hemoglobin 29.5, Mean Corpuscular Hemoglobin Concent 33.9, Red Cell Distribution Width 11.7, Platelet Count 307#, Mean Platelet Volume 7.4, Neutrophils (%) (Auto) 69.7, Lymphocytes ( %) (Auto) 20.6, Monocytes (%) (Auto) 7.0, Eosinophils (%) (Auto) 1.8, Basophils (%) (Auto) 0.9 Height (Feet): 5 Height (Inches): 5.00 Weight (Pounds): 139 General Appearance: lethargic, confused EENT: normal ENT inspection Neck: normal alignment Cardiovascular: normal peripheral pulses, normal rate, regular rhythm Respiratory/Chest: chest wall non-tender, lungs clear, normal breath sounds Abdomen: normal bowel sounds, non tender, soft Extremities: normal inspection Edema: no edema noted Arm (L), no edema noted Arm (R), no edema noted Leg (L), no edema noted Leg (R), no edema noted Pedal (L), no edema noted Pedal (R), no edema noted Generalized Neurologic: motor weakness Skin: normal pigmentation, warm/dry Bakari Logan DO Aug 24, 2019 09:40
--- NOTE | 2019-08-24 10:46 | Infectious Diseases Prog Note ---
Assessment/Plan Assessment/Plan ASSESSMENT: The patient is a 49-year-old male with: Probable sepsis. Probable pneumonia. Rule out probable bacteremia. Leukocytosis. Afebrile. Hypertension. Depression. CHF. CVA. History of anxiety. History of left-sided weakness due to stroke. PLAN: Cont on IV vancomycin and cefepime # 2 Monitor CBC Monitor BMP. Monitor cultures (blood, urine, and sputum). Monitor chest x-ray. Subjective Allergies: Coded Allergies: No Known Allergies (Unverified , 06/01/19) Subjective comfortable Objective Vital Signs Last 24 Hour Vital Signs Date Time Temp Pulse Resp B/P (MAP) Pulse Ox O2 Delivery O2 Flow Rate FiO2 08/24/19 09:36 Room Air 08/24/19 08:00 99.4 74 18 110/68 (82) 96 08/24/19 07:59 97.9 08/24/19 07:00 89 18 95 Room Air 21 08/24/19 04:00 97.9 59 16 102/59 (73) 97 08/24/19 00:00 97.6 78 17 120/68 (85) 96 08/23/19 21:00 Room Air 08/23/19 20:00 97.2 71 16 109/65 (80) 96 08/23/19 19:15 77 18 96 Room Air 21 08/23/19 18:00 Room Air 08/23/19 17:00 97.7 77 21 112/77 (89) 97 08/23/19 16:51 98.2 62 22 121/75 100 Nasal Cannula 3.0 08/23/19 16:50 98.2 67 22 118/72 100 Nasal Cannula 3.0 08/23/19 14:24 98.2 67 22 118/72 100 Nasal Cannula 3.0 08/23/19 14:22 89 28 Room Air 08/23/19 13:08 98.2 89 28 128/83 (98) 98 Room Air Height (Feet): 5 Height (Inches): 5.00 Weight (Pounds): 139 HEENT: anicteric Respiratory/Chest: normal breath sounds Cardiovascular: regular rhythm Abdomen: soft, non tender Laboratory Tests Test 08/23/19 11:50 08/23/19 13:35 08/23/19 14:45 08/23/19 15:52 Lactic Acid Level 1.80 mmol/L (0.4-2.0) White Blood Count 12.1 K/UL (4.8-10.8) H Red Blood Count 4.87 M/UL (4.70-6.10) Hemoglobin 14.3 G/DL (14.2-18.0) Hematocrit 42.8 % (42.0-52.0) Mean Corpuscular Volume 88 FL (80-99) Mean Corpuscular Hemoglobin 29.3 PG (27.0-31.0) Mean Corpuscular Hemoglobin Concent 33.3 G/DL (32.0-36.0) Red Cell Distribution Width 11.6 % (11.6-14.8) Platelet Count 334 K/UL (150-450) Mean Platelet Volume 7.0 FL (6.5-10.1) Neutrophils (%) (Auto) 68.5 % (45.0-75.0) Lymphocytes (%) (Auto) 22.6 % (20.0-45.0) Monocytes (%) (Auto) 6.5 % (1.0-10.0) Eosinophils (%) (Auto) 1.4 % (0.0-3.0) Basophils (%) (Auto) 0.9 % (0.0-2.0) Sodium Level 145 MMOL/L (136-145) Potassium Level 3.9 MMOL/L (3.5-5.1) Chloride Level 105 MMOL/L (98-107) Carbon Dioxide Level 26 MMOL/L (21-32) Anion Gap 14 mmol/L (5-15) Blood Urea Nitrogen 12 mg/dL (7-18) Creatinine 0.9 MG/DL (0.55-1.30) Estimat Glomerular Filtration Rate > 60 mL/min (>60) Glucose Level 124 MG/DL (74-106) H Calcium Level 9.6 MG/DL (8.5-10.1) Total Bilirubin 0.3 MG/DL (0.2-1.0) Aspartate Amino Transf (AST/SGOT) 14 U/L (15-37) L Alanine Aminotransferase (ALT/SGPT) 26 U/L (12-78) Alkaline Phosphatase 116 U/L (46-116) Ammonia < 10 umol/L (11-32) L Total Protein 7.9 G/DL (6.4-8.2) Albumin 3.8 G/DL (3.4-5.0) Globulin 4.1 g/dL Albumin/Globulin Ratio 0.9 (1.0-2.7) L Salicylates Level 1.3 ug/mL (2.8-20) L Acetaminophen Level < 2 MCG/ML (10-30) L Serum Alcohol < 3 mg/dL Urine Color Pale yellow Urine Appearance Clear Urine pH 7 (4.5-8.0) Urine Specific [place] 1.005 (1.005-1.035) Urine Protein Negative (NEGATIVE) Urine Glucose (UA) Negative (NEGATIVE) Urine Ketones Negative (NEGATIVE) Urine Blood Negative (NEGATIVE) Urine Nitrite Negative (NEGATIVE) Urine Bilirubin Negative (NEGATIVE) Urine Urobilinogen Normal MG/DL (0.0-1.0) Urine Leukocyte Esterase Negative (NEGATIVE) Urine RBC 0 /HPF (0 - 0) Urine WBC 0 /HPF (0 - 0) Urine Squamous Epithelial Cells None /LPF (NONE/OCC) Urine Bacteria None /HPF (NONE) Urine Opiates Screen Negative (NEGATIVE) Urine Barbiturates Screen Negative (NEGATIVE) Phencyclidine (PCP) Screen Negative (NEGATIVE) Urine Amphetamines Screen Negative (NEGATIVE) Urine Benzodiazepines Screen Negative (NEGATIVE) Urine Cocaine Screen Negative (NEGATIVE) Urine Marijuana (THC) Screen Negative (NEGATIVE) Test 08/24/19 05:00 08/24/19 08:50 White Blood Count 7.4 K/UL (4.8-10.8) 9.8 K/UL (4.8-10.8) Red Blood Count 7.15 M/UL (4.70-6.10) H 4.55 M/UL (4.70-6.10) L Hemoglobin 21.4 G/DL (14.2-18.0) 13.4 G/DL (14.2-18.0) #L Hematocrit 63.1 % (42.0-52.0) #H 39.6 % (42.0-52.0) #L Mean Corpuscular Volume 88 FL (80-99) 87 FL (80-99) Mean Corpuscular Hemoglobin 30.0 PG (27.0-31.0) 29.5 PG (27.0-31.0) Mean Corpuscular Hemoglobin Concent 34.0 G/DL (32.0-36.0) 33.9 G/DL (32.0-36.0) Red Cell Distribution Width 12.2 % (11.6-14.8) 11.7 % (11.6-14.8) Platelet Count 123 K/UL (150-450) #L 307 K/UL (150-450) # Mean Platelet Volume 6.9 FL (6.5-10.1) 7.4 FL (6.5-10.1) Neutrophils (%) (Auto) 63.0 % (45.0-75.0) 69.7 % (45.0-75.0) Lymphocytes (%) (Auto) 28.1 % (20.0-45.0) 20.6 % (20.0-45.0) Monocytes (%) (Auto) 5.4 % (1.0-10.0) 7.0 % (1.0-10.0) Eosinophils (%) (Auto) 2.9 % (0.0-3.0) 1.8 % (0.0-3.0) Basophils (%) (Auto) 0.5 % (0.0-2.0) 0.9 % (0.0-2.0) Sodium Level 143 MMOL/L (136-145) Potassium Level 4.2 MMOL/L (3.5-5.1) Chloride Level 107 MMOL/L (98-107) Carbon Dioxide Level 26 MMOL/L (21-32) Anion Gap 10 mmol/L (5-15) Blood Urea Nitrogen 12 mg/dL (7-18) Creatinine 0.8 MG/DL (0.55-1.30) Estimat Glomerular Filtration Rate > 60 mL/min (>60) Glucose Level 88 MG/DL (74-106) Calcium Level 9.3 MG/DL (8.5-10.1) Total Bilirubin 0.3 MG/DL (0.2-1.0) Aspartate Amino Transf (AST/SGOT) 13 U/L (15-37) L Alanine Aminotransferase (ALT/SGPT) 21 U/L (12-78) Alkaline Phosphatase 99 U/L (46-116) Total Protein 7.5 G/DL (6.4-8.2) Albumin 3.5 G/DL (3.4-5.0) Globulin 4.0 g/dL Albumin/Globulin Ratio 0.9 (1.0-2.7) L Current Medications Medications (Trade) Dose Ordered Sig/Jannet Route PRN Reason Start Time Stop Time Status Last Admin Dose Admin Acetaminophen (Tylenol) 650 mg Q4H PRN ORAL fever 08/23/19 15:15 09/22/19 15:14 08/24/19 07:29 Albuterol/ Ipratropium (Albuterol/ Ipratropium) 3 ml Q4H PRN HHN Shortness of Breath 08/23/19 15:15 08/28/19 15:14 Cefepime HCl 2 gm/ Dextrose 110 ml @ 220 mls/hr EVERY 12 HOURS IV 08/23/19 21:00 08/30/19 20:59 08/24/19 08:28 Dextrose (Dextrose 50%) 25 ml Q30M PRN IV Hypoglycemia 08/23/19 15:15 09/22/19 15:14 Dextrose (Dextrose 50%) 50 ml Q30M PRN IV Hypoglycemia 08/23/19 15:15 09/22/19 15:14 Duloxetine HCl (Cymbalta) 30 mg DAILY ORAL 08/24/19 09:00 09/23/19 08:59 08/24/19 08:27 Heparin Sodium (Porcine) (Heparin 5000 units/ml) 5,000 units EVERY 12 HOURS SUBQ 08/23/19 21:00 09/22/19 20:59 08/24/19 09:24 Insulin Aspart (NovoLOG) BEFORE MEALS AND HS SUBQ 08/23/19 17:00 09/22/19 16:59 Lorazepam (Ativan) 1 mg Q6H PRN ORAL For Anxiety 08/24/19 05:00 08/31/19 04:59 08/24/19 05:20 Ondansetron HCl (Zofran) 4 mg Q6H PRN IVP Nausea & Vomiting 08/23/19 15:15 09/22/19 15:14 Polyethylene Glycol (Miralax) 17 gm DAILYPRN PRN ORAL Constipation 08/23/19 15:15 09/22/19 15:14 Quetiapine Fumarate (SEROqueL) 100 mg TWICE A DAY ORAL 08/23/19 18:00 09/22/19 17:59 08/24/19 08:27 Temazepam (Restoril) 15 mg HSPRN PRN ORAL Insomnia 08/23/19 15:15 08/30/19 15:14 08/23/19 23:13 Vancomycin HCl (Vanco rx to dose) 1 ea DAILY PRN MISC . 08/23/19 16:15 09/22/19 16:14 Vancomycin HCl 1 gm/Dextrose 275 ml @ 183.3 mls/ hr Q12HR@0600,1800 IVPB 08/23/19 18:00 08/28/19 17:59 08/24/19 06:45 Johnathan Kirk MD Aug 24, 2019 10:46
[2019-08-24 12:00] VITALS: BP 102/65
--- NOTE | 2019-08-24 13:04 | Pulmonology Progress Note ---
Assessment/Plan Problems: (1) Encephalopathy (2) Sepsis (3) CVA (cerebral vascular accident) (4) HTN (hypertension) (5) Psychiatric disorder (6) Diabetes (7) Depression Assessment/Plan cohen cultures iv evaluation sliding scale dvt prophylaxis symptomatic treatment/ Subjective ROS Limited/Unobtainable: No Constitutional: Reports: no symptoms HEENT: Repors: no symptoms Respiratory: Reports: no symptoms Allergies: Coded Allergies: No Known Allergies (Unverified , 06/01/19) Objective Last 24 Hour Vital Signs Date Time Temp Pulse Resp B/P (MAP) Pulse Ox O2 Delivery O2 Flow Rate FiO2 08/24/19 12:00 98.1 58 20 102/65 (77) 96 08/24/19 09:36 Room Air 08/24/19 08:00 99.4 74 18 110/68 (82) 96 08/24/19 07:59 97.9 08/24/19 07:00 89 18 95 Room Air 21 08/24/19 04:00 97.9 59 16 102/59 (73) 97 08/24/19 00:00 97.6 78 17 120/68 (85) 96 08/23/19 21:00 Room Air 08/23/19 20:00 97.2 71 16 109/65 (80) 96 08/23/19 19:15 77 18 96 Room Air 21 08/23/19 18:00 Room Air 08/23/19 17:00 97.7 77 21 112/77 (89) 97 08/23/19 16:51 98.2 62 22 121/75 100 Nasal Cannula 3.0 08/23/19 16:50 98.2 67 22 118/72 100 Nasal Cannula 3.0 08/23/19 14:24 98.2 67 22 118/72 100 Nasal Cannula 3.0 08/23/19 14:22 89 28 Room Air 08/23/19 13:08 98.2 89 28 128/83 (98) 98 Room Air Intake and Output 08/23/19 08/24/19 19:00 07:00 Intake Total 250 ml 240 ml Balance 250 ml 240 ml Intake Oral 250 ml 240 ml # Voids 1 General Appearance: WD/WN HEENT: normocephalic, atraumatic Respiratory/Chest: chest wall non-tender, lungs clear Cardiovascular: normal peripheral pulses, normal rate Genitourinary: normal external genitalia Extremities: no clubbing Neurologic/Psychiatric: chart clerk II-XII grossly normal Laboratory Tests 08/23/19 13:35: White Blood Count 12.1H, Red Blood Count 4.87, Hemoglobin 14.3, Hematocrit 42.8 , Mean Corpuscular Volume 88, Mean Corpuscular Hemoglobin 29.3, Mean Corpuscular Hemoglobin Concent 33.3, Red Cell Distribution Width 11.6, Platelet Count 334, Mean Platelet Volume 7.0, Neutrophils (%) (Auto) 68.5, Lymphocytes (% ) (Auto) 22.6, Monocytes (%) (Auto) 6.5, Eosinophils (%) (Auto) 1.4, Basophils ( %) (Auto) 0.9 08/23/19 14:45: Sodium Level 145, Potassium Level 3.9, Chloride Level 105, Carbon Dioxide Level 26, Anion Gap 14, Blood Urea Nitrogen 12, Creatinine 0.9, Estimat Glomerular Filtration Rate > 60, Glucose Level 124H, Calcium Level 9.6, Total Bilirubin 0.3 , Aspartate Amino Transf (AST/SGOT) 14L, Alanine Aminotransferase (ALT/SGPT) 26 , Alkaline Phosphatase 116, Ammonia < 10L, Total Protein 7.9, Albumin 3.8, Globulin 4.1, Albumin/Globulin Ratio 0.9L, Salicylates Level 1.3L, Acetaminophen Level < 2L, Serum Alcohol < 3 08/23/19 15:52: Urine Color Pale yellow, Urine Appearance Clear, Urine pH 7, Urine Specific [place] 1.005, Urine Protein Negative, Urine Glucose (UA) Negative, Urine Ketones Negative, Urine Blood Negative, Urine Nitrite Negative, Urine Bilirubin Negative, Urine Urobilinogen Normal, Urine Leukocyte Esterase Negative, Urine RBC 0, Urine WBC 0, Urine Squamous Epithelial Cells None, Urine Bacteria None, Urine Opiates Screen Negative, Urine Barbiturates Screen Negative, Phencyclidine (PCP) Screen Negative, Urine Amphetamines Screen Negative, Urine Benzodiazepines Screen Negative, Urine Cocaine Screen Negative, Urine Marijuana (THC) Screen Negative 08/24/19 05:00: White Blood Count 7.4, Red Blood Count 7.15H, Hemoglobin 21.4#*H, Hematocrit 63.1#H, Mean Corpuscular Volume 88, Mean Corpuscular Hemoglobin 30.0, Mean Corpuscular Hemoglobin Concent 34.0, Red Cell Distribution Width 12.2, Platelet Count 123#L, Mean Platelet Volume 6.9, Neutrophils (%) (Auto) 63.0, Lymphocytes (%) (Auto) 28.1, Monocytes (%) (Auto) 5.4, Eosinophils (%) (Auto) 2.9, Basophils (%) (Auto) 0.5, Sodium Level 143, Potassium Level 4.2, Chloride Level 107, Carbon Dioxide Level 26, Anion Gap 10, Blood Urea Nitrogen 12, Creatinine 0.8, Estimat Glomerular Filtration Rate > 60, Glucose Level 88, Calcium Level 9.3, Total Bilirubin 0.3, Aspartate Amino Transf (AST/SGOT) 13L, Alanine Aminotransferase (ALT/SGPT) 21, Alkaline Phosphatase 99, Total Protein 7.5, Albumin 3.5, Globulin 4.0, Albumin/Globulin Ratio 0.9L 08/24/19 08:50: White Blood Count 9.8, Red Blood Count 4.55L, Hemoglobin 13.4#L, Hematocrit 39.6 #L, Mean Corpuscular Volume 87, Mean Corpuscular Hemoglobin 29.5, Mean Corpuscular Hemoglobin Concent 33.9, Red Cell Distribution Width 11.7, Platelet Count 307#, Mean Platelet Volume 7.4, Neutrophils (%) (Auto) 69.7, Lymphocytes ( %) (Auto) 20.6, Monocytes (%) (Auto) 7.0, Eosinophils (%) (Auto) 1.8, Basophils (%) (Auto) 0.9 Current Medications Medications (Trade) Dose Ordered Sig/Jannet Route PRN Reason Start Time Stop Time Status Last Admin Dose Admin Acetaminophen (Tylenol) 650 mg Q4H PRN ORAL fever 08/23/19 15:15 09/22/19 15:14 08/24/19 07:29 Albuterol/ Ipratropium (Albuterol/ Ipratropium) 3 ml Q4H PRN HHN Shortness of Breath 08/23/19 15:15 08/28/19 15:14 Cefepime HCl 2 gm/ Dextrose 110 ml @ 220 mls/hr EVERY 12 HOURS IV 08/23/19 21:00 08/30/19 20:59 08/24/19 08:28 Dextrose (Dextrose 50%) 25 ml Q30M PRN IV Hypoglycemia 08/23/19 15:15 09/22/19 15:14 Dextrose (Dextrose 50%) 50 ml Q30M PRN IV Hypoglycemia 08/23/19 15:15 09/22/19 15:14 Duloxetine HCl (Cymbalta) 30 mg DAILY ORAL 08/24/19 09:00 09/23/19 08:59 08/24/19 08:27 Heparin Sodium (Porcine) (Heparin 5000 units/ml) 5,000 units EVERY 12 HOURS SUBQ 08/23/19 21:00 09/22/19 20:59 08/24/19 09:24 Insulin Aspart (NovoLOG) BEFORE MEALS AND HS SUBQ 08/23/19 17:00 09/22/19 16:59 Lorazepam (Ativan) 1 mg Q6H PRN ORAL For Anxiety 08/24/19 05:00 08/31/19 04:59 08/24/19 05:20 Ondansetron HCl (Zofran) 4 mg Q6H PRN IVP Nausea & Vomiting 08/23/19 15:15 09/22/19 15:14 Polyethylene Glycol (Miralax) 17 gm DAILYPRN PRN ORAL Constipation 08/23/19 15:15 09/22/19 15:14 Quetiapine Fumarate (SEROqueL) 100 mg TWICE A DAY ORAL 08/23/19 18:00 09/22/19 17:59 08/24/19 08:27 Temazepam (Restoril) 15 mg HSPRN PRN ORAL Insomnia 08/23/19 15:15 08/30/19 15:14 08/23/19 23:13 Vancomycin HCl (Vanco rx to dose) 1 ea DAILY PRN MISC . 08/23/19 16:15 09/22/19 16:14 Vancomycin HCl 1 gm/Dextrose 275 ml @ 183.3 mls/ hr Q12HR@0600,1800 IVPB 08/23/19 18:00 08/28/19 17:59 08/24/19 06:45 Luis Cody MD Aug 24, 2019 13:04
[2019-08-24 16:00] VITALS: BP 113/43
--- NOTE | 2019-08-24 17:30 | Consultation ---
DATE OF CONSULTATION: 08/24/2019 CONSULTING PHYSICIAN: Yvonne Rosenberg M.D. HISTORY OF PRESENT ILLNESS: This is a male patient who is 49 years old. This patient continues to have some depression, confusion, and mood lability. He is a 49-year-old male patient. He does have some confusion, some disorganized thought process, and mood lability. He was recently discharged, but the patient now has returned because he has fever, shortness of breath, altered mental status, and sepsis. He was sent from [facility], but he had fever, shortness of breath, and sepsis, so he came back, but he also has been exhibiting psychomotor agitation, specifically day and night, irritability, which family believes worse, he becomes very anxious and slightly agitated. That is why daily psychiatric consultation was requested and also his cognition has declined below baseline. MEDICAL HISTORY: Hypertension, congestive heart failure, CVA, and diabetes. ALLERGIES: No known drug allergies. PSYCHOTROPIC MEDICATIONS: On admission, Seroquel 100 mg twice a day as well as Cymbalta 30 mg daily. SUBSTANCE ABUSE HISTORY: He has no known history of any alcohol use. He does have a history of marijuana use. FAMILY PSYCHIATRIC HISTORY: Denies. PAIN ASSESSMENT: 0/10 pain. DEVELOPMENT PROBLEMS: Denies. SOCIAL HISTORY: The patient lives in [facility]. Financially supported by [employer] and Medicare. PSYCHIATRIC HISTORY: Paranoid schizophrenia, rule out depression with psychotic features. STRENGTHS: He is motivated to get better, he is healthy. WEAKNESSES: He is impulsive with minimal support system. MENTAL STATUS EXAMINATION: This is a 49-year-old male. Appearance is disheveled. Attitude, irritable and agitated. Affect is labile. Intellect, poor because he does not know no current events and does not know the last four presidents. Mood, depressed and anxious. Motor activity, psychomotor agitation. Attention span is poor because he cannot do serial sevens and spell world backwards. Orientation x2, oriented to person and place, not time and situation. Speech is low volume and slurred. Thought process, disorganized and illogical. Thought content, auditory hallucinations and paranoid delusions. Perception is poor because of perceptual disturbance such as auditory hallucinations and paranoid delusions. Abstract reasoning is poor because he does not understand proverbs, only has concrete thinking. Insight is poor because he does not recognize having psych disorder. Judgment is poor and he cannot make medical decisions for himself. Short-term memory, 3/3 recall after 5-minute delay with good short-term. Long-term memory is intact based on his knowledge of long-term events of life such as high school he went to. Gait is normal. No abnormal movements. No history of . DIAGNOSES: 1. Paranoid schizophrenia. 2. Medical - hypertension, congestive heart failure. 3. Psychosocial stressors, financial. 4. Financial impairment is mild. PLAN: Treat the patient with Seroquel 100 mg twice a day, Cymbalta 30 mg daily, and Ativan 1 mg every 6 hours p.r.n. anxiety and agitation. Twenty minutes of cognitive behavioral therapy provided to help him identify his automatic negative thoughts and help him convert those negative thoughts to more positive thoughts to reduce depression, anxiety, and mood lability. I would like to thank Dr. aBkari Logan for this interesting consultation. Yvonne Rosenberg M.D. DR: FRANNIE JOB#: [id number] CC:
--- NOTE | 2019-08-24 18:54 | NUR ---
NURSE NOTES: asleep. in no apparent distress.
--- NOTE | 2019-08-24 19:12 | NUR ---
HAND-OFF: Report given to Caty CHAVEZ RN.
--- NOTE | 2019-08-24 19:14 | NUR ---
NURSE NOTES: Received report from Velasquez Noble RN. Rounds done, patient in bed, at bedside. IV Vancomycin running. IV site intact. Bed in low position, locked, side rails up x2, padded. Call light within reach. Will continue to monitor.
[2019-08-24 20:00] VITALS: BP 95/55
[2019-08-25] VITALS: BP 109/69
[2019-08-25 05:15] VITALS: BP 111/73
[2019-08-25] MEDS: NovoLOG Insulin Flexpen SUBQ SCH ×4 (06:30→21:00)
--- NOTE | 2019-08-25 06:31 | NUR ---
NURSE NOTES: Results of Vanco trough pending. will follow up.
[2019-08-25 07:01] LABS: BASOPHILS % (AUTO) 0.9 % (0.0-2.0); EOSINOPHILS % (AUTO) 2.7 % (0.0-3.0); HEMOGLOBIN 14.1 G/DL (14.2-18.0); MEAN CORPUSCULAR VOLUME 88 FL (80-99); MONOCYTES % (AUTO) 9.5 % (1.0-10.0); NEUTROPHILS % (AUTO) 58.9 % (45.0-75.0); PLATELET COUNT 327 K/UL (150-450); RED BLOOD COUNT 4.87 M/UL (4.70-6.10); RED CELL DISTRIBUTION WIDTH 12.1 % (11.6-14.8); WHITE BLOOD COUNT 10.1 K/UL (4.8-10.8)
[2019-08-25 07:09] LABS: ANION GAP 10 mmol/L (5-15); BLOOD UREA NITROGEN 14 mg/dL (7-18); CALCIUM 9.4 MG/DL (8.5-10.1); CARBON DIOXIDE 25 MMOL/L (21-32); CHLORIDE 108 MMOL/L (98-107); CREATININE 0.7 MG/DL (0.55-1.30); POTASSIUM 4.2 MMOL/L (3.5-5.1); SODIUM 143 MMOL/L (136-145)
[2019-08-25] MEDS: Vancomycin 1 GM in D5W 275 ML IVPB SCH ×3 (07:12→21:39)
--- NOTE | 2019-08-25 07:31 | NUR ---
HAND-OFF: Report given to MAXIMINO Gilman. Rounds done. Vanco running at this time per order.
[2019-08-25 08:00] VITALS: BP 127/80
--- NOTE | 2019-08-25 08:00 | NUR ---
NURSE NOTES: Received report from Kristi STANTON, pt a/a/o laying in bed with no signs of distress or other issues at this time. pt with no facial affect. no skin issues. last accucheck:83, no coverage. call light within reach, bed in lowest position. side rales up x2. i will f/u as needed.
[2019-08-25] MEDS: DULoxetine 30mg cap ORAL SCH (09:03)
[2019-08-25] MEDS: Cefepime HCl 2 GM in D5W 110 ML IV SCH ×2 (09:04→20:28)
[2019-08-25] MEDS: Heparin 5000 units/ml inj SUBQ SCH ×2 (09:05→20:32)
[2019-08-25 12:00] VITALS: BP 114/70
--- NOTE | 2019-08-25 14:47 | Pulmonology Progress Note ---
Assessment/Plan Problems: (1) Encephalopathy (2) Sepsis (3) CVA (cerebral vascular accident) (4) HTN (hypertension) (5) Psychiatric disorder (6) Diabetes (7) Depression Assessment/Plan doing better cohen cultures id evaluation sliding scale dvt prophylaxis symptomatic treatment/ Subjective ROS Limited/Unobtainable: No Constitutional: Reports: no symptoms HEENT: Repors: no symptoms Allergies: Coded Allergies: No Known Allergies (Unverified , 06/01/19) Objective Last 24 Hour Vital Signs Date Time Temp Pulse Resp B/P (MAP) Pulse Ox O2 Delivery O2 Flow Rate FiO2 08/25/19 12:00 98.4 71 20 114/70 (85) 98 08/25/19 09:00 Room Air 08/25/19 08:00 98.4 63 20 127/80 (96) 93 08/25/19 05:15 97.5 58 16 111/73 (86) 94 08/25/19 00:00 97.9 60 18 109/69 (82) 96 08/24/19 21:00 Room Air 08/24/19 20:00 82 18 95 Room Air 21 08/24/19 20:00 98.7 60 17 95/55 (68) 96 08/24/19 16:00 99.0 59 18 113/43 (66) 96 Intake and Output 08/24/19 08/25/19 19:00 07:00 Intake Total 430 ml Balance 430 ml Intake Oral 320 ml IV Total 110 ml # Voids 1 # Bowel Movements 1 General Appearance: WD/WN HEENT: normocephalic, atraumatic Respiratory/Chest: chest wall non-tender, lungs clear, normal breath sounds Cardiovascular: normal peripheral pulses, normal rate Abdomen: normal bowel sounds, soft, non tender Genitourinary: normal external genitalia Extremities: no clubbing Neurologic/Psychiatric: academic guidance specialist II-XII grossly normal Microbiology Date/Time Source Procedure Growth Status 08/23/19 13:35 Blood Blood Culture - Preliminary NO GROWTH AFTER 24 HOURS Resulted 08/23/19 13:20 Blood Blood Culture - Preliminary NO GROWTH AFTER 24 HOURS Resulted Laboratory Tests 08/25/19 05:00: White Blood Count 10.1, Red Blood Count 4.87, Hemoglobin 14.1L, Hematocrit 43.0 , Mean Corpuscular Volume 88, Mean Corpuscular Hemoglobin 29.0, Mean Corpuscular Hemoglobin Concent 32.9, Red Cell Distribution Width 12.1, Platelet Count 327, Mean Platelet Volume 7.0, Neutrophils (%) (Auto) 58.9, Lymphocytes (% ) (Auto) 28.0, Monocytes (%) (Auto) 9.5, Eosinophils (%) (Auto) 2.7, Basophils ( %) (Auto) 0.9, Sodium Level 143, Potassium Level 4.2, Chloride Level 108H, Carbon Dioxide Level 25, Anion Gap 10, Blood Urea Nitrogen 14, Creatinine 0.7, Estimat Glomerular Filtration Rate > 60, Glucose Level 92, Calcium Level 9.4, Vancomycin Level Trough 8.1 Current Medications Medications (Trade) Dose Ordered Sig/Jannet Route PRN Reason Start Time Stop Time Status Last Admin Dose Admin Acetaminophen (Tylenol) 650 mg Q4H PRN ORAL fever 08/23/19 15:15 09/22/19 15:14 08/24/19 07:29 Albuterol/ Ipratropium (Albuterol/ Ipratropium) 3 ml Q4H PRN HHN Shortness of Breath 08/23/19 15:15 08/28/19 15:14 Cefepime HCl 2 gm/ Dextrose 110 ml @ 220 mls/hr EVERY 12 HOURS IV 08/23/19 21:00 08/30/19 20:59 08/25/19 09:04 Dextrose (Dextrose 50%) 25 ml Q30M PRN IV Hypoglycemia 08/23/19 15:15 09/22/19 15:14 Dextrose (Dextrose 50%) 50 ml Q30M PRN IV Hypoglycemia 08/23/19 15:15 09/22/19 15:14 Duloxetine HCl (Cymbalta) 30 mg DAILY ORAL 08/24/19 09:00 09/23/19 08:59 08/25/19 09:03 Heparin Sodium (Porcine) (Heparin 5000 units/ml) 5,000 units EVERY 12 HOURS SUBQ 08/23/19 21:00 09/22/19 20:59 08/25/19 09:05 Insulin Aspart (NovoLOG) BEFORE MEALS AND HS SUBQ 08/23/19 17:00 09/22/19 16:59 Lorazepam (Ativan) 1 mg Q6H PRN ORAL For Anxiety 08/24/19 05:00 08/31/19 04:59 08/24/19 05:20 Ondansetron HCl (Zofran) 4 mg Q6H PRN IVP Nausea & Vomiting 08/23/19 15:15 09/22/19 15:14 Polyethylene Glycol (Miralax) 17 gm DAILYPRN PRN ORAL Constipation 08/23/19 15:15 09/22/19 15:14 Quetiapine Fumarate (SEROqueL) 100 mg TWICE A DAY ORAL 08/23/19 18:00 09/22/19 17:59 08/25/19 09:03 Temazepam (Restoril) 15 mg HSPRN PRN ORAL Insomnia 08/23/19 15:15 08/30/19 15:14 08/24/19 21:01 Vancomycin HCl (Vanco rx to dose) 1 ea DAILY PRN MISC . 08/23/19 16:15 09/22/19 16:14 Vancomycin HCl 1 gm/Dextrose 275 ml @ 183.3 mls/ hr 0600,1400,2200 IVPB 08/25/19 07:15 08/30/19 07:14 08/25/19 13:34 Lius Cody MD Aug 25, 2019 14:47
--- NOTE | 2019-08-25 14:55 | General Progress Note ---
Assessment/Plan Problem List: (1) Fever ICD Codes: R50.9 - Fever, unspecified SNOMED: 626670663 (2) SOB (shortness of breath) ICD Codes: R06.02 - Shortness of breath SNOMED: 921804479 (3) Sepsis ICD Codes: A41.9 - Sepsis, unspecified organism SNOMED: 05960967 (4) Depression ICD Codes: F32.9 - Major depressive disorder, single episode, unspecified SNOMED: 46057989 (5) Psychiatric disorder ICD Codes: F99 - Mental disorder, not otherwise specified SNOMED: 16095983 (6) HTN (hypertension) ICD Codes: I10 - Essential (primary) hypertension SNOMED: 68030272 (7) CHF (congestive heart failure) ICD Codes: I50.9 - Heart failure, unspecified SNOMED: 37428112 (8) CVA (cerebral vascular accident) ICD Codes: I63.9 - Cerebral infarction, unspecified SNOMED: 644111182 (9) Diabetes ICD Codes: E11.9 - Type 2 diabetes mellitus without complications SNOMED: 76682097 (10) AMS (altered mental status) ICD Codes: R41.82 - Altered mental status, unspecified SNOMED: 801140450 (11) Encephalopathy ICD Codes: G93.40 - Encephalopathy, unspecified SNOMED: 55114675 Status: stable, progressing Assessment/Plan: o2 pulm tx abx pt diet cbc bmp am dc plan snf Subjective Constitutional: Reports: weakness Allergies: Coded Allergies: No Known Allergies (Unverified , 06/01/19) All Systems: reviewed and negative except above Subjective sleepy confused in bed Objective Last 24 Hour Vital Signs Date Time Temp Pulse Resp B/P (MAP) Pulse Ox O2 Delivery O2 Flow Rate FiO2 08/25/19 12:00 98.4 71 20 114/70 (85) 98 08/25/19 09:00 Room Air 08/25/19 08:00 98.4 63 20 127/80 (96) 93 08/25/19 05:15 97.5 58 16 111/73 (86) 94 08/25/19 00:00 97.9 60 18 109/69 (82) 96 08/24/19 21:00 Room Air 08/24/19 20:00 82 18 95 Room Air 21 08/24/19 20:00 98.7 60 17 95/55 (68) 96 08/24/19 16:00 99.0 59 18 113/43 (66) 96 Intake and Output 08/24/19 08/25/19 19:00 07:00 Intake Total 430 ml Balance 430 ml Intake Oral 320 ml IV Total 110 ml # Voids 1 # Bowel Movements 1 Laboratory Tests 08/25/19 05:00: White Blood Count 10.1, Red Blood Count 4.87, Hemoglobin 14.1L, Hematocrit 43.0 , Mean Corpuscular Volume 88, Mean Corpuscular Hemoglobin 29.0, Mean Corpuscular Hemoglobin Concent 32.9, Red Cell Distribution Width 12.1, Platelet Count 327, Mean Platelet Volume 7.0, Neutrophils (%) (Auto) 58.9, Lymphocytes (% ) (Auto) 28.0, Monocytes (%) (Auto) 9.5, Eosinophils (%) (Auto) 2.7, Basophils ( %) (Auto) 0.9, Sodium Level 143, Potassium Level 4.2, Chloride Level 108H, Carbon Dioxide Level 25, Anion Gap 10, Blood Urea Nitrogen 14, Creatinine 0.7, Estimat Glomerular Filtration Rate > 60, Glucose Level 92, Calcium Level 9.4, Vancomycin Level Trough 8.1 Height (Feet): 5 Height (Inches): 5.00 Weight (Pounds): 139 General Appearance: lethargic, confused EENT: normal ENT inspection Neck: normal alignment Cardiovascular: normal peripheral pulses, normal rate, regular rhythm Respiratory/Chest: chest wall non-tender, lungs clear, normal breath sounds Abdomen: normal bowel sounds, non tender, soft Extremities: normal inspection Edema: no edema noted Arm (L), no edema noted Arm (R), no edema noted Leg (L), no edema noted Leg (R), no edema noted Pedal (L), no edema noted Pedal (R), no edema noted Generalized Neurologic: motor weakness Skin: normal pigmentation, warm/dry Bakari Logan DO Aug 25, 2019 14:54
--- NOTE | 2019-08-25 15:03 | NUR ---
P.T Note: P.T consult received. P.T evaluation attempted however pt is not responding nor reciprocating to verbal and manual cues despite being awake. Pt appeared in non responsive catatonic behavior. Will reattempt when as/appropriate. RN notified.
--- NOTE | 2019-08-25 15:09 | Infectious Diseases Prog Note ---
Assessment/Plan Assessment/Plan ASSESSMENT: The patient is a 49-year-old male with: Probable sepsis. Probable pneumonia. Rule out probable bacteremia. Leukocytosis. Afebrile. Hypertension. Depression. CHF. CVA. History of anxiety. History of left-sided weakness due to stroke. PLAN: Cont on IV vancomycin and cefepime # 3 Monitor CBC Monitor BMP. Monitor cultures (blood, urine, and sputum) Monitor chest x-ray. Subjective Allergies: Coded Allergies: No Known Allergies (Unverified , 06/01/19) Subjective comfortable Objective Vital Signs Last 24 Hour Vital Signs Date Time Temp Pulse Resp B/P (MAP) Pulse Ox O2 Delivery O2 Flow Rate FiO2 08/25/19 12:00 98.4 71 20 114/70 (85) 98 08/25/19 09:00 Room Air 08/25/19 08:00 98.4 63 20 127/80 (96) 93 08/25/19 05:15 97.5 58 16 111/73 (86) 94 08/25/19 00:00 97.9 60 18 109/69 (82) 96 08/24/19 21:00 Room Air 08/24/19 20:00 82 18 95 Room Air 21 08/24/19 20:00 98.7 60 17 95/55 (68) 96 08/24/19 16:00 99.0 59 18 113/43 (66) 96 Height (Feet): 5 Height (Inches): 5.00 Weight (Pounds): 139 HEENT: mucous membranes moist Respiratory/Chest: no respiratory distress Cardiovascular: normal rate Abdomen: no organomegaly Microbiology Date/Time Source Procedure Growth Status 08/23/19 13:35 Blood Blood Culture - Preliminary NO GROWTH AFTER 24 HOURS Resulted 08/23/19 13:20 Blood Blood Culture - Preliminary NO GROWTH AFTER 24 HOURS Resulted Laboratory Tests Test 08/25/19 05:00 White Blood Count 10.1 K/UL (4.8-10.8) Red Blood Count 4.87 M/UL (4.70-6.10) Hemoglobin 14.1 G/DL (14.2-18.0) L Hematocrit 43.0 % (42.0-52.0) Mean Corpuscular Volume 88 FL (80-99) Mean Corpuscular Hemoglobin 29.0 PG (27.0-31.0) Mean Corpuscular Hemoglobin Concent 32.9 G/DL (32.0-36.0) Red Cell Distribution Width 12.1 % (11.6-14.8) Platelet Count 327 K/UL (150-450) Mean Platelet Volume 7.0 FL (6.5-10.1) Neutrophils (%) (Auto) 58.9 % (45.0-75.0) Lymphocytes (%) (Auto) 28.0 % (20.0-45.0) Monocytes (%) (Auto) 9.5 % (1.0-10.0) Eosinophils (%) (Auto) 2.7 % (0.0-3.0) Basophils (%) (Auto) 0.9 % (0.0-2.0) Sodium Level 143 MMOL/L (136-145) Potassium Level 4.2 MMOL/L (3.5-5.1) Chloride Level 108 MMOL/L (98-107) H Carbon Dioxide Level 25 MMOL/L (21-32) Anion Gap 10 mmol/L (5-15) Blood Urea Nitrogen 14 mg/dL (7-18) Creatinine 0.7 MG/DL (0.55-1.30) Estimat Glomerular Filtration Rate > 60 mL/min (>60) Glucose Level 92 MG/DL (74-106) Calcium Level 9.4 MG/DL (8.5-10.1) Vancomycin Level Trough 8.1 ug/mL (5.0-12.0) Current Medications Medications (Trade) Dose Ordered Sig/Jannet Route PRN Reason Start Time Stop Time Status Last Admin Dose Admin Acetaminophen (Tylenol) 650 mg Q4H PRN ORAL fever 08/23/19 15:15 09/22/19 15:14 08/24/19 07:29 Albuterol/ Ipratropium (Albuterol/ Ipratropium) 3 ml Q4H PRN HHN Shortness of Breath 08/23/19 15:15 08/28/19 15:14 Cefepime HCl 2 gm/ Dextrose 110 ml @ 220 mls/hr EVERY 12 HOURS IV 08/23/19 21:00 08/30/19 20:59 08/25/19 09:04 Dextrose (Dextrose 50%) 25 ml Q30M PRN IV Hypoglycemia 08/23/19 15:15 09/22/19 15:14 Dextrose (Dextrose 50%) 50 ml Q30M PRN IV Hypoglycemia 08/23/19 15:15 09/22/19 15:14 Duloxetine HCl (Cymbalta) 30 mg DAILY ORAL 08/24/19 09:00 09/23/19 08:59 08/25/19 09:03 Heparin Sodium (Porcine) (Heparin 5000 units/ml) 5,000 units EVERY 12 HOURS SUBQ 08/23/19 21:00 09/22/19 20:59 08/25/19 09:05 Insulin Aspart (NovoLOG) BEFORE MEALS AND HS SUBQ 08/23/19 17:00 09/22/19 16:59 Lorazepam (Ativan) 1 mg Q6H PRN ORAL For Anxiety 08/24/19 05:00 08/31/19 04:59 08/24/19 05:20 Ondansetron HCl (Zofran) 4 mg Q6H PRN IVP Nausea & Vomiting 08/23/19 15:15 09/22/19 15:14 Polyethylene Glycol (Miralax) 17 gm DAILYPRN PRN ORAL Constipation 08/23/19 15:15 09/22/19 15:14 Quetiapine Fumarate (SEROqueL) 100 mg TWICE A DAY ORAL 08/23/19 18:00 09/22/19 17:59 08/25/19 09:03 Temazepam (Restoril) 15 mg HSPRN PRN ORAL Insomnia 08/23/19 15:15 08/30/19 15:14 08/24/19 21:01 Vancomycin HCl (Vanco rx to dose) 1 ea DAILY PRN MISC . 08/23/19 16:15 09/22/19 16:14 Vancomycin HCl 1 gm/Dextrose 275 ml @ 183.3 mls/ hr 0600,1400,2200 IVPB 08/25/19 07:15 08/30/19 07:14 08/25/19 13:34 Johnathan Kirk MD Aug 25, 2019 15:09
[2019-08-25] MEDS ORDERED: Tubing IV Secondary IV ONE (15:21)
[2019-08-25] MEDS ORDERED: NS 500ML ONE (15:21)
[2019-08-25 16:00] VITALS: BP 137/76
--- NOTE | 2019-08-25 16:26 | NUR ---
CASE MANAGEMENT:INITIAL REVIEW 49 YR OLD MALE BIBA FROM [facility] CONV CC;DYSPNEA. RESPIRATORY DISTRESS. SI;ALTERED MENTAL STATUS 98.2 89 28 128/83 96% RA WBC 12.1 UA - NEGATIVE IS;IV ACCESS SALINE LOCK CXR=Suspected mild CHF ADMITTED TO MED SURG MED SURG STATUS DCP;HOME VS SNF
--- NOTE | 2019-08-25 16:42 | NUR ---
CASE MANAGEMENT: REVIEW 08/24/19 SI;ALTERED MENTAL STATUS 97.9 59 16 102/59 97% RA H/H 21.4/63.1 H/H 13.4/39.6 IS;IV VANCOMYCIN TID IV CEFEPIME BID SEROQUEL PO BID CYMBALTA PO QD \: 3E MED SURG DCP;HOME VS SNF CASE MANAGEMENT: REVIEW 08/25/19 SI;ALTERED MENTAL STATUS 97.9 60 18 109/69 96% RA Hgb 14.1 IS;IV VANCOMYCIN TID IV CEFEPIME BID SEROQUEL PO BID CYMBALTA PO QD \: 3E MED SURG DCP;HOME VS SNF PLAN: [facility] CAN NOT ACCEPT PATIENT
[2019-08-25] MEDS: LORazepam 1mg tab ORAL PRN (17:47)
--- NOTE | 2019-08-25 19:25 | NUR ---
HAND-OFF: Report given to Ivan RN, pt in stable condition.
--- NOTE | 2019-08-25 19:27 | NUR ---
NURSE NOTES: Received report from MAXIMINO Gilman. Pt is sleeping, lying semi-jiang's; comfortably resting. No signs of acute distress noted. Pt denies any pain at this time. AOx2; able to make needs known. Checked IV site, line, and rate; patent and running TKO. No erythema, bleeding, or infiltration noted. Bed at lowest position. Brakes on. Siderails up and padded x2. Call light within reach. Will continue to monitor.
[2019-08-25 20:00] VITALS: BP 104/60
[2019-08-26] VITALS: BP 110/71
[2019-08-26 04:00] VITALS: BP 120/84
[2019-08-26 05:18] LABS: EOSINOPHILS % (AUTO) 2.6 % (0.0-3.0); HEMATOCRIT 41.8 % (42.0-52.0); HEMOGLOBIN 14.1 G/DL (14.2-18.0); LYMPHOCYTES % (AUTO) 23.7 % (20.0-45.0); MEAN CORPUSCULAR VOLUME 87 FL (80-99); MONOCYTES % (AUTO) 9.7 % (1.0-10.0); NEUTROPHILS % (AUTO) 62.9 % (45.0-75.0); PLATELET COUNT 314 K/UL (150-450); RED BLOOD COUNT 4.81 M/UL (4.70-6.10); RED CELL DISTRIBUTION WIDTH 11.7 % (11.6-14.8)
[2019-08-26 05:30] LABS: ANION GAP 14 mmol/L (5-15); BLOOD UREA NITROGEN 11 mg/dL (7-18); CALCIUM 9.3 MG/DL (8.5-10.1); CARBON DIOXIDE 22 MMOL/L (21-32); CHLORIDE 110 MMOL/L (98-107); CREATININE 0.8 MG/DL (0.55-1.30); SODIUM 146 MMOL/L (136-145)
[2019-08-26] MEDS: NovoLOG Insulin Flexpen SUBQ SCH ×4 (05:42→20:47)
[2019-08-26] MEDS: Vancomycin 1 GM in D5W 275 ML IVPB SCH (06:03)
--- NOTE | 2019-08-26 07:48 | NUR ---
HAND-OFF: Report given to MAXIMINO Rain. Pt is awake and in stable condition. Plan of care endorsed.
--- NOTE | 2019-08-26 07:57 | NUR ---
NURSE NOTES: Received patient in bed awake. No SOB or acute distress. IV line intact and patent. HOB elevated. Bed locked in lowest position. Call light within reach. Will continue plan of care.
[2019-08-26 08:00] VITALS: BP_SYST 122; BP_SYST 164; BP_DIAS 74; BP_DIAS 82
[2019-08-26] MEDS: Cefepime HCl 2 GM in D5W 110 ML IV SCH ×4 (08:29→23:09)
[2019-08-26] MEDS: DULoxetine 30mg cap ORAL SCH (08:29)
[2019-08-26] MEDS: Heparin 5000 units/ml inj SUBQ SCH ×2 (08:30→20:49)
--- NOTE | 2019-08-26 10:45 | Progress Note ---
DATE: 08/25/2019 SUBJECTIVE: This is a 49-year-old male. Still has altered mental status, confusion, intermittent bouts of agitation, irritability, and mood lability. DIAGNOSIS: Paranoid schizophrenia. PLAN: I am going to continue titrating up on his Seroquel to help stabilize his mood. 00:15 Continue Ativan as needed to help reduce agitation 1 mg every 6 hours p.r.n. anxiety, agitation. 20 minutes of cognitive behavioral therapy to help him identify his automatic negative thoughts, help him convert his negative thoughts to more positive thoughts to reduce depression, anxiety, suicidality. Chart reviewed. Discussed with staff. Seen and assessed at bedside. Yvonne Rosenberg M.D. DR: GINA JOB#: [id number] CC:
--- NOTE | 2019-08-26 11:05 | Infectious Diseases Prog Note ---
Assessment/Plan Assessment/Plan ASSESSMENT: The patient is a 49-year-old male with: Probable sepsis, sp Probable pneumonia. no evid of bacteremia. Leukocytosis, mild Afebrile. Hypertension. Depression. CHF. CVA. History of anxiety. History of left-sided weakness due to stroke. PLAN: Cont on cefepime # 4 / 7 DC IV vancomycin # 4 Monitor CBC Monitor BMP. Monitor cultures (blood, urine, and sputum) Monitor chest x-ray. Subjective Allergies: Coded Allergies: No Known Allergies (Unverified , 06/01/19) Subjective afebrile comfortable Objective Vital Signs Last 24 Hour Vital Signs Date Time Temp Pulse Resp B/P (MAP) Pulse Ox O2 Delivery O2 Flow Rate FiO2 08/26/19 08:26 69 16 96 Room Air 21 08/26/19 08:00 98.0 64 20 122/82 (95) 96 08/26/19 04:00 97.6 61 18 120/84 (96) 97 08/26/19 00:00 98.1 80 18 110/71 (84) 97 08/25/19 21:00 Room Air 08/25/19 20:14 67 18 95 Room Air 21 08/25/19 20:00 98.2 73 18 104/60 (75) 94 08/25/19 16:00 98.1 71 20 137/76 (96) 98 08/25/19 12:00 98.4 71 20 114/70 (85) 98 Height (Feet): 5 Height (Inches): 5.00 Weight (Pounds): 139 HEENT: mucous membranes moist Respiratory/Chest: normal breath sounds Cardiovascular: regular rhythm Abdomen: no organomegaly Microbiology Date/Time Source Procedure Growth Status 08/23/19 13:35 Blood Blood Culture - Preliminary NO GROWTH AFTER 48 HOURS Resulted 08/23/19 13:20 Blood Blood Culture - Preliminary NO GROWTH AFTER 48 HOURS Resulted Laboratory Tests Test 08/26/19 05:00 08/26/19 05:04 Vancomycin Level Trough 13.4 ug/mL (5.0-12.0) H White Blood Count 11.0 K/UL (4.8-10.8) H Red Blood Count 4.81 M/UL (4.70-6.10) Hemoglobin 14.1 G/DL (14.2-18.0) L Hematocrit 41.8 % (42.0-52.0) L Mean Corpuscular Volume 87 FL (80-99) Mean Corpuscular Hemoglobin 29.4 PG (27.0-31.0) Mean Corpuscular Hemoglobin Concent 33.9 G/DL (32.0-36.0) Red Cell Distribution Width 11.7 % (11.6-14.8) Platelet Count 314 K/UL (150-450) Mean Platelet Volume 6.5 FL (6.5-10.1) Neutrophils (%) (Auto) 62.9 % (45.0-75.0) Lymphocytes (%) (Auto) 23.7 % (20.0-45.0) Monocytes (%) (Auto) 9.7 % (1.0-10.0) Eosinophils (%) (Auto) 2.6 % (0.0-3.0) Basophils (%) (Auto) 1.0 % (0.0-2.0) Sodium Level 146 MMOL/L (136-145) H Potassium Level 4.0 MMOL/L (3.5-5.1) Chloride Level 110 MMOL/L (98-107) H Carbon Dioxide Level 22 MMOL/L (21-32) Anion Gap 14 mmol/L (5-15) Blood Urea Nitrogen 11 mg/dL (7-18) Creatinine 0.8 MG/DL (0.55-1.30) Estimat Glomerular Filtration Rate > 60 mL/min (>60) Glucose Level 105 MG/DL (74-106) Calcium Level 9.3 MG/DL (8.5-10.1) Current Medications Medications (Trade) Dose Ordered Sig/Jannet Route PRN Reason Start Time Stop Time Status Last Admin Dose Admin Acetaminophen (Tylenol) 650 mg Q4H PRN ORAL fever 08/23/19 15:15 09/22/19 15:14 08/24/19 07:29 Albuterol/ Ipratropium (Albuterol/ Ipratropium) 3 ml Q4H PRN HHN Shortness of Breath 08/23/19 15:15 08/28/19 15:14 Cefepime HCl 2 gm/ Dextrose 110 ml @ 220 mls/hr EVERY 12 HOURS IV 08/23/19 21:00 08/30/19 20:59 08/26/19 08:29 Dextrose (Dextrose 50%) 25 ml Q30M PRN IV Hypoglycemia 08/23/19 15:15 09/22/19 15:14 Dextrose (Dextrose 50%) 50 ml Q30M PRN IV Hypoglycemia 08/23/19 15:15 09/22/19 15:14 Duloxetine HCl (Cymbalta) 30 mg DAILY ORAL 08/24/19 09:00 09/23/19 08:59 08/26/19 08:29 Heparin Sodium (Porcine) (Heparin 5000 units/ml) 5,000 units EVERY 12 HOURS SUBQ 08/23/19 21:00 09/22/19 20:59 08/26/19 08:30 Insulin Aspart (NovoLOG) BEFORE MEALS AND HS SUBQ 08/23/19 17:00 09/22/19 16:59 Lorazepam (Ativan) 1 mg Q6H PRN ORAL For Anxiety 08/24/19 05:00 08/31/19 04:59 08/25/19 17:47 Ondansetron HCl (Zofran) 4 mg Q6H PRN IVP Nausea & Vomiting 08/23/19 15:15 09/22/19 15:14 Polyethylene Glycol (Miralax) 17 gm DAILYPRN PRN ORAL Constipation 08/23/19 15:15 09/22/19 15:14 Quetiapine Fumarate (SEROqueL) 100 mg TWICE A DAY ORAL 08/23/19 18:00 09/22/19 17:59 08/26/19 08:29 Temazepam (Restoril) 15 mg HSPRN PRN ORAL Insomnia 08/23/19 15:15 08/30/19 15:14 08/25/19 21:39 Vancomycin HCl (Vanco rx to dose) 1 ea DAILY PRN MISC . 08/23/19 16:15 09/22/19 16:14 Vancomycin/Sodium Chloride 275 ml @ 137.5 mls/ hr Q8H IVPB 08/26/19 14:00 08/31/19 13:59 Johnathan Kirk MD Aug 26, 2019 11:05
--- NOTE | 2019-08-26 11:44 | General Progress Note ---
Assessment/Plan Problem List: (1) Fever ICD Codes: R50.9 - Fever, unspecified SNOMED: 315252125 (2) SOB (shortness of breath) ICD Codes: R06.02 - Shortness of breath SNOMED: 057902383 (3) Sepsis ICD Codes: A41.9 - Sepsis, unspecified organism SNOMED: 12860630 (4) Depression ICD Codes: F32.9 - Major depressive disorder, single episode, unspecified SNOMED: 54024486 (5) Psychiatric disorder ICD Codes: F99 - Mental disorder, not otherwise specified SNOMED: 10817626 (6) HTN (hypertension) ICD Codes: I10 - Essential (primary) hypertension SNOMED: 93875116 (7) CHF (congestive heart failure) ICD Codes: I50.9 - Heart failure, unspecified SNOMED: 02528212 (8) CVA (cerebral vascular accident) ICD Codes: I63.9 - Cerebral infarction, unspecified SNOMED: 152416045 (9) Diabetes ICD Codes: E11.9 - Type 2 diabetes mellitus without complications SNOMED: 89240400 (10) AMS (altered mental status) ICD Codes: R41.82 - Altered mental status, unspecified SNOMED: 515734324 (11) Encephalopathy ICD Codes: G93.40 - Encephalopathy, unspecified SNOMED: 20567284 Status: stable, progressing Assessment/Plan: o2 pulm tx abx pt diet dc to snf Subjective Constitutional: Reports: weakness Allergies: Coded Allergies: No Known Allergies (Unverified , 06/01/19) All Systems: reviewed and negative except above Subjective sleepy confused in bed Objective Last 24 Hour Vital Signs Date Time Temp Pulse Resp B/P (MAP) Pulse Ox O2 Delivery O2 Flow Rate FiO2 08/26/19 08:26 69 16 96 Room Air 21 08/26/19 08:00 98.0 64 20 122/82 (95) 96 08/26/19 04:00 97.6 61 18 120/84 (96) 97 08/26/19 00:00 98.1 80 18 110/71 (84) 97 08/25/19 21:00 Room Air 08/25/19 20:14 67 18 95 Room Air 21 08/25/19 20:00 98.2 73 18 104/60 (75) 94 08/25/19 16:00 98.1 71 20 137/76 (96) 98 08/25/19 12:00 98.4 71 20 114/70 (85) 98 Laboratory Tests 08/26/19 05:00: Vancomycin Level Trough 13.4H 08/26/19 05:04: White Blood Count 11.0H, Red Blood Count 4.81, Hemoglobin 14.1L, Hematocrit 41.8L, Mean Corpuscular Volume 87, Mean Corpuscular Hemoglobin 29.4, Mean Corpuscular Hemoglobin Concent 33.9, Red Cell Distribution Width 11.7, Platelet Count 314, Mean Platelet Volume 6.5, Neutrophils (%) (Auto) 62.9, Lymphocytes (% ) (Auto) 23.7, Monocytes (%) (Auto) 9.7, Eosinophils (%) (Auto) 2.6, Basophils ( %) (Auto) 1.0, Sodium Level 146H, Potassium Level 4.0, Chloride Level 110H, Carbon Dioxide Level 22, Anion Gap 14, Blood Urea Nitrogen 11, Creatinine 0.8, Estimat Glomerular Filtration Rate > 60, Glucose Level 105, Calcium Level 9.3 Height (Feet): 5 Height (Inches): 5.00 Weight (Pounds): 139 General Appearance: lethargic EENT: normal ENT inspection Neck: normal alignment Cardiovascular: normal peripheral pulses, normal rate, regular rhythm Respiratory/Chest: chest wall non-tender, lungs clear, normal breath sounds Abdomen: normal bowel sounds, non tender, soft Extremities: normal inspection Edema: no edema noted Arm (L), no edema noted Arm (R), no edema noted Leg (L), no edema noted Leg (R), no edema noted Pedal (L), no edema noted Pedal (R), no edema noted Generalized Neurologic: motor weakness Skin: normal pigmentation, warm/dry Bakari Logan DO Aug 26, 2019 11:44
[2019-08-26 12:00] VITALS: BP 97/66
--- NOTE | 2019-08-26 12:07 | NUR ---
DISCHARGE PLANNING: PATIENT BEING REFERRED TO MULTIPLE SNF PATIENT IS NOT ACCEPTED BACK TO [facility]
[2019-08-26] MEDS ORDERED: Vancomycin 1.5gm/NS Premix q24h IVPB SCH (14:00)
--- NOTE | 2019-08-26 14:14 | NUR ---
CASE MANAGEMENT: REVIEW 08/26/19 SI;ALTERED MENTAL STATUS 98.0 64 20 122/82 96% RA WBC 11.0 NA+ 146 CL-110 IS; IV CEFEPIME BID SEROQUEL PO BID CYMBALTA PO QD HEPARIN SQ BID RESTORIL PO QHS/PRN \: 3E MED SURG DCP;HOME VS SNF PLAN: SEEKING SAFE PLACEMENT
--- NOTE | 2019-08-26 14:38 | Pulmonology Progress Note ---
Assessment/Plan Problems: (1) Encephalopathy (2) Sepsis (3) CVA (cerebral vascular accident) (4) HTN (hypertension) (5) Psychiatric disorder (6) Diabetes (7) Depression Assessment/Plan no new complains afebrile doing better coehn cultures id evaluation sliding scale dvt prophylaxis symptomatic treatment/ Subjective ROS Limited/Unobtainable: No Constitutional: Reports: no symptoms Allergies: Coded Allergies: No Known Allergies (Unverified , 06/01/19) Objective Last 24 Hour Vital Signs Date Time Temp Pulse Resp B/P (MAP) Pulse Ox O2 Delivery O2 Flow Rate FiO2 08/26/19 12:00 97.1 83 18 97/66 (76) 94 08/26/19 08:26 69 16 96 Room Air 21 08/26/19 08:00 98.0 64 20 122/82 (95) 96 08/26/19 04:00 97.6 61 18 120/84 (96) 97 08/26/19 00:00 98.1 80 18 110/71 (84) 97 08/25/19 21:00 Room Air 08/25/19 20:14 67 18 95 Room Air 21 08/25/19 20:00 98.2 73 18 104/60 (75) 94 08/25/19 16:00 98.1 71 20 137/76 (96) 98 HEENT: normocephalic, atraumatic Respiratory/Chest: chest wall non-tender Cardiovascular: normal peripheral pulses Abdomen: normal bowel sounds, soft, non tender Neurologic/Psychiatric: no motor/sensory deficits, alert Microbiology Date/Time Source Procedure Growth Status 08/23/19 16:05 Nasal Nares MRSA Culture - Final NO METHICILLIN RESISTANT STAPH AUREUS... Complete Laboratory Tests 08/26/19 05:00: Vancomycin Level Trough 13.4H 08/26/19 05:04: White Blood Count 11.0H, Red Blood Count 4.81, Hemoglobin 14.1L, Hematocrit 41.8L, Mean Corpuscular Volume 87, Mean Corpuscular Hemoglobin 29.4, Mean Corpuscular Hemoglobin Concent 33.9, Red Cell Distribution Width 11.7, Platelet Count 314, Mean Platelet Volume 6.5, Neutrophils (%) (Auto) 62.9, Lymphocytes (% ) (Auto) 23.7, Monocytes (%) (Auto) 9.7, Eosinophils (%) (Auto) 2.6, Basophils ( %) (Auto) 1.0, Sodium Level 146H, Potassium Level 4.0, Chloride Level 110H, Carbon Dioxide Level 22, Anion Gap 14, Blood Urea Nitrogen 11, Creatinine 0.8, Estimat Glomerular Filtration Rate > 60, Glucose Level 105, Calcium Level 9.3 Current Medications Medications (Trade) Dose Ordered Sig/Jannet Route PRN Reason Start Time Stop Time Status Last Admin Dose Admin Acetaminophen (Tylenol) 650 mg Q4H PRN ORAL fever 08/23/19 15:15 09/22/19 15:14 08/24/19 07:29 Albuterol/ Ipratropium (Albuterol/ Ipratropium) 3 ml Q4H PRN HHN Shortness of Breath 08/23/19 15:15 08/28/19 15:14 Cefepime HCl 2 gm/ Dextrose 110 ml @ 220 mls/hr EVERY 12 HOURS IV 08/23/19 21:00 08/30/19 20:59 08/26/19 08:29 Dextrose (Dextrose 50%) 25 ml Q30M PRN IV Hypoglycemia 08/23/19 15:15 09/22/19 15:14 Dextrose (Dextrose 50%) 50 ml Q30M PRN IV Hypoglycemia 08/23/19 15:15 09/22/19 15:14 Duloxetine HCl (Cymbalta) 30 mg DAILY ORAL 08/24/19 09:00 09/23/19 08:59 08/26/19 08:29 Heparin Sodium (Porcine) (Heparin 5000 units/ml) 5,000 units EVERY 12 HOURS SUBQ 08/23/19 21:00 09/22/19 20:59 08/26/19 08:30 Insulin Aspart (NovoLOG) BEFORE MEALS AND HS SUBQ 08/23/19 17:00 09/22/19 16:59 Lorazepam (Ativan) 1 mg Q6H PRN ORAL For Anxiety 08/24/19 05:00 08/31/19 04:59 08/25/19 17:47 Ondansetron HCl (Zofran) 4 mg Q6H PRN IVP Nausea & Vomiting 08/23/19 15:15 09/22/19 15:14 Polyethylene Glycol (Miralax) 17 gm DAILYPRN PRN ORAL Constipation 08/23/19 15:15 09/22/19 15:14 Quetiapine Fumarate (SEROqueL) 100 mg TWICE A DAY ORAL 08/23/19 18:00 09/22/19 17:59 08/26/19 08:29 Temazepam (Restoril) 15 mg HSPRN PRN ORAL Insomnia 08/23/19 15:15 08/30/19 15:14 08/25/19 21:39 Luis Cody MD Aug 26, 2019 14:38
--- NOTE | 2019-08-26 15:02 | NUR ---
*-* INSURANCE *-* ALL CLINICALS AND REVIEWS HAVE BEEN FAXED TO: [facility] HERNANDEZ AUTH# [id number] FAX ALL CLINICALS TO: [phone]
--- NOTE | 2019-08-26 15:32 | NUR ---
*-*DISCHARGE PLANNING*-* PATIENT HAS BEEN REFERRED TO: [facility] P: [phone] F: [phone] [facility] P: [phone] F: [phone] [facility] P: [phone] F: [phone] [facility] P: [phone] F: [phone] [facility] P: [phone] F: [phone] [facility] P: [phone] F: [phone] [facility] P: [phone] F: [phone] [facility] P: [phone] F: [phone] -------*-*CLINICALS FAXED*----*----
[2019-08-26 16:00] VITALS: BP 128/70
--- NOTE | 2019-08-26 16:45 | Progress Note ---
DATE: 08/26/2019 SUBJECTIVE: This is a 49-year-old male with encephalopathy, but he is confused, disorganized. He has altered mental status, decline in cognition below the baseline. That is why, his attending physician has requested daily psychiatric consultation. The patient is very irritable, confused, and disorganized. DIAGNOSIS: Major depressive disorder, severe, recurrent with psychotic features, rule out dementia with psychosis. PLAN: Continue treating with Seroquel twice a day and Ativan 1 q.6 hours as needed. 20 minutes of cognitive behavioral therapy to help him identify his automatic negative thoughts, help him convert his negative thoughts to more positive thoughts to reduce depression, anxiety, mood lability. Chart reviewed. Discussed with staff. Seen and assessed at the bedside. Yvonne Rosenberg M.D. DR: GINA JOB#: [id number] CC:
--- NOTE | 2019-08-26 19:41 | NUR ---
HAND-OFF: Report given to laureen.
--- NOTE | 2019-08-26 19:43 | NUR ---
NURSE NOTES: Received report from Briseyda RN. Rounding is done. is at bedside. Patient is a/o x2. Denied any pain or distress at this time. IV site is intact and patient. Bed is on alarm, locked, and lowest position. Call light within reach. Will continue to monitor.
[2019-08-26 20:00] VITALS: BP 119/81
[2019-08-27] VITALS: BP 122/78
[2019-08-27 04:00] VITALS: BP 120/73
[2019-08-27] MEDS: NovoLOG Insulin Flexpen SUBQ SCH ×4 (05:32→20:30)
--- NOTE | 2019-08-27 07:37 | Pulmonology Progress Note ---
Assessment/Plan Assessment/Plan ASSESSMENT Probable sepsis Probable pneumonia Encephalopathy Diabetes mellitus Hypertension History of CVA with a left-sided weakness Major depressive disorder with psychotic features PLAN OF CARE MS floor abx as per ID f/up with cx O2 HHN PRN DVT prophylaxis fup with CXR BS management with SSI psych meds as per psychiatrist supportive care case discussed and evaluated by supervising physician Subjective Allergies: Coded Allergies: No Known Allergies (Unverified , 06/01/19) Subjective no signs of resp distress Objective Last 24 Hour Vital Signs Date Time Temp Pulse Resp B/P (MAP) Pulse Ox O2 Delivery O2 Flow Rate FiO2 08/27/19 04:00 97.2 61 18 120/73 (89) 95 08/27/19 00:00 96.6 61 18 122/78 (93) 97 08/26/19 21:00 Room Air 08/26/19 20:00 96.8 72 18 119/81 (94) 94 08/26/19 19:53 56 18 96 Room Air 21 08/26/19 16:00 98.1 62 20 128/70 (89) 97 08/26/19 12:00 97.1 83 18 97/66 (76) 94 08/26/19 09:00 Room Air 08/26/19 08:26 69 16 96 Room Air 21 08/26/19 08:00 98.0 64 20 122/82 (95) 96 Intake and Output 08/26/19 08/27/19 19:00 07:00 Intake Total 110 ml 110 ml Balance 110 ml 110 ml IV Total 110 ml 110 ml General Appearance: no acute distress HEENT: normocephalic, atraumatic, mucous membranes moist Respiratory/Chest: normal breath sounds Cardiovascular: normal rate Abdomen: normal bowel sounds, non distended Extremities: no edema, pedal pulses normal Skin: no rash Neurologic/Psychiatric: alert, other - left sided weakness Current Medications Medications (Trade) Dose Ordered Sig/Jannet Route PRN Reason Start Time Stop Time Status Last Admin Dose Admin Acetaminophen (Tylenol) 650 mg Q4H PRN ORAL fever 08/23/19 15:15 09/22/19 15:14 08/24/19 07:29 Albuterol/ Ipratropium (Albuterol/ Ipratropium) 3 ml Q4H PRN HHN Shortness of Breath 08/23/19 15:15 08/28/19 15:14 Cefepime HCl 2 gm/ Dextrose 110 ml @ 220 mls/hr EVERY 12 HOURS IV 08/23/19 21:00 08/30/19 20:59 08/26/19 23:09 Dextrose (Dextrose 50%) 25 ml Q30M PRN IV Hypoglycemia 08/23/19 15:15 09/22/19 15:14 Dextrose (Dextrose 50%) 50 ml Q30M PRN IV Hypoglycemia 08/23/19 15:15 09/22/19 15:14 Duloxetine HCl (Cymbalta) 30 mg DAILY ORAL 08/24/19 09:00 09/23/19 08:59 08/26/19 08:29 Heparin Sodium (Porcine) (Heparin 5000 units/ml) 5,000 units EVERY 12 HOURS SUBQ 08/23/19 21:00 09/22/19 20:59 08/26/19 20:49 Insulin Aspart (NovoLOG) BEFORE MEALS AND HS SUBQ 08/23/19 17:00 09/22/19 16:59 Lorazepam (Ativan) 1 mg Q6H PRN ORAL For Anxiety 08/24/19 05:00 08/31/19 04:59 08/25/19 17:47 Ondansetron HCl (Zofran) 4 mg Q6H PRN IVP Nausea & Vomiting 08/23/19 15:15 09/22/19 15:14 Polyethylene Glycol (Miralax) 17 gm DAILYPRN PRN ORAL Constipation 08/23/19 15:15 09/22/19 15:14 Quetiapine Fumarate (SEROqueL) 100 mg TWICE A DAY ORAL 08/23/19 18:00 09/22/19 17:59 08/26/19 17:05 Temazepam (Restoril) 15 mg HSPRN PRN ORAL Insomnia 08/23/19 15:15 08/30/19 15:14 08/26/19 23:11 Giselle Story TECHNOLOGY ARCHITECT Aug 27, 2019 07:37
--- NOTE | 2019-08-27 07:50 | NUR ---
NURSE NOTES: Report received from Emery RN, rounds made. Patient sleeping in left lateral position in bed. No distress on RA. LH heplock intact. Call light in reach, bed in lowest position, will continue to monitor.
--- NOTE | 2019-08-27 07:54 | NUR ---
HAND-OFF: Report given to Tierra STANTON. Patient in stable condition.
[2019-08-27 08:00] VITALS: BP 131/80
--- NOTE | 2019-08-27 09:35 | General Progress Note ---
Assessment/Plan Problem List: (1) Fever ICD Codes: R50.9 - Fever, unspecified SNOMED: 946366380 (2) SOB (shortness of breath) ICD Codes: R06.02 - Shortness of breath SNOMED: 274304003 (3) Sepsis ICD Codes: A41.9 - Sepsis, unspecified organism SNOMED: 32721269 (4) Depression ICD Codes: F32.9 - Major depressive disorder, single episode, unspecified SNOMED: 79483996 (5) Psychiatric disorder ICD Codes: F99 - Mental disorder, not otherwise specified SNOMED: 15632147 (6) HTN (hypertension) ICD Codes: I10 - Essential (primary) hypertension SNOMED: 15991592 (7) CHF (congestive heart failure) ICD Codes: I50.9 - Heart failure, unspecified SNOMED: 57618840 (8) CVA (cerebral vascular accident) ICD Codes: I63.9 - Cerebral infarction, unspecified SNOMED: 856131404 (9) Diabetes ICD Codes: E11.9 - Type 2 diabetes mellitus without complications SNOMED: 22248322 (10) AMS (altered mental status) ICD Codes: R41.82 - Altered mental status, unspecified SNOMED: 982579238 (11) Encephalopathy ICD Codes: G93.40 - Encephalopathy, unspecified SNOMED: 77929652 Status: stable, progressing Assessment/Plan: o2 pulm tx abx pt diet dc to snf vs home w hh Subjective Constitutional: Reports: weakness Allergies: Coded Allergies: No Known Allergies (Unverified , 06/01/19) All Systems: reviewed and negative except above Subjective sleepy confused in bed Objective Last 24 Hour Vital Signs Date Time Temp Pulse Resp B/P (MAP) Pulse Ox O2 Delivery O2 Flow Rate FiO2 08/27/19 04:00 97.2 61 18 120/73 (89) 95 08/27/19 00:00 96.6 61 18 122/78 (93) 97 08/26/19 21:00 Room Air 08/26/19 20:00 96.8 72 18 119/81 (94) 94 08/26/19 19:53 56 18 96 Room Air 21 08/26/19 16:00 98.1 62 20 128/70 (89) 97 08/26/19 12:00 97.1 83 18 97/66 (76) 94 Intake and Output 08/26/19 08/27/19 19:00 07:00 Intake Total 110 ml 110 ml Balance 110 ml 110 ml IV Total 110 ml 110 ml Height (Feet): 5 Height (Inches): 5.00 Weight (Pounds): 139 General Appearance: lethargic EENT: normal ENT inspection Neck: normal alignment Cardiovascular: normal peripheral pulses, normal rate, regular rhythm Respiratory/Chest: chest wall non-tender, lungs clear, normal breath sounds Abdomen: normal bowel sounds, non tender, soft Extremities: normal inspection Edema: no edema noted Arm (L), no edema noted Arm (R), no edema noted Leg (L), no edema noted Leg (R), no edema noted Pedal (L), no edema noted Pedal (R), no edema noted Generalized Neurologic: motor weakness Skin: normal pigmentation, warm/dry Bakari Logan DO Aug 27, 2019 09:34
[2019-08-27] MEDS: Cefepime HCl 2 GM in D5W 110 ML IV SCH (09:58)
[2019-08-27] MEDS: DULoxetine 30mg cap ORAL SCH (09:58)
[2019-08-27] MEDS: Heparin 5000 units/ml inj SUBQ SCH ×2 (10:00→20:28)
[2019-08-27 12:00] VITALS: BP 124/78
[2019-08-27] MEDS ORDERED: NS 275ml ONE (13:02)
[2019-08-27] MEDS ORDERED: Tubing IV Secondary IV ONE (13:02)
--- NOTE | 2019-08-27 13:15 | Progress Note ---
DATE: 08/27/2019 SUBJECTIVE: This is a 49-year-old male patient with encephalopathy. He also some anxiety with psychomotor agitation as well. That is why, the attending has requested daily psychiatric consultation. MENTAL STATUS EXAMINATION: This is a 49-year-old male. Appearance is disheveled. Attitude, irritable and agitated. Affect, guarded and restricted. Intellect poor. Mood, depressed and anxious. Motor activity, psychomotor agitation. Attention span is poor. Orientation x2. Speech is low volume, slurred. Thought process, disorganized and illogical. Insight and judgment is poor. DIAGNOSIS: Paranoid schizophrenia with acute exacerbation. PLAN: I am going to treat the patient with medication to stabilize his mood. A 20 minutes of cognitive behavioral therapy to help him identify his automatic negative thoughts, help him convert his negative thoughts to more positive thoughts to reduce depression, anxiety, and mood lability. Chart reviewed. Discussed with staff. Seen and assessed at the bedside. Yvonne Rosenberg M.D. DR: FRANNIE JOB#: [id number] CC:
[2019-08-27 16:00] VITALS: BP 115/71
--- NOTE | 2019-08-27 16:09 | Infectious Diseases Prog Note ---
Assessment/Plan Assessment/Plan ASSESSMENT: The patient is a 49-year-old male with: Probable sepsis, sp Probable pneumonia. no evid of bacteremia. Leukocytosis, mild Afebrile. Hypertension. Depression. CHF. CVA. History of anxiety. History of left-sided weakness due to stroke. PLAN: Cont on cefepime # 5 / 7 08/26 SP IV vancomycin # 4 Monitor CBC Monitor BMP. Monitor cultures (blood, urine, and sputum) Monitor chest x-ray. Subjective Allergies: Coded Allergies: No Known Allergies (Unverified , 06/01/19) Subjective afebrile mild leukocytosis Objective Vital Signs Last 24 Hour Vital Signs Date Time Temp Pulse Resp B/P (MAP) Pulse Ox O2 Delivery O2 Flow Rate FiO2 08/27/19 12:00 97.8 90 18 124/78 (93) 97 08/27/19 09:00 Room Air 08/27/19 08:00 98.7 78 18 131/80 (97) 96 08/27/19 04:00 97.2 61 18 120/73 (89) 95 08/27/19 00:00 96.6 61 18 122/78 (93) 97 08/26/19 21:00 Room Air 08/26/19 20:00 96.8 72 18 119/81 (94) 94 08/26/19 19:53 56 18 96 Room Air 21 Height (Feet): 5 Height (Inches): 5.00 Weight (Pounds): 139 Objective General Appearance: lethargic EENT: normal ENT inspection Neck: normal alignment Cardiovascular: normal peripheral pulses, normal rate, regular rhythm Respiratory/Chest: chest wall non-tender, lungs clear, normal breath sounds Abdomen: normal bowel sounds, non tender, soft Extremities: normal inspection Edema: no edema noted Arm (L), no edema noted Arm (R), no edema noted Leg (L), no edema noted Leg (R), no edema noted Pedal (L), no edema noted Pedal (R), no edema noted Generalized Neurologic: motor weakness Skin: normal pigmentation, warm/dry Current Medications Medications (Trade) Dose Ordered Sig/Jannet Route PRN Reason Start Time Stop Time Status Last Admin Dose Admin Acetaminophen (Tylenol) 650 mg Q4H PRN ORAL fever 08/23/19 15:15 09/22/19 15:14 08/24/19 07:29 Albuterol/ Ipratropium (Albuterol/ Ipratropium) 3 ml Q4H PRN HHN Shortness of Breath 08/23/19 15:15 08/28/19 15:14 Cefepime HCl 2 gm/ Dextrose 110 ml @ 220 mls/hr EVERY 12 HOURS IV 08/23/19 21:00 08/30/19 20:59 08/27/19 09:58 Dextrose (Dextrose 50%) 25 ml Q30M PRN IV Hypoglycemia 08/23/19 15:15 09/22/19 15:14 Dextrose (Dextrose 50%) 50 ml Q30M PRN IV Hypoglycemia 08/23/19 15:15 09/22/19 15:14 Duloxetine HCl (Cymbalta) 30 mg DAILY ORAL 08/24/19 09:00 09/23/19 08:59 08/27/19 09:58 Heparin Sodium (Porcine) (Heparin 5000 units/ml) 5,000 units EVERY 12 HOURS SUBQ 08/23/19 21:00 09/22/19 20:59 08/27/19 10:00 Insulin Aspart (NovoLOG) BEFORE MEALS AND HS SUBQ 08/23/19 17:00 09/22/19 16:59 Lorazepam (Ativan) 1 mg Q6H PRN ORAL For Anxiety 08/24/19 05:00 08/31/19 04:59 08/25/19 17:47 Ondansetron HCl (Zofran) 4 mg Q6H PRN IVP Nausea & Vomiting 08/23/19 15:15 09/22/19 15:14 Polyethylene Glycol (Miralax) 17 gm DAILYPRN PRN ORAL Constipation 08/23/19 15:15 09/22/19 15:14 Quetiapine Fumarate (SEROqueL) 100 mg TWICE A DAY ORAL 08/23/19 18:00 09/22/19 17:59 08/27/19 09:58 Temazepam (Restoril) 15 mg HSPRN PRN ORAL Insomnia 08/23/19 15:15 08/30/19 15:14 08/26/19 23:11 Ml Donald M.D. Aug 27, 2019 16:09
--- NOTE | 2019-08-27 18:40 | NUR ---
NURSE NOTES: Dr. Donald notified that patient removed IV heplock earlier in shift and only requires it for IV antibiotics, family asking if patient still needs IV abx. Reviewed cultures, (sputum never obtained, no cough), (urine culture cancelled previously on order history), order received for Levaquin 750 mg PO daily and Maxipime DC, see order. Patient and family notified of new order.
--- NOTE | 2019-08-27 19:29 | NUR ---
HAND-OFF: Report given to Niki RN, rounds made. Patient stable, spouse at bedside. Endorsed new PO antibiotic order.
--- NOTE | 2019-08-27 19:30 | NUR ---
NURSE NOTES: Received report & pt from MAXIMINO Mayorga. Pt lying in bed, Greek speaking only, in room air, family member at bedside. No s/s of acute distress & no s/s of pain at this time. No IV access & MD aware. B/L side rails padded for seizure precautions. Plan of care discussed.
[2019-08-27 20:00] VITALS: BP 110/65
[2019-08-28] MEDS: NovoLOG Insulin Flexpen SUBQ SCH ×4 (06:30→21:00)
--- NOTE | 2019-08-28 07:12 | NUR ---
NURSE NOTES: Report received from Niki STANTON, rounds made. Patient resting in supine position in bed, alert oriented x2 calm. No IV access. Spouse at bedside, expresses concern about patient's poor appetite, not eating any meals yesterday, will notify MD. Call light in reach, bed in lowest position, will continue to monitor.
[2019-08-28 07:14] LABS: ANION GAP 12 mmol/L (5-15); BLOOD UREA NITROGEN 9 mg/dL (7-18); CALCIUM 9.2 MG/DL (8.5-10.1); CARBON DIOXIDE 23 MMOL/L (21-32); CHLORIDE 107 MMOL/L (98-107); CREATININE 0.7 MG/DL (0.55-1.30); POTASSIUM 3.8 MMOL/L (3.5-5.1); SODIUM 142 MMOL/L (136-145)
--- NOTE | 2019-08-28 07:14 | NUR ---
HAND-OFF: Report given to MAXIMINO Mayorga. Rounds done.
[2019-08-28 07:18] LABS: BASOPHILS % (AUTO) 0.8 % (0.0-2.0); EOSINOPHILS % (AUTO) 3.2 % (0.0-3.0); HEMATOCRIT 39.9 % (42.0-52.0); HEMOGLOBIN 13.6 G/DL (14.2-18.0); LYMPHOCYTES % (AUTO) 27.1 % (20.0-45.0); MEAN CORPUSCULAR VOLUME 88 FL (80-99); MONOCYTES % (AUTO) 10.6 % (1.0-10.0); NEUTROPHILS % (AUTO) 58.3 % (45.0-75.0); PLATELET COUNT 298 K/UL (150-450); RED BLOOD COUNT 4.53 M/UL (4.70-6.10); WHITE BLOOD COUNT 9.9 K/UL (4.8-10.8)
--- NOTE | 2019-08-28 07:29 | Pulmonology Progress Note ---
Assessment/Plan Assessment/Plan ASSESSMENT Probable sepsis Probable pneumonia Encephalopathy Diabetes mellitus Hypertension History of CVA with a left-sided weakness Major depressive disorder with psychotic features PLAN OF CARE MS floor abx as per ID f/up with cx, BCX NGTD O2 HHN PRN DVT prophylaxis fup with CXR BS management with SSI psych meds as per psychiatrist supportive care case discussed and evaluated by supervising physician Subjective Allergies: Coded Allergies: No Known Allergies (Unverified , 06/01/19) Subjective no signs of resp distress Objective Last 24 Hour Vital Signs Date Time Temp Pulse Resp B/P (MAP) Pulse Ox O2 Delivery O2 Flow Rate FiO2 08/27/19 21:00 Room Air 08/27/19 20:00 97.2 66 16 110/65 (80) 96 08/27/19 16:00 98.3 82 18 115/71 (86) 95 08/27/19 12:00 97.8 90 18 124/78 (93) 97 08/27/19 09:40 75 18 97 Room Air 21 08/27/19 09:00 Room Air 08/27/19 08:00 98.7 78 18 131/80 (97) 96 Intake and Output 08/27/19 08/28/19 19:00 07:00 Intake Total 300 ml 240 ml Balance 300 ml 240 ml Intake Oral 300 ml 240 ml # Voids 2 1 # Bowel Movements 2 Objective General Appearance: no acute distress HEENT: normocephalic, atraumatic, mucous membranes moist Respiratory/Chest: normal breath sounds Cardiovascular: normal rate Abdomen: normal bowel sounds, non distended Extremities: no edema, pedal pulses normal Skin: no rash Neurologic/Psychiatric: alert, other - left sided weakness Laboratory Tests 08/28/19 05:05: White Blood Count [Pending], Red Blood Count [Pending], Hemoglobin [Pending], Hematocrit [Pending], Mean Corpuscular Volume [Pending], Mean Corpuscular Hemoglobin [Pending], Mean Corpuscular Hemoglobin Concent [Pending], Red Cell Distribution Width [Pending], Platelet Count [Pending], Mean Platelet Volume [ Pending], Neutrophils (%) (Auto) [Pending], Lymphocytes (%) (Auto) [Pending], Monocytes (%) (Auto) [Pending], Eosinophils (%) (Auto) [Pending], Basophils (%) (Auto) [Pending], Sodium Level [Pending], Potassium Level [Pending], Chloride Level [Pending], Carbon Dioxide Level [Pending], Blood Urea Nitrogen [Pending], Creatinine [Pending], Estimat Glomerular Filtration Rate [Pending], Glucose Level [Pending], Calcium Level [Pending] Current Medications Medications (Trade) Dose Ordered Sig/Jannet Route PRN Reason Start Time Stop Time Status Last Admin Dose Admin Acetaminophen (Tylenol) 650 mg Q4H PRN ORAL fever 08/23/19 15:15 09/22/19 15:14 08/24/19 07:29 Albuterol/ Ipratropium (Albuterol/ Ipratropium) 3 ml Q4H PRN HHN Shortness of Breath 08/23/19 15:15 08/28/19 15:14 Dextrose (Dextrose 50%) 25 ml Q30M PRN IV Hypoglycemia 08/23/19 15:15 09/22/19 15:14 Dextrose (Dextrose 50%) 50 ml Q30M PRN IV Hypoglycemia 08/23/19 15:15 09/22/19 15:14 Duloxetine HCl (Cymbalta) 30 mg DAILY ORAL 08/24/19 09:00 09/23/19 08:59 08/27/19 09:58 Heparin Sodium (Porcine) (Heparin 5000 units/ml) 5,000 units EVERY 12 HOURS SUBQ 08/23/19 21:00 09/22/19 20:59 08/27/19 20:28 Insulin Aspart (NovoLOG) BEFORE MEALS AND HS SUBQ 08/23/19 17:00 09/22/19 16:59 Levofloxacin (Levaquin) 750 mg DAILY ORAL 08/28/19 09:00 09/04/19 08:59 Lorazepam (Ativan) 1 mg Q6H PRN ORAL For Anxiety 08/24/19 05:00 08/31/19 04:59 08/25/19 17:47 Ondansetron HCl (Zofran) 4 mg Q6H PRN IVP Nausea & Vomiting 08/23/19 15:15 09/22/19 15:14 Polyethylene Glycol (Miralax) 17 gm DAILYPRN PRN ORAL Constipation 08/23/19 15:15 09/22/19 15:14 Quetiapine Fumarate (SEROqueL) 100 mg TWICE A DAY ORAL 08/23/19 18:00 09/22/19 17:59 08/27/19 18:21 Temazepam (Restoril) 15 mg HSPRN PRN ORAL Insomnia 08/23/19 15:15 08/30/19 15:14 08/27/19 20:34 Giselle Story NP Aug 28, 2019 07:29
[2019-08-28 08:00] VITALS: BP 124/64
[2019-08-28] MEDS: DULoxetine 30mg cap ORAL SCH (08:03)
[2019-08-28] MEDS: Levofloxacin 750mg tab ORAL SCH (08:04)
[2019-08-28] MEDS: Heparin 5000 units/ml inj SUBQ SCH ×2 (08:11→22:11)
--- NOTE | 2019-08-28 08:30 | NUR ---
NURSE NOTES: Bro Asif Khorrami and Giselle Story RETURNED MAT[employer] INSPECTOR, notified that patient appetite poor yesterday, not eating any meals at all. This AM patient tolerated 25 % of breakfast, no NV. Will continue to monitor.
--- NOTE | 2019-08-28 08:50 | General Progress Note ---
Assessment/Plan Problem List: (1) Fever ICD Codes: R50.9 - Fever, unspecified SNOMED: 428469782 (2) SOB (shortness of breath) ICD Codes: R06.02 - Shortness of breath SNOMED: 512641014 (3) Sepsis ICD Codes: A41.9 - Sepsis, unspecified organism SNOMED: 79317403 (4) Depression ICD Codes: F32.9 - Major depressive disorder, single episode, unspecified SNOMED: 26899901 (5) Psychiatric disorder ICD Codes: F99 - Mental disorder, not otherwise specified SNOMED: 32162108 (6) HTN (hypertension) ICD Codes: I10 - Essential (primary) hypertension SNOMED: 04693040 (7) CHF (congestive heart failure) ICD Codes: I50.9 - Heart failure, unspecified SNOMED: 39043448 (8) CVA (cerebral vascular accident) ICD Codes: I63.9 - Cerebral infarction, unspecified SNOMED: 244128993 (9) Diabetes ICD Codes: E11.9 - Type 2 diabetes mellitus without complications SNOMED: 20797720 (10) AMS (altered mental status) ICD Codes: R41.82 - Altered mental status, unspecified SNOMED: 956066170 (11) Encephalopathy ICD Codes: G93.40 - Encephalopathy, unspecified SNOMED: 87449916 Status: stable, progressing Assessment/Plan: o2 pulm tx abx pt dietcbc bmp am gi eval dc to snf vs home w hh Subjective Constitutional: Reports: weakness Allergies: Coded Allergies: No Known Allergies (Unverified , 06/01/19) All Systems: reviewed and negative except above Subjective sleepy confused in bed poor po intake Objective Last 24 Hour Vital Signs Date Time Temp Pulse Resp B/P (MAP) Pulse Ox O2 Delivery O2 Flow Rate FiO2 08/28/19 08:00 97.7 96 21 124/64 (84) 95 08/27/19 21:00 Room Air 08/27/19 20:00 97.2 66 16 110/65 (80) 96 08/27/19 16:00 98.3 82 18 115/71 (86) 95 08/27/19 12:00 97.8 90 18 124/78 (93) 97 08/27/19 09:40 75 18 97 Room Air 21 08/27/19 09:00 Room Air Intake and Output 08/27/19 08/28/19 19:00 07:00 Intake Total 300 ml 240 ml Balance 300 ml 240 ml Intake Oral 300 ml 240 ml # Voids 2 1 # Bowel Movements 2 Laboratory Tests 08/28/19 05:05: White Blood Count 9.9, Red Blood Count 4.53L, Hemoglobin 13.6L, Hematocrit 39.9L , Mean Corpuscular Volume 88, Mean Corpuscular Hemoglobin 30.0, Mean Corpuscular Hemoglobin Concent 34.1, Red Cell Distribution Width 12.0, Platelet Count 298, Mean Platelet Volume 6.6, Neutrophils (%) (Auto) 58.3, Lymphocytes (% ) (Auto) 27.1, Monocytes (%) (Auto) 10.6H, Eosinophils (%) (Auto) 3.2H, Basophils (%) (Auto) 0.8, Sodium Level 142, Potassium Level 3.8, Chloride Level 107, Carbon Dioxide Level 23, Anion Gap 12, Blood Urea Nitrogen 9, Creatinine 0.7, Estimat Glomerular Filtration Rate > 60, Glucose Level 125H, Calcium Level 9.2 Height (Feet): 5 Height (Inches): 5.00 Weight (Pounds): 139 General Appearance: lethargic EENT: normal ENT inspection Neck: normal alignment Cardiovascular: normal peripheral pulses, normal rate, regular rhythm Respiratory/Chest: chest wall non-tender, lungs clear, normal breath sounds Abdomen: normal bowel sounds, non tender, soft Extremities: normal inspection Edema: no edema noted Arm (L), no edema noted Arm (R), no edema noted Leg (L), no edema noted Leg (R), no edema noted Pedal (L), no edema noted Pedal (R), no edema noted Generalized Neurologic: motor weakness Skin: normal pigmentation, warm/dry Bakari Logan DO Aug 28, 2019 08:49
[2019-08-28] MEDS ORDERED: NS 275ml ONE (09:14)
[2019-08-28] MEDS: LORazepam 1mg tab ORAL PRN ×2 (11:38→18:56)
--- NOTE | 2019-08-28 11:44 | NUR ---
NURSE NOTES: Patient noted with labored breathing, restless in bed (trying to get up, sit at bedside, then lie back down, then ambulate around room). Patient states, "The demons are trying to kill me". Ativan 1 mg PO administered at 1138, patient remains safe. Will continue to monitor. Addendum: 08/28/19 at 1402 by Tierra Fisher RN Rapid breathing, RR 24, HR 99, skin warm/no diaphoresis, normal color, pulse 98% RA.
[2019-08-28 13:41] VITALS: BP 124/78
[2019-08-28 16:00] VITALS: BP 117/80
--- NOTE | 2019-08-28 16:00 | Consultation ---
DATE OF CONSULTATION: 08/28/2019 GASTROENTEROLOGY CONSULTATION CONSULTING PHYSICIAN: Adis Adair M.D. REFERRING PHYSICIAN: Bakari Logan D.O. CHIEF COMPLAINT: I was asked to see this patient by Dr. Bakari Logan for evaluation of anorexia. HISTORY OF PRESENT ILLNESS: The patient is a 49-year-old man who is somewhat confused and a poor historian. He was brought to the hospital for various ailments including depression and confusion. He has been seen by multiple consultants and the other workup as outlined in the chart. He has been noted to have some degree of anorexia yesterday for about a day and a half or so according to the and therefore this consultation was generated. The patient is now presented with provided history and most of the information is only available from the chart. This morning, he appears to have eating more than 50% of the breakfast with significant improvement. There is no chart history of any gastrointestinal issues. PAST MEDICAL HISTORY: History of hypertension, congestive heart failure, stroke, diabetes, confusion. FAMILY HISTORY: Unavailable. SOCIAL HISTORY: The patient is . He lives in group home. He is disabled. REVIEW OF SYSTEMS: Unobtainable. MEDICATIONS: See the chart list for details. PHYSICAL EXAMINATION: GENERAL: Pleasant although confused man, seen in his room. HEENT: Normocephalic, atraumatic. Sclerae were anicteric. Dentition is poor. NECK: Supple. CHEST: Revealed coarse breath sounds. CARDIOVASCULAR: Revealed regular rate. ABDOMEN: Soft. EXTREMITIES: Revealed no edema. LABORATORY DATA: Noted. ASSESSMENT: This patient has had a brief period of anorexia, but today he has been eating better. Given the significant confusion with psychiatric history and psychiatric cause for his . He did, however, have a significant degree of anemia and he was admitted. His blood level is now better and his lab tests have been checked every day. The anorexia appears to have been a psychiatric etiology. However, his oral intake should be monitored and a calorie count to be done to evaluate his eating. Should his symptoms persist, then a nutritional support to be enhanced with appetite stimulants. In addition, psychiatrist will be involved in optimizing the patient's psychiatric status. RECOMMENDATIONS: Per above discussion and per orders in the chart. Thank you for asking me to participate in the care of this patient. Adis Adair M.D. DR: ANA JOB#: [id number] CC:
--- NOTE | 2019-08-28 19:31 | NUR ---
HAND-OFF: Report given to Michelle STANTON.
[2019-08-29] VITALS: BP 95/60
--- NOTE | 2019-08-29 01:16 | NUR ---
NURSES NOTE: Pt in bed, icelandic speaker, at bed side. No outward s/s of distress noted. Breathing is even and unlabored on RA. VS stable. No pain reported. No IV access, DR made aware. All due meds will be given. Cough sputum request outstanding, however no cough noted. Bed at lowest level, call light within reach. Pt will continue to be monitred.
--- NOTE | 2019-08-29 03:45 | Progress Note ---
DATE: 08/28/2019 SUBJECTIVE: This is a 49-year-old male came in for encephalopathy, altered mental status as well as confused, disorganized, mood labile. He has no logical plan for his own self-care. disorganized thought process, and decline in cognition below his baseline. low energy, poor appetite, and loss of interest in activity. That is why, he does require acute psychiatric inpatient treatment at this time. . MENTAL STATUS EXAMINATION: This is a 49-year-old male. Appearance is disheveled. Attitude, irritable and agitated. Affect, guarded and restricted. Intellect, poor. Mood, depressed and anxious. Motor activity, psychomotor agitation. Attention span is poor. Orientation x2. Speech is pressured. Thought process, disorganized and illogical. Insight and judgment is poor. DIAGNOSIS: Major depressive disorder, mild recurrent with psychotic features; rule out paranoid schizophrenia. PLAN: Continue treatment with medications to stabilize his mood. A 20 minutes of cognitive behavioral therapy to help him identify his automatic negative thoughts and help him convert those negative thoughts to more positive thoughts to reduce depression, anxiety, and mood lability. Chart reviewed. Discussed with staff. Seen and assessed at bedside. Yvonne Rosenberg M.D. DR: GINA JOB#: [id number] CC:
[2019-08-29 04:00] VITALS: BP 123/75
[2019-08-29] MEDS: NovoLOG Insulin Flexpen SUBQ SCH ×3 (06:01→16:30)
[2019-08-29 06:39] LABS: BASOPHILS % (AUTO) 0.9 % (0.0-2.0); EOSINOPHILS % (AUTO) 3.6 % (0.0-3.0); HEMATOCRIT 41.2 % (42.0-52.0); LYMPHOCYTES % (AUTO) 26.5 % (20.0-45.0); MEAN CORPUSCULAR VOLUME 88 FL (80-99); MONOCYTES % (AUTO) 9.6 % (1.0-10.0); NEUTROPHILS % (AUTO) 59.4 % (45.0-75.0); PLATELET COUNT 293 K/UL (150-450); RED CELL DISTRIBUTION WIDTH 12.1 % (11.6-14.8); WHITE BLOOD COUNT 10.1 K/UL (4.8-10.8)
[2019-08-29 07:17] LABS: ANION GAP 16 mmol/L (5-15); BLOOD UREA NITROGEN 11 mg/dL (7-18); CALCIUM 9.4 MG/DL (8.5-10.1); CARBON DIOXIDE 22 MMOL/L (21-32); CHLORIDE 108 MMOL/L (98-107); CREATININE 0.7 MG/DL (0.55-1.30); POTASSIUM 3.9 MMOL/L (3.5-5.1); SODIUM 145 MMOL/L (136-145)
--- NOTE | 2019-08-29 07:30 | Consultation ---
DATE OF CONSULTATION: 08/25/2019 PSYCHOTHERAPY CONSULTATION PROGRESS NOTE CONSULTING PHYSICIAN: Aldo Grant PsyD. TREATING ATTENDING PHYSICIAN: Bakari Logan D.O. HISTORY OF PRESENT ILLNESS: The patient was brought in to the hospital for encephalopathy. He was referred for psychotherapeutic services, referred as a self. I assessed this patient. Apparently, the patient has been confused and disorganized. The patient has been very selective in the participation in communication with others. Today, when I assessed the patient, the patient was mute. He has his eyes open; however, he was not responding. Nursing staff also informed he does not review the records. As a result, he has been a poor historian. Apparently, the patient has been calling his family and speaking to them over the phone; however, selectively speaking to others when they approach him. The patient today has been refusing to speak to staff and refused to speak to nurses and was unresponsive when they him. There is no indication of suicidal or homicidal thoughts of ideation. The patient, however, is very withdrawn. He has been keeping to himself and at this time, appears very disorganized. He has no logical or viable plan for self-care and safety as he is not communicating with me. The patient has also been anxious and agitated, and for these reasons, he was also referred for psychotherapeutic services. He has a history of schizophrenia. PAST MEDICAL HISTORY: Includes history of congestive heart failure, CVA, and hypertension. ALLERGIES: The patient has no known drug allergies. SUBSTANCE ABUSE HISTORY: There is no indication of alcohol use, illicit substance use, or smoking cigarettes. PSYCHIATRIC HISTORY: The patient has a history of paranoid schizophrenia and has been on psychotropic medications in the past. SOCIAL HISTORY: The patient . He is a 49-year-old male patient. MENTAL STATUS EXAMINATION: He is alert and oriented to person. His mood is dysphoric. Affect blunted. Thought process, disorganized. He has poor attention and concentration. Poor insight, judgment, and impulse control. DIAGNOSES: 1. Paranoid schizophrenia. 2. CVA, congestive heart failure, and hypertension. 3. Diabetes and psychosocial stressors are moderate. I ASSESSED THIS PATIENT AND PROVIDED HIM WITH: 4. Reality orientation, which is focused on improving cognitive level of function, as the patient is very confused and disorganized. Oriented to person, place, time, and situation. 5. I attempted psychotherapy which is focused on the patient's emotional distress. However, the patient is refusing to interact. The patient is very selectively mute and refuses to interact at this time with this clinician. PLAN: Plan is to maintain medication compliance, assist with positive coping skills . This clinician has reviewed the patient's chart and discussed treatment with treatment team. Psychotherapy services for the patient provided is 45 minutes. Aldo Grant PsyD. DR: EMERY JOB#: [id number] CC:
[2019-08-29 08:00] VITALS: BP 124/78
--- NOTE | 2019-08-29 08:05 | NUR ---
HAND OFF: Report given to MAXIMINO Watson.
--- NOTE | 2019-08-29 08:10 | NUR ---
NURSE NOTES: Patient lying in bed sleeping. No complain of pain or distress at this time. Skin intact and dry. No IV access and MD aware. Bed lowest position. Call light within reach. Will continue to monitor.
[2019-08-29] MEDS: DULoxetine 30mg cap ORAL SCH (08:45)
[2019-08-29] MEDS: Levofloxacin 750mg tab ORAL SCH (08:45)
[2019-08-29] MEDS: Heparin 5000 units/ml inj SUBQ SCH (08:46)
--- NOTE | 2019-08-29 09:50 | General Progress Note ---
Assessment/Plan Problem List: (1) Fever ICD Codes: R50.9 - Fever, unspecified SNOMED: 054905868 (2) SOB (shortness of breath) ICD Codes: R06.02 - Shortness of breath SNOMED: 603258839 (3) Sepsis ICD Codes: A41.9 - Sepsis, unspecified organism SNOMED: 73672180 (4) Depression ICD Codes: F32.9 - Major depressive disorder, single episode, unspecified SNOMED: 21026011 (5) Psychiatric disorder ICD Codes: F99 - Mental disorder, not otherwise specified SNOMED: 07270488 (6) HTN (hypertension) ICD Codes: I10 - Essential (primary) hypertension SNOMED: 98625648 (7) CHF (congestive heart failure) ICD Codes: I50.9 - Heart failure, unspecified SNOMED: 55650762 (8) CVA (cerebral vascular accident) ICD Codes: I63.9 - Cerebral infarction, unspecified SNOMED: 675667681 (9) Diabetes ICD Codes: E11.9 - Type 2 diabetes mellitus without complications SNOMED: 09403530 (10) AMS (altered mental status) ICD Codes: R41.82 - Altered mental status, unspecified SNOMED: 815569019 (11) Encephalopathy ICD Codes: G93.40 - Encephalopathy, unspecified SNOMED: 85311175 Status: stable, progressing Assessment/Plan: o2 pulm tx abx pt dietcbc bmp am gi eval dc to snf vs home w hh Subjective Constitutional: Reports: weakness Allergies: Coded Allergies: No Known Allergies (Unverified , 06/01/19) All Systems: reviewed and negative except above Subjective sleepy confused in bed Objective Last 24 Hour Vital Signs Date Time Temp Pulse Resp B/P (MAP) Pulse Ox O2 Delivery O2 Flow Rate FiO2 08/29/19 09:00 Room Air 08/29/19 08:00 98.5 57 20 124/78 (93) 96 08/29/19 04:00 98.5 61 18 123/75 (91) 97 08/29/19 00:00 98.2 60 18 95/60 (72) 95 08/28/19 21:00 Room Air 08/28/19 20:24 71 18 96 Room Air 21 08/28/19 16:00 98.3 81 18 117/80 (92) 98 08/28/19 13:41 98.2 66 21 124/78 (93) 94 Intake and Output 08/28/19 08/29/19 19:00 07:00 Intake Total 540 ml 240 ml Balance 540 ml 240 ml Intake Oral 540 ml 240 ml # Voids 2 2 Laboratory Tests 08/29/19 05:15: White Blood Count 10.1, Red Blood Count 4.70, Hemoglobin 14.0L, Hematocrit 41.2L , Mean Corpuscular Volume 88, Mean Corpuscular Hemoglobin 29.8, Mean Corpuscular Hemoglobin Concent 33.9, Red Cell Distribution Width 12.1, Platelet Count 293, Mean Platelet Volume 6.3L, Neutrophils (%) (Auto) 59.4, Lymphocytes ( %) (Auto) 26.5, Monocytes (%) (Auto) 9.6, Eosinophils (%) (Auto) 3.6H, Basophils (%) (Auto) 0.9, Sodium Level 145, Potassium Level 3.9, Chloride Level 108H, Carbon Dioxide Level 22, Anion Gap 16H, Blood Urea Nitrogen 11, Creatinine 0.7, Estimat Glomerular Filtration Rate > 60, Glucose Level 99, Calcium Level 9.4 Height (Feet): 5 Height (Inches): 5.00 Weight (Pounds): 139 General Appearance: lethargic EENT: normal ENT inspection Neck: normal alignment Cardiovascular: normal peripheral pulses, normal rate, regular rhythm Respiratory/Chest: chest wall non-tender, lungs clear, normal breath sounds Abdomen: normal bowel sounds, non tender, soft Extremities: normal inspection Edema: no edema noted Arm (L), no edema noted Arm (R), no edema noted Leg (L), no edema noted Leg (R), no edema noted Pedal (L), no edema noted Pedal (R), no edema noted Generalized Neurologic: motor weakness Skin: normal pigmentation, warm/dry Bakari Logan DO Aug 29, 2019 09:50
--- NOTE | 2019-08-29 10:07 | NUR ---
*-*DISCHARGE PLANNING*-* PATIENT HAS BEEN REFERRED TO AND DECLINED FROM: [facility] P: [phone] F: [phone] [facility] P: [phone] F: [phone] [facility] P: [phone] F: [phone] [facility] P: [phone] F: [phone] [facility] P: [phone] F: [phone] [facility] P: [phone] F: [phone] [facility] P: [phone] F: [phone] [facility] P: [phone] F: [phone]
--- NOTE | 2019-08-29 11:07 | General Progress Note ---
Assessment/Plan Status: stable, progressing Assessment/Plan: Probable pneumonia Encephalopathy Diabetes mellitus Hypertension History of CVA with a left-sided weakness Major depressive disorder with psychotic features poor po intake eating bettr with the feeder fu calorie count may need marinol add colace Subjective ROS Limited/Unobtainable: No Allergies: Coded Allergies: No Known Allergies (Unverified , 06/01/19) Objective Last 24 Hour Vital Signs Date Time Temp Pulse Resp B/P (MAP) Pulse Ox O2 Delivery O2 Flow Rate FiO2 08/29/19 09:00 Room Air 08/29/19 09:00 Room Air 08/29/19 08:00 98.5 57 20 124/78 (93) 96 08/29/19 04:00 98.5 61 18 123/75 (91) 97 08/29/19 00:00 98.2 60 18 95/60 (72) 95 08/28/19 21:00 Room Air 08/28/19 20:24 71 18 96 Room Air 21 08/28/19 16:00 98.3 81 18 117/80 (92) 98 08/28/19 13:41 98.2 66 21 124/78 (93) 94 Intake and Output 08/28/19 08/29/19 19:00 07:00 Intake Total 540 ml 240 ml Balance 540 ml 240 ml Intake Oral 540 ml 240 ml # Voids 2 2 Laboratory Tests 08/29/19 05:15: White Blood Count 10.1, Red Blood Count 4.70, Hemoglobin 14.0L, Hematocrit 41.2L , Mean Corpuscular Volume 88, Mean Corpuscular Hemoglobin 29.8, Mean Corpuscular Hemoglobin Concent 33.9, Red Cell Distribution Width 12.1, Platelet Count 293, Mean Platelet Volume 6.3L, Neutrophils (%) (Auto) 59.4, Lymphocytes ( %) (Auto) 26.5, Monocytes (%) (Auto) 9.6, Eosinophils (%) (Auto) 3.6H, Basophils (%) (Auto) 0.9, Sodium Level 145, Potassium Level 3.9, Chloride Level 108H, Carbon Dioxide Level 22, Anion Gap 16H, Blood Urea Nitrogen 11, Creatinine 0.7, Estimat Glomerular Filtration Rate > 60, Glucose Level 99, Calcium Level 9.4 Height (Feet): 5 Height (Inches): 5.00 Weight (Pounds): 139 General Appearance: no apparent distress EENT: normal ENT inspection Neck: supple Cardiovascular: normal rate Respiratory/Chest: lungs clear Abdomen: normal bowel sounds, non tender, soft Extremities: non-tender Toby Crabtree MD Aug 29, 2019 11:07
[2019-08-29 11:35] VITALS: BP 90/60
--- NOTE | 2019-08-29 13:25 | Infectious Diseases Prog Note ---
Assessment/Plan Assessment/Plan ASSESSMENT: The patient is a 49-year-old male with: Probable sepsis, sp Probable pneumonia. no evid of bacteremia. Leukocytosis, mild Afebrile. Hypertension. Depression. CHF. CVA. History of anxiety. History of left-sided weakness due to stroke. PLAN: Cont on Levaquin # 2/2 Sp cefepime # 5 08/26 SP IV vancomycin # 4 Monitor CBC Monitor BMP. Monitor cultures (blood, urine, and sputum) Monitor chest x-ray. Subjective Allergies: Coded Allergies: No Known Allergies (Unverified , 06/01/19) Subjective afebrile comfortable Objective Vital Signs Last 24 Hour Vital Signs Date Time Temp Pulse Resp B/P (MAP) Pulse Ox O2 Delivery O2 Flow Rate FiO2 08/29/19 11:35 98.5 62 90/60 (70) 08/29/19 09:00 Room Air 08/29/19 09:00 Room Air 08/29/19 08:00 98.5 57 20 124/78 (93) 96 08/29/19 04:00 98.5 61 18 123/75 (91) 97 08/29/19 00:00 98.2 60 18 95/60 (72) 95 08/28/19 21:00 Room Air 08/28/19 20:24 71 18 96 Room Air 21 08/28/19 16:00 98.3 81 18 117/80 (92) 98 08/28/19 13:41 98.2 66 21 124/78 (93) 94 Height (Feet): 5 Height (Inches): 5.00 Weight (Pounds): 139 HEENT: mucous membranes moist Respiratory/Chest: normal breath sounds Cardiovascular: no gallop/murmur Abdomen: non distended Laboratory Tests Test 08/29/19 05:15 White Blood Count 10.1 K/UL (4.8-10.8) Red Blood Count 4.70 M/UL (4.70-6.10) Hemoglobin 14.0 G/DL (14.2-18.0) L Hematocrit 41.2 % (42.0-52.0) L Mean Corpuscular Volume 88 FL (80-99) Mean Corpuscular Hemoglobin 29.8 PG (27.0-31.0) Mean Corpuscular Hemoglobin Concent 33.9 G/DL (32.0-36.0) Red Cell Distribution Width 12.1 % (11.6-14.8) Platelet Count 293 K/UL (150-450) Mean Platelet Volume 6.3 FL (6.5-10.1) L Neutrophils (%) (Auto) 59.4 % (45.0-75.0) Lymphocytes (%) (Auto) 26.5 % (20.0-45.0) Monocytes (%) (Auto) 9.6 % (1.0-10.0) Eosinophils (%) (Auto) 3.6 % (0.0-3.0) H Basophils (%) (Auto) 0.9 % (0.0-2.0) Sodium Level 145 MMOL/L (136-145) Potassium Level 3.9 MMOL/L (3.5-5.1) Chloride Level 108 MMOL/L (98-107) H Carbon Dioxide Level 22 MMOL/L (21-32) Anion Gap 16 mmol/L (5-15) H Blood Urea Nitrogen 11 mg/dL (7-18) Creatinine 0.7 MG/DL (0.55-1.30) Estimat Glomerular Filtration Rate > 60 mL/min (>60) Glucose Level 99 MG/DL (74-106) Calcium Level 9.4 MG/DL (8.5-10.1) Current Medications Medications (Trade) Dose Ordered Sig/Jannet Route PRN Reason Start Time Stop Time Status Last Admin Dose Admin Acetaminophen (Tylenol) 650 mg Q4H PRN ORAL fever 08/23/19 15:15 09/22/19 15:14 08/24/19 07:29 Dextrose (Dextrose 50%) 25 ml Q30M PRN IV Hypoglycemia 08/23/19 15:15 09/22/19 15:14 Dextrose (Dextrose 50%) 50 ml Q30M PRN IV Hypoglycemia 08/23/19 15:15 09/22/19 15:14 Docusate Sodium (Colace) 100 mg TWICE A DAY ORAL 08/29/19 18:00 09/28/19 17:59 Duloxetine HCl (Cymbalta) 30 mg DAILY ORAL 08/24/19 09:00 09/23/19 08:59 08/29/19 08:45 Heparin Sodium (Porcine) (Heparin 5000 units/ml) 5,000 units EVERY 12 HOURS SUBQ 08/23/19 21:00 09/22/19 20:59 08/29/19 08:46 Insulin Aspart (NovoLOG) BEFORE MEALS AND HS SUBQ 08/23/19 17:00 09/22/19 16:59 Levofloxacin (Levaquin) 750 mg DAILY ORAL 08/28/19 09:00 09/04/19 08:59 08/29/19 08:45 Lorazepam (Ativan) 1 mg Q6H PRN ORAL For Anxiety 08/24/19 05:00 08/31/19 04:59 08/28/19 18:56 Ondansetron HCl (Zofran) 4 mg Q6H PRN IVP Nausea & Vomiting 08/23/19 15:15 09/22/19 15:14 Polyethylene Glycol (Miralax) 17 gm DAILYPRN PRN ORAL Constipation 08/23/19 15:15 09/22/19 15:14 Quetiapine Fumarate (SEROqueL) 100 mg TWICE A DAY ORAL 08/23/19 18:00 09/22/19 17:59 08/29/19 08:45 Temazepam (Restoril) 15 mg HSPRN PRN ORAL Insomnia 08/23/19 15:15 08/30/19 15:14 08/27/19 20:34 Johnathan Kirk MD Aug 29, 2019 13:25
--- NOTE | 2019-08-29 13:33 | Pulmonology Progress Note ---
Assessment/Plan Problems: (1) Encephalopathy (2) Sepsis (3) CVA (cerebral vascular accident) (4) HTN (hypertension) (5) Psychiatric disorder (6) Diabetes (7) Depression Assessment/Plan no new complains afebrile, wbc still high doing better cohen cultures id evaluation sliding scale dvt prophylaxis symptomatic treatment/ dc planning Subjective ROS Limited/Unobtainable: No Constitutional: Reports: no symptoms HEENT: Repors: no symptoms Respiratory: Reports: no symptoms Allergies: Coded Allergies: No Known Allergies (Unverified , 06/01/19) Objective Last 24 Hour Vital Signs Date Time Temp Pulse Resp B/P (MAP) Pulse Ox O2 Delivery O2 Flow Rate FiO2 08/29/19 11:35 98.5 62 90/60 (70) 08/29/19 09:00 Room Air 08/29/19 09:00 Room Air 08/29/19 08:00 98.5 57 20 124/78 (93) 96 08/29/19 04:00 98.5 61 18 123/75 (91) 97 08/29/19 00:00 98.2 60 18 95/60 (72) 95 08/28/19 21:00 Room Air 08/28/19 20:24 71 18 96 Room Air 21 08/28/19 16:00 98.3 81 18 117/80 (92) 98 08/28/19 13:41 98.2 66 21 124/78 (93) 94 Intake and Output 08/28/19 08/29/19 19:00 07:00 Intake Total 540 ml 240 ml Balance 540 ml 240 ml Intake Oral 540 ml 240 ml # Voids 2 2 General Appearance: WD/WN HEENT: normocephalic, atraumatic Respiratory/Chest: chest wall non-tender, lungs clear Cardiovascular: normal peripheral pulses, regular rhythm Abdomen: normal bowel sounds, no organomegaly Extremities: no cyanosis, no clubbing Skin: no lesions Laboratory Tests 08/29/19 05:15: White Blood Count 10.1, Red Blood Count 4.70, Hemoglobin 14.0L, Hematocrit 41.2L , Mean Corpuscular Volume 88, Mean Corpuscular Hemoglobin 29.8, Mean Corpuscular Hemoglobin Concent 33.9, Red Cell Distribution Width 12.1, Platelet Count 293, Mean Platelet Volume 6.3L, Neutrophils (%) (Auto) 59.4, Lymphocytes ( %) (Auto) 26.5, Monocytes (%) (Auto) 9.6, Eosinophils (%) (Auto) 3.6H, Basophils (%) (Auto) 0.9, Sodium Level 145, Potassium Level 3.9, Chloride Level 108H, Carbon Dioxide Level 22, Anion Gap 16H, Blood Urea Nitrogen 11, Creatinine 0.7, Estimat Glomerular Filtration Rate > 60, Glucose Level 99, Calcium Level 9.4 Current Medications Medications (Trade) Dose Ordered Sig/Jannet Route PRN Reason Start Time Stop Time Status Last Admin Dose Admin Acetaminophen (Tylenol) 650 mg Q4H PRN ORAL fever 08/23/19 15:15 09/22/19 15:14 08/24/19 07:29 Dextrose (Dextrose 50%) 25 ml Q30M PRN IV Hypoglycemia 08/23/19 15:15 09/22/19 15:14 Dextrose (Dextrose 50%) 50 ml Q30M PRN IV Hypoglycemia 08/23/19 15:15 09/22/19 15:14 Docusate Sodium (Colace) 100 mg TWICE A DAY ORAL 08/29/19 18:00 09/28/19 17:59 Duloxetine HCl (Cymbalta) 30 mg DAILY ORAL 08/24/19 09:00 09/23/19 08:59 08/29/19 08:45 Heparin Sodium (Porcine) (Heparin 5000 units/ml) 5,000 units EVERY 12 HOURS SUBQ 08/23/19 21:00 09/22/19 20:59 08/29/19 08:46 Insulin Aspart (NovoLOG) BEFORE MEALS AND HS SUBQ 08/23/19 17:00 09/22/19 16:59 Levofloxacin (Levaquin) 750 mg DAILY ORAL 08/28/19 09:00 09/04/19 08:59 08/29/19 08:45 Lorazepam (Ativan) 1 mg Q6H PRN ORAL For Anxiety 08/24/19 05:00 08/31/19 04:59 08/28/19 18:56 Ondansetron HCl (Zofran) 4 mg Q6H PRN IVP Nausea & Vomiting 08/23/19 15:15 09/22/19 15:14 Polyethylene Glycol (Miralax) 17 gm DAILYPRN PRN ORAL Constipation 08/23/19 15:15 09/22/19 15:14 Quetiapine Fumarate (SEROqueL) 100 mg TWICE A DAY ORAL 08/23/19 18:00 09/22/19 17:59 08/29/19 08:45 Temazepam (Restoril) 15 mg HSPRN PRN ORAL Insomnia 08/23/19 15:15 08/30/19 15:14 08/27/19 20:34 Luis Cody MD Aug 29, 2019 13:33
--- NOTE | 2019-08-29 13:51 | NUR ---
RD ASSESSMENT & RECOMMENDATIONS SEE CARE ACTIVITY FOR COMPLETE ASSESSMENT DAILY ESTIMATED NEEDS: Needs based on cardiac, DM/ 64.7kg abw 25-30 kcals/kg 2202-1883 total kcals 1-1.5 g protein/kg 65-97 g total protein 25-30 mL/kg 8431-7750 total fluid mLs NUTRITION DIAGNOSIS: * Decreased sodium intake needs R/T cardiac hx as evidenced by h/o HTN, CHF, CVA. CURRENT DIET: CCHO MED PO DIET RECOMMENDATIONS: Liberalized REGULAR w/ poor PO, otherwise CCHO MED + LOW NA ADDITIONAL RECOMMENDATIONS: * Calibrated bedscale wt, standing wt as able for accurate CBW * Rec NURSING UNIT MANAGER eval for h/o CVA, pt is confused * F/up w/ negin count x 48 hrs (08/28- 08/30) * Pt on multiple psych meds, monitor appetite/ alertness at mealtime * Add Glucerna TID w/ meals * Rec liberalized regular diet w/ poor PO * Monitor for hypoglycemia w/ poor PO
--- NOTE | 2019-08-29 14:13 | NUR ---
CASE MANAGEMENT: NOTE SPOKE TO INSURANCE RICHY TONG) T: [phone] PATIENT INSURANCE WANTING TO SCHEDULE A PEER TO PEER DR. FELTON NOTIFIED WILL F/U Addendum: 08/29/19 at 1417 by ERIN SOLIZ LVN CALLED AND LEFT A MESSAGE WITH RICHY THURMAN TO CALL BACK TO DISCUSS OUTCOME AND PLAN Addendum: 08/29/19 at 1419 by ERIN SOLIZ LVN LEFT A MESSAGE TO SCHEDULE OUTPATIENT APPOINTMENT
--- NOTE | 2019-08-29 14:15 | Progress Note ---
DATE: 08/29/2019 SUBJECTIVE: This is a 49-year-old male patient with encephalopathy. This patient is very confused, disorganized. His mood is labile. He is easily agitated, irritable, highly anxious. That is why, daily psychiatric consultation. He has altered mental status. MENTAL STATUS EXAMINATION: This is a 49-year-old male. Appearance is disheveled. Attitude, irritable and agitated. Affect, guarded and restricted. Intellect poor. Mood, depressed and anxious. Motor activity, psychomotor agitation. Attention span is poor. Orientation x2. Speech is pressured. Thought process, disorganized and illogical. Insight and judgment is poor. DIAGNOSIS: Paranoid schizophrenia acute exacerbation. PLAN: Continue to treat the patient with Seroquel 100 mg twice a day to help stabilize his mood, Ativan 1 mg every 6 hours p.r.n. anxiety and agitation. A 20 minutes of cognitive behavioral therapy. Encouraged to interact appropriately with staff and patients. Chart reviewed. Discussed with staff. Seen and assessed in his room. Yvonne Rosenberg M.D. DR: GINA JOB#: [id number] CC:
[2019-08-29] MEDS: LORazepam 1mg tab ORAL PRN (14:52)
--- NOTE | 2019-08-29 15:02 | NUR ---
discharge planning: patient referred to [facility] t: [phone]
--- NOTE | 2019-08-29 15:39 | NUR ---
DISCHARGE PLANNED: PATIENT IS TO DISCHARGE WITH WITH SPOKE TO (DOROTHY); PATIENT STATED PLEASE DC AT 6PM WILL BE HOME TO MEET HIM VIA AMBULANCE CALLED AND LEFT A MESSAGE WITH DR GARCIA OFFICE TO SCHEDULE APPOINTMENT ZACHARY
[2019-08-29 16:00] VITALS: BP 111/73
--- NOTE | 2019-08-29 16:00 | NUR ---
CHARGE NURSE NOTES: Pt is cleared from dr Kirk ID consult. Pt has no neuro consult since admission.
--- NOTE | 2019-08-29 16:06 | NUR ---
*-* INSURANCE *-* ALL CLINICALS AND REVIEWS HAVE BEEN FAXED TO: KAE HERNANDE[facility] AUTH# [id number] FAX ALL CLINICALS TO: [phone]
--- NOTE | 2019-08-29 16:07 | NUR ---
CASE MANAGEMENT: REVIEW 08/27/19 SI;ALTERED MENTAL STATUS 97.1 83 18 97/66 94% RA IS;HEPARIN SQ BID SEROQUEL PO BID RESTORIL PO QHS CYMBALTA PO QD ATIVAN PO Q6HR/PRN \: 3E MED SURG DCP;HOME VS SNF PLAN: SEEKING SAFE PLACEMENT CASE MANAGEMENT: REVIEW 08/28/19 SI;ALTERED MENTAL STATUS 97.7 96 21 124/64 95% RA IS;HEPARIN SQ BID SEROQUEL PO BID RESTORIL PO QHS CYMBALTA PO QD ATIVAN PO Q6HR/PRN \: 3E MED SURG DCP;HOME VS SNF PLAN: SEEKING SAFE PLACEMENT
--- NOTE | 2019-08-29 17:00 | NUR ---
CHARGE NURSE NOTES: Per RICHY Saavedra. pt was not accepted in any SNF & any HH, therefore pt is going home that Dr Moody is aware. Ambulance was set for 6PM burr picker. Pt's called, confirmed that she will be home by 6 PM.
[2019-08-29] MEDS ORDERED: Docusate 100mg cap ORAL SCH (18:00)
--- NOTE | 2019-08-29 19:30 | NUR ---
HAND-OFF: Report given to Kristi STANTON. Patient in stable condition.
--- NOTE | 2019-08-29 19:30 | NUR ---
NURSE NOTES: Received report from MAXIMINO Watson. Patient alert, confused. Reminded that he's going home. Patient states he doesn't believe it, that he's going to be taken to another hospital. Will call to reassure patient. Awaiting transport. Bed in low position, locked, side rails up x2, call light within reach. Will continue to monitor.
[2019-08-29 20:00] VITALS: BP 121/79
--- NOTE | 2019-08-29 20:00 | NUR ---
NURSE NOTES: Given written instructions in englisha and armenian. Patient unable to sign, encouraged to give to his at home to review. No RX provided. Instructed to follow up with physician in one week. aware of discharge and instructions.
--- NOTE | 2019-08-29 20:45 | NUR ---
NURSE NOTES: Ambulance transport here, given report. Contacted to speak to patient and reassure him that he's being taken home. VSS. No distress noted. condition stable. No IV access, ID band off. Patient taken via ambulance transport to home.
--- NOTE | 2019-08-30 16:41 | Discharge Summary ---
Discharge Summary Discharge Summary _ DATE OF ADMISSION: 08/23/2019 DATE OF DISCHARGE: 08/29/2019 DISCHARGED BY: Dr. Logan REASON FOR ADMISSION: 49 years old male with past medical history of CVA, hepatic encephalopathy, psychiatric disorder, presented for evaluation due to shortness of breath , fever and altered o mental status. Patient recently had prolonged stay prolonged hospitalization for altered mental status. Ultimately it was determined , that it was likely secondary to psychiatric illness. Patient was discharged to alf facility. At the facility he was found to be febrile . Patient received Tylenol and sent to ER for further evaluation. En route to the hospital patient was complaining of shortness of breath. Patient was started on supplemental oxygen. Upon arrival he was confused and not able to answer questions appropriately. Vital signs revealed tachypnea with respiratory rate 28 , but pulse oximetry was stable on room air. Laboratory work-up revealed mild leukocytosis with WBC 12.1, stable hemoglobin , hematocrit and platelet count. Stable electrolytes and renal parameters. Glucose 124. Stable LFT. Serum alcohol , salicylate , Tylenol level were all negative . Chest x-ray revealed no acute cardiopulmonary pathology. Urine toxicology was negative. Urinalysis revealed no evidence of urinary tract infection. Ammonia level less than 10. Patient subsequently admitted for further management CONSULTANTS: pulmonary/critical care Dr. Cody ID specialist Dr. Kirk GI specialist Dr. Adair psychiatrist Dr. Rosenberg HOSPITAL COURSE: Patient admitted to medical surgical floor. Patient started on the IV fluids and empiric antibiotics. Blood cultures were negative. Per ID specialist, patient probably had sepsis due to pneumonia . Mild leukocytosis resolved, patient remained afebrile. Patient completed antibiotic while in the hospital . ID specialist recommended to monitor patient off antibiotics. Supplemental oxygen provided and titrated to keep pulse oximetry above 92%. DVT prophylaxis provided. Blood sugar was managed with sliding scale of insulin. Bowel regimen instituted. Oral intake was closely monitored. Colace was added GI specialist recommended monitor food intake at home. P Patient may need Marinol . SNF medication continued. Psychiatric medication regimen was optimized as per psychiatrist. Supportive care provided. Patient clinically stabilized and was ready for discharge home with . FINAL DIAGNOSES: Probable sepsis Probable pneumonia Encephalopathy Diabetes mellitus Hypertension History of CVA with left-sided weakness Major depressive disorder with psychotic features DISCHARGE MEDICATIONS: List of medication was sent with patient DISCHARGE INSTRUCTIONS: Patient was discharged home. Follow-up with a primary care provider in 1 week. Giselle Story NP Aug 30, 2019 16:41
--- NOTE | 2019-08-31 14:20 | NUR ---
*-* INSURANCE *-* DISCHARGE SUMMARY HAS BEEN FAXED TO: [facility]# [id number] FAX ALL CLINICALS TO: [phone]
== END 2019-08-29 20:45 | disposition home or self-care (01) | DRG 871 ==
LOC: EDUNIT# 13:06 → EDBD 13:06 → EDBEDREQ 13:58 → EMR 14:21 → 3E 14:35 → EDBEDREQ 15:54
DX: A41.9 Sepsis, unspecified organism (principal); J18.9 Pneumonia, unspecified organism; G93.40 Encephalopathy, unspecified; F20.0 Paranoid schizophrenia; I69.354 Hemiplegia and hemiparesis following cerebral infarction affecting left non-dominant side; F33.3 Major depressive disorder, recurrent, severe with psychotic symptoms; I11.0 Hypertensive heart disease with heart failure; I50.9 Heart failure, unspecified; Z86.73 Personal history of transient ischemic attack (TIA), and cerebral infarction without residual deficits; E11.9 Type 2 diabetes mellitus without complications; F41.9 Anxiety disorder, unspecified
CPT/HCPCS: 36415; 71045; 80048; 80053; 80202; 80307; 81001; 82140; 82962; 83605; 85025; 87040; 87081; 94664; 97803; 99285; G0480; J1815

== ENCOUNTER 2019-08-31 15:10 | Emergency (ER) | payer BC ==
[2019-08-31] VITALS (7 sets, daily range): BP systolic 99–145; BP diastolic 62–86
[~2019-08-31] VITALS: Ht 165.1 cm; Wt 63.5 kg
--- NOTE | 2019-08-31 15:10 | NUR ---
ED Nurse Note: patient brought into ED from home by ambulance RA 26 due to back pain. patient requested to come to hospital. BS on the scene was 73. patient is alert awake x3 ambulatory.
--- NOTE | 2019-08-31 15:50 | NUR ---
HAND-OFF: Report given to Zuhair Medley RN.
--- NOTE | 2019-08-31 16:20 | NUR ---
ED Nurse Note: Patient became agitated, combative, tries to leave with unsteady and limping gait. ERPA made aware and received behavioral restraint order. applied in bilateral ankle and wrist. skin intact and good circulation noted.
[2019-08-31] MEDS ORDERED: Haloperidol 5mg/ml Inj IM ONE (16:30)
[2019-08-31] MEDS ORDERED: LORazepam Inj 2mg/ml 1ml IM ONE (16:30)
[2019-08-31 16:37] LABS: BASOPHILS % (AUTO) 1.1 % (0.0-2.0); EOSINOPHILS % (AUTO) 0.5 % (0.0-3.0); HEMATOCRIT 40.5 % (42.0-52.0); HEMOGLOBIN 13.7 G/DL (14.2-18.0); LYMPHOCYTES % (AUTO) 21.1 % (20.0-45.0); MEAN CORPUSCULAR VOLUME 87 FL (80-99); MONOCYTES % (AUTO) 8.8 % (1.0-10.0); NEUTROPHILS % (AUTO) 68.4 % (45.0-75.0); PLATELET COUNT 293 K/UL (150-450); RED BLOOD COUNT 4.63 M/UL (4.70-6.10); RED CELL DISTRIBUTION WIDTH 12.5 % (11.6-14.8); WHITE BLOOD COUNT 11.1 K/UL (4.8-10.8)
--- NOTE | 2019-08-31 16:50 | NUR ---
ED Nurse Note: pt urinated in urinal. pt cooperative but still confused and tries to wander. removed bilateral ankle restraint.
[2019-08-31 16:51] LABS: ANION GAP 16 mmol/L (5-15); BLOOD UREA NITROGEN 12 mg/dL (7-18); CALCIUM 9.6 MG/DL (8.5-10.1); CARBON DIOXIDE 23 MMOL/L (21-32); CHLORIDE 100 MMOL/L (98-107); CREATININE 0.6 MG/DL (0.55-1.30); SODIUM 139 MMOL/L (136-145)
[2019-08-31 16:55] LABS: ALANINE AMINOTRANSFERASE 42 U/L (12-78); ALBUMIN 4.1 G/DL (3.4-5.0); ALKALINE PHOSPHATASE 106 U/L (46-116); ASPARTATE AMINO TRANSFERASE 26 U/L (15-37); BILIRUBIN,TOTAL 0.6 MG/DL (0.2-1.0)
[2019-08-31 16:57] LABS: AMMONIA < 10 umol/L (11-32)
[2019-08-31 16:57] LABS: APPEARANCE,URINE SLIGHTLY CLOUDY; BILIRUBIN, URINE NEGATIVE (NEGATIVE); COLOR,URINE AMBER; GLUCOSE, URINE (UA) NEGATIVE (NEGATIVE); KETONES,URINE 4+ (NEGATIVE); LEUKOCYTE ESTERASE ,URINE 1+ (NEGATIVE); NITRITE,URINE NEGATIVE (NEGATIVE); PH,URINE 6 (4.5-8.0); PROTEIN,URINE 1+ (NEGATIVE); UROBILINOGEN,URINE NORMAL MG/DL (0.0-1.0)
--- NOTE | 2019-08-31 17:05 | NUR ---
ED Nurse Note: pt cooperative and calm removed restraints and reported to ERPA. pt having sandwich and water in bed.
--- NOTE | 2019-08-31 17:34 | NUR ---
ED Nurse Note: pt brought in to CT by a tech in stable condition.
--- NOTE | 2019-08-31 17:45 | NUR ---
ED Nurse Note: pt came back from CT in stable condition.
--- NOTE | 2019-08-31 17:50 | Diagnostic Imaging Report ---
Indication: Headache Technique: Contiguous 5 mm thick transaxial imaging of the head obtained in a Siemens Sensation [address] scanner. Soft tissue and bone windows generated. Automatic Exposure Control was utilized. Total Dose length Product (DLP): 1045.5mGycm CT Dose Index Volume (CTDIvol): 53.4 mGy Comparison: none Findings: There is mild prominence of the ventricles, basal cisterns, and cerebral sulci consistent with atrophy. Mild, nonspecific, white matter hypoattenuation is noted throughout the brain consistent with chronic small vessel disease. There is no midline shift, edema, acute hemorrhage, mass effect, or abnormal extra-axial fluid collections. Bones are unremarkable. Impression: No acute intracranial bleed, mass effect or edema. Mild atrophy of the brain. Nonspecific white matter hypoattenuation probably due to chronic small vessel disease. [facility] has communicated the preliminary results to the Emergency Department. Their findings are largely concordant with this report. The CT scanner at [facility] is accredited by the [employer] and the scans are performed using dose optimization techniques as appropriate to a performed exam including Automatic Exposure control.
--- NOTE | 2019-08-31 19:26 | NUR ---
HAND-OFF: Report given to MAXIMINO Dey. no orders to carry at this time. IV removed by pt and needs to be reinserted if needed.
--- NOTE | 2019-08-31 19:40 | NUR ---
ED Nurse Note: received patient from Zuhair Medley RN. patient offered nourishment. sleeping soundly. will continue to monitor
--- NOTE | 2019-08-31 20:45 | NUR ---
HAND-OFF: Report given to Zuhair Bauman RN.
--- NOTE | 2019-08-31 21:12 | NUR ---
ED Nurse Note: patient ambulated to the bathroom in steady gait
--- NOTE | 2019-08-31 21:21 | Emergency Room Report ---
History of Present Illness General Chief Complaint: Back Pain-No Injury Source: EMS (Violeta Irizarry) Present Illness HPI 49-year-old male with history of schizophrenia and encephalopathy who was recently hospitalized at [facility] for encephalopathy and got discharged yesterday here brought in by paramedics. She arranged due to bizarre behavior. Patient denies any head injury or loss of consciousness. Patient is not a good historian, does not make any sense when he speaks. No signs of trauma noted. Originally complains of back pain. Patient starts walking the hallway, and having bizarre behavior however after administration of Haldol and Ativan patient was no longer acting bizarrely. (Violeta Irizarry) Allergies: Coded Allergies: No Known Allergies (Unverified , 06/01/19) Patient History Past Medical History: see triage record Past Surgical History: none Family History: none Immunizations: UTD Reviewed Nursing Documentation: PMH: Agreed; PSxH: Agreed (Violeta Irizarry) Nursing Documentation-PMH Past Medical History: No History, Except For Hx Cardiac Problems: No Hx Hypertension: Yes Hx Diabetes: Yes Hx Cancer: No Hx Gastrointestinal Problems: No Hx Neurological Problems: Yes - anxiety, metabolic encephalopathy Hx Cerebrovascular Accident: Yes Hx Seizures: Yes (Violeta Irizarry) Review of Systems All Other Systems: negative except mentioned in HPI (Violeta Irizarry) Physical Exam Vital Signs Date Time Temp Pulse Resp B/P (MAP) Pulse Ox O2 Delivery O2 Flow Rate FiO2 08/31/19 14:59 98.4 80 17 131/86 (101) 99 Room Air Sp02 EP Interpretation: reviewed, normal General Appearance: GCS 15, non-toxic Head: atraumatic Eyes: PERRL, lids + conjunctiva normal ENT: hearing intact, no angioedema Neck: supple/symm/no masses, no meningismus Respiratory: effort normal, no wheezing, chest symmetrical Cardiovascular: regular rate, rhythm, no edema Gastrointestinal: non-tender, no mass Musculoskeletal: gait & station normal Neurologic: oriented x3, sensory intact, normal speech Psychiatric: other - Delirious Skin: normal inspection, normal palpation Lymphatic: normal inspection (Violeta Irizarry) Medical Decision Making PA Attestation All my diagnosis and treatment plans were reviewed ad discussed with my supervising physician Dr. Gomez (Violeta Irizarry) Diagnostic Impression: Primary Impression: Schizophrenia Additional Impression: Bizarre behavior ER Course 49-year-old male with history of schizophrenia and encephalopathy who was recently hospitalized at [facility] for encephalopathy and got discharged yesterday here brought in by paramedics. She arranged due to bizarre behavior. Patient denies any head injury or loss of consciousness. Patient is not a good historian, does not make any sense when he speaks. No signs of trauma noted. Originally complains of back pain. Patient starts walking the hallway, and having bizarre behavior however after administration of Haldol and Ativan patient was no longer acting bizarrely. Ddx considered but are not limited to: generalized anxiety disorder, panic attack, depression with psychotic feature, bipolar disorder, drug overdose Vital signs: are WNL, pt. is afebrile H&PE are most consistent with: Schizophrenia ORDERS: CBC, CMP, UA, PT and PTT, tox screen, EtOH levels, head CT no contrast ED INTERVENTIONS: Ativan and Haldol Patient is medically cleared, to be transferred to a psychiatric facility (Violeta Irizarry) ER Course patient evaluated by BARI Irizarry. Patient had been just discharged from hospital for encephalopathy. During that time psychiatric evaluation showed significant psychosis. Labs here are unremarkable. Patient remained agitated and wandering. Patient was restrained and given Haldol/Ativan. There was improved cognition after that. CT head negative. Patient does remain gravely disabled and not safe for discharge at this time. Discussed with admitting physician and psychiatrist and will attempt to arrange transfer to psychiatric facility (Jose Alfredo Gomez MD) CT/MRI/US Diagnostic Results CT/MRI/US Diagnostic Results : Imaging Test Ordered: Head CT no contrast Impression Within normal limits, no change in comparison to the CT scan that was done on 14 August 2019 (Violeta Irizarry) Last Vital Signs Date Time Temp Pulse Resp B/P (MAP) Pulse Ox O2 Delivery O2 Flow Rate FiO2 08/31/19 21:11 97.5 62 16 99/62 97 Room Air Status: improved (Violeta Irizarry) Status: improved (Jose Alfredo Gomez MD) Disposition: XFER TO PSYCH HOSP/UNIT Condition: Serious Referrals: NOT CHOSEN IPA/MD,REFERRING (PCP) Violeta Irizarry Aug 31, 2019 21:21 Jose Alfredo Gomez MD Aug 31, 2019 22:07
--- NOTE | 2019-08-31 23:50 | NUR ---
ED Nurse Note: provided patient with nourishment upon request.
--- NOTE | 2019-09-01 00:31 | NUR ---
ED Nurse Note: gave report to Janeen at [facility].
--- NOTE | 2019-09-01 00:33 | NUR ---
ED Nurse Note: gave report to June Baker from [facility].
[2019-09-01 00:40] VITALS: BP 116/76
--- NOTE | 2019-09-01 00:40 | NUR ---
TRANSFER TO FLOOR: Patient transferred to [facility] via [facility] in stable condition as ordered, per dr Rosenberg. Report given to Janeen STANTON at [place] [facility] with [facility]. Belongings sent with patient.
== END 2019-09-01 00:40 ==
LOC: EDBD 15:10 → EMR 20:05
DX: F20.9 Schizophrenia, unspecified (principal); R46.89 Other symptoms and signs involving appearance and behavior; I10 Essential (primary) hypertension; E11.9 Type 2 diabetes mellitus without complications; F41.9 Anxiety disorder, unspecified; Z86.73 Personal history of transient ischemic attack (TIA), and cerebral infarction without residual deficits; R51 Headache; G31.9 Degenerative disease of nervous system, unspecified
CPT/HCPCS: 36415; 70450; 80053; 80307; 81003; 82140; 85025; 96372; 99284; G0480; J1630